=== PATIENT | female | born 1990 | race Caucasian/White ===

== ENCOUNTER 2023-03-23 12:46 | Outpatient (OUT) | payer BC, SELFPAY ==
--- NOTE | 2023-03-23 12:47 | US_ITS ---
[address] [address] Patient Name: VERA CONTRERAS MRN: [id number] date: 1990 Sex: F Assigned Patient Location: US Current Patient Location: US Accession/Order Number: [id number] Exam Date: 03/23/2023 12:48 Report Date: 03/23/2023 15:29 At the request of: KRISTIAN MARIN Procedure: US OB transvaginal EXAMINATION: US OB transvaginal HISTORY: MISSED MENSES COMPARISON: No relevant comparison available. FINDINGS: GESTATIONAL SAC: Present and normal appearing. YOLK SAC: Present and normal appearing. POLE: Present and normal appearing. CARDIAC: Present. UTERUS: Normal size and appearance. OVARIES: Right: Not seen. Left: Not seen. CERVIX: 5.0 cm in length and closed. CUL-DE-SAC: Normal. OTHER: None. AGE BY LMP: 9 weeks 0 days ROSY BY LMP: 10/26/2023 AGE BY US CRL: 9 weeks 2 days ROSY BY US CRL: 10/24/2023 US/US OB transvaginal IMPRESSION: 1. Single live intrauterine . Electronically authenticated by: KODY FRANK Date: 03/23/2023 15:29
== END 2023-03-23 12:47 | disposition home or self-care (01) ==
LOC: US 12:46
PROVIDERS: Visit Provider Obstetrics & Gynecology
DX: Z34.91 Encounter for supervision of normal pregnancy, unspecified, first trimester (principal); Z3A.09 9 weeks gestation of pregnancy
CPT/HCPCS: 76817

== ENCOUNTER 2023-03-30 12:16 | Outpatient (OUT) | payer BC, SELFPAY ==
[2023-03-30 13:08] LABS: Estimated Average Glucose 123 mg/dL; Glycohemoglobin A1C 5.9 % (4.5-6.2)
[2023-03-30 13:12] LABS: Basophils Absolute Auto 0.1 10^3/uL (0.0-0.1); Basophils Percent Auto 0.4 % (0.2-2.0); Eosinophils Absolute Auto 0.1 10^3/uL (0.0-0.7); Eosinophils Percent Auto 0.6 % (0.9-7.0); Hematocrit 35.3 % (36.0-48.0); Hemoglobin 11.7 g/dL (12.0-16.0); Immature Granulocytes Abs Auto 0.02 10^3/uL (0.00-0.03); Immature Granulocytes Pct Auto 0.2 % (0.0-0.5); Lymphocytes Absolute Auto 2.4 10^3/uL (1.2-3.8); Lymphocytes Percent Auto 21.3 % (20.5-60.0); Mean Corpuscular HGB Conc 33.1 g/dL (29.9-35.2); Mean Corpuscular Hemoglobin 28.7 pg (26.7-34.0); Mean Corpuscular Volume 86.5 fL (81.0-99.0); Mean Platelet Volume 9.7 fL (9.5-13.5); Monocytes Absolute Auto 0.7 10^3/uL (0.3-0.8); Monocytes Percent Auto 6.3 % (1.7-12.0); Neutrophils Absolute Auto 7.9 10^3/uL (1.4-6.5); Neutrophils Percent Auto 71.2 % (43.0-75.0); Platelet Count 402 10^3/uL (150-450); Red Blood Count 4.08 10^6/uL (4.20-5.40); Red Cell Distribution Width 13.1 % (11.0-15.0); White Blood Count 11.2 10^3/uL (4.0-11.0)
[2023-03-30 13:41] LABS: BOX Test Sent Out Y
[2023-03-31 06:09] LABS: HBsAg Screen Negative (Negative); HCV Ab Non Reactive (Non Reactive); HIV Ab/p24 Ag Screen Non Reactive (Non Reactive); Rubella Antibodies, IgG 2.62 index (Immune >0.99)
[2023-03-31 12:09] LABS: Rapid Plasma Reagin, Quant Non Reactive titer (NonRea<1:1)
== END 2023-03-30 12:17 | disposition home or self-care (01) ==
PROVIDERS: PCP Family Medicine; Visit Provider Obstetrics & Gynecology
DX: N92.6 Irregular menstruation, unspecified (principal); Z36.0 Encounter for antenatal screening for chromosomal anomalies
CPT/HCPCS: 36415; 83036; 84443; 85025; 86592; 86762; 86803; 86850; 86900; 86901; 87086; 87340; 87389

== ENCOUNTER 2023-05-23 08:59 | Outpatient (OUT) | payer BC, SELFPAY ==
--- OUTSIDE RECORDS SUMMARY | 2023-05-23 09:02 | XMS_ITS | CCD ---
Author Name Unknown Address [address] [place] [address] Organization [facility] Care Team Providers Care Outside Property Agent Name Role Phone REQUEST, DR NONE LISTED Primary Care Unavaila katarzyna MARIN, DR TOWNSEND Consulting Unavailable TOMAS, DR TOWNSEND Attending Unavailable TOMAS, DR TOWNSEND Admitting Unavailable Linda Keith Unavailable Norris Ames Jr. Unavailable [phone] Norris Ames Unavailable Kamilah Nance Unavailable KRISTIAN MARIN Attending Unavailable Medications Current Medications Medication Drug Class(es) Dates Sig (Normalized) Sig (Original) 3 ML semaglutide 1.34 MG/ML Pen Injector [Ozempic] (3 sources) Start: 04-30-2021 inject 1 mg by subcutaneous injection every week Ozempic (1 MG/DOSE) 4 MG/3ML 1 mg as directed Subcutaneous weekly for 30 days Apr, Active [id number] 200 actuat albuterol 0.09 mg/actuat metered dose inhaler (1 source) beta2-Adrenergic Agonist Start: 04-10-2022 take 2 puff(s) by inhalation every four hours as needed Albuterol Sulfate HFA 108 (90 Base) MCG/ACT 2 puffs as needed Inhalation every 4 hrs Mar, Active ibuprofen 800 mg oral tablet (1 source) Nonsteroidal Anti-inflammatory Drug take 1 tablet by mouth every eight hours at mealtime as needed Ibuprofen 800 MG 1 tablet with food or milk as needed Orally every 8 hrs prn only Active 24 hr metFORMIN hydrochloride 500 mg extended release oral tablet (7 sources) Biguanide take 4 tablets by mouth every twenty-four hours metFORMIN HCl ER 500 MG 4 tablets p.o. qd Active take 3 tablets by mo [facility] once daily, then take 4 tablets by mouth once daily at mealtime metFORMIN HCl ER 500 MG TAKE 3 TABLETS B Y MOUTH DAILY FOR 2 WEEKS AND IF NO SIDE EFFECTS GO TO 4 TABLETS DAILY WITH A MEAL for 30 Active methylPREDNISolone 4 mg oral tablet (1 source) Corticosteroid Start: 04-10-2022 methylPREDNISolone 4 MG as directed Orally Once a day for 6 days Mar, Active phentermine hydrochloride 37.5 mg oral tablet (2 sources) Sympathomimetic Amine Anorectic Start: 10-08-2020 take 1 tablet by mouth every twenty-fou r hours Phentermine HCl 37.5 MG 1 tablet Orally Once a day for 24 days Sep, Active 0.25 mg, 0.5 mg dose 1.5 ml semaglutide 1.34 mg/ml pen injector (4 sources) Start: 01-12-2021 Ozempic (0.25 or 0.5 MG/DOSE) 2 MG/1.5ML 0.25 mg for one month and then increase to 0.5 mg dose Subcutaneous weekly for 30 days Dec, Active 24 hr venlafaxine 150 mg extended release oral capsule (8 sources) Serotonin and Norepinephrine Reuptake Inhibitor take 1 capsule by mouth every twenty-fou r hours Effexor XR 150 MG 1 capsule with food Orally Once a day Active Vitamin B12 TR 1000 MCG (5 sources) Start: 02-25-2021 take 1 tablet by mouth once daily Vitamin B12 TR 1000 MCG 1 tablet Orally Once a day Feb, Active Start: 02-25-2021 take 1 tablet by mouth once da cam Vitamin B12 TR 1000 MCG 1 tablet Orally Once a day for 30 day(s) Feb, Active Problems Active Problems Problem Classification Problem Date Documented Da te Episodic/Chronic Anxiety disorders (10 sources) Mixed anxiety and depressive disorder; Translations: [Other specified anxiety disorders] Onset: 1 Resolved: 2 Chronic Chronic obstructive pulmonary disease and bronchiectasis (1 source) Bronchitis, not specified as acute or chronic Episodic Disorders of lipid metabolism (10 sources) Mixed hyperlipidemia; Translations: [Mixed hyperlipidemia] Onset: 1 Resolved: 2 Chronic Esophageal disorders (5 sources) Gastroesophageal reflux disease; Translations: [Gastro-esophageal reflux disease without esophagitis] Onset: 2 Resolved: 2 Chronic Immunizations and screening for infectious disease (2 sources) Encounter for screening for human papillomavirus (HPV); Translations: [Contact with and (suspected) exposure to other viral communicable diseases] Onset: 1 Episodic Influenza (1 source) Influenza due to other identified influenza virus with other respiratory manifestations Episodic Other endocrine disorders (8 sources) Polycystic ovaries; Translations: [Polycystic ovarian syndrome] Chronic Other endocrine disorders (2 sources) Polycystic ovarian syndrome Onset: 1 Resolved: 2 Chronic Other gastrointestinal disorders (8 sources) Constipation; Translations: [Constipation, unspecified] Episodic Other nutritional; endocrine; and metabolic disorders (16 sources) Body mass index 40+ - severely obese; Translations: [Body mass index (BMI) 40.0-44.9, adult] Chronic Other nutritional; endocrine; and metabolic disorders (8 sources) Obesity; Translations: [Obesity, unspecified] Chronic Other nutritional; endocrine; and metabolic disorders (8 sources) Insulin resistance; Translations: [Metabolic syndrome] Chronic Other nutritional; endocrine; and metabolic disorders (2 sources) Obesity, unspecified; Translations: [Obesity, unspecified classification, unspecified obesity type, unspecified whether serious comorbidity present E66.9] Onset: 1 Resolved: 1 Chronic Other nutritional; endocrine; and metabolic disorders (4 sources) Body mass index (BMI) 40.0-44.9, adult; Translations: [BMI 40.0-44.9, adult Z68.41] Onset: 1 Resolved: 2 Chronic Other screening for suspected conditions (not mental disorders or infectious disease) (4 sources) Encounter for screening for malignant neoplasm of cervix; Translations: [ENC SCREENING MALIG NEOPLASM CERV] Onset: 1 Episodic Other upper respiratory infections (1 source) Acute pharyngitis, unspecified Episodic Past or Other Problems Problem Classification Problem Date Documented Da te Episodic/Chronic Diabetes mellitus without complication (2 sources) Prediabetes Onset: 02-25-2021 Resolved: 04-30-2021 Episodic Nutritional deficiencies (2 sources) Deficiency of other specified B group vitamins Onset: 02-25-2021 Resolved: 04-30-2021 Episodic Viral infection (1 source) COVID-19 Results Test Name Value Interpretation Reference Range Facility COVID + FLU Quick Testingon 04-10-2022 SARS-CoV-2 (COVID-19) RNA NANCY+probe Ql (Unsp spec) Positive [facility] [employer] Other COVID + FLU Quick Testing Positive [facility] Other Quick Strepon 04-10-2022 S. pyogenes Org specific cx Ql (Throat) Negative [facility] [employer] Other Quick Strep [facility] [employer] Other A1C with Estimated Average G luon 04-28-2021 Glucose [Mass/Vol] 108 mg/dL Normal [facility] Comment on above: Order Comment: Reaso n for Exam Prediabetes Result Comment: PERF ORMED BY: [place] [address] PATHOLOGIST CUFF SETTER THEO CHU M.D. Performed By: #### A 1C WTH eA, LIPID, GLU, B12 #### [facility] [address] [place] [address] HbA1c (Bld) [Mass fraction] 5.4 % Normal 4.3-5.6 [facility] Comment on above: Order Comment: Reaso n for Exam Prediabetes Result Comment: Incr eased risk for diabetes: 5.7 - 6.4 diabetes: >6.4 glycemic control for adults with diabetes: <7.0 Performed By: #### A 1C WTH eA, LIPID, GLU, B12 #### [facility] [address] [place] [address] Glucoseon 04-28-2021 Glucose [Mass/Vol] 97 mg/dL Normal 70-100 [facility] Comment on above: Order Comment: Reaso n for Exam Prediabetes Reason for Exam Mixed hyperlipidemia Reason for Exam Low vitamin B12 level Result Comment: [place] Glucose Reference Range is dependent on time and content of last meal. Glucose of more than 200 mg/dL in a nonstressed, ambulatory subject supports the diagnosis of Diabetes Mellitus. ADA recommended reference range Performed By: #### A 1C WTH eA, LIPID, GLU, B12 #### [facility] [address] [place] [address] [place] Lipid Panelon 04-28-2021 Cholesterol [Mass/Vol] 171 mg/dL Normal 140-200 [facility] Comment on above: Order Comment: Reaso n for Exam Prediabetes Reason for Exam Mixed hyperlipidemia Reason for Exam Low vitamin B12 level Result Comment: Chol less than 200 mg/dl low risk Chol 201-239 mg/dl borderline risk Chol 240 mg/dl and greater high risk Performed By: #### A 1C WTH eA, LIPID, GLU, B12 #### [facility] [address] [place] [id number] [place] Cholesterol in HDL [Mass/Vol] 41 mg/dL Normal 35-85 [facility] Comment on above: Order Comment: Reaso n for Exam Prediabetes Reason for Exam Mixed hyperlipidemia Reason for Exam Low vitamin B12 level Result Comment: HDL CHOL ATP-III CLASSIFICATION Cardiovascular Risk HDL > or equal to 60 mg/dL LOW HDL < 40 mg/dL HIGH Performed By: #### A 1C WTH eA, LIPID, GLU, B12 #### [facility] [address] [place] [id number] [place] Cholesterol.total/ Cholesterol in HDL [Mass ratio] 4.2 {ratio} Normal <5.0 [facility] Comment on above: Order Comment: Reaso n for Exam Prediabetes Reason for Exam Mixed hyperlipidemia Reason for Exam Low vitamin B12 level Performed By: #### A 1C WTH eA, LIPID, GLU, B12 #### [facility] [address] [place] [id number] [place] LDL Cholesterol,Calcul ated 95 mg/dL Normal 0-100 [facility] Comment on above: Order Comment: Reaso n for Exam Prediabetes Reason for Exam Mixed hyperlipidemia Reason for Exam Low vitamin B12 level Result Comment: LDL ATP III CLASSIFICATION LDL less than 100 mg/dL Optimal LDL 100-129 mg/dL Near or above optimal LDL 130-159 mg/dL Borderline high LDL 160-189 mg/dL High LDL greater than 189 mg/dL Very high Performed By: #### A 1C WTH eA, LIPID, GLU, B12 #### [facility] [address] [place] [id number] [place] Triglyceride w/Reflex 176 mg/dL High 35-149 [facility] Comment on above: Order Comment: Reaso n for Exam Prediabetes Reason for Exam Mixed hyperlipidemia Reason for Exam Low vitamin B12 level Result Comment: TRIG ATP III CLASSIFICATION TRIG less than 150 mg/dL Normal TRIG 150-199 mg/dL Borderline high TRIG 200-500 mg/dL High TRIG greater than 500 mg/dL Very high Standard traceable to the Center for Disease Conrtrol and Prevention (CDC) test method. Performed By: #### A 1C WTH eA, LIPID, GLU, B12 #### [facility] [address] VLDL CHOLESTEROL 35 mg/dL Normal [facility] Comment on above: Order Comment: Reaso n for Exam Prediabetes Reason for Exam Mixed hyperlipidemia Reason for Exam Low vitamin B12 level Performed By: #### A 1C WTH eA, LIPID, GLU, B12 #### [facility] [address] Vitamin B12on 04-28-2021 Cobalamin (Vitamin B12) [Mass/Vol] 633 pg/mL Normal 180-914 [facility] Comment on above: Order Comment: Reaso n for Exam Prediabetes Reason for Exam Mixed hyperlipidemia Reason for Exam Low vitamin B12 level Result Comment: PERF ORMED BY: [place] [address] PATHOLOGIST CUFF SETTER THEO CHU M.D. Performed By: #### A 1C WT eA, LIPID, GLU, B12 #### [facility] [address] [place] [address] PAP ACOG PANEL 2: 30 to 65on 03-16-2021 . . Normal [facility] Comment on above: Result Comment: Perf ormed at: WB Performed By: #### [id number] #### [facility] [address] [place] [address] [address] Tete Peters Age Gdln ACOG Testing 30-65 [facility] Comment on above: Performed By: #### [id number] #### [facility] [address] [address] [address] Tete Peters DIAGNOSIS: Comment Normal [facility] Comment on above: Result Comment: NEGA TIVE FOR INTRAEPITHELIAL LESION OR MALIGNANCY. THIS SPECIMEN WAS RESCREENED PART OF OUR SUPERVISOR PREP PROGRAM. Performed at: WB Performed By: #### [id number] #### [facility] [address] [place] [address] Dr. Tete Peters HPV Aptima Negative Normal Negative [facility] Comment on above: Result Comment: This nucleic acid amplification test detects fourteen high-risk HPV types (16,18,31,33,35,39,45,51,52,56,58,59,66,68) without differentiation. Performed at: =G Performed By: #### [id number] #### [facility] [address] [place] [address] Dr. Tete Peters Methodology: Comment Normal [facility] Comment on above: Result Comment: This liquid based ThinPrep(R) pap test was screened with the use of an image guided system. Performed at: WB Performed By: #### [id number] #### [facility] [address] [place] [address] Dr. Tete Peters Note: Comment Normal [facility] Comment on above: Result Comment: The Pap smear is a screening test designed to aid in the detection of premalignant and malignant conditions of the uterine cervix. It is not a diagnostic procedure and should not be used as the sole means of detecting cervical cancer. Both false-positive and false-negative reports do occur. . Performed at: WB Performed By: #### [id number] #### [facility] [address] [place] [address] Dr. Tete Peters Performed by: Comment Normal [facility] Comment on above: Result Comment: Luisa Ross, Skidway Worker (ASCP) Performed at: WB Performed By: #### [id number] #### [facility] [address] [place] [address] Dr. Tete Peters QC reviewed by: Comment Normal [facility] Comment on above: Result Comment: Monika Ortiz, Supervisory Skidway Worker (ASCP) Performed at: WB Performed By: #### [id number] #### [facility] [address] [place] [address] Dr. Tete Peters Specimen adequacy: Comment Normal [facility] Comment on above: Result Comment: Sati sfactory for evaluation. Endocervical and/or squamous metaplastic cells (endocervical component) are present. Performed at: WB Performed By: #### [id number] #### [facility] [address] [address] [address] Tete Peters Vitamin B12on 01-12-2021 Cobalamin (Vitamin B12) [Mass/Vol] 297 pg/mL Normal 180-914 [facility] Comment on above: Order Comment: Reaso n for Exam Prediabetes Result Comment: PERF ORMED BY: [place] [address] PATHOLOGIST CUFF SETTER THEO CHU M.D. Performed By: #### B 12 #### [address] FILM OR VIDEOTAPE EDITOR polysom portableon 11-16 FILM OR VIDEOTAPE EDITOR polysom portable [facility] Main [place] [address] [place] [address] Sleep Lab Report Signed Patient: Marina Contreras MR#: [id number] : 1990 Acct:[id number] Age/Sex: 30 / F ADM Date: 11/09/20 Loc: Room: Type: [facility] Attending Dr: Anne Marie Mejía MD Ordering Provider: Norris Ames MD Date of Service: 11/09/20 Copies to: MD Anne Marie Chacon MD Marc Naderer, MD A home sleep study was done on this 30-year-old female who was referred to the sleep laboratory by primary care physician due to her report of snoring, sleep disruption, fatigue and sleepiness during the day. Patient is overweight with a BMI of 44. PROCEDURE: Home sleep testing was done in the usual manner. A home sleep test was performed utilizing the [employer] Nox T3 system. Parameters recorded include actigraphy, body position, oxygen saturations, heart rate, snoring via microphone, and respiratory events on the basis of measurements of airflow/flow limitation, as well as respiratory impedance plethysmography. Respiratory events were scored as apneas with decreases of airflow of at least 90% baseline with durations of at least 10 seconds while events were scored as hypopneas with decreases of airflow of at least 30% and up to 90% of baseline with durations of at least 10 seconds, followed by desaturations of at least 4%. RECORDING INFORMATION: The patient had a total of 7 hours of recording duration. Study started at 11:30 p.m. and ended at 6:30 a.m. Time in bed was 5 hours and 6 minutes. RESPIRATORY INDICES: During the study, patient had 3 obstructive apneas, 1 central apnea, and 27 hypopneas. Apnea-hypopnea index was 6.1 per hour. Supine AHI was 10.8 per hour. These events were associated with mild oxygen desaturations. Minimum oxygen saturation was 87%. Average oxygen saturation was 94%. Position monitoring showed patient being in the supine time for only 9.3% of recording time, was upright for 27% of the recording time. OVERALL IMPRESSION: This study is consistent with mild obstructive sleep apnea associated with mild hypoxia. RECOMMENDATIONS: Appropriate weight reduction is strongly recommended, trial of CPAP therapy is also recommended given her clinical symptoms and presentation. This can be done following titration study or with automated settings and close monitoring after that. Transcribed By: GERDA 11/17/20 1309 Dictated By: Anne Marie Mejía MD 11/16/20 1542 Signed By: 11/18/20 0812 [facility] Vital Signs Date Time Vital Sign Value Performing Clinician Facility 04-10-2022 14:00-0500 Body height 157.48 cm Kamilah Nance Other [facility] Other 04-10-2022 14:00-0500 Body mass index (BMI) [Ratio] 44.92 kg/m2 Kamilah Nance Other [facility] Other 04-10-2022 14:00-0500 Body temperature 99.5 [degF] Kamilah Nance Other [facility] Other 04-10-2022 14:00-0500 Body weight 111.4 kg Kamilah Nance Other [facility] Other 04-10-2022 14:00-0500 Diastolic blood pressure 68 mm[Hg] Kamilah Nance Other [facility] Other 04-10-2022 14:00-0500 Respiratory rate 18 /min Kamilah Nance Other [facility] Other 04-10-2022 14:00-0500 SaO2% (BldA) [Mass fraction] 95 % Kamilah Nance Other [facility] Other 04-10-2022 14:00-0500 Systolic blood pressure 116 mm[Hg] Kamilah Nance Other [facility] Other 04-30-2021 10:45-0500 Body height 157.48 cm Norris Byrnediff Other [facility] Other 04-30-2021 10:45-0500 Body mass index (BMI) [Ratio] 41.72 kg/m2 Norris Byrnediff Other [facility] Other 04-30-2021 10:45-0500 Body weight 103.47 kg Norris Kwaku Other [facility] Other 04-30-2021 10:45-0500 Diastolic blood pressure 75 mm[Hg] Norris Kwaku Other [facility] Other 04-30-2021 10:45-0500 Respiratory rate 18 /min Norris Byrnediff Other [facility] Other 04-30-2021 10:45-0500 SaO2% (BldA) [Mass fraction] 99 % Norris Byrnediff Other [facility] Other 04-30-2021 10:45-0500 Systolic blood pressure 110 mm[Hg] Norris Byrnediff Other [facility] Other 03-03-2021 11:30-0500 Body height 157.48 cm Linda Fitt Other [facility] Other 03-03-2021 11:30-0500 Body mass index (BMI) [Ratio] 42.5 kg/m2 Linda Fitt Other [facility] Other 03-03-2021 11:30-0500 Body weight 105.42 kg Linda Fitt Other [facility] Other 02-25-2021 12:00-0400 Body height 157.48 cm Norris Byrnelyndsey Yan. Other [facility] Other 02-25-2021 12:00-0400 Body mass index (BMI) [Ratio] 41.92 kg/m2 Norris Byrnelyndsey Yan. Other [facility] Other 02-25-2021 12:00-0400 Body weight 103.97 kg Norris Kwaku Jr. Other [facility] Other 02-25-2021 12:00-0400 Diastolic blood pressure 79 mm[Hg] Norris Ames Jr. Other [facility] Other 02-25-2021 12:00-0400 Respiratory rate 18 /min Norris Ames Jr. Other [facility] Other 02-25-2021 12:00-0400 SaO2% (BldA) [Mass fraction] 97 % Norris Ames Jr. Other [facility] Other 02-25-2021 12:00-0400 Systolic blood pressure 118 mm[Hg] Norris Ames Jr. Other [facility] Other 01-20-2021 10:00-0400 Body height 157.48 cm Linda Swidjit Other [facility] Other 01-20-2021 10:00-0400 Body mass index (BMI) [Ratio] 42.68 kg/m2 Linda Fitt Other [facility] Other 01-20-2021 10:00-0400 Body weight 105.87 kg Linda Agentekt Other [facility] Other Encounters Encounter Date Encounter Type Care Provider Facility Start: 05-01-2023 End: 05-01-2023 ambulatory KRISTIAN TOMAS Not Available Start: 03-23-2023 End: 03-23-2023 ambulatory KRISTIAN TOMAS Not Available Start: 04-10-2022 End: 04-10-2022 ambulatory Kamilah Nance Other [facility] Other Start: 04-10-2022 Office outpatient visit 15 minutes Kamilah Nance [facility] Start: 05-26-2021 End: 05-26-2021 ambulatory Norris Ames Other [facility] Other Start: 05-26-2021 Telephone encounter Norris [facility] Start: 04-30-2021 End: 04-30-2021 ambulatory Norris Ames Other [facility] Other Start: 04-30-2021 Follow-up encounter Norris queen [facility] Start: 04-13-2021 End: 04-13-2021 ambulatory Linda Keith Other [facility] Other Start: 04-13-2021 Telephone encounter Linda Messina [facility] Start: 03-09-2021 End: 03-09-[address] NONE LISTED REQUEST Facility: Start: 03-03-2021 ([facility] FU) [facility] F/ U Registerd Director Data Processingsonja Keith [facility] Start: 03-03-2021 End: 03-03-2021 ambulatory Linda Keith Other [facility] Other Start: 02-25-2021 End: 02-25-2021 ambulatory Norris Ames Jr. Other [facility] Other Start: 02-25-2021 Follow-up encounter Norris howard [facility] Start: 02-04-2021 Telephone encounter Norris howard [facility] Start: 01-20-2021 ([facility] FU) [facility] F/ U Registerd Director Data Processingsonja Keith [facility] Payers Date Payer Category Payer [facility] [id number] 1990 Unknown [id number] 1990 Unknown [id number] 1990 Unknown [id number] 1960 Private Health Insurance [id number] Social History Date Type Detail Facility Unknown if ever smoked [facility] Other Sex Assigned At Sex Assigned At Bir th [facility] Other Evaluation note 04-10-2022 Note Date & Type Note Facility 04-10-2022 Evaluation note Encounter Date Diagnosis Assessment Notes Mar, COVID-19 (ICD-10 - U07.1) Today you tested positive for the COVID virus. This mean you need to follow all CDC quarantine guidelines found at coronavirus.oh io.gov. It is important to rest, increase fluids, and stay at home. Recommend contacting primary care provider and discussing best course of action if you have chronic health conditions. COVID POSITIVE education handout discharge instructions. given. Mar, Bronchitis (ICD-10 - J40) Take medications as directed. Rest and increase fluid intake. Take meds with food to prevent stomach upset. Use inhaler as needed for coughing spells and SOB. It is better to use inhaler a few times a day over the next 2-3 days. Follow up with primary care provider if symptoms do not improve with treatment plan, although it may take a few weeks for the cough to go away Mar, Exposure to COVID-19 virus (ICD-10 - Z20.828) Mar, Sore throat (ICD-10 - J02.9) Mar, Influenza A (ICD-10 - J10.1) Symptoms presented today are related to the Flu. May use OTC medications such as Mucinex DM, Flu meds, etc. Kids can use Dimatapp or Delsym. Continue tylenol/ibu for general discomfort. Encourage fluids. Antibiotics will not treat the flu. Symptoms should improve within the next 4-7 days. [facility] Other Evaluation note 04-30-2021 Note Date & Type Note Facility 04-30-2021 Evaluation note Encounter Date Diagnosis Assessment Notes Apr, Body mass index (BMI) of 40.0-44.9 in adult (ICD-10 - Z68.41) Apr, Prediabetes (ICD-10 - R73.03) Apr, GERD (gastroesophageal reflux disease) (ICD-10 - K21.9) Apr, Mixed hyperlipidemia (ICD-10 - E78.2) Apr, PCOS (polycystic ovarian syndrome) (ICD-10 - E28.2) Apr, Depression with anxiety (ICD-10 - F41.8) Apr, Low vitamin B12 level (ICD-10 - E53.8) [facility] Other Evaluation note 03-03-2021 Note Date & Type Note Facility 03-03-2021 Evaluation note Encounter Date Diagnosis Assessment Notes Feb, Obesity, unspecified classification , unspecified obesity type, unspecified whether serious comorbidity present (ICD-10 - E66.9) Feb, BMI 40.0-44.9, adult (ICD-10 - Z68.41) Feb, Other Summary of Visit: (A) Allow for flexibility and forgiveness with nutritional goals (B) Discussed eating during the holidays (C) Answered general, nutrition-rela madelin questions [facility] Other Evaluation note 02-25-2021 Note Date & Type Note Facility 02-25-2021 Evaluation note Encounter Date Diagnosis Assessment Notes Feb, Body mass index (BMI) of 40.0-44.9 in adult (ICD-10 - Z68.41) Feb, Prediabetes (ICD-10 - R73.03) Feb, PCOS (polycystic ovarian syndrome) (ICD-10 - E28.2) Feb, Mixed hyperlipidemia (ICD-10 - E78.2) Feb, Depression with anxiety (ICD-10 - F41.8) Feb, Low vitamin B12 level (ICD-10 - E53.8) [facility] Other Evaluation note 01-20-2021 Note Date & Type Note Facility 01-20-2021 Evaluation note Encounter Date Diagnosis Assessment Notes Dec, Obesity, unspecified classification, unspecified obesity type, unspecified whether serious comorbidity present (ICD-10 - E66.9) Dec, BMI 40.0-44.9, adult (ICD-10 - Z68.41) Dec, Other Summary of Visit: (A) Emphasized 1/2 plate veggies with every meal (B) Discussed easy, healthy cooking methods (C) Answered general nutrition-rel ated questions [facility] Other Evaluation note Note Date & Type Note Facility Evaluation note No Information [employer] Other History general Narrative - Reported Note Date & Type Note Facility History general Narrative - Reported Type Medical History depression Medical History anxiety Medical History PCOS Medical History Panic attacks Medical History Insulin resistance Medical History migraine headache Medical History back pain Surgical History C section, X2 Surgical History appendectomy Hospitalization History see above [facility] Other Summary Purpose Family History No Family History Records FoundNo Family History Records FoundNo Family History Records Found Advance Directives No Advanced Directives Records FoundNo Advanced Directives Records FoundNo Advanced Directives Records Found Additional Source Comments INFORMATION SOURCE (unrecogn ized section and content) DATE CREATED AUTHOR 03/17/2021 [facility] DATE CREATED AUTHOR AUTHOR'S ORGANIZ ATION 10/28/2021 [facility] DATE CREATED AUTHOR AUTHOR'S ORGANIZ ATION 05/02/2023 [facility] d[facility] Specialists EPIC REASON FOR VISIT (unrecogniz ed section and content) CONGEST[facility] not [facility] our services [facility]/28[facility] N/S 04/13/2021, LM WM f/uWMN Dr Steele/DAGOBERTO EX FOR RECORDS PERTAINING TO PATIENTS WHO ARE OR HAVE BEEN ENROLLED IN A CHEMICAL DEPENDENCY/SUBSTANCEABUSE PROGRAM, SOME INFORMATION MAY BE OMITTED. This clinical summary was aggregated from multiple sources. Caution should be exercised in using it in the provision of clinical care. This summary normalizes information from multiple sources, and as a consequence, information in this document may materially change the coding, format and clinical context of patient data. In addition, data may be omitted in some cases. CLINICAL DECISIONS SHOULD BE BASED ON THE PRIMARY CLINICAL RECORDS. [employer] provides no warranty or guarantee of the accuracy or completeness of information in this document.
[2023-05-23 09:45] LABS: Glucose Fasting 100 mg/dL (74-106)
[2023-05-23 10:34] LABS: Glucose 1 Hour 191 mg/dL
[2023-05-23 11:44] LABS: Glucose 2 Hour 154 mg/dL (<155)
[2023-05-23 13:27] LABS: Glucose 3 Hour 136 mg/dL (<140)
== END 2023-05-23 09:00 | disposition home or self-care (01) ==
LOC: LAB 08:59
PROVIDERS: PCP Family Medicine; Visit Provider Obstetrics & Gynecology
DX: R73.09 Other abnormal glucose (principal)
CPT/HCPCS: 36415; 82951; 82952

== ENCOUNTER 2023-05-30 22:02 | Outpatient (REF) | payer BC, SELFPAY ==
--- OUTSIDE RECORDS SUMMARY | 2023-05-30 22:05 | XMS_ITS | CCD ---
Author Name Unknown Address [address] [place] [address] Organization [facility] Care Team Providers Care Film Flat Inspector Name Role Phone REQUEST, DR NONE LISTED Primary Care Unavaila katarzyna MARIN, DR TOWNSEND Consulting Unavailable TOMAS, DR TOWNSEND Attending Unavailable TOMAS, DR TOWNSEND Admitting Unavailable Linda Keith Unavailable Norris Ames Jr. Unavailable Norris Ames Unavailable Kamilah Nance Unavailable KRISTIAN MARIN Attending Unavailable Medications Current Medications Medication Drug Class(es) Dates Sig (Normalized) Sig (Original) 3 ML semaglutide 1.34 MG/ML Pen Injector [Ozempic] (3 sources) Start: 04-30-2021 inject 1 mg by subcutaneous injection every week Ozempic (1 MG/DOSE) 4 MG/3ML 1 mg as directed Subcutaneous weekly for 30 days Apr, Active [id number] actuat albuterol 0.09 mg/actuat metered dose [...] qd Active take 3 tablets by mo [facility] once daily, then take 4 [...] (COVID-19) RNA NANCY+probe Ql (Unsp spec) Positive [facility] [employer] Other COVID + FLU Quick Testing Positive [facility] Other Quick Strepon 04-10-2022 S. pyogenes Org specific cx Ql (Throat) Negative [facility] [employer] Other Quick Strep [facility] [employer] Other A1C with Estimated Average G luon 04-28-2021 Glucose [Mass/Vol] 108 mg/dL Normal [facility] Comment on above: Order Comment: Reaso n for Exam Prediabetes Result Comment: PERF ORMED BY: [place] [address] PATHOLOGIST SOIL AND PLANT SCIENTIST THEO CHU M.D. Performed By: #### A 1C WTH eA, LIPID, GLU, B12 #### [facility] [address] [place] [address] HbA1c (Bld) [Mass fraction] 5.4 % Normal 4.3-5.6 [facility] Comment on above: Order Comment: Reaso n for Exam Prediabetes Result Comment: Incr eased risk for diabetes: 5.7 - 6.4 diabetes: >6.4 glycemic control for adults with diabetes: <7.0 Performed By: #### A 1C WTH eA, LIPID, GLU, B12 #### [facility] [address] [place] [address] Glucoseon 04-28-2021 Glucose [Mass/Vol] 97 mg/dL Normal 70-100 [facility] Comment on above: Order Comment: Reaso n for Exam Prediabetes Reason for Exam Mixed hyperlipidemia Reason for Exam Low vitamin B12 level Result Comment: Ferdinand Glucose Reference Range is dependent on time and content of last meal. Glucose of more than 200 mg/dL in a nonstressed, ambulatory subject supports the diagnosis of Diabetes Mellitus. ADA recommended reference range Performed By: #### A 1C WTH eA, LIPID, GLU, B12 #### [facility] [address] [place] [address] [place] Lipid Panelon 04-28-2021 Cholesterol [Mass/Vol] 171 mg/dL Normal 140-200 [facility] Comment on above: Order Comment: Reaso n for Exam Prediabetes Reason for Exam Mixed hyperlipidemia Reason for Exam Low vitamin B12 level Result Comment: Chol less than 200 mg/dl low risk Chol 201-239 mg/dl borderline risk Chol 240 mg/dl and greater high risk Performed By: #### A 1C WTH eA, LIPID, GLU, B12 #### [facility] [address] [place] [id number] [place] Cholesterol in HDL [Mass/Vol] 41 mg/dL Normal 35-85 [facility] Comment on above: Order Comment: Reaso n for Exam Prediabetes Reason for Exam Mixed hyperlipidemia Reason for Exam Low vitamin B12 level Result Comment: HDL CHOL ATP-III CLASSIFICATION Cardiovascular Risk HDL > or equal to 60 mg/dL LOW HDL < 40 mg/dL HIGH Performed By: #### A 1C WTH eA, LIPID, GLU, B12 #### [facility] [address] [place] [id number] [place] Cholesterol.total/ Cholesterol in HDL [Mass ratio] 4.2 {ratio} Normal <5.0 [facility] Comment on above: Order Comment: Reaso n for Exam Prediabetes Reason for Exam Mixed hyperlipidemia Reason for Exam Low vitamin B12 level Performed By: #### A 1C WTH eA, LIPID, GLU, B12 #### [facility] [address] [place] [id number] [place] LDL Cholesterol,Calcul ated 95 mg/dL Normal 0-100 [facility] Comment on above: Order Comment: Reaso [...] 1C WTH eA, LIPID, GLU, B12 #### [facility] [address] [place] [id number] [place] Triglyceride w/Reflex 176 mg/dL High 35-149 [facility] Comment on above: Order Comment: Reaso [...] 1C WTH eA, LIPID, GLU, B12 #### [facility] [address] VLDL CHOLESTEROL 35 mg/dL Normal [facility] Comment on above: Order Comment: Reaso n for Exam Prediabetes Reason for Exam Mixed hyperlipidemia Reason for Exam Low vitamin B12 level Performed By: #### A 1C WTH eA, LIPID, GLU, B12 #### [facility] [address] Vitamin B12on 04-28-2021 Cobalamin (Vitamin B12) [Mass/Vol] 633 pg/mL Normal 180-914 [facility] Comment on above: Order Comment: Reaso n for Exam Prediabetes Reason for Exam Mixed hyperlipidemia Reason for Exam Low vitamin B12 level Result Comment: PERF ORMED BY: [place] [address] PATHOLOGIST SOIL AND PLANT SCIENTIST THEO CHU M.D. Performed By: #### A 1C WT eA, LIPID, GLU, B12 #### [facility] [address] [place] [address] PAP ACOG PANEL 2: 30 to 65on 03-16-2021 . . Normal [facility] Comment on above: Result Comment: Perf ormed at: WB Performed By: #### [id number] #### [facility] [address] [address] [address] Tete Peters Age Gdln ACOG Testing 30-65 [facility] Comment on above: Performed By: #### [id number] #### [facility] [address] [address] [address] Tete Peters DIAGNOSIS: Comment Normal [facility] Comment on above: Result Comment: NEGA TIVE FOR INTRAEPITHELIAL LESION OR MALIGNANCY. THIS SPECIMEN WAS RESCREENED PART OF OUR CHECKOUT SUPERVISOR PROGRAM. Performed at: WB Performed By: #### [id number] #### [facility] [address] [place] [address] Dr. Tete Peters HPV Aptima Negative Normal Negative [facility] Comment on above: Result Comment: This nucleic acid amplification test detects fourteen high-risk HPV types (16,18,31,33,35,39,45,51,52,56,58,59,66,68) without differentiation. Performed at: =G Performed By: #### [id number] #### [facility] [address] [place] [address] Dr. Tete Peters Methodology: Comment Normal [facility] Comment on above: Result Comment: This liquid based ThinPrep(R) pap test was screened with the use of an image guided system. Performed at: WB Performed By: #### [id number] #### [facility] [address] [place] [address] Dr. Tete Peters Note: Comment Normal [facility] Comment on above: Result Comment: The Pap smear is a screening test designed to aid in the detection of premalignant and malignant conditions of the uterine cervix. It is not a diagnostic procedure and should not be used as the sole means of detecting cervical cancer. Both false-positive and false-negative reports do occur. . Performed at: WB Performed By: #### [id number] #### [facility] [address] [place] [address] Dr. Tete Peters Performed by: Comment Normal [facility] Comment on above: Result Comment: Luisa Ross, Pig Breeder (ASCP) Performed at: WB Performed By: #### [id number] #### [facility] [address] [place] [address] Dr. Tete Peters QC reviewed by: Comment Normal [facility] Comment on above: Result Comment: Monika Ortiz, Supervisory Pig Breeder (ASCP) Performed at: WB Performed By: #### [id number] #### [facility] [address] [place] [address] Dr. Tete Peters Specimen adequacy: Comment Normal [facility] Comment on above: Result Comment: Sati sfactory for evaluation. Endocervical and/or squamous metaplastic cells (endocervical component) are present. Performed at: WB Performed By: #### [id number] #### [facility] [address] [address] [address] Tete Peters Vitamin B12on 01-12-2021 Cobalamin (Vitamin B12) [Mass/Vol] 297 pg/mL Normal 180-914 [facility] Comment on above: Order Comment: Reaso n for Exam Prediabetes Result Comment: PERF ORMED BY: [place] [address] PATHOLOGIST SOIL AND PLANT SCIENTIST THEO CHU M.D. Performed By: #### B 12 #### [address] RADIOLOGY ADMINISTRATOR polysom portableon 11-16 RADIOLOGY ADMINISTRATOR polysom portable [facility] [place] [address] [place] [address] Sleep Lab Report Signed Patient: Marina Contreras MR#: [id number] : 1990 Acct:[id number] Age/Sex: 30 / F ADM Date: 11/09/20 Loc: Room: Type: [facility] Attending Dr: Anne Marie Mejía MD Ordering [...] home sleep test was performed utilizing the [employer] T3 system. Parameters recorded include actigraphy, [...] Dictated By: Anne Marie Mejía MD 11/16/20 154 Signed By: 11/18/20 0822 [facility] Vital Signs Date Time Vital Sign Value Performing Clinician Facility 04-10-2022 14:00-0500 Body height 157.48 cm Kamilah Nance Other [facility] Other 04-10-2022 14:00-0500 Body mass index (BMI) [Ratio] 44.92 kg/m2 Kamilah Nance Other [facility] Other 04-10-2022 14:00-0500 Body temperature 99.5 [degF] Kamilah Nance Other [facility] Other 04-10-2022 14:00-0500 Body weight 111.4 kg Kamilah Nance Other [facility] Other 04-10-2022 14:00-0500 Diastolic blood pressure 68 mm[Hg] Kamilah Nance Other [facility] Other 04-10-2022 14:00-0500 Respiratory rate 18 /min Kamilah Nance Other [facility] Other 04-10-2022 14:00-0500 SaO2% (BldA) [Mass fraction] 95 % Kamilah Nance Other [facility] Other 04-10-2022 14:00-0500 Systolic blood pressure 116 mm[Hg] Kamilah Nance Other [facility] Other 04-30-2021 10:45-0500 Body height 157.48 cm Norris Byrnediff Other [facility] Other 04-30-2021 10:45-0500 Body mass index (BMI) [Ratio] 41.72 kg/m2 Norris Byrnediff Other [facility] Other 04-30-2021 10:45-0500 Body weight 103.47 kg Norris Kwaku Other [facility] Other 04-30-2021 10:45-0500 Diastolic blood pressure 75 mm[Hg] Norris Kwaku Other [facility] Other 04-30-2021 10:45-0500 Respiratory rate 18 /min Norris Byrnediff Other [facility] Other 04-30-2021 10:45-0500 SaO2% (BldA) [Mass fraction] 99 % Norris Byrnediff Other [facility] Other 04-30-2021 10:45-0500 Systolic blood pressure 110 mm[Hg] Norris Byrnediff Other [facility] Other 03-03-2021 11:30-0500 Body height 157.48 cm Linda Fitt Other [facility] Other 03-03-2021 11:30-0500 Body mass index (BMI) [Ratio] 42.5 kg/m2 Linda Fitt Other [facility] Other 03-03-2021 11:30-0500 Body weight 105.42 kg Linda Fitt Other [facility] Other 02-25-2021 12:00-0400 Body height 157.48 cm Norris Byrnelyndsey Yan. Other [facility] Other 02-25-2021 12:00-0400 Body mass index (BMI) [Ratio] 41.92 kg/m2 Norris Byrnelyndsey Yan. Other [facility] Other 02-25-2021 12:00-0400 Body weight 103.97 kg Norris Kwaku Jr. Other [facility] Other 02-25-2021 12:00-0400 Diastolic blood pressure 79 mm[Hg] Norris Ames Jr. Other [facility] Other 02-25-2021 12:00-0400 Respiratory rate 18 /min Norris Ames Jr. Other [facility] Other 02-25-2021 12:00-0400 SaO2% (BldA) [Mass fraction] 97 % Norris Ames Jr. Other [facility] Other 02-25-2021 12:00-0400 Systolic blood pressure 118 mm[Hg] Norris Ames Jr. Other [facility] Other 01-20-2021 10:00-0400 Body height 157.48 cm Linda Prosensa Other [facility] Other 01-20-2021 10:00-0400 Body mass index (BMI) [Ratio] 42.68 kg/m2 Linda Fitt Other [facility] Other 01-20-2021 10:00-0400 Body weight 105.87 kg Linda Planbust Other [facility] Other Encounters Encounter Date Encounter Type Care Provider Facility Start: 05-01-2023 End: 05-01-2023 ambulatory KRISTIAN TOMAS Not Available Start: 03-23-2023 End: 03-23-2023 ambulatory KRISTIAN TOMAS Not Available Start: 04-10-2022 End: 04-10-2022 ambulatory Kamilah Nance Other [facility] Other Start: 04-10-2022 Office outpatient visit 15 minutes Kamilah Nance [facility] Start: 05-26-2021 End: 05-26-2021 ambulatory Norris Ames Other [facility] Other Start: 05-26-2021 Telephone encounter Norris [facility] Start: 04-30-2021 End: 04-30-2021 ambulatory Norris Ames Other [facility] Other Start: 04-30-2021 Follow-up encounter Norris queen [facility] Start: 04-13-2021 End: 04-13-2021 ambulatory Linda Keith Other [facility] Other Start: 04-13-2021 Telephone encounter Linda [facility] Start: 03-09-2021 End: 03-09-[address] NONE LISTED REQUEST Facility: Start: 03-03-2021 ([facility] RD FU) [facility] F/ U [employer] Managersonja Keith [facility] Start: 03-03-2021 End: 03-03-2021 ambulatory Linda Keith Other [facility] Other Start: 02-25-2021 End: 02-25-2021 ambulatory Norris Ames Jr. Other [facility] Other Start: 02-25-2021 Follow-up encounter Norris howard [facility] Start: 02-04-2021 Telephone encounter Norris howard [facility] Start: 01-20-2021 ([facility] RD FU) [facility] F/ U [employer] Managersonja Keith [facility] Payers Date Payer Category Payer [facility] [id number] 1990 Unknown [id number] 1990 Unknown [id number] 1989 Unknown [id number] 1960 Private Health Insurance [id number] Social History Date Type Detail Facility Unknown if ever smoked [facility] Other Sex Assigned At Sex Assigned At Bir th [facility] Other Evaluation note 04-10-2022 Note Date & [...] should improve within the next 4-7 days. [facility] Other Evaluation note 04-30-2021 Note Date & [...] Low vitamin B12 level (ICD-10 - E53.8) [facility] Other Evaluation note 03-03-2021 Note Date & [...] holidays (C) Answered general, nutrition-rela madelin questions [facility] Other Evaluation note 02-25-2021 Note Date & [...] Low vitamin B12 level (ICD-10 - E53.8) [facility] Other Evaluation note 01-20-2021 Note Date & [...] methods (C) Answered general nutrition-rel ated questions [facility] Other Evaluation note Note Date & Type Note Facility Evaluation note No Information [employer] Other History general Narrative - Reported Note Date & Type Note Facility History general Narrative - Reported Type Medical History depression Medical History anxiety Medical History PCOS Medical History Panic attacks Medical History Insulin resistance Medical History migraine headache Medical History back pain Surgical History C section, X2 Surgical History appendectomy Hospitalization History see above [facility] Other Summary Purpose Family History No Family History Records FoundNo Family History Records FoundNo Family History Records Found Advance Directives No Advanced Directives Records FoundNo Advanced Directives Records FoundNo Advanced Directives Records Found Additional Source Comments INFORMATION SOURCE (unrecogn ized section and content) DATE CREATED AUTHOR [facility]/17/2021 [facility] DATE CREATED AUTHOR AUTHOR'S ORGANIZ ATION 10/28/2021 [facility] DATE CREATED AUTHOR AUTHOR'S ORGANIZ ATION 05/02/2023 [facility] dical Specialists EPIC REASON FOR VISIT (unrecogniz ed section and content) CON[facility]ST[facility] B[facility] 06/28/[facility] N/S 04/13/2021, LM WM f/uWMN Dr [...] BE BASED ON THE PRIMARY CLINICAL RECORDS. [employer] provides no warranty or guarantee of the accuracy or completeness of information in this document.
[2023-06-03 12:12] LABS: Age Gdln ACOG Testing Note (.); HPV Aptima Negative (Negative); IGP, Aptima HPV, rfx 16/18,45 Note (.)
== END 2023-05-30 22:03 | disposition home or self-care (01) ==
LOC: LAB 22:02
PROVIDERS: PCP Family Medicine; Visit Provider Obstetrics & Gynecology
DX: Z01.419 Encounter for gynecological examination (general) (routine) without abnormal findings (principal)
CPT/HCPCS: 87624; G0145

== ENCOUNTER 2023-05-31 08:00 | Outpatient (OUT) | payer BC, SELFPAY ==
--- OUTSIDE RECORDS SUMMARY | 2023-06-05 07:41 | XMS_ITS | CCD ---
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 Unavailable Norris Ames Unavailable Kamilah Nance Unavailable KRISTIAN JIMEENS Attending Unavailable KRISTIAN JIMENES Attending Unavailable Reinaldo Lara MD Primary Care Provider Medications Current Medications Medication Drug Class(es) Dates Sig (Normalized) Sig (Original) 3 ML semaglutide 1.34 MG/ML Pen Injector [Ozempic] (3 sources) Start: 04-30-2021 inject 1 mg by subcutaneous injection every week Ozempic (1 MG/DOSE) 4 MG/3ML 1 mg as directed Subcutaneous weekly for 30 days Apr, Active [id number] 200 actuat albuterol 0.09 mg/actuat metered dose inhaler (1 source) beta2-Adrenergic Agonist Start: 04-10-2022 take 2 puff(s) by inhalation every four hours as needed Albuterol Sulfate HFA 108 (90 Base) MCG/ACT 2 puffs as needed Inhalation every 4 hrs Mar, Active aspirin 81 mg delayed release oral tablet (3 sources) Platelet Aggregation Inhibitor, Nonsteroidal Anti-inflammatory Drug take 1 tablet by mouth in the morning aspirin 81 MG EC tablet Take 81 mg by mouth in the morning. 0 Active Blood Glucose Monitoring Suppl (D-Care Glucometer) w/Device kit (3 sources) Start: 05-23-2023 End: 05-22-2024 Blood Glucose Monitoring Suppl (D-Care Glucometer) w/Device kit Indications: Gestational diabetes mellitus (GDM), antepartum, gestational diabetes method of control unspecified , Elevated glucose tolerance test 1 kit in the morning. Use four times daily to check FSBS. In the morning prior to breakfast & 1 hour after each meal for a total of 4times daily.. 1 kit 0 05/23/2023 05/22/2024 Active ibuprofen 800 mg oral tablet (1 source) Nonsteroidal Anti-inflammatory Drug take 1 tablet by mouth every eight hours at mealtime as needed Ibuprofen 800 MG 1 tablet with food or milk as needed Orally every 8 hrs prn only Active isopropyl alcohol 0.7 ml/ml medicated pad (3 sources) Start: 05-23-2023 Alcohol Swabs (Alcohol Prep Pad) 70 % pads Indications: Gestational diabetes mellitus (GDM), antepartum, gestational diabetes method of control unspecified , Elevated glucose tolerance test Apply 1 Pad topically in the morning. Use four times daily to check FSBS.. 150 each 3 05/23/2023 Active metFORMIN hydrochloride 500 mg oral tablet (10 sources) Biguanide metFORMIN (Glucophage) 500 MG tablet 1 (one) time each day at the same time 0 Active take 4 tablets by mo uth every twenty-four hours metFORMIN HCl ER 500 MG 4 tablets p.o. qd Active take 3 tablets by mo uth once daily, then take 4 tablets by mouth once daily at mealtime metFORMIN HCl ER 500 MG TAKE 3 TABLETS BY MOUTH DAILY FOR 2 WEEKS AND IF [...] a day for 24 days Sep, Active MV-Min-Fe Fum-FA-DHA ( 1 PO) (3 sources) MV-Min- Fe Fum-FA-DHA ( 1 PO) Take by mouth 0 Active 0.25 mg, 0.5 mg dose 1.5 ml semaglutide 1.34 mg/ml pen injector (4 sources) Start: 01-12-2021 Ozempic (0.25 or 0.5 MG/DOSE) 2 MG/1.5ML 0.25 mg for one month and then increase to 0.5 mg dose Subcutaneous weekly for 30 days Dec, Active 24 hr venlafaxine 75 mg extended release oral capsule (14 sources) Serotonin and Norepinephrine Reuptake Inhibitor Start: 03-15-2023 take 1 capsule by mouth every twenty-fou r hours in the morning venlafaxine XR (Effexor XR) 75 MG 24 hr capsule Take 75 mg by mouth in the morning. 0 03/15/2023 Active Start: 06-09-2022 take 1 capsule by mo ut every twenty-four hours in the morning venlafaxine XR (Effexor XR) 150 MG 24 hr capsule Take 150 mg by mouth in the morning. 0 06/09/2022 Active take 1 capsule by mo [facility] every twenty-four hours Effexor XR 150 MG 1 capsule [...] Chronic Immunizations and screening for infectious disease (3 sources) Encounter for screening for human papillomavirus (HPV); Translations: [Contact with and (suspected) exposure to other viral communicable diseases] Onset: 1 Episodic Influenza (1 source) Influenza due to other identified influenza virus with other respiratory manifestations Episodic Other endocrine disorders (8 sources) Polycystic ovaries; Translations: [Polycystic ovarian syndrome] Chronic Other endocrine disorders (2 sources) Polycystic ovarian syndrome Onset: 1 Resolved: 2 Chronic Other female genital disorders (1 source) Vaginal discharge; Translations: [Other specified noninflammatory disorders of vagina] 05-24-2023 Episodic Other gastrointestinal disorders (8 sources) Constipation; Translations: [...] Z68.41] Onset: 1 Resolved: 2 Chronic Other and delivery including normal (1 source) Second trimester ; Translations: [Encounter for supervision of normal , unspecified, second trimester] 05-24-2023 Episodic Other screening for suspected conditions (not mental disorders or infectious disease) (5 sources) Encounter for screening for malignant neoplasm of cervix; Translations: [Patient encounter status] Onset: 1 Episodic Other upper respiratory infections [...] Test Name Value Interpretation Reference Range Facility IGP,APTIMA HPV,AGE GDLNon AGE GDLN ACOG TESTING Note . [facility] Comment on above: TESTS RESULT FLAG UN ITS REF RANGE LAB Clinician Provided Cytology Information Source.............Endocervix Other.............. No. of containers..01 ThinPrep Vial Age Algo ACOG Jes... 30-65 01 FLAG LEGEND: L-Low Normal,H-High Normal,LL-Alert Low,HH-Alert High <-Panic Low,>-Panic High,A-Abnormal,AA-Critical Abnormal Performed at: 01 =G [address] [address] Kala Contreras MD, HPV APTIMA Negative Negative [facility] Comment on above: This nucleic acid am plification test detects fourteen high- risk HPV types (16,18,31,33,35,39,45,51,52,56,58,59,66,68) without differentiation. Performed at: =G [address] [id number] Assessment Expert: Kala Contreras MD, Phone: [phone] Performed at: [facility] [address] [place], [place] [id number] Assessment Expert: Mike Copeland MD, Phone: [phone] IGP, APTIMA HPV, RFX 16/18,45 Note . [facility] Comment on above: TESTS RESULT FLAG UN ITS REF RANGE LAB DIAGNOSIS: 02 NEGATIVE FOR INTRAEPITHELIAL LESION OR MALIGNANCY. Specimen adequacy: 02 Satisfactory for evaluation. No endocervical component is identified. An endocervical component is not commonly seen in the patient. Performed by: Kelsy Ortiz, Chief Pharmacist (ASCP) . 02 Note: Note 03 The Pap smear is a screening test designed to aid in the detection of premalignant and malignant conditions of the uterine cervix. It is not a diagnostic procedure and should not be used as the sole means of detecting cervical cancer. Both false-positive and false-negative reports do occur. Test Methodology: Note 03 This liquid based ThinPrep(R) pap test was screened with the use of an image guided system. HPV Genotype Reflex Note 02 Criteria not met, HPV Genotype not performed. FLAG LEGEND: L-Low Normal,H-High Normal,LL-Alert Low,HH-Alert High <-Panic Low,>-Panic High,A-Abnormal,AA-Critical Abnormal Performed at: [facility] [address] [place] [address] Mike Copeland MD, [address] [address] Kala Contreras MD, SPATULA-ALONE ENDOCERVIX [facility] Healthcar e URETHRITIS/DISCHARGE PLUS VA GINITIS (HTRX)on 05-31-2023 ATOPOBIUM VAGINAE 0 [facility] ATOPOBIUM VAGINAE Not detected [facility] BVAB 2,3 (BACTERIAL VAGINOSIS ASSOCIATED BACTERIA 2, 3); MOBILUNCUS SPP 0 [facility] BVAB 2,3 (BACTERIAL VAGINOSIS ASSOCIATED BACTERIA 2, 3); MOBILUNCUS SPP Not detected [facility] SIN ALBICANS, PARAPSILOSIS, TROPICALIS 0 [facility] SIN ALBICANS, PARAPSILOSIS, TROPICALIS Not detected [facility] SIN GLABRATA 0 [facility] SIN GLABRATA Not detected [facility] SIN KRUSEI 0 [facility] Healt hcare SIN KRUSEI Not detected [facility] CHLAMYDIA TRACHOMATIS 0 [facility] CHLAMYDIA TRACHOMATIS Not detected [facility] GARDNERELLA VAGINALIS 0 [facility] Healthcare GARDNERELLA VAGINALIS Not detected [facility] MEGASPHAERA (TYPES 1, 2) 0 [facility] Healthcare MEGASPHAERA (TYPES 1, 2) Not detected [facility] MYCOPLASMA GENITALIUM 0 [facility] MYCOPLASMA GENITALIUM Not detected [facility] NEISSERIA GONORRHOEAE 0 [facility] NEISSERIA GONORRHOEAE Not detected [facility] Healthcare TRICHOMONAS VAGINALIS 0 [facility] TRICHOMONAS VAGINALIS Not detected [facility] Urinalysis macro (dipstick) panel (U)on 05-30-2023 Bilirubin, UA Negative Negative - 4(70) +++ mg/dL [facility] Blood, UA Negative Negative - 50 Zach/mcL [facility] Clarity, UA Clear [facility] Healthca re Color, UA Yellow [facility] Health[facility] Glucose, UA Negative Negative - 2000(110) ++++ mg/dL [facility] Interpretation and review of laboratory results Abnormal [facility] Ketones, UA Positive Negative - 160(16) ++++ mg/dL [facility] Leukocytes, UA Negative Negative - 500+++ Magaly/mcL [facility] Nitrite, UA Negative Negative - Positive [facility] pH, UA 5.5 5 - 9 [facility] Healthcar e Protein, UA Negative Negative - 1999(20) ++++ mg/dL [facility] Spec Grav, UA 1.020 1 - 1.03 [facility] care Urobilinogen, UA 1.0 0.2 - 12 mg/dL [facility] COVID + FLU Quick Testingon 04-10-2022 SARS-CoV-2 (COVID-19) RNA NANCY+probe Ql (Unsp spec) Positive [employer] [facility] [employer] Other COVID + FLU Quick Testing Positive [employer] Other Quick Strepon 04-10-2022 S. pyogenes Org specific cx Ql (Throat) Negative [facility] [employer] Other Quick Strep [employer] [facility] [employer] Other A1C with Estimated Average G luon 04-28-2021 Glucose [Mass/Vol] 108 mg/dL Normal [facility] Comment on above: Order Comment: Reaso n for Exam Prediabetes Result Comment: PERF ORMED BY: [place] [id number] PATHOLOGIST ORDER EDITOR THEO CHU M.D. Performed By: #### A 1C WT eA, LIPID, GLU, B12 #### [facility] [address] [place] [address] HbA1c (Bld) [Mass fraction] 5.4 % Normal 4.3-5.6 [facility] Comment on above: Order Comment: Reaso n for Exam Prediabetes Result Comment: Incr eased risk for diabetes: 5.7 - 6.4 diabetes: >6.4 glycemic control for adults with diabetes: <7.0 Performed By: #### A 1C WTH eA, LIPID, GLU, B12 #### [facility] [address] [place] [address] [place] Glucoseon 04-28-2021 Glucose [Mass/Vol] 97 mg/dL Normal 70-100 [facility] Comment on above: Order Comment: Reaso n for Exam Prediabetes Reason for Exam Mixed hyperlipidemia Reason for Exam Low vitamin B12 level Result Comment: [facility] Glucose Reference Range is dependent on time and content of last meal. Glucose of more than 200 mg/dL in a nonstressed, ambulatory subject supports the diagnosis of Diabetes Mellitus. ADA recommended reference range Performed By: #### A 1C WTH eA, LIPID, GLU, B12 #### [facility] [address] [place] [address] [facility] Lipid Panelon 04-28-2021 Cholesterol [Mass/Vol] 171 mg/dL Normal 140-200 [facility] Comment on above: Order Comment: Reaso n for Exam Prediabetes Reason for Exam Mixed hyperlipidemia Reason for Exam Low vitamin B12 level Result Comment: Chol less than 200 mg/dl low risk Chol 201-239 mg/dl borderline risk Chol 240 mg/dl and greater high risk Performed By: #### A 1C WTH eA, LIPID, GLU, B12 #### [facility] [address] [place] [id number] [place] Cholesterol in HDL [Mass/Vol] 41 mg/dL Normal 35-85 [facility] Comment on above: Order Comment: Reaso n for Exam Prediabetes Reason for Exam Mixed hyperlipidemia Reason for Exam Low vitamin B12 level Result Comment: HDL CHOL ATP-III CLASSIFICATION Cardiovascular Risk HDL > or equal to 60 mg/dL LOW HDL < 40 mg/dL HIGH Performed By: #### A 1C WTH eA, LIPID, GLU, B12 #### [facility] [address] [place] [id number] [place] Cholesterol.total/C holesterol in HDL [Mass ratio] 4.2 {ratio} Normal <5.0 [facility] Comment on above: Order Comment: Reaso n for Exam Prediabetes Reason for Exam Mixed hyperlipidemia Reason for Exam Low vitamin B12 level Performed By: #### A 1C WTH eA, LIPID, GLU, B12 #### [facility] [address] [place] [id number] [place] LDL Cholesterol,Calcula madelin 95 mg/dL Normal 0-100 [facility] Comment on above: Order Comment: Reaso [...] 1C WTH eA, LIPID, GLU, B12 #### [facility] [address] Triglyceride w/Reflex 176 mg/dL High 35-149 [facility] Comment on above: Order Comment: Reaso [...] 1C WTH eA, LIPID, GLU, B12 #### [facility] [address] [place] [address] VLDL CHOLESTEROL 35 mg/dL Normal [facility] Comment on above: Order Comment: Reaso n for Exam Prediabetes Reason for Exam Mixed hyperlipidemia Reason for Exam Low vitamin B12 level Performed By: #### A 1C WTH eA, LIPID, GLU, B12 #### [facility] [address] [place] [address] Vitamin B12on 04-28-2021 Cobalamin (Vitamin B12) [Mass/Vol] 633 pg/mL Normal 180-914 [facility] Comment on above: Order Comment: Reaso n for Exam Prediabetes Reason for Exam Mixed hyperlipidemia Reason for Exam Low vitamin B12 level Result Comment: PERF ORMED BY: [place] [address] PATHOLOGIST ORDER EDITOR THEO CHU M.D. Performed By: #### A 1C WTH eA, LIPID, GLU, B12 #### [facility] [address] [place] [address] PAP ACOG PANEL 2: 30 to 65on 03-16-2021 . . Normal [facility] Comment on above: Result Comment: Perf ormed at: WB Performed By: #### [id number] #### [facility] [address] [address] [address] Tete Peters Age Gdln ACOG Testing 30-65 Normal [facility] Comment on above: Performed By: #### [id number] #### [facility] [address] [address] [address] Tete Peters DIAGNOSIS: Comment Normal [facility] Comment on above: Result Comment: NEGA TIVE FOR INTRAEPITHELIAL LESION OR MALIGNANCY. THIS SPECIMEN WAS RESCREENED PART OF OUR DIRECTOR SALES AND MARKETING PROGRAM. Performed at: WB Performed By: #### [id number] #### [facility] [address] [address] [address] Tete Peters HPV Aptima Negative Normal Negative [facility] Comment on above: Result Comment: This nucleic acid amplification test detects fourteen high-risk HPV types (16,18,31,33,35,39,45,51,52,56,58,59,66,68) without differentiation. Performed at: =G Performed By: #### [id number] #### [facility] [address] [place] [address] Dr. Tete Peters Methodology: Comment Normal [facility] Comment on above: Result Comment: This liquid based ThinPrep(R) pap test was screened with the use of an image guided system. Performed at: WB Performed By: #### [id number] #### [facility] [address] [place] [address] Dr. Tete Peters Note: Comment Normal [facility] Comment on above: Result Comment: The Pap smear is a screening test designed to aid in the detection of premalignant and malignant conditions of the uterine cervix. It is not a diagnostic procedure and should not be used as the sole means of detecting cervical cancer. Both false-positive and false-negative reports do occur. . Performed at: WB Performed By: #### [id number] #### [facility] [address] [place] [address] Dr. Tete Peters Performed by: Comment Normal [facility] Comment on above: Result Comment: Luisa Ross, Chief Pharmacist (ASCP) Performed at: WB Performed By: #### [id number] #### [facility] [address] [place] [address] Dr. Tete Peters QC reviewed by: Comment Normal [facility] Comment on above: Result Comment: Monika Ortiz, Supervisory Chief Pharmacist (ASCP) Performed at: WB Performed By: #### [id number] #### [facility] [address] [address] [address] Tete Peters Specimen adequacy: Comment Normal [facility] Comment on above: Result Comment: Sati sfactory for evaluation. Endocervical and/or squamous metaplastic cells (endocervical component) are present. Performed at: WB Performed By: #### [id number] #### [facility] [address] [place], [place] [address] Dr. Tete Peters Vitamin B12on 01-12-2021 Cobalamin (Vitamin B12) [Mass/Vol] 297 pg/mL Normal 180-914 [facility] Comment on above: Order Comment: Reaso n for Exam Prediabetes Result Comment: PERF ORMED BY: [place] [id number] PATHOLOGIST ORDER EDITOR THEO CHU M.D. Performed By: #### B 12 #### [address] HOLIST[employer] PULSER polysom portableon 11-16 HOLIST[employer] PUL[employer] polysom portable [facility] [place] [address] [place] [address] Sleep Lab Report Signed Patient: Marina Bhatia MR#: [id number] : 1990 Acct:[id number] Age/Sex: 30 / F ADM Date: 11/09/20 Loc: Room: Type: [facility] Attending Dr: Anne Marie Mejía MD Ordering [...] home sleep test was performed utilizing the [employer] T3 system. Parameters recorded include actigraphy, [...] monitoring after that. Transcribed By: GERDA 11/17/20 1304 Dictated By: Anne Marie Mejía MD 11/16/20 3323 Signed By: 11/18/20 5098 [facility] Vital Signs Date Time Vital Sign Value Performing Clinician Facility 05-30-2023 09:36-0500 Body weight 116.48 kg [facility] Work Phone: [facility] 05-30-2023 09:36-0500 Diastolic blood pressure 70 mm[Hg] [facility] Work Phone: [facility] 05-30-2023 09:36-0500 Systolic blood pressure 116 mm[Hg] [facility] Work Phone: [facility] 04-10-2022 14:00-0500 Body height 157.48 cm Kamilah Nance Other [employer] Other 04-10-2022 14:00-0500 Body mass index (BMI) [Ratio] 44.92 kg/m2 Kamilah Nance Other [employer] Other 04-10-2022 14:00-0500 Body temperature 99.5 [degF] Kamilah Nance Other [employer] Other 04-10-2022 14:00-0500 Body weight 111.4 kg Kamilah Nance Other [employer] Other 04-10-2022 14:00-0500 Diastolic blood pressure 68 mm[Hg] Kamilah Quarlesault Other [employer] Other 04-10-2022 14:00-0500 Respiratory rate 18 /min Kamilah Nance Other [employer] Other 04-10-2022 14:00-0500 SaO2% (BldA) [Mass fraction] 95 % Kamilah Nance Other [employer] Other 04-10-2022 14:00-0500 Systolic blood pressure 116 mm[Hg] Kamilah Nance Other [employer] Other 04-30-2021 10:45-0500 Body height 157.48 cm Norris Ames Other [employer] Other 04-30-2021 10:45-0500 Body mass index (BMI) [Ratio] 41.72 kg/m2 Norris Ames Other [employer] Other 04-30-2021 10:45-0500 Body weight 103.47 kg Norris Ames Other [employer] Other 04-30-2021 10:45-0500 Diastolic blood pressure 75 mm[Hg] Norris Ames Other [employer] Other 04-30-2021 10:45-0500 Respiratory rate 18 /min Norris Kwaku Other [employer] Other 04-30-2021 10:45-0500 SaO2% (BldA) [Mass fraction] 99 % Norris Byrnediff Other [employer] Other 04-30-2021 10:45-0500 Systolic blood pressure 110 mm[Hg] Norris Ames Other [employer] Other 03-03-2021 11:30-0500 Body height 157.48 cm Lindafrederic Keith Other [employer] Other 03-03-2021 11:30-0500 Body mass index (BMI) [Ratio] 42.5 kg/m2 Linda Fitt Other [employer] Other 03-03-2021 11:30-0500 Body weight 105.42 kg Linda Fitmyke Other [employer] Other 02-25-2021 12:00-0400 Body height 157.48 cm Norris Ames Jr. Other [employer] Other 02-25-2021 12:00-0400 Body mass index (BMI) [Ratio] 41.92 kg/m2 Norris Ames Jr. Other [employer] Other 02-25-2021 12:00-0400 Body weight 103.97 kg Norris Ames Jr. Other [employer] Other 02-25-2021 12:00-0400 Diastolic blood pressure 79 mm[Hg] Norris Ames Jr. Other [employer] Other 02-25-2021 12:00-0400 Respiratory rate 18 /min Norris Ames JrDalila Other [employer] Other 02-25-2021 12:00-0400 SaO2% (BldA) [Mass fraction] 97 % Norris Ames Jr. Other [employer] Other 02-25-2021 12:00-0400 Systolic blood pressure 118 mm[Hg] Norris Ames Jr. Other [employer] Other 01-20-2021 10:00-0400 Body height 157.48 cm Linda Keith Other [employer] Other 01-20-2021 10:00-0400 Body mass index (BMI) [Ratio] 42.68 kg/m2 Linda Keith Other [employer] Other 01-20-2021 10:00-0400 Body weight 105.87 kg Linda Fitmyke Other [employer] Other Encounters Encounter Date Encounter Type Care Provider Facility Start: 05-30-2023 [facility] Result Encounter Generic External Data Provider [facility] External Department Unsolicited Start: 05-30-2023 External Result Encounter Kristian Jalil DO Work Phone: [facility] Unsolicited Start: 05-30-2023 External Result Encounter Kristian Jalil DO Work Phone: [facility] External [facility] Unsolicited Start: 05-30-2023 End: 05-30-2023 ambulatory KRISTIAN JALIL Not Available Start: 05-30-2023 End: 05-30-2023 Patient encounter procedure Kristian Jalil DO Work Phone: [facility] Work Phone: Start: 05-30-2023 End: 05-30-2023 Periodic preventive med est patient 18-39 yrs Kristian Jalil DO Work Phone: [facility] Comment on above: Well woman exam with routine gynecological exam; Second trimester ; Vaginal discharge; STD exposure; Screening, , for anatomic survey Start: 05-01-2023 End: 05-01-2023 ambulatory KRISTIAN JALIL Not Available Start: 03-23-2023 End: 03-23-2023 ambulatory KRISTIAN JALIL Not Available Start: 04-10-2022 End: 04-10-2022 ambulatory Kamilah Nance Other [employer] Other Start: 04-10-2022 Office outpatient vi sit 15 minutes Kamilah Nance [facility] Start: 05-26-2021 End: 05-26-2021 ambulatory Norris Ames Other [employer] Other Start: 05-26-2021 Telephone encounter [facility] Start: 04-30-2021 End: 04-30-2021 ambulatory Norris Ames Other [employer] Other Start: 04-30-2021 Follow-up encounter [facility] Start: 04-13-2021 End: 04-13-2021 ambulatory Linda Keith Other [employer] Other Start: 04-13-2021 Telephone encounter [facility] Start: 03-09-2021 End: 03-09-[address] CORDON LISTED REQUEST Facility: Start: 03-03-2021 ([facility] RD FU) [facility] F/ U [employer] Linda Keith [facility] Start: 03-03-2021 End: 03-03-2021 ambulatory Linda Keith Other [employer] [facility] [employer] Other Start: 02-25-2021 End: 02-25-2021 ambulatory Norris Ames Jr. Other [facility] [employer] Other Start: 02-25-2021 Follow-up encounter Norris howard [facility] Start: 02-04-2021 Telephone encounter Norris howard [facility] Start: 01-20-2021 ([facility] [facility] [address] FU) [facility] F/ [employer] [facility] Procedures Date Procedure Procedure Detail Performing Clinician Start: 05-30-2023 URETHRITIS/DISCHARGE PLUS VAGINITIS (HTRX) Kristian Jalil DO Work Phone: Start: 05-30-2023 IGP,APTIMA HPV,AGE GDLN Kristian Jalil DO Work Phone: Start: 05-30-2023 Urnls dip stick/tabl et rgnt non-auto w/o micrscp Kristian Jalil DO Work Phone: Plan of Treatment Date Care Activity Detail Author Start: 06-28-2023 End: 06-28-2023 Patient encounter procedure 06/28/2023 9:30 AM EST Routine [facility] [address] [id number] Neelam Jett PA [address] [place] [address] [facility] Start: 06-13-2023 End: 06-13-2023 Professional / ancillary services management 06/13/2023 9:00 AM EST Ancillary Procedure [facility] [address] [id number] [facility] OB Start: 05-30-2023 End: 09-28-2023 Alpha fetoprotein, maternal Alpha fetoprotein, maternal Lab Routine Second trimester Expected: 05/30/2023 (Approximate), Expires: 09/28/2023 [facility] Comment on above: Expected: 05/30/2023 (Approximate), Expires: 09/28/2023 Start: 05-30-2023 End: 05-30-2024 US for US OB ANATOMY SINGLE W US OB CERVICAL LENGTH Imaging Routine Screening, , for anatomic survey Expected: 05/30/2023 (Approximate), Expires: 05/30/2024 [facility] Comment on above: Expected: 05/30/2023 (Approximate), Expires: 05/30/2024 Start: 12-23-2022 Influenza vaccination Influenza Vacc ine (#1) [facility] Start: 2019 Screening for malign ant neoplasm of cervix [facility] Start: 2010 Screening for malign ant neoplasm of cervix Pap Smear [facility] CHLAMYDIA TRACHOMATI S (GENITO/STI) CHLAMYDIA TRACHOMATIS (GENITO/STI) Lab Routine STD exposure Ordered: 05/30/2023 [facility] Comment on above: Ordered: 05/30/2023 Cytology Cervical or vaginal smear or scraping study Pap Smear Pathology and Cytology Routine Well woman exam with routine gynecological exam Ordered: 05/30/2023 [facility] Work Phone: Comment on above: Ordered: 05/30/2023 Human papilloma viru s DNA [Presence] in Unspecified specimen by Probe with amplification HPV DNA probe, amplified Microbiology Routine Well woman exam with routine gynecological exam Ordered: 05/30/2023 [facility] Comment on above: Ordered: 05/30/2023 Neisseria gonorrhoea e DNA [Presence] in Unspecified specimen by NANCY with probe detection Neisseria gonorrhea DNA probe, direct Lab Routine STD exposure Ordered: 05/30/2023 [facility] Comment on above: Ordered: 05/30/2023 SURESWAB(R) ADVANCED VAGINITIS PLUS, TMA SURESWAB(R) ADVANCED VAGINITIS PLUS, TMA Pathology and Cytology Routine Vaginal discharge Ordered: 05/30/2023 [facility] Comment on above: Ordered: 05/30/2023 Payers Date Payer Category Payer [facility] [id number] 2022 Unknown BCBS BCBS xxxxxx [id number] 2022-Present [phone] [address] [place] [address] [id number] 1989 Unknown [id number] 1989 Unknown [id number] 1989 Unknown [id number] 1989 Unknown [id number] 1960 Private Health Insurance [id number] Social History Date Type Detail Facility Unknown if ever smoked [facility] [employer] Other Start: 04-05-2023 Sex Assigned At N [facility] [employer] Other Start: 04-05-2023 Tobacco smoking status KSIS Ex-smoker [facility] History of tobacco use Current smoker [facility] History of tobacco use Cigarette Smoker [facility] Start: 05-30-2023 Alcohol intake Current drinke r of alcohol (finding) [facility] Start: 04-05-2023 History of Social function [facility] Start: 04-05-2023 Alcohol Comment 1 or 2 drinks on a typical day/ monthly or less [facility] Start: 02-02-2023 [facility] Start: 1990 Sex Assigned At Not on file [facility] Medical Equipment Procedure Code Equipment Code Equipment Origin al Text Equipment Identifier Dates 1 strip by In Vi tro route in the morning. Use in the morning prior to breakfast, 1 hour after each meal for a total of 4times daily.. [id number] Start: 05-23-2023 End: 06-22-2023 1 each by In Vit ro route in the morning. Use to check FSBS four times daily. [id number] Start: 05-23-2023 End: 06-22-2023 History of Present illness Narrative 05-30-2023 Candace Esposito, SUMA - 05/30/2023 9:20 AM EST Note Date & Type Note Facility 05-30-2023 History of Presen t illness Narrative Reason for Appointment: Patient ID: Marina Bhatia is a 33 y.o. female who presents for Routine Visit and Well Women Visit Patient presents today for Annual Exam and Return OB appointment. Current Medications: has a current medication list which includes the following prescription(s): venlafaxine xr, alcohol prep pad, d-care glucometer, blood glucose test, lancets ultra thin, metformin, mv-min-fe fum-fa-dha, and venlafaxine xr. Medical History: Active Ambulatory Problems Diagnosis Date Noted No Active Ambulatory Problems Resolved Ambulatory Problems Diagnosis Date Noted No Resolved Ambulatory Problems Past Medical History: Diagnosis Date History of eclampsia Family History Problem Relation Name Age of Onset Cancer Mother Social History Tobacco Use Smoking status: Former Types: Cigarettes Smokeless tobacco: Not on file Substance Use Topics Alcohol use: Yes Comment: 1 or 2 drinks on a typical day/ monthly or less Drug use: Not on file Past Surgical History: Procedure Laterality Date APPENDECTOMY SECTION, LOW TRANSVERSE x2 No Known Allergies Review of Systems: Review of Systems Constitutional: Negative. HENT: Negative. Eyes: Negative. Respiratory: Negative. Cardiovascular: Negative. Gastrointestinal: Negative. Genitourinary: Negative. Musculoskeletal: Negative. Skin: Negative. Neurological: Negative. All other systems reviewed and are negative. Hematological: Negative. Endocrine: Negative. Allergic/Immunologic: Negative. Objective Physical Exam Constitutional: Appearance: Normal appearance. She is well-developed. Genitourinary: Vulva normal. Breasts: Breasts are soft. Right: Normal. Left: Normal. Cardiovascular: Rate and Rhythm: Normal rate and regular rhythm. Pulmonary: Effort: Pulmonary effort is normal. Breath sounds: Normal breath sounds. Abdominal: General: Bowel sounds are normal. There is no distension. Palpations: Abdomen is soft. Tenderness: There is no abdominal tenderness. There is no guarding or rebound. Musculoskeletal: General: No swelling. Normal range of motion. Right lower leg: No edema. Left lower leg: No edema. Neurological: Mental Status: She is alert and oriented to person, place, and time. Skin: General: Skin is warm and dry. Psychiatric: Mood and Affect: Mood normal. Behavior: Behavior normal. Vitals and nursing note reviewed. Exam conducted with a merchandise flow team leader present. Vitals: There is no height or weight on file to calculate BMI. BP: 116/70 Patient's last menstrual period was 01/19/2023. Assessment/Plan Encounter Diagnoses Name Primary? Well woman exam with routine gynecological exam Second trimester Vaginal discharge STD exposure Patient presents today for an annual exam/routine obstetrics appointment. Patient is currently 18w5d . Patient is doing well and states she has no complaints. Pap/cultures was obtained without difficulty and patient was given msAFP and anatomy scan order to have obtained. Follow Up: Patient is to return to our office in 4 weeks for routine OB appointment Documented by Candace Esposito LPN on behalf of: Kristian Jimenes DO documented in this encounter [facility] Evaluation note 04-10-2022 Note Date & Type [...] should improve within the next 4-7 days. [employer] Other Evaluation note 04-30-2021 Note Date & [...] Low vitamin B12 level (ICD-10 - E53.8) [employer] Other Evaluation note 03-03-2021 Note Date & [...] holidays (C) Answered general, nutrition-rela madelin questions [employer] Other Evaluation note 02-25-2021 Note Date & [...] Low vitamin B12 level (ICD-10 - E53.8) [employer] Other Evaluation note 01-20-2021 Note Date & [...] methods (C) Answered general nutrition-rel ated questions [employer] Other Evaluation note Note Date & Type Note Facility Evaluation note No Information [employer] Other Evaluation note Note Date & Type Note Facility Evaluation note Diagnosis Well woman exam with routine gynecological exam Routine gynecological examination Second trimester state, incidental Vaginal discharge Leukorrhea, not specified as infective STD exposure Screening, , for anatomic survey Encounter for anatomic survey documented in this encounter [facility] History general Narrative - Reported Note Date & Type Note Facility History general Narrative - Reported Type Medical History depression Medical History anxiety Medical History PCOS Medical History Panic attacks Medical History Insulin resistance Medical History migraine headache Medical History back pain Surgical History C section, X2 Surgical History appendectomy Hospitalization History see above [employer] Other Summary Purpose Family History No Family History Records FoundNo Family History Records FoundNo Family History Records Found Advance Directives No Advanced Directives Records FoundNo Advanced Directives Records FoundNo Advanced Directives Records Found Additional Source Comments INFORMATION SOURCE (unrecogn ized section and content) DATE CREATED AUTHOR 03/17/2021 [facility] DATE CREATED AUTHOR AUTHOR'S ORGANIZ ATION 10/28/2021 [facility] DATE CREATED AUTHOR AUTHOR'S ORGANIZ ATION 05/31/2023 [facility] EPIC REASON FOR VISIT (unrecogniz ed section and content) Reason Comments Routine Visit Well Women Visit CONGESTION B/A H/A SORE THRAOTFCCC Pt does not wish our services 06/28/[address] [address] N/S 04/13/2021, LM WM f/Erika Steele/DAGOBERTO EX Care Teams (unrecognized sec tion and content) [employer] Relationship Specialty Start Date End Date Reinaldo Lara MD PCP - General Family Medicine 03/23/23 [employer] Relationship Specialty Start Date End Date Reinaldo Lara MD PCP - General Family Medicine 03/23/23 FOR RECORDS PERTAINING TO PATIENTS WHO ARE [...] BE BASED ON THE PRIMARY CLINICAL RECORDS. [facility] [employer] [facility]. provides no warranty or guarantee of the accuracy or completeness of information in this document.
== END 2023-05-31 08:01 | disposition home or self-care (01) ==
LOC: MN 06-05 07:38
PROVIDERS: PCP Family Medicine
DX: O24.419 Gestational diabetes mellitus in pregnancy, unspecified control (principal)
CPT/HCPCS: 95250; G0108

== ENCOUNTER 2023-06-13 09:08 | Outpatient (OUT) | payer BC, SELFPAY ==
--- NOTE | 2023-06-13 09:12 | US_ITS ---
[address] [address] Patient Name: VERA CONTRERAS MRN: [id number] date: 1990 Sex: F Assigned Patient Location: [facility] Current Patient Location: [facility] Accession/Order Number: [id number] Exam Date: 06/13/2023 09:15 Report Date: 06/13/2023 11:25 At the request of: KRISTIAN MARIN Procedure: US OB anatomy EXAMINATION: US OB anatomy, US OB cervical length HISTORY: ANATOMY COMPARISON: No relevant comparison available. TECHNIQUE: Transabdominal sonographic examination was performed for obstetrical and evaluation. FINDINGS: Number: 1 Heart Rate: 158.0 bpm H.B. /min Amniotic Fluid Volume: Subjectively normal Placental Location: ANTERIOR with lower margin 3.6 cm from os. Cervix Length: 4.6 cm, closed. ANATOMY: Normal Structures -cerebellum, choroid plexus, cisterna magna, lateral cerebral ventricles, orbits, midline falx, four-chamber heart, RVOT, LVOT, stomach, kidneys, bladder, umbilical cord insertion into abdomen, three-vessel cord, right upper extremity, left upper extremity, right lower extremity, left lower extremity. SUBOPTIMALLY SEEN: Hard palate, spine ABNORMALITIES: None BIOMETRY: BPD: 4.7 cm 20 weeks 2 days ; 33% HC: 18.7 cm 21 weeks 0 days; 56% AC: 17.6 cm 22 weeks 4 days; 92% FL: 3.6 cm 21 weeks 4 days ; 70% EFW:459.1 grams; 95% FL/AC: 20.6 FL/BPD: 76.6 HC/AC: 1.1 GESTATIONAL AGE: Age by EDC: 20 weeks 5 days ROSY by EDC: 10/26/2023 Age by current US: 21 weeks 3 days ROSY by current US: 10/21/2023 US/US OB anatomy IMPRESSION: 1. Single live intrauterine with growth detailed above. 2. Estimated weight is at 95th percentile. Electronically authenticated by: KODY FRANK Date: 06/13/2023 11:25
--- NOTE | 2023-06-13 09:12 | US_ITS ---
[address] [address] Patient Name: VERA CONTRERAS MRN: [id number] date: 1990 Sex: F Assigned Patient Location: [facility] Current Patient Location: [facility] Accession/Order Number: [id number] Exam Date: 06/13/2023 09:15 Report Date: 06/13/2023 11:25 At the request of: KRISTIAN MARIN Procedure: US OB cervical length EXAMINATION: US OB anatomy, US OB cervical length HISTORY: ANATOMY COMPARISON: No relevant comparison available. TECHNIQUE: Transabdominal sonographic examination was performed for obstetrical and evaluation. FINDINGS: Number: 1 Heart Rate: 158.0 bpm H.B. /min Amniotic Fluid Volume: Subjectively normal Placental Location: ANTERIOR with lower margin 3.6 cm from os. Cervix Length: 4.6 cm, closed. ANATOMY: Normal Structures -cerebellum, choroid plexus, cisterna magna, lateral cerebral ventricles, orbits, midline falx, four-chamber heart, RVOT, LVOT, stomach, kidneys, bladder, umbilical cord insertion into abdomen, three-vessel cord, right upper extremity, left upper extremity, right lower extremity, left lower extremity. SUBOPTIMALLY SEEN: Hard palate, spine ABNORMALITIES: None BIOMETRY: BPD: 4.7 cm 20 weeks 2 days ; 33% HC: 18.7 cm 21 weeks 0 days; 56% AC: 17.6 cm 22 weeks 4 days; 92% FL: 3.6 cm 21 weeks 4 days ; 70% EFW:459.1 grams; 95% FL/AC: 20.6 FL/BPD: 76.6 HC/AC: 1.1 GESTATIONAL AGE: Age by EDC: 20 weeks 5 days ROSY by EDC: 10/26/2023 Age by current US: 21 weeks 3 days ROSY by current US: 10/21/2023 US/US OB cervical length IMPRESSION: 1. Single live intrauterine with growth detailed above. 2. Estimated weight is at 95th percentile. Electronically authenticated by: KODY FRANK Date: 06/13/2023 11:25
--- OUTSIDE RECORDS SUMMARY | 2023-06-13 09:25 | XMS_ITS | CCD ---
Author Name Unknown Address [address] [facility] [address] [place] [address] Organization [facility] Care Team Providers Care Automobile Body Repair Supervisor Name Role Phone REQUEST, DR NONE LISTED Primary Care Unavaila katarzyna JIMENES, DR TOWNSEND Consulting Unavailable JALIL, DR TOWNSEND Attending Unavailable JALIL, DR TOWNSEND Admitting Unavailable SagarSemajn Unavailable Norris Ames Jr. Unavailable Norris Ames Unavailable Kamilah Nance Unavailable KRISTIAN JIMENES Attending Unavailable KRISTIAN JIMENES Attending Unavailable Reinaldo Lara MD Primary Care Provider [phone] Medications Current Medications Medication Drug Class(es) Dates Sig (Normalized) Sig (Original) 3 ML semaglutide 1.34 MG/ML Pen Injector [Ozempic] (3 sources) Start: 04-30-2021 inject 1 mg by subcutaneous injection every week Ozempic (1 MG/DOSE) 4 MG/3ML 1 mg as directed Subcutaneous weekly for 30 days Apr, Active [id number] 200 actuat albuterol 0.09 mg/actuat metered dose [...] 0 Active take 4 tablets by mo ut every twenty-four hours metFORMIN HCl ER 500 [...] 06/09/2022 Active take 1 capsule by mo ut every twenty-four hours Effexor XR 150 MG [...] GDLNon AGE GDLN ACOG TESTING Note . [facility] Comment on above: TESTS RESULT FLAG UN ITS REF RANGE LAB Clinician Provided Cytology Information Source.............[employer] Other.............. No. of containers..01 ThinPrep Vial Age Algo ACOG Ejs... 3065 FLAG LEGEND: L-Low Normal,H-High Normal,LL-Alert Low,HH-Alert High <-Panic Low,>-Panic High,A-Abnormal,AA-Critical Abnormal Performed at: 01 = [employer] [place] [address] Kala Contreras MD, HPV APTIMA Negative Negative [facility] e Comment on above: This nucleic acid am plification test detects fourteen high- risk HPV types (16,18,31,33,35,39,45,51,52,56,58,59,66,68) without differentiation. Performed at: =[facility] [employer] [place] [id number] Automobile Contract Clerk: Kala Contreras MD, Phone: [phone] Performed at: [facility] [address] [place], [place] [id number] Automobile Contract Clerk: Mike Copeland MD, Phone: [phone] IGP, APTIMA HPV, RFX 16/18,45 Note . [facility] Comment on above: TESTS RESULT FLAG U NITS REF RANGE LAB DIAGNOSIS: 02 NEGATIVE FOR INTRAEPITHELIAL LESION OR MALIGNANCY. Specimen adequacy: 02 Satisfactory for evaluation. No endocervical component is identified. An endocervical component is not commonly seen in the patient. Performed by: Kelsy Ortiz, Machine Heel Builder (ASCP) . 02 Note: Note 03 The [...] High <-Panic Low,>-Panic High,A-Abnormal,AA-Critical Abnormal Performed at: 02 [facility] [address] [place] [address] Mike Copeland MD, [address] [address] Kala Contreras MD, SPATULA-ALONE [facility] Healthcar e URETHRITIS/DISCHARGE PLUS VA GINITIS (HTRX)on 05-31-2023 ATOPOBIUM VAGINAE 0 [facility] ATOPOBIUM VAGINAE Not detected [facility] BVAB 2,3 (BACTERIAL VAGINOSIS ASSOCIATED BACTERIA 2, 3); MOBILUNCUS SPP 0 [facility] Healthcare BVAB 2,3 (BACTERIAL VAGINOSIS ASSOCIATED BACTERIA 2, 3); MOBILUNCUS SPP Not detected [facility] SIN ALBICANS, PARAPSILOSIS, TROPICALIS 0 [facility] SIN ALBICANS, PARAPSILOSIS, TROPICALIS Not detected [facility] SIN GLABRATA 0 [facility] SIN GLABRATA Not [facility] S[facility]I [facility] KRUSEI Not detected [facility] CHLAMYDIA TRACHOMATIS 0 [facility] CHLAMYDIA TRACHOMATIS Not detected [facility] GARDNERELLA VAGINALIS 0 [facility] GARDNERELLA VAGINALIS Not detected [facility] MEGASPHAERA (TYPES 1, 2) 0 [facility] MEGASPHAERA (TYPES 1, 2) Not detected [facility] MYCOPLASMA GENITALIUM 0 [facility] MYCOPLASMA GENITALIUM Not detected [facility] NEISSERIA GONORRHOEAE 0 [facility] NEISSERIA GONORRHOEAE Not detected [facility] Healthcare TRICHOMONAS VAGINALIS 0 [facility] Healthcare TRICHOMONAS VAGINALIS Not detected [facility] Urinalysis macro (dipstick) panel (U)on 05-30-2023 Bilirubin, UA Negative Negative - 4(70) +++ mg/dL [facility] Blood, UA Negative Negative - 50 Zach/mcL [facility] Clarity, UA Clear [facility] Healthca re Color, UA Yellow [facility] Healthcar e Glucose, UA Negative Negative - 1999(110) ++++ mg/dL [facility] Interpretation and review of laboratory results Abnormal [facility] Healthca re Ketones, UA Positive Negative - 160(16) ++++ mg/dL [facility] Leukocytes, UA Negative Negative - 500+++ Magaly/mcL [facility] Nitrite, UA Negative Negative - Positive [facility] pH, UA 5.5 5 - 9 [facility] Healthcar e Protein, UA Negative Negative - 1999(20) ++++ mg/dL [facility] Spec Grav, UA 1.020 1 - 1.03 [facility] care Urobilinogen, UA 1.0 0.2 - 12 mg/dL [facility] Healthcar e COVID + FLU Quick Testingon 04-10-2022 SARS-CoV-2 (COVID-19) RNA NANCY+probe Ql (Unsp spec) Positive [facility] Other COVID + FLU Quick Testing Positive [facility] Other Quick Strepon 04-10-2022 S. pyogenes Org specific cx Ql (Throat) Negative [facility] Other Quick Strep [employer] [facility] Other A1C with Estimated Average G luon 04-28-2021 Glucose [Mass/Vol] 108 mg/dL Normal [facility] Comment on above: Order Comment: Reaso n for Exam Prediabetes Result Comment: PERF ORMED BY: [place] [address] PATHOLOGIST PARTS CATALOGER THEO CHU M.D. Performed By: #### A 1C WT eA, LIPID, GLU, B12 #### [facility] [address] [place] [address] HbA1c (Bld) [Mass fraction] 5.4 % Normal 4.3-5.6 [facility] Comment on above: Order Comment: Reaso n for Exam Prediabetes Result Comment: Incr eased risk for diabetes: 5.7 - 6.4 diabetes: >6.4 glycemic control for adults with diabetes: <7.0 Performed By: #### A 1C WTH eA, LIPID, GLU, B12 #### [facility] [address] [place] [address] Glucoseon 04-28-2021 Glucose [Mass/Vol] 97 mg/dL Normal 70-100 [facility] Comment on above: Order Comment: Reaso n for Exam Prediabetes Reason for Exam Mixed hyperlipidemia Reason for Exam Low vitamin B12 level Result Comment: [facility] Glucose Reference Range is dependent on time and content of last meal. Glucose of more than 200 mg/dL in a nonstressed, ambulatory subject supports the diagnosis of Diabetes Mellitus. ADA recommended reference range Performed By: #### A 1C WTH eA, LIPID, GLU, B12 #### [facility] [id number] [facility] Lipid Panelon 04-28-2021 Cholesterol [Mass/Vol] 171 mg/dL Normal 140-200 [facility] Comment on above: Order Comment: Reaso n for Exam Prediabetes Reason for Exam Mixed hyperlipidemia Reason for Exam Low vitamin B12 level Result Comment: Chol less than 200 mg/dl low risk Chol 201-239 mg/dl borderline risk Chol 240 mg/dl and greater high risk Performed By: #### A 1C WTH eA, LIPID, GLU, B12 #### [facility] [address] Cholesterol in HDL [Mass/Vol] 41 mg/dL Normal 35-85 [facility] Comment on above: Order Comment: Reaso n for Exam Prediabetes Reason for Exam Mixed hyperlipidemia Reason for Exam Low vitamin B12 level Result Comment: HDL CHOL ATP-III CLASSIFICATION Cardiovascular Risk HDL > or equal to 60 mg/dL LOW HDL < 40 mg/dL HIGH Performed By: #### A 1C WTH eA, LIPID, GLU, B12 #### [facility] [address] Cholesterol.total/C holesterol in HDL [Mass ratio] 4.2 {ratio} Normal <5.0 [facility] Comment on above: Order Comment: Reaso n for Exam Prediabetes Reason for Exam Mixed hyperlipidemia Reason for Exam Low vitamin B12 level Performed By: #### A 1C WTH eA, LIPID, GLU, B12 #### [facility] [address] [id number] [place] LDL Cholesterol,Calcula madelin 95 mg/dL Normal 0-100 [facility] Comment on above: Order Comment: Reaso [...] 1C WTH eA, LIPID, GLU, B12 #### [facility] [address] Triglyceride w/Reflex 176 mg/dL High 35-149 [facility] Comment on above: Order Comment: Reaso [...] 1C WTH eA, LIPID, GLU, B12 #### [facility] [address] VLDL CHOLESTEROL 35 mg/dL Normal [facility] Comment on above: Order Comment: Reaso n for Exam Prediabetes Reason for Exam Mixed hyperlipidemia Reason for Exam Low vitamin B12 level Performed By: #### A 1C WTH eA, LIPID, GLU, B12 #### [facility] [address] Vitamin B12on 04-28-2021 Cobalamin (Vitamin B12) [Mass/Vol] 633 pg/mL Normal 180-914 [facility] Comment on above: Order Comment: Reaso n for Exam Prediabetes Reason for Exam Mixed hyperlipidemia Reason for Exam Low vitamin B12 level Result Comment: PERF ORMED BY: [place] [address] PATHOLOGIST PARTS CATALOGER THEO CHU M.D. Performed By: #### A 1C WTH eA, LIPID, GLU, B12 #### [facility] [address] PAP ACOG PANEL 2: 30 to 65on 03-16-2021 . . Normal [facility] Comment on above: Result Comment: Perf ormed at: WB Performed By: #### [id number] #### [facility] [address] [address] [address] Tete Peters Age Gdln ACOG Testing 30-65 Normal [facility] Comment on above: Performed By: #### [id number] #### [facility] [address] [place] [address] Dr. Tete Peters DIAGNOSIS: Comment Normal [facility] Comment on above: Result Comment: NEGA TIVE FOR INTRAEPITHELIAL LESION OR MALIGNANCY. THIS SPECIMEN WAS RESCREENED PART OF OUR PHOTO PRINTER PROGRAM. Performed at: WB Performed By: #### [id number] #### [facility] [address] [address] [address] Tete Peters HPV Aptima Negative Normal Negative [facility] Comment on above: Result Comment: This nucleic acid amplification test detects fourteen high-risk HPV types (16,18,31,33,35,39,45,51,52,56,58,59,66,68) without differentiation. Performed at: =G Performed By: #### [id number] #### [facility] [address] [place] [address] Dr. Tete Peters Methodology: Comment Normal [facility] Comment on above: Result Comment: This liquid based ThinPrep(R) pap test was screened with the use of an image guided system. Performed at: WB Performed By: #### [id number] #### [facility] [address] [place] [address] Dr. Tete Peters Note: Comment Normal [facility] Comment on above: Result Comment: The Pap smear is a screening test designed to aid in the detection of premalignant and malignant conditions of the uterine cervix. It is not a diagnostic procedure and should not be used as the sole means of detecting cervical cancer. Both false-positive and false-negative reports do occur. . Performed at: WB Performed By: #### [id number] #### [facility] [address] [place] [address] Dr. Tete Peters Performed by: Comment Normal [facility] Comment on above: Result Comment: Luisa Ross Machine Heel Builder (ASCP) Performed at: WB Performed By: #### 4 [id number] #### [facility] [address] [place] [address] Dr. Tete Peters QC reviewed by: Comment Normal [facility] Comment on above: Result Comment: Monika Ortiz, Supervisory Machine Heel Builder (ASCP) Performed at: WB Performed By: #### [id number] #### [facility] [address] [place], [place] [address] Dr. Tete Peters Specimen adequacy: Comment Normal [facility] Comment on above: Result Comment: Sati sfactory for evaluation. Endocervical and/or squamous metaplastic cells (endocervical component) are present. Performed at: WB Performed By: #### [id number] #### [facility] [address] [place], [place] [address] Dr. Tete Peters Vitamin B12on 01-12-2021 Cobalamin (Vitamin B12) [Mass/Vol] 297 pg/mL Normal 180-914 [facility] Comment on above: Order Comment: Reaso n for Exam Prediabetes Result Comment: PERF ORMED BY: [place] [address] PATHOLOGIST PARTS CATALOGER THEO CHU M.D. Performed By: #### B 12 #### [address] GOVERNMENT GUARD polysom portableon 11-16 GOVERNMENT GUARD polysom portable [facility] [place] [address] [place] [address] Sleep Lab Report Signed Patient: Marina Bhatia MR#: [id number] : 1990 Acct:[id number] Age/Sex: 30 / F ADM Date: 11/09/20 Loc: Room: Type: [facility] Attending Dr: Anne Marie Mejía MD Ordering [...] home sleep test was performed utilizing the [employer] Nox T3 system. Parameters recorded include actigraphy, [...] Dictated By: Anne Marie Mejía MD 11/16/20 1298 Signed By: 11/18/20 2416 [facility] Vital Signs Date Time Vital Sign Value Performing Clinician Facility 05-30-2023 09:36-0500 Body weight 116.48 kg [employer] DO Work Phone: [facility] 05-30-2023 09:36-0500 Diastolic blood pressure 70 mm[Hg] Kristian JalilInspire Medical Systems Work Phone: [facility] 05-30-2023 09:36-0500 Systolic blood pressure 116 mm[Hg] [employer] Work Phone: [facility] 04-10-2022 14:00-0500 Body height 157.48 cm Kamilah Goyo Other [facility] Other 04-10-2022 14:00-0500 Body mass index (BMI) [Ratio] 44.92 kg/m2 Kamilah Nance Other [facility] Other 04-10-2022 14:00-0500 Body temperature 99.5 [degF] Kamilah Nance Other [facility] Other 04-10-2022 14:00-0500 Body weight 111.4 kg Kamilah Nance Other [facility] Other 04-10-2022 14:00-0500 Diastolic blood pressure 68 mm[Hg] Kamilah Nance Other [facility] Other 04-10-2022 14:00-0500 Respiratory rate 18 /min Kamilah Nance Other [facility] Other 04-10-2022 14:00-0500 SaO2% (BldA) [Mass fraction] 95 % Kamilah Nance Other [facility] Other 04-10-2022 14:00-0500 Systolic blood pressure 116 mm[Hg] Kamilah Nance Other [facility] Other 04-30-2021 10:45-0500 Body height 157.48 cm Norris Ames Other [facility] Other 04-30-2021 10:45-0500 Body mass index (BMI) [Ratio] 41.72 kg/m2 Norris Ames Other [facility] Other 04-30-2021 10:45-0500 Body weight 103.47 kg Norris Ames Other [facility] Other 04-30-2021 10:45-0500 Diastolic blood pressure 75 mm[Hg] Norris Ames Other [facility] Other 04-30-2021 10:45-0500 Respiratory rate 18 /min Norris Ames Other [employer] Other 04-30-2021 10:45-0500 SaO2% (BldA) [Mass fraction] 99 % Norrispurnima Ames Other [employer] Other 04-30-2021 10:45-0500 Systolic blood pressure 110 mm[Hg] Norris Ames Other [facility] Other 03-03-2021 11:30-0500 Body height 157.48 cm Lindafrederic Keith Other [employer] Other 03-03-2021 11:30-0500 Body mass index (BMI) [Ratio] 42.5 kg/m2 Linda Fitt Other [facility] Other 03-03-2021 11:30-0500 Body weight 105.42 kg Linda Fitmyke Other [facility] Other 02-25-2021 12:00-0400 Body height 157.48 cm Norris Ames Jr. Other [employer] Other 02-25-2021 12:00-0400 Body mass index (BMI) [Ratio] 41.92 kg/m2 Norris Ames Jr. Other [facility] Other 02-25-2021 12:00-0400 Body weight 103.97 kg Norris Ames . Other [employer] Other 02-25-2021 12:00-0400 Diastolic blood pressure 79 mm[Hg] Norris Ames . Other [employer] Other 02-25-2021 12:00-0400 Respiratory rate 18 /min Norris Byrnelyndsey Schwarz Other [facility] Other 02-25-2021 12:00-0400 SaO2% (BldA) [Mass fraction] 97 % Norris Grullonanny Schwarz Other [facility] Other 02-25-2021 12:00-0400 Systolic blood pressure 118 mm[Hg] Norris Ames Other [facility] Other 01-20-2021 10:00-0400 Body height 157.48 cm Linda Keith Other [facility] Other 01-20-2021 10:00-0400 Body mass index (BMI) [Ratio] 42.68 kg/m2 Linda Keith Other [facility] Other 01-20-2021 10:00-0400 Body weight 105.87 kg Linda Keith Other [employer] Other Encounters Encounter Date Encounter Type Care Provider Facility Start: 05-30-2023 [facility] Result Encounter Generic External Data Provider [facility] External Department Unsolicited Start: 05-30-2023 External Result Encounter Kristian Jimenes DO Work Phone: [facility] External [facility] Unsolicited [...] 04-10-2022 End: 04-10-2022 ambulatory Kamilah Nance Other [employer] Other Start: 04-10-2022 Office outpatient vi sit 15 minutes Kamilah Nance [facility] Start: 05-26-2021 End: 05-26-2021 ambulatory Norris Ames Other [employer] Other Start: 05-26-2021 Telephone encounter [facility] Start: 04-30-2021 End: 04-30-2021 ambulatory Norris Ames Other [employer] Other Start: 04-30-2021 Follow-up encounter [facility] Start: 04-13-2021 End: 04-13-2021 ambulatory Linda Keith Other [employer] Other Start: 04-13-2021 Telephone encounter Linda Keith [facility] Start: 03-09-2021 End: 03-09-2021 ambulatory NONE LISTED REQUEST Facility: Start: 03-03-2021 ([facility] [address] FU) [facility] F/ U Registerd Handle Attacher Linda Keith [facility] Start: 03-03-2021 End: 03-03-2021 ambulatory Linda Keith Other [employer] [facility] Other Start: 02-25-2021 End: 02-25-2021 ambulatory Norris Ames Jr. Other [employer] [facility] Other Start: 02-25-2021 Follow-up encounter Norris howard [facility] Start: 02-04-2021 Telephone encounter Norris howard [facility] Start: 01-20-2021 ([facility] [address] FU) [facility] F/ U Registerd Handle Attacher Linda Keith [facility] Procedures Date Procedure Procedure Detail Performing Clinician Start: 05-30-2023 URETHRITIS/DISCHARGE PLUS VAGINITIS (HTRX) Kristian Jimenes DO Work Phone: Start: 05-30-2023 IGP,APTIMA HPV,AGE GDLN Kristian Jalil DO Work Phone: Start: 05-30-2023 Urnls dip stick/tabl et rgnt non-auto w/o micrscp Kristian Jalil DO Work Phone: Plan of Treatment Date Care Activity Detail Author Start: 06-28-2023 End: 06-28-2023 Patient encounter procedure 06/28/2023 9:30 AM EST Routine [facility] [address] [place] [id number] Neelam Jett PA [address] [place] [address] [facility] Start: 06-13-2023 End: 06-13-2023 Professional / ancillary services management 06/13/2023 9:00 AM EST Ancillary Procedure [facility] [address] [place] [address] [facility] Start: 05-30-2023 End: 09-28-2023 Alpha fetoprotein, maternal Alpha fetoprotein, maternal Lab Routine Second trimester Expected: 05/30/2023 (Approximate), Expires: 09/28/2023 [facility] Comment on above: Expected: 05/30/2023 (Approximate), Expires: 09/28/2023 Start: 05-30-2023 End: 05-30-2024 US for US OB ANATOMY SINGLE W US OB CERVICAL LENGTH Imaging Routine Screening, , for anatomic survey Expected: 05/30/2023 (Approximate), Expires: 05/30/2024 [facility] Comment on above: Expected: 05/30/2023 (Approximate), Expires: 05/30/2024 Start: 12-23-2022 Influenza vaccination Influenza Vacc ine (#1) [facility] Start: 2019 Screening for malign ant neoplasm of cervix [facility] Start: 2010 Screening for malign ant neoplasm of cervix Pap Smear [facility] CHLAMYDIA TRACHOMATI S (GENITO/STI) CHLAMYDIA TRACHOMATIS (GENITO/STI) Lab Routine STD exposure Ordered: 05/30/2023 [facility] Comment on above: Ordered: 05/30/2023 Cytology Cervical or vaginal smear or scraping study Pap Smear Pathology and Cytology Routine Well woman exam with routine gynecological exam Ordered: 05/30/2023 [facility] Work Phone: Comment on above: Ordered: 05/30/2023 Human papilloma viru s DNA [Presence] in Unspecified specimen by Probe with amplification HPV DNA probe, amplified Microbiology Routine Well woman exam with routine gynecological exam Ordered: 05/30/2023 [facility] Comment on above: Ordered: 05/30/2023 Neisseria gonorrhoea e DNA [Presence] in Unspecified specimen by NANCY with probe detection Neisseria gonorrhea DNA probe, direct Lab Routine STD exposure Ordered: 05/30/2023 [facility] Comment on above: Ordered: 05/30/2023 SURESWAB(R) ADVANCED VAGINITIS PLUS, TMA SURESWAB(R) ADVANCED VAGINITIS PLUS, TMA Pathology and Cytology Routine Vaginal discharge Ordered: 05/30/2023 [facility] Comment on above: Ordered: 05/30/2023 Payers Date Payer Category Payer [facility] [id number] 2022 Unknown BCBS BCBS xxxxxx [id number] 2022-Present [phone] [address] [place] [address] [id number] 1989 Unknown [id number] 1989 Unknown [id number] 1989 Unknown [id number] 1989 Unknown [id number] 1960 Private Health Insurance [id number] Social History Date Type Detail Facility Unknown if ever smoked [facility] [employer] Other Start: 04-05-2023 Sex Assigned At [facility] Other Start: 04-05-2023 Tobacco smoking status HIIS Ex-smoker [facility] History of tobacco use [...] meal for a total of 4times daily.. [id number] Start: 05-23-2023 End: 06-22-2023 1 each by In Vit ro route in the morning. Use to check FSBS four times daily. [id number] Start: 05-23-2023 End: 06-22-2023 History of Present illness Narrative 05-30-2023 Candace EspositoSUMA - 05/30/2023 9:20 AM EST Note Date [...] nursing note reviewed. Exam conducted with a range ecologist present. Vitals: There is no height or [...] Kristian Jimenes DO documented in this encounter [facility] Evaluation note 04-10-2022 Note Date & [...] should improve within the next 4-7 days. [facility] Other Evaluation note 04-30-2021 Note Date & [...] Low vitamin B12 level (ICD-10 - E53.8) [facility] Other Evaluation note 03-03-2021 Note Date & [...] holidays (C) Answered general, nutrition-rela madelin questions [employer] Other Evaluation note 11-04-2021 Note Date & Type Note Facility 02-25-2021 Evaluation note Encounter Date Diagnosis Assessment Notes Feb, Body mass index (BMI) of 40.0-44.9 in adult (ICD-10 - Z68.41) Feb, Prediabetes (ICD-10 - R73.03) Feb, PCOS (polycystic ovarian syndrome) (ICD-10 - E28.2) Feb, Mixed hyperlipidemia (ICD-10 - E78.2) Feb, Depression with anxiety (ICD-10 - F41.8) Feb, Low vitamin B12 level (ICD-10 - E53.8) [facility] Other Evaluation note 01-20-2021 Note Date & [...] methods (C) Answered general nutrition-rel ated questions [employer] Other Evaluation note Note Date & Type Note Facility Evaluation note No Information [facility] Other Evaluation note Note Date & Type [...] Surgical History appendectomy Hospitalization History see above [facility] Other Summary Purpose Family History No Family History Records FoundNo Family History Records FoundNo Family History Records Found Advance Directives No Advanced Directives Records FoundNo Advanced Directives Records FoundNo Advanced Directives Records Found Additional Source Comments INFORMATION SOURCE (unrecogn ized section and content) DATE CREATED AUTHOR 03/17/2021 [facility] DATE CREATED AUTHOR AUTHOR'S ORGANIZ ATION 10/28/2021 [facility] DATE CREATED AUTHOR AUTHOR'S ORGANIZ ATION 05/31/2023 [facility] EPIC REASON FOR VISIT (unrecogniz ed section and content) Reason Comments Routine Visit [facility] Visit CONGESTION B/A H/A SORE THRAOTFCCC Pt does not wish our services 06/28/21CC RD N/S 04/13/2021, LM WM f/Erika Steele/DAGOBERTO EX Care Teams (unrecognized sec tion and content) [employer] Supervisor Relationship Specialty Start Date End Date Reinaldo Lara MD PCP - General Family Medicine 03/23/23 [employer] Supervisor Relationship Specialty Start Date End Date Reinaldo [...] BE BASED ON THE PRIMARY CLINICAL RECORDS. [employer] provides no warranty or guarantee of the accuracy or completeness of information in this document.
== END 2023-06-13 09:09 | disposition home or self-care (01) ==
LOC: NOMS 09:08
PROVIDERS: PCP Family Medicine; Visit Provider Obstetrics & Gynecology
DX: Z36.89 Encounter for other specified antenatal screening (principal); Z3A.20 20 weeks gestation of pregnancy
CPT/HCPCS: 76805; 76817

== ENCOUNTER 2023-07-12 14:09 | Outpatient (OUT) | payer BC, SELFPAY ==
--- NOTE | 2023-07-12 14:11 | US_ITS ---
[address] [address] Patient Name: VERA CONTRERAS MRN: [facility]:[id number] date: 1990 Sex: F Assigned Patient Location: [facility] Current Patient Location: LAB Accession/Order Number: [id number] Exam Date: 07/12/2023 14:12 Report Date: 07/12/2023 15:19 At the request of: KRISTIAN MARIN Procedure: US OB incomplete anatomy EXAM: US OB incomplete anatomy HISTORY: INCOMPLETE ANATOMY COMPARISON: 06/15/2023 TECHNIQUE: Transabdominal FINDINGS: position: Transverse Heart rate: 150 beats minute Normal anatomy: Spine Suboptimal anatomy: Heart palate US/US OB incomplete anatomy IMPRESSION: Follow-up anatomy as detailed above Electronically authenticated by: SILVER DASILVA Date: 07/12/2023 15:19
== END 2023-07-12 14:10 | disposition home or self-care (01) ==
LOC: NOMS 14:09
PROVIDERS: PCP Family Medicine; Visit Provider Obstetrics & Gynecology
DX: Z36.2 Encounter for other antenatal screening follow-up (principal)
CPT/HCPCS: 76815

== ENCOUNTER 2023-07-12 14:47 | Outpatient (OUT) | payer BC, SELFPAY ==
[2023-07-12 16:19] LABS: Basophils Percent Auto 0.3 % (0.2-2.0); Eosinophils Absolute Auto 0.1 10^3/uL (0.0-0.7); Eosinophils Percent Auto 0.6 % (0.9-7.0); Hematocrit 32.5 % (36.0-48.0); Hemoglobin 10.5 g/dL (12.0-16.0); Immature Granulocytes Abs Auto 0.04 10^3/uL (0.00-0.03); Immature Granulocytes Pct Auto 0.3 % (0.0-0.5); Lymphocytes Percent Auto 16.8 % (20.5-60.0); Mean Corpuscular HGB Conc 32.3 g/dL (29.9-35.2); Mean Corpuscular Hemoglobin 28.6 pg (26.7-34.0); Mean Corpuscular Volume 88.6 fL (81.0-99.0); Mean Platelet Volume 10.5 fL (9.5-13.5); Monocytes Absolute Auto 0.6 10^3/uL (0.3-0.8); Neutrophils Absolute Auto 9.2 10^3/uL (1.4-6.5); Platelet Count 356 10^3/uL (150-450); Red Blood Count 3.67 10^6/uL (4.20-5.40); Red Cell Distribution Width 13.2 % (11.0-15.0); White Blood Count 11.9 10^3/uL (4.0-11.0)
== END 2023-07-12 14:48 | disposition home or self-care (01) ==
LOC: LAB 14:48
PROVIDERS: PCP Family Medicine; Visit Provider Physician Assistant
DX: Z34.92 Encounter for supervision of normal pregnancy, unspecified, second trimester (principal)
CPT/HCPCS: 36415; 85025

== ENCOUNTER 2023-07-12 14:51 | Outpatient (OUT) | payer BC, SELFPAY ==
[2023-07-18 15:09] LABS: AFP Value 128.7 ng/mL (.); Gest. Age on Collection Date 18.7 weeks (.); Insulin Dep Diabetes No (.); Maternal Age At EDD 34.6 yr (.); OSBR Risk 1 IN 44 (.); Results Report (.)
== END 2023-07-12 14:52 | disposition home or self-care (01) ==
LOC: LAB 14:52
PROVIDERS: PCP Family Medicine; Visit Provider Obstetrics & Gynecology
DX: Z34.92 Encounter for supervision of normal pregnancy, unspecified, second trimester (principal); Z36.2 Encounter for other antenatal screening follow-up
CPT/HCPCS: 36415; 76815; 82105; 85025

== ENCOUNTER 2023-08-14 10:37 | Outpatient (OUT) | payer BC, SELFPAY ==
--- NOTE | 2023-08-14 10:41 | US_ITS ---
[address] [address] Patient Name: VERA CONTRERAS MRN: [facility]:[id number] date: 1990 Sex: F Assigned Patient Location: [facility] Current Patient Location: [facility] Accession/Order Number: [id number] Exam Date: 08/14/2023 10:41 Report Date: 08/14/2023 11:21 At the request of: KRISTIAN MARIN Procedure: US OB growth EXAMINATION: US OB growth HISTORY: GDM COMPARISON: No relevant comparison available. FINDINGS: Heart Rate: 149.0 bpm Amniotic Fluid Volume: 14.1 cm Number: 1.0 Position: Cephalic presentation longitudinal lie Maximum Vertical Pocket: 3.8 cm cm 3.5 cm cm 3.0 cm cm 3.9 cm cm BIOMETRY: BPD: 7.7 cm cm; 30 weeks 6 days; 78% HC: 28.9 cmcm; 31 weeks 5 days , 70% AC: 28.9 cm cm; 32 weeks 6 days, greater than 97% FL: 5.8 cm cm; 30 weeks 2 days; 56.1 % % EFW: 1844.7 grams, 4 lbs. 1 oz., greater than 97% FL/AC: 20.1 FL/BPD: 75.2 HC/AC: 1.0 GESTATIONAL AGE: Age by EDC: 29 weeks 4 days ROSY by EDC: 10/26/2023 Age by US: 31 weeks 3 days ROSY by US: 10/13/2023 US/US OB growth IMPRESSION: Large for gestational age, estimated weight greater than the 97th percentile Electronically authenticated by: SILVER DASILVA Date: 08/14/2023 11:21
--- OUTSIDE RECORDS SUMMARY | 2023-08-14 11:01 | XMS_ITS | CCD ---
Author Organization [facility] Care Team Providers Care Server Service Assistant Name Role Phone REQUEST, DR NONE LISTED Primary Care Unavaila katarzyna JIMENES, DR TOWNSEND Consulting Unavailable JALIL, DR TOWNSEND Attending Unavailable JALIL, DR TOWNSEND Admitting Unavailable Linda Keith Unavailable Norris Ames Jr. Unavailable [phone] Norris Ames Unavailable Kamilah Nance Unavailable Reinaldo Lara MD Primary Care Provider [phone] KRISTIAN JIMENES Attending Unavailable KRISTIAN JIMENES Attending Unavailable NEELAM SUTHERLAND Attending Unavailable KRISTIAN JIMENES Attending Unavailable Medications Current Medications Medication Drug Class(es) Dates Sig (Normalized) Sig (Original) 3 ML semaglutide 1.34 MG/ML Pen Injector [Ozempic] (3 sources) Start: 04-30-2021 inject 1 mg by subcutaneous injection every week Ozempic (1 MG/DOSE) 4 MG/3ML 1 mg as directed Subcutaneous weekly for 30 days Apr, Active [id number] actuat albuterol 0.09 mg/actuat metered dose [...] Start: 06-09-2022 take 1 capsule by mo uth every twenty-four hours in the morning venlafaxine XR (Effexor XR) 150 MG 24 hr capsule Take 150 mg by mouth in the morning. 0 06/09/2022 Active take 1 capsule by mo uth every twenty-four hours Effexor XR 150 MG [...] GDLNon AGE GDLN ACOG TESTING Note . [facility] Comment on above: TESTS RESULT FLAG UN ITS REF RANGE LAB Clinician Provided Cytology Information Source.............[employer] Other.............. No. of containers..01 ThinPrep Vial Age Algo ACOG Jes... 30 FLAG LEGEND: L-Low Normal,H-High Normal,LL-Alert Low,HH-Alert High <-Panic Low,>-Panic High,A-Abnormal,AA-Critical Abnormal Performed at: 01 =[address] [place] [address] Kala Contreras MD, HPV APTIMA Negative Negative [facility] e Comment on above: This nucleic acid am plification test detects fourteen high- risk HPV types (16,18,31,33,35,39,45,51,52,56,58,59,66,68) without differentiation. Performed at: =[address], [place] [id number] Judicial Assistant: Kala Contreras MD, Phone: [phone] Performed at: [facility] [address] [address] [email or web address] [place], [place] [id number] Judicial Assistant: Mike Copeland MD, Phone: [phone] IGP, APTIMA HPV, RFX 16/18,45 Note . [facility] Comment on above: TESTS RESULT FLAG UN ITS REF RANGE LAB DIAGNOSIS: 02 NEGATIVE FOR INTRAEPITHELIAL LESION OR MALIGNANCY. Specimen adequacy: 02 Satisfactory for evaluation. No endocervical component is identified. An endocervical component is not commonly seen in the patient. Performed by: 02 Leeann Ortiz Market Garden Worker (ASC) . 02 Note: Note 03 The Pap [...] High,A-Abnormal,AA-Critical Abnormal Performed at: 02 K[facility]YT [facility] [address] [address] [email or web address] [address] Mike Copeland MD, 03 WB [facility] [address] [address] Kala Contreras MD, SPATULA-ALONE ENDOCERVIX [facility] Healthcar e URETHRITIS/DISCHARGE PLUS VA GINITIS (HTRX)on 05-31-2023 ATOPOBIUM VAGINAE 0 [facility] ATOPOBIUM VAGINAE Not detected [facility] BVAB 2,3 (BACTERIAL VAGINOSIS ASSOCIATED BACTERIA 2, 3); MOBILUNCUS SPP 0 [facility] Healthcare BVAB 2,3 (BACTERIAL VAGINOSIS ASSOCIATED BACTERIA 2, 3); MOBILUNCUS SPP Not detected [facility] SIN ALBICANS, PARAPSILOSIS, TROPICALIS 0 [facility] SIN ALBICANS, PARAPSILOSIS, TROPICALIS Not detected [facility] SIN GLABRATA 0 [facility] SIN GLABRATA Not detected [facility] SIN KRUSEI 0 [facility] Healt hcare SIN KRUSEI Not detected [facility] CHLAMYDIA TRACHOMATIS 0 [facility] CHLAMYDIA TRACHOMATIS Not detected [facility] GARDNERELLA VAGINALIS 0 [facility] GARDNERELLA VAGINALIS Not detected [facility] Healthcare MEGASPHAERA (TYPES 1, 2) 0 [facility] MEGASPHAERA (TYPES 1, 2) Not detected [facility] MYCOPLASMA GENITALIUM 0 [facility] MYCOPLASMA GENITALIUM Not detected [facility] NEISSERIA GONORRHOEAE 0 [facility] NEISSERIA GONORRHOEAE Not detected [facility] Healthcare TRICHOMONAS VAGINALIS 0 [facility] Healthcare TRICHOMONAS VAGINALIS Not detected [facility] Healthcar e Urinalysis macro (dipstick) panel (U)on 05-30-2023 Bilirubin, UA Negative Negative - 4(70) +++ mg/dL [facility] Blood, UA Negative Negative - 50 Zach/mcL [facility] Clarity, UA Clear [facility] Healthca re Color, UA Yellow [facility] Healthcar e Glucose, UA Negative Negative - 1999(110) ++++ mg/dL [facility] Interpretation and review of laboratory results Abnormal [facility] Healthca re Ketones, UA Positive Negative - 160(16) ++++ mg/dL [facility] Leukocytes, UA Negative Negative - 500+++ Magaly/mcL [facility] Nitrite, UA Negative Negative - Positive [facility] pH, UA 5.5 5 - 9 [facility] Healthcar e Protein, UA Negative Negative - 1999(20) ++++ mg/dL [facility] Spec Grav, UA 1.020 1 - 1.03 [facility] care Urobilinogen, UA 1.0 0.2 - 12 mg/dL [facility] Healthcar e COVID + FLU Quick Testingon 04-10-2022 SARS-CoV-2 (COVID-19) RNA NANCY+probe Ql (Unsp spec) Positive [employer] Other COVID + FLU Quick Testing Positive [employer] Other Quick Strepon 04-10-2022 S. pyogenes Org specific cx Ql (Throat) Negative [employer] Other Quick Strep [employer] Other A1C with Estimated Average G luon 04-28-2021 Glucose [Mass/Vol] 108 mg/dL Normal [facility] Comment on above: Order Comment: Reaso n for Exam Prediabetes Result Comment: PERF ORMED BY: [place] [address] PATHOLOGIST SPECIAL MACHINE STITCHER THEO CHU M.D. Performed By: #### A 1C WT eA, LIPID, GLU, B12 #### [facility] [address] [place] [address] HbA1c (Bld) [Mass fraction] 5.4 % Normal 4.3-5.6 [facility] Comment on above: Order Comment: Reaso n for Exam Prediabetes Result Comment: Incr eased risk for diabetes: 5.7 - 6.4 diabetes: >6.4 glycemic control for adults with diabetes: <7.0 Performed By: #### A 1C WTH eA, LIPID, GLU, B12 #### [facility] [address] Glucoseon 04-28-2021 Glucose [Mass/Vol] 97 mg/dL Normal 70-100 [facility] Comment on above: Order Comment: Reaso n for Exam Prediabetes Reason for Exam Mixed hyperlipidemia Reason for Exam Low vitamin B12 level Result Comment: [facility] Glucose Reference Range is dependent on time and content of last meal. Glucose of more than 200 mg/dL in a nonstressed, ambulatory subject supports the diagnosis of Diabetes Mellitus. ADA recommended reference range Performed By: #### A 1C WTH eA, LIPID, GLU, B12 #### [facility] [address] [id number] [facility] Lipid Panelon 04-28-2021 Cholesterol [Mass/Vol] 171 mg/dL Normal 140-200 [facility] Comment on above: Order Comment: Reaso n for Exam Prediabetes Reason for Exam Mixed hyperlipidemia Reason for Exam Low vitamin B12 level Result Comment: Chol less than 200 mg/dl low risk Chol 201-239 mg/dl borderline risk Chol 240 mg/dl and greater high risk Performed By: #### A 1C WTH eA, LIPID, GLU, B12 #### [facility] [address] Cholesterol in HDL [Mass/Vol] 41 mg/dL Normal 35-85 [facility] Comment on above: Order Comment: Reaso n for Exam Prediabetes Reason for Exam Mixed hyperlipidemia Reason for Exam Low vitamin B12 level Result Comment: HDL CHOL ATP-III CLASSIFICATION Cardiovascular Risk HDL > or equal to 60 mg/dL LOW HDL < 40 mg/dL HIGH Performed By: #### A 1C WTH eA, LIPID, GLU, B12 #### [facility] [address] [id number] [facility] Cholesterol.total/C holesterol in HDL [Mass ratio] 4.2 {ratio} Normal <5.0 [facility] Comment on above: Order Comment: Reaso n for Exam Prediabetes Reason for Exam Mixed hyperlipidemia Reason for Exam Low vitamin B12 level Performed By: #### A 1C WTH eA, LIPID, GLU, B12 #### [facility] [address] [id number] [place] LDL Cholesterol,Calcula madelin 95 mg/dL Normal 0-100 [facility] Comment on above: Order Comment: Reaso n [...] WTH eA, LIPID, GLU, B12 #### [facility] [address] Triglyceride w/Reflex 176 mg/dL High 35-149 [facility] Comment on above: Order Comment: Reaso n [...] test method. Performed By: #### A 1C WT eA, LIPID, GLU, B12 #### [facility] [address] [place] [address] VLDL CHOLESTEROL 35 mg/dL Normal [facility] Comment on above: Order Comment: Reaso n for Exam Prediabetes Reason for Exam Mixed hyperlipidemia Reason for Exam Low vitamin B12 level Performed By: #### A 1C WT eA, LIPID, GLU, B12 #### [facility] [address] [place] [address] Vitamin B12on 04-28-2021 Cobalamin (Vitamin B12) [Mass/Vol] 633 pg/mL Normal 180-914 [facility] Comment on above: Order Comment: Reaso n for Exam Prediabetes Reason for Exam Mixed hyperlipidemia Reason for Exam Low vitamin B12 level Result Comment: PERF ORMED BY: [place] [address] PATHOLOGIST SPECIAL MACHINE STITCHER THEO CHU M.D. Performed By: #### A 1C WTH eA, LIPID, GLU, B12 #### [facility] [address] [place] [address] PAP ACOG PANEL 2: 30 to 65on 03-16-2021 . . Normal [facility] Comment on above: Result Comment: Perf ormed at: WB Performed By: #### [id number] #### [facility] [address] [address] [address] Tete Peters Age Gdln ACOG Testing 30-65 Normal [facility] Comment on above: Performed By: #### [id number] #### [facility] [address] [place] [address] Dr. Tete Peters DIAGNOSIS: Comment Normal [facility] Comment on above: Result Comment: NEGA TIVE FOR INTRAEPITHELIAL LESION OR MALIGNANCY. THIS SPECIMEN WAS RESCREENED PART OF OUR NUT PACKER PROGRAM. Performed at: WB Performed By: #### [id number] #### [facility] [address] [place] [address] Dr. Tete Peters HPV Aptima Negative Normal Negative [facility] Comment on above: Result Comment: This nucleic acid amplification test detects fourteen high-risk HPV types (16,18,31,33,35,39,45,51,52,56,58,59,66,68) without differentiation. Performed at: =G Performed By: #### [id number] #### [facility] [address] [place] [address] Dr. Tete Peters Methodology: Comment Normal [facility] Comment on above: Result Comment: This liquid based ThinPrep(R) pap test was screened with the use of an image guided system. Performed at: WB Performed By: #### 4 [id number] #### [facility] [address] [place] [address] Dr. Tete Peters Note: Comment Normal [facility] Comment on above: Result Comment: The Pap smear is a screening test designed to aid in the detection of premalignant and malignant conditions of the uterine cervix. It is not a diagnostic procedure and should not be used as the sole means of detecting cervical cancer. Both false-positive and false-negative reports do occur. . Performed at: WB Performed By: #### [id number] #### [facility] [address] [place] [address] Dr. Tete Peters Performed by: Comment Normal [facility] Comment on above: Result Comment: Luisa Ross Market Garden Worker (ASCP) Performed at: WB Performed By: #### [id number] #### [facility] [address] [place] [address] Dr. Tete Peters QC reviewed by: Comment Normal [facility] Comment on above: Result Comment: Monika Ortiz, Supervisory Market Garden Worker (ASCP) Performed at: WB Performed By: #### [id number] #### [facility] [address] [address] [address] Tete Peters Specimen adequacy: Comment Normal [facility] Comment on above: Result Comment: Sati sfactory for evaluation. Endocervical and/or squamous metaplastic cells (endocervical component) are present. Performed at: WB Performed By: #### [id number] #### [facility] [address] [address] [address] Tete Peters Vitamin B12on 01-12-2021 Cobalamin (Vitamin B12) [Mass/Vol] 297 pg/mL Normal 180-914 [facility] Comment on above: Order Comment: Reaso n for Exam Prediabetes Result Comment: PERF ORMED BY: [place] [address] PATHOLOGIST SPECIAL MACHINE STITCHER THEO CHU M.D. Performed By: #### B 12 #### [address] TIE HACKER polysom portableon 11-16 TIE HACKER polysom portable [facility] Main [place] [address] [place] [address] Sleep Lab Report Signed Patient: Marina Contreras MR#: [id number] : 1990 Acct:[id number] Age/Sex: 30 / F ADM Date: 11/09/20 Loc: Room: Type: [facility] Attending Dr: Anne Marie Mejía MD Ordering [...] home sleep test was performed utilizing the [employer] T3 system. Parameters recorded include actigraphy, [...] Dictated By: Anne Marie Mejía MD 11/16/20 1545 Signed By: 11/18/20 8949 [facility] Vital Signs Date Time Vital Sign Value Performing Clinician Facility 05-30-2023 09:36-0500 Body weight 116.48 kg Network Physics Jalil DO Work Phone: [facility] 05-30-2023 09:36-0500 Diastolic blood pressure 70 mm[Hg] Kristian Jalil DO Work Phone: [facility] 05-30-2023 09:36-0500 Systolic blood pressure 116 mm[Hg] Kristian Jalil DO Work Phone: [facility] 04-10-2022 14:00-0500 Body height 157.48 cm Kamilah Nance Other [employer] Other 04-10-2022 14:00-0500 Body mass index (BMI) [Ratio] 44.92 kg/m2 Kamilah Nance Other [employer] Other 04-10-2022 14:00-0500 Body temperature 99.5 [degF] Kamilah Nance Other [employer] Other 04-10-2022 14:00-0500 Body weight 111.4 kg Kamilah Nance Other [employer] Other 04-10-2022 14:00-0500 Diastolic blood pressure 68 mm[Hg] Kamilah Nance Other [employer] Other 04-10-2022 14:00-0500 Respiratory rate 18 /min Kamilah Nance Other [employer] Other 04-10-2022 14:00-0500 SaO2% (BldA) [Mass fraction] 95 % Kamilah Nance Other [employer] Other 04-10-2022 14:00-0500 Systolic blood pressure 116 mm[Hg] Kamilah Nance Other [employer] Other 04-30-2021 10:45-0500 Body height 157.48 cm Norris Ames Other [employer] Other 04-30-2021 10:45-0500 Body mass index (BMI) [Ratio] 41.72 kg/m2 Norris Ames Other [employer] Other 04-30-2021 10:45-0500 Body weight 103.47 kg Norris Ames Other [employer] Other 04-30-2021 10:45-0500 Diastolic blood pressure 75 mm[Hg] Norris Ames Other [employer] Other 04-30-2021 10:45-0500 Respiratory rate 18 /min Norris Ames Other [employer] Other 04-30-2021 10:45-0500 SaO2% (BldA) [Mass fraction] 99 % Norris Ames Other [employer] Other 04-30-2021 10:45-0500 Systolic blood pressure 110 mm[Hg] Norris Ames Other [employer] Other 03-03-2021 11:30-0500 Body height 157.48 cm Lindafrederic Keith Other [employer] Other 03-03-2021 11:30-0500 Body mass index (BMI) [Ratio] 42.5 kg/m2 Linda Fitt Other [employer] Other 03-03-2021 11:30-0500 Body weight 105.42 kg Linda Fitt Other [employer] Other 02-25-2021 12:00-0400 Body height 157.48 cm Norris Ames Jr. Other [employer] Other 02-25-2021 12:00-0400 Body mass index (BMI) [Ratio] 41.92 kg/m2 Norris Ames Jr. Other [employer] Other 02-25-2021 12:00-0400 Body weight 103.97 kg Norris Ames Jr. Other [employer] Other 02-25-2021 12:00-0400 Diastolic blood pressure 79 mm[Hg] Norris Ames . Other [employer] Other 02-25-2021 12:00-0400 Respiratory rate 18 /min Norris Ames . Other [employer] Other 02-25-2021 12:00-0400 SaO2% (BldA) [Mass fraction] 97 % Norris Ames Jr. Other [employer] Other 02-25-2021 12:00-0400 Systolic blood pressure 118 mm[Hg] Norris Ames . Other [employer] Other 01-20-2021 10:00-0400 Body height 157.48 cm Linda Keith Other [employer] Other 01-20-2021 10:00-0400 Body mass index (BMI) [Ratio] 42.68 kg/m2 Linda Keith Other [employer] Other 01-20-2021 10:00-0400 Body weight 105.87 kg Linda Keith Other [employer] Other Encounters Encounter Date Encounter Type Care Provider Facility Start: 07-27-2023 End: 07-27-2023 ambulatory KRISTIAN JIMENES Not Available Start: 06-28-2023 End: 06-28-2023 ambulatory NEELAM SUTHERLAND Not Available Start: 05-30-2023 [facility] Result Encounter Generic External [...] 04-10-2022 End: 04-10-2022 ambulatory Kamilah Nance Other [employer] Other Start: 04-10-2022 Office outpatient vi sit 15 minutes Kamilah Nance [facility] Start: 05-26-2021 End: 05-26-2021 ambulatory Norris Ames Other [employer] Other Start: 05-26-2021 Telephone encounter [facility] Start: 04-30-2021 End: 04-30-2021 ambulatory Norris Ames Other [employer] Other Start: 04-30-2021 Follow-up encounter [facility] Start: 04-13-2021 End: 04-13-2021 ambulatory Linda Keith Other [employer] Other Start: 04-13-2021 [facility] Start: 03-09-2021 End: 03-09-[address] NONE LISTED REQUEST Facility: Start: 03-03-2021 ([facility] RD FU) [facility] F/ U Registerd Account Engineer Linda Sagar [facility] Start: 03-03-2021 End: 03-03-2021 ambulatory Linda Keith Other [employer] Other Start: 02-25-2021 End: 02-25-2021 ambulatory Norris Ames Jr. Other [employer] Other Start: 02-25-2021 Follow-up encounter Norris howard [facility] Start: 02-04-2021 Telephone encounter Norris howard [facility] Start: 01-20-2021 ([facility] RD FU) [facility] F/ U Registerd Account Engineer Linda Keith [facility] Procedures Date Procedure Procedure Detail Performing Clinician [...] AM EST Routine [facility] [address] [facility] [place] [address] Neelam Sutherland PA [address] [place] [address] [facility] Start: 06-13-2023 End: 06-13-2023 Professional / ancillary services management 06/13/2023 9:00 AM EST Ancillary Procedure [facility] [address] [place] [address] [facility] Start: 05-30-2023 End: 09-28-2023 Alpha fetoprotein, maternal Alpha fetoprotein, maternal Lab Routine Second trimester Expected: 05/30/2023 (Approximate), Expires: 09/28/2023 [facility] Comment on above: Expected: 05/30/2023 (Approximate), Expires: 09/28/2023 Start: 05-30-2023 End: 05-30-2024 US for US OB ANATOMY SINGLE W US OB CERVICAL LENGTH Imaging Routine Screening, , for anatomic survey Expected: 05/30/2023 (Approximate), Expires: 05/30/2024 [facility] Comment on above: Expected: 05/30/2023 (Approximate), Expires: 05/30/2024 Start: 12-23-2022 Influenza vaccination Influenza Vacc ine (#1) [facility] Start: 2019 Screening for malign ant neoplasm of cervix [facility] Start: 2010 Screening for malign ant neoplasm of cervix Pap Smear [facility] CHLAMYDIA TRACHOMATI S (GENITO/STI) CHLAMYDIA TRACHOMATIS (GENITO/STI) Lab Routine STD exposure Ordered: 05/30/2023 [facility] Comment on above: Ordered: 05/30/2023 Cytology Cervical or vaginal smear or scraping study Pap Smear Pathology and Cytology Routine Well woman exam with routine gynecological exam Ordered: 05/30/2023 [facility] Work Phone: Comment on above: Ordered: 05/30/2023 Human papilloma viru s DNA [Presence] in Unspecified specimen by Probe with amplification HPV DNA probe, amplified Microbiology Routine Well woman exam with routine gynecological exam Ordered: 05/30/2023 [facility] Comment on above: Ordered: 05/30/2023 Neisseria gonorrhoea e DNA [Presence] in Unspecified specimen by NANCY with probe detection Neisseria gonorrhea DNA probe, direct Lab Routine STD exposure Ordered: 05/30/2023 [facility] Comment on above: Ordered: 05/30/2023 SURESWAB(R) ADVANCED VAGINITIS PLUS, TMA SURESWAB(R) ADVANCED VAGINITIS PLUS, TMA Pathology and Cytology Routine Vaginal discharge Ordered: 05/30/2023 [facility] Comment on above: Ordered: 05/30/2023 Payers Date Payer Category Payer [facility] [id number] 2022 Unknown BCBS BCBS xxxxxx [id number] 2022-Present [phone] [address] [place] [address] [id number] 1989 Unknown [id number] 1989 Unknown [id number] 1989 Unknown [id number] 1989 Unknown [id number] 1989 Unknown [id number] 1989 Unknown [id number] 1960 Private Health Insurance [id number] Social History Date Type Detail Facility Unknown if ever smoked [facility] [employer] Other Start: 04-05-2023 Sex Assigned At N [facility] [employer] Other Start: 04-05-2023 Tobacco smoking status NHIS Ex-smoker [facility] History of tobacco use Current smoker [facility] History of tobacco use Cigarette Smoker [facility] Start: 05-30-2023 Alcohol intake Current drinke r of alcohol (finding) [facility] Start: 04-05-2023 History of Social function [facility] Start: 04-05-2023 Alcohol Comment 1 or 2 drinks on a typical day/ monthly or less [facility] Start: 02-02-2023 [facility] Start: 1990 Sex Assigned At Not on file [facility] Medical Equipment Procedure Code Equipment Code Equipment Origin al Text Equipment Identifier Dates 1 strip by In Vi tro route in the morning. Use in the morning prior to breakfast, 1 hour after each meal for a total of 4times daily.. [id number] Start: 05-23-2023 End: 06-22-2023 1 each by In Vit ro route in the morning. Use to check FSBS four times daily. [id number] Start: 05-23-2023 End: 06-22-2023 History of Present illness Narrative 05-30-2023 Candace Esposito LPN - 05/30/2023 9:20 AM EST Note Date & Type Note Facility 05-30-2023 History of Presen t illness Narrative Reason for Appointment: Patient ID: Marina Contreras is a 33 y.o. female who presents [...] nursing note reviewed. Exam conducted with a legislative analyst present. Vitals: There is no height or [...] Kristian Jimenes DO documented in this encounter [facility] Evaluation note 04-10-2022 Note Date [...] should improve within the next 4-7 days. [employer] Other Evaluation note 04-30-2021 Note Date & [...] Low vitamin B12 level (ICD-10 - E53.8) [employer] Other Evaluation note 03-03-2021 Note Date & [...] holidays (C) Answered general, nutrition-rela madelin questions [employer] Other Evaluation note 02-25-2021 Note Date & [...] Low vitamin B12 level (ICD-10 - E53.8) [employer] Other Evaluation note 01-20-2021 Note Date & [...] methods (C) Answered general nutrition-rel ated questions [employer] Other Evaluation note Note Date & Type Note Facility Evaluation note No Information [employer] Other Evaluation note Note Date & Type [...] Surgical History appendectomy Hospitalization History see above [employer] Other Summary Purpose Family History No Family History Records FoundNo Family History Records FoundNo Family History Records Found Advance Directives No Advanced Directives Records FoundNo Advanced Directives Records FoundNo Advanced Directives Records Found Additional Source Comments INFORMATION SOURCE (unrecogn ized section and content) DATE CREATED AUTHOR 03/17/2021 [facility] DATE CREATED AUTHOR AUTHOR'S ORGANIZ ATION 10/28/2021 [facility] DATE CREATED AUTHOR AUTHOR'S ORGANIZ ATION 07/28/2023 [facility] EPIC REASON FOR VISIT (unrecogniz ed section and content) Reason Comments Routine Visit [facility] Visit CONGESTION B/A H/A SORE THRAOTFCCC Pt does not wish our services 06/28/21CC RD N/S 04/13/2021, LM WM f/AníbalMN F/UWM EX Care Teams (unrecognized sec tion and content) Server Service Assistant Relationship Specialty Start Date End Date Reinaldo Lara MD PCP - General Family Medicine 03/23/23 Server Service Assistant Relationship Specialty Start Date End Date Reinaldo [...] BE BASED ON THE PRIMARY CLINICAL RECORDS. [facility] [employer] [facility]. provides no warranty or guarantee of the accuracy or completeness of information in this document.
== END 2023-08-14 10:38 | disposition home or self-care (01) ==
LOC: NOMS 10:38
PROVIDERS: PCP Family Medicine; Visit Provider Obstetrics & Gynecology
DX: O24.419 Gestational diabetes mellitus in pregnancy, unspecified control (principal); Z3A.31 31 weeks gestation of pregnancy
CPT/HCPCS: 76816

== ENCOUNTER 2023-08-23 10:19 | Outpatient (OUT) | payer BC, SELFPAY | END 2023-08-23 15:01 | disposition home or self-care (01) | PROVIDERS: PCP Family Medicine; Visit Provider Obstetrics & Gynecology | DX: O24.419 Gestational diabetes mellitus in pregnancy, unspecified control (principal) | CPT/HCPCS: 95250; G0108 ==

== ENCOUNTER 2023-08-31 07:10 | Outpatient (OUT) | payer BC, SELFPAY ==
--- OUTSIDE RECORDS SUMMARY | 2023-08-31 07:33 | XMS_ITS | CCD ---
Author Organization [facility] Care Team Providers Care Anesthesiologist Name Role Phone REQUEST, DR NONE LISTED Primary Care Unavaila katarzyna JIMENES, DR TOWNSEND Consulting Unavailable JALIL, DR TOWNSEND Attending Unavailable JALIL, DR TOWNSEND Admitting Unavailable Linda Keith Unavailable Norris Ames Jr. Unavailable Norris Ames Unavailable Kamilah Nance Unavailable Reinaldo Lara MD Primary Care Provider KRISTIAN JIMENES Attending Unavailable KRISTIAN JIMENES Attending Unavailable NEELAM SUTHERLAND Attending Unavailable KRISTIAN JIMENES Attending Unavailable NEELAM SUTHERLAND Attending Unavailable KRISTIAN JIMENES Attending Unavailable Medications Current Medications Medication Drug Class(es) Dates Sig (Normalized) Sig (Original) 3 ML semaglutide 1.34 MG/ML Pen Injector [Ozempic] (3 sources) Start: 04-30-2021 inject 1 mg by subcutaneous injection every week Ozempic (1 MG/DOSE) 4 MG/3ML 1 mg as directed Subcutaneous weekly for 30 days Apr, Active [id number] 200 actuat albuterol 0.09 mg/actuat metered dose [...] GDLNon AGE GDLN ACOG TESTING Note . [facility] Comment on above: TESTS RESULT FLAG UN ITS REF RANGE LAB Clinician Provided Cytology Information Source.............[employer] Other.............. No. of containers..01 ThinPrep Vial Age Algo ACOG Jes... 30-65 01 FLAG LEGEND: L-Low Normal,H-High Normal,LL-Alert Low,HH-Alert High <-Panic Low,>-Panic High,A-Abnormal,AA-Critical Abnormal Performed at: 01 =G [facility] [place] [address] Kala Contreras MD, HPV APTIMA Negative Negative [facility] Comment on above: This nucleic acid am plification test detects fourteen high- risk HPV types (16,18,31,33,35,39,45,51,52,56,58,59,66,68) without differentiation. Performed at: =G [facility] [id number] Crew Lead: Kala Contreras MD, Phone: [phone] Performed at: [facility] [address] [place], [place] [id number] Crew Lead: Mike Copeland MD, Phone: [phone] IGP, APTIMA HPV, RFX 16/18,45 Note . [facility] Comment on above: TESTS RESULT FLAG UN ITS REF RANGE LAB DIAGNOSIS: 02 NEGATIVE FOR INTRAEPITHELIAL LESION OR MALIGNANCY. Specimen adequacy: 02 Satisfactory for evaluation. No endocervical component is identified. An endocervical component is not commonly seen in the patient. Performed by: Kelsy Ortiz, Business English Instructor (ASCP) . 02 Note: Note 03 The [...] <-Panic Low,>-Panic High,A-Abnormal,AA-Critical Abnormal Performed at: 02 [facility] [place] [address] [place] [address] Mike Copeland MD, 03 WB [facility] [address] [address] Kala Contreras MD, SPATULA-ALONE ENDOCERVIX [facility] e URETHRITIS/DISCHARGE PLUS VA GINITIS (HTRX)on 05-31-2023 ATOPOBIUM VAGINAE 0 [facility] ATOPOBIUM VAGINAE Not detected [facility] BVAB 2,3 (BACTERIAL VAGINOSIS ASSOCIATED BACTERIA 2, 3); MOBILUNCUS SPP 0 [facility] BVAB 2,3 (BACTERIAL VAGINOSIS ASSOCIATED [...] 0 [facility] GARDNERELLA VAGINALIS Not detected [facility] MEGASPHAERA (TYPES 1, 2) 0 [facility] MEGASPHAERA (TYPES 1, 2) Not detected [facility] MYCOPLASMA GENITALIUM 0 [facility] MYCOPLASMA GENITALIUM Not detected [facility] NEISSERIA GONORRHOEAE 0 [facility] NEISSERIA GONORRHOEAE Not detected [facility] TRICHOMONAS VAGINALIS 0 [facility] TRICHOMONAS VAGINALIS Not detected [facility] Urinalysis macro (dipstick) panel (U)on 05-30-2023 Bilirubin, UA Negative Negative - 4(70) +++ mg/dL [facility] Blood, UA Negative Negative - 50 Zach/mcL [facility] Clarity, UA Clear [facility] re Color, UA Yellow [facility] Glucose, UA Negative Negative - 2000(110) ++++ mg/dL [facility] Interpretation and review of laboratory results Abnormal [facility] Ketones, UA Positive Negative - 160(16) ++++ mg/dL [facility] Leukocytes, UA Negative Negative - 500+++ Magaly/mcL [facility] Nitrite, UA Negative Negative - Positive [facility] pH, UA 5.5 5 - 9 [facility] Protein, UA Negative Negative - 1999(20) ++++ mg/dL [facility] Spec Grav, UA 1.020 1 - 1.03 [facility] care Urobilinogen, UA 1.0 0.2 - 12 mg/dL [facility] Healthcar e COVID + FLU Quick Testingon 04-10-2022 SARS-CoV-2 (COVID-19) RNA NANCY+probe Ql (Unsp spec) Positive [facility] Other COVID + FLU Quick Testing Positive [employer] Other Quick Strepon 04-10-2022 S. pyogenes Org specific cx Ql (Throat) Negative [facility] Other Quick Strep [facility] Other A1C with Estimated Average G luon 04-28-2021 Glucose [Mass/Vol] 108 mg/dL Normal [facility] Comment on above: Order Comment: Reaso n for Exam Prediabetes Result Comment: PERF ORMED BY: [place] [id number] PATHOLOGIST ENGRAVER LETTER THEO CHU M.D. Performed By: #### A 1C WT eA, LIPID, GLU, B12 #### [facility] [address] [place] [address] HbA1c (Bld) [Mass fraction] 5.4 % Normal 4.3-5.6 [facility] Comment on above: Order Comment: Reaso n for Exam Prediabetes Result Comment: Incr eased risk for diabetes: 5.7 - 6.4 diabetes: >6.4 glycemic control for adults with diabetes: <7.0 Performed By: #### A 1C WTH eA, LIPID, GLU, B12 #### [facility] [address] [place] [address] Glucoseon 04-28-2021 Glucose [Mass/Vol] 97 mg/dL Normal 70-100 [facility] Comment on above: Order Comment: Reaso n for Exam Prediabetes Reason for Exam Mixed hyperlipidemia Reason for Exam Low vitamin B12 level Result Comment: [facility] Glucose Reference Range is dependent on time and content of last meal. Glucose of more than 200 mg/dL in a nonstressed, ambulatory subject supports the diagnosis of Diabetes Mellitus. ADA recommended reference range Performed By: #### A 1C WTH eA, LIPID, GLU, B12 #### [facility] [address] [id number] [facility] Lipid Panelon 04-28-2021 Cholesterol [Mass/Vol] 171 mg/dL Normal 140-200 [facility] Comment on above: Order Comment: Reaso n for Exam Prediabetes Reason for Exam Mixed hyperlipidemia Reason for Exam Low vitamin B12 level Result Comment: Chol less than 200 mg/dl low risk Chol 201-239 mg/dl borderline risk Chol 240 mg/dl and greater high risk Performed By: #### A 1C WTH eA, LIPID, GLU, B12 #### [facility] [address] [place] [address] [place] Cholesterol in HDL [Mass/Vol] 41 mg/dL Normal 35-85 [facility] Comment on above: Order Comment: Reaso n for Exam Prediabetes Reason for Exam Mixed hyperlipidemia Reason for Exam Low vitamin B12 level Result Comment: HDL CHOL ATP-III CLASSIFICATION Cardiovascular Risk HDL > or equal to 60 mg/dL LOW HDL < 40 mg/dL HIGH Performed By: #### A 1C WTH eA, LIPID, GLU, B12 #### [facility] [address] [id number] [place] Cholesterol.total/C holesterol in HDL [Mass ratio] 4.2 {ratio} Normal <5.0 [facility] Comment on above: Order Comment: Reaso n for Exam Prediabetes Reason for Exam Mixed hyperlipidemia Reason for Exam Low vitamin B12 level Performed By: #### A 1C WTH eA, LIPID, GLU, B12 #### [facility] [address] [id number] [place] LDL Cholesterol,Calcula madeiln 95 mg/dL Normal 0-100 [facility] Comment on above: Order Comment: Reaso [...] 1C WTH eA, LIPID, GLU, B12 #### [facility] [address] Triglyceride w/Reflex 176 mg/dL High 35-149 [facility] Comment on above: Order Comment: Reaso [...] 1C WTH eA, LIPID, GLU, B12 #### [facility] [address] VLDL CHOLESTEROL 35 mg/dL Normal [facility] Comment on above: Order Comment: Reaso n for Exam Prediabetes Reason for Exam Mixed hyperlipidemia Reason for Exam Low vitamin B12 level Performed By: #### A 1C WTH eA, LIPID, GLU, B12 #### [facility] [address] Vitamin B12on 04-28-2021 Cobalamin (Vitamin B12) [Mass/Vol] 633 pg/mL Normal 180-914 [facility] Comment on above: Order Comment: Reaso n for Exam Prediabetes Reason for Exam Mixed hyperlipidemia Reason for Exam Low vitamin B12 level Result Comment: PERF ORMED BY: [place] [id number] PATHOLOGIST ENGRAVER LETTER THEO CHU M.D. Performed By: #### A 1C WTH eA, LIPID, GLU, B12 #### [facility] [address] PAP ACOG PANEL 2: 30 to 65on 03-16-2021 . . Normal [facility] Comment on above: Result Comment: Perf ormed at: WB Performed By: #### [id number] #### [facility] [address] [address] [address] Tete Peters Age Gdln ACOG Testing 30-65 Normal [facility] Comment on above: Performed By: #### [id number] #### [facility] [address] [address] [address] Tete Peters DIAGNOSIS: Comment Normal [facility] Comment on above: Result Comment: NEGA TIVE FOR INTRAEPITHELIAL LESION OR MALIGNANCY. THIS SPECIMEN WAS RESCREENED PART OF OUR RN COMMUNITY PROGRAM. Performed at: WB Performed By: #### [id number] #### [facility] [address] [address] [address] Tete Peters HPV Aptima Negative Normal Negative [facility] Comment on above: Result Comment: This nucleic acid amplification test detects fourteen high-risk HPV types (16,18,31,33,35,39,45,51,52,56,58,59,66,68) without differentiation. Performed at: =G Performed By: #### [id number] #### [facility] [address] [place] [address] Dr. Tete Peters Methodology: Comment Normal [facility] Comment on above: Result Comment: This liquid based ThinPrep(R) pap test was screened with the use of an image guided system. Performed at: WB Performed By: #### [id number] #### [facility] [address] [place] [address] Dr. Tete Peters Note: Comment Normal [facility] Comment on above: Result Comment: The Pap smear is a screening test designed to aid in the detection of premalignant and malignant conditions of the uterine cervix. It is not a diagnostic procedure and should not be used as the sole means of detecting cervical cancer. Both false-positive and false-negative reports do occur. . Performed at: WB Performed By: #### [id number] #### [facility] [address] [address] [address] Tete Peters Performed by: Comment Normal [facility] Comment on above: Result Comment: Luisa Ross, Business English Instructor (ASCP) Performed at: WB Performed By: #### 4 [id number] #### [facility] [address] [place] [address] Dr. Tete Peters QC reviewed by: Comment Normal [facility] Comment on above: Result Comment: oMnika Ortiz, Supervisory Business English Instructor (ASCP) Performed at: WB Performed By: #### 4 [id number] #### [facility] [address] [place], [place] [address] Dr. Tete Peters Specimen adequacy: Comment Normal [facility] Comment on above: Result Comment: Sati sfactory for evaluation. Endocervical and/or squamous metaplastic cells (endocervical component) are present. Performed at: WB Performed By: #### 4 [id number] #### [facility] [address] [place], [place] [address] Dr. Tete Peters Vitamin B12on 01-12-2021 Cobalamin (Vitamin B12) [Mass/Vol] 297 pg/mL Normal 180-914 [facility] Comment on above: Order Comment: Reaso n for Exam Prediabetes Result Comment: PERF ORMED BY: [place] [id number] PATHOLOGIST ENGRAVER LETTER THEO CHU M.D. Performed By: #### B 12 #### [address] STEMMING MACHINE OPERATOR polysom portableon 11-16 STEMMING MACHINE OPERATOR polysom portable [facility] Main [place] [address] [place] [address] Sleep Lab Report Signed Patient: Marina Contreras MR#: [id number] : 1990 Acct:[id number] Age/Sex: 30 / F ADM Date: 11/09/20 Loc: Room: Type: [facility] Attending Dr: Anne Marie Mejía MD [...] home sleep test was performed utilizing the [facility] Nox T3 system. Parameters recorded include actigraphy, [...] monitoring after that. Transcribed By: GERDA 11/17/20 1301 Dictated By: Anne Marie Mejía MD 11/16/20 4008 Signed By: 11/18/20 2674 [facility] Vital Signs Date Time Vital Sign Value Performing Clinician Facility 05-30-2023 09:36-0500 Body weight 116.48 kg [facility] Work Phone: [facility] 05-30-2023 09:36-0500 Diastolic blood pressure 70 mm[Hg] [facility] Work Phone: [facility] 05-30-2023 09:36-0500 Systolic blood pressure 116 mm[Hg] [facility] Work Phone: [facility] 04-10-2022 14:00-0500 Body height 157.48 cm Kamilah Nance Other [employer] Other 04-10-2022 14:00-0500 Body mass index (BMI) [Ratio] 44.92 kg/m2 Kamilah Nance Other [employer] Other 04-10-2022 14:00-0500 Body temperature 99.5 [degF] Kamilah Nance Other [employer] Other 04-10-2022 14:00-0500 Body weight 111.4 kg Kamilah Nance Other [employer] Other 04-10-2022 14:00-0500 Diastolic blood pressure 68 mm[Hg] Kamilah Nance Other [employer] Other 04-10-2022 14:00-0500 Respiratory rate 18 /min Kamilah Nance Other [employer] Other 04-10-2022 14:00-0500 SaO2% (BldA) [Mass fraction] 95 % Kamilah Nance Other [employer] Other 04-10-2022 14:00-0500 Systolic blood pressure 116 mm[Hg] Kamilah Nance Other [employer] Other 04-30-2021 10:45-0500 Body height 157.48 cm Norris Ames Other [employer] Other 04-30-2021 10:45-0500 Body mass index (BMI) [Ratio] 41.72 kg/m2 Norris Ames Other [employer] Other 04-30-2021 10:45-0500 Body weight 103.47 kg Norris Ames Other [employer] Other 04-30-2021 10:45-0500 Diastolic blood pressure 75 mm[Hg] Norris Ames Other [employer] Other 04-30-2021 10:45-0500 Respiratory rate 18 /min Norris Ames Other [employer] Other 04-30-2021 10:45-0500 SaO2% (BldA) [Mass fraction] 99 % Norris Ames Other [employer] Other 04-30-2021 10:45-0500 Systolic blood pressure 110 mm[Hg] Norris Ames Other [employer] Other 03-03-2021 11:30-0500 Body height 157.48 cm Lindafrederic Keith Other [employer] Other 03-03-2021 11:30-0500 Body mass index (BMI) [Ratio] 42.5 kg/m2 Lindafrederic Bocanegrat Other [employer] Other 03-03-2021 11:30-0500 Body weight 105.42 kg Linda Keith Other [employer] Other 02-25-2021 12:00-0400 Body height 157.48 cm Norris Ames Jr. Other [employer] Other 02-25-2021 12:00-0400 Body mass index (BMI) [Ratio] 41.92 kg/m2 Norris Ames Other [employer] Other 02-25-2021 12:00-0400 Body weight 103.97 kg Norris Ames Jr. Other [employer] Other 02-25-2021 12:00-0400 Diastolic blood pressure 79 mm[Hg] Norris Ames . Other [employer] Other 02-25-2021 12:00-0400 Respiratory rate 18 /min Norris Ames Other [employer] Other 02-25-2021 12:00-0400 SaO2% (BldA) [Mass fraction] 97 % Norris Ames . Other [employer] Other 02-25-2021 12:00-0400 Systolic blood pressure 118 mm[Hg] Norris Ames . Other [employer] Other 01-20-2021 10:00-0400 Body height 157.48 cm Linda Keith Other [employer] Other 01-20-2021 10:00-0400 Body mass index (BMI) [Ratio] 42.68 kg/m2 Lindafrederic Keith Other [employer] Other 01-20-2021 10:00-0400 Body weight 105.87 kg Linda Keith Other [employer] Other Encounters Encounter Date Encounter Type Care Provider Facility Start: 08-28-2023 End: 08-28-2023 ambulatory KRISTIAN JIMENES Not Available Start: 08-14-2023 End: 08-14-2023 ambulatory NEELAM SUTHERLAND Not Available Start: 07-27-2023 End: 07-27-2023 ambulatory KRISTIAN JALIL Not Available Start: 06-28-2023 End: 06-28-2023 ambulatory [...] 04-10-2022 End: 04-10-2022 ambulatory Kamilah Nance Other [employer] Other Start: 04-10-2022 Office outpatient vi sit 15 minutes Kamilah Nance [facility] Start: 05-26-2021 End: 05-26-2021 ambulatory Norris Ames Other [employer] Other Start: 05-26-2021 Telephone encounter Norris [facility] Start: 04-30-2021 End: 04-30-2021 ambulatory Norris Ames Other [employer] Other Start: 04-30-2021 Follow-up encounter Norris queen [facility] Start: 04-13-2021 End: 04-13-2021 ambulatory Linda Keith Other [employer] Other Start: 04-13-2021 Telephone encounter Linda Keith [facility] Start: 03-09-2021 End: 03-09-[address] NONE LISTED REQUEST Facility: Start: 03-03-2021 ([facility] FU) [facility] F/ U [employer] Linda Keith [facility] Start: 03-03-2021 End: 03-03-2021 ambulatory Linda Keith Other [employer] Other Start: 02-25-2021 End: 02-25-2021 ambulatory Norris Ames Jr. Other [employer] Other Start: 02-25-2021 Follow-up encounter Norris howard [facility] Start: 02-04-2021 Telephone encounter Norris howard [facility] Start: 01-20-2021 ([facility] FU) [facility] F/ U [employer] Linda Keith [facility] Procedures Date Procedure Procedure Detail Performing [...] encounter procedure 06/28/2023 9:30 AM EST Routine [facility] [address] [place] [address] Neelam Sutherland PA [address] [place], [place] [id number] [facility] Start: 06-13-2023 End: 06-13-2023 Professional / ancillary services management 06/13/2023 9:00 AM EST Ancillary Procedure [facility] [address] [place] [address] [facility] Start: 05-30-2023 End: 09-28-2023 Alpha fetoprotein, maternal Alpha fetoprotein, maternal Lab Routine Second trimester Expected: 05/30/2023 (Approximate), Expires: 09/28/2023 [facility] Comment on above: Expected: 05/30/2023 (Approximate), Expires: 09/28/2023 Start: 05-30-2023 End: 05-30-2024 US for US OB ANATOMY SINGLE W US OB CERVICAL LENGTH Imaging Routine Screening, , for anatomic survey Expected: 05/30/2023 (Approximate), Expires: 05/30/2024 [facility] Comment on above: Expected: 05/30/2023 (Approximate), Expires: 05/30/2024 Start: 12-23-2022 Influenza vaccination Influenza Vacc ine (#1) [facility] Start: 2019 Screening for malign ant neoplasm of cervix [facility] Start: 2010 Screening for malign ant neoplasm of cervix Pap Smear [facility] CHLAMYDIA TRACHOMATI S (GENITO/STI) CHLAMYDIA TRACHOMATIS (GENITO/STI) Lab Routine STD exposure Ordered: 05/30/2023 [facility] Comment on above: Ordered: 05/30/2023 Cytology Cervical or vaginal smear or scraping study Pap Smear Pathology and Cytology Routine Well woman exam with routine gynecological exam Ordered: 05/30/2023 [facility] Work Phone: Comment on above: Ordered: 05/30/2023 Human papilloma viru s DNA [Presence] in Unspecified specimen by Probe with amplification HPV DNA probe, amplified Microbiology Routine Well woman exam with routine gynecological exam Ordered: 05/30/2023 [facility] Comment on above: Ordered: 05/30/2023 Neisseria gonorrhoea e DNA [Presence] in Unspecified specimen by NANCY with probe detection Neisseria gonorrhea DNA probe, direct Lab Routine STD exposure Ordered: 05/30/2023 [facility] Comment on above: Ordered: 05/30/2023 SURESWAB(R) ADVANCED VAGINITIS PLUS, TMA SURESWAB(R) ADVANCED VAGINITIS PLUS, TMA Pathology and Cytology Routine Vaginal discharge Ordered: 05/30/2023 [facility] Comment on above: Ordered: 05/30/2023 Payers Date Payer Category Payer [facility] [id number] 2022 Unknown BCBS BCBS xxxxxx [id number] 2022-Present [phone] [address] [place] [address] [id number] 1989 Unknown [id number] 1989 Unknown [id number] .1259 1989 Unknown [id number] [id number] .1259 1989 Unknown [id number] [id number] .1259 1989 Unknown [id number] [id number] .1259 1989 Unknown [id number] [id number] .1259 1989 Unknown [id number] [id number] .1259 1989 Unknown [id number] .1259 1960 Private Health Insurance [id number] Social History Date Type Detail Facility Unknown if ever smoked [facility] Other Start: 04-05-2023 Sex Assigned At N [facility] Other Start: 04-05-2023 Tobacco smoking status NHIS [...] Sex Assigned At Not on file [facility] Medical Equipment Procedure Code Equipment Code Equipment Origin al Text Equipment Identifier Dates 1 strip by In Vi tro route in the morning. Use in the morning prior to breakfast, 1 hour after each meal for a total of 4times daily.. [id number] Start: 05-23-2023 End: 06-22-2023 1 each by In Vit ro route in the morning. Use to check FSBS four times daily. [id number] Start: 05-23-2023 End: 06-22-2023 History of Present [...] nursing note reviewed. Exam conducted with a academic affairs specialist present. Vitals: There is no height or [...] should improve within the next 4-7 days. [employer] Other Evaluation note 04-30-2021 Note Date & [...] Low vitamin B12 level (ICD-10 - E53.8) [employer] Other Evaluation note 03-03-2021 Note Date & [...] holidays (C) Answered general, nutrition-rela madelin questions [employer] Other Evaluation note 02-25-2021 Note Date & [...] Low vitamin B12 level (ICD-10 - E53.8) [employer] Other Evaluation note 01-20-2021 Note Date & [...] methods (C) Answered general nutrition-rel ated questions [employer] Other Evaluation note Note Date & Type Note Facility Evaluation note No Information [employer] Other Evaluation note Note Date & Type [...] Surgical History appendectomy Hospitalization History see above [employer] Other Summary Purpose Family History No Family History Records FoundNo Family History Records FoundNo Family History Records Found Advance Directives No Advanced Directives Records FoundNo Advanced Directives Records FoundNo Advanced Directives Records Found Additional Source Comments INFORMATION SOURCE (unrecogn ized section and content) DATE CREATED AUTHOR 03/17/2021 [facility] DATE CREATED AUTHOR AUTHOR'S ORGANIZ ATION 10/28/2021 [facility] DATE CREATED AUTHOR AUTHOR'S ORGANIZ ATION 08/29/2023 [facility] dical Specialists EPIC REASON FOR VISIT (unrecogniz ed section and content) Reason Comments Routine Visit Well Women Visit CONGESTION B/A H/A SORE THRAOTFCCC Pt does not wish our services 06/28/21CC RD N/S 04/13/2021, LM WM gabrielle/Erika Steele/DAGOBERTO EX Care Teams (unrecognized sec tion and content) Anesthesiologist Relationship Specialty Start Date End Date Reinaldo Lara MD PCP - General Family Medicine 03/23/23 Anesthesiologist Relationship Specialty Start Date End Date Reinaldo [...] BE BASED ON THE PRIMARY CLINICAL RECORDS. [facility]. provides no warranty or guarantee of the accuracy or completeness of information in this document.
--- NOTE | 2023-08-31 14:05 | US_ITS ---
[address] [address] Patient Name: VERA CONTRERAS MRN: [facility]:[id number] date: 1990 Sex: F Assigned Patient Location: [facility] Current Patient Location: Accession/Order Number: [id number] Exam Date: 08/31/2023 14:06 Report Date: 09/01/2023 07:20 At the request of: HUY SUTHERLAND Procedure: US OB BPP w non-stress EXAMINATION: US OB BPP w non-stress HISTORY: insulin controlled gestational diabetes mellitus O24.414 COMPARISON: Ultrasound OB growth 08/14/2023 TECHNIQUE: Ultrasound biophysical profile was performed in the radiology department. BREATHING MOVEMENTS: 0.0 GROSS BODY MOVEMENTS: 2.0 TONE: 2.0 QUALITATIVE AMNIOTIC FLUID VOLUME: 2.0 PRESENTATION: CEPHALIC HEART RATE: 145.9 bpm bpm. AMNIOTIC FLUID VOLUME: 21.6 cm GESTATIONAL AGE: 32 weeks 0 days CONCLUSION: Total biophysical profile score 6.0. Electronically authenticated by: KODY FRANK Date: 09/01/2023 07:20
[2023-08-31 14:17] VITALS: BP 122/60; PULSE 80
[2023-08-31 14:21] VITALS: BP 118/59; PULSE 83
== END 2023-08-31 16:00 | disposition home or self-care (01) ==
LOC: US 07:31 → FBC 13:59
PROVIDERS: PCP Family Medicine; Visit Provider Physician Assistant
DX: O24.414 Gestational diabetes mellitus in pregnancy, insulin controlled (principal); Z3A.32 32 weeks gestation of pregnancy
CPT/HCPCS: 76818

== ENCOUNTER 2023-09-04 07:15 | Outpatient (OUT) | payer BC, SELFPAY ==
--- OUTSIDE RECORDS SUMMARY | 2023-09-04 07:18 | XMS_ITS | CCD ---
Author Organization [facility] Care Team Providers Care Broke Worker Name Role Phone REQUEST, DR NONE LISTED Primary Care Unavaila katarzyna JIMENES, DR TOWNSEND Consulting Unavailable JALIL, DR TOWNSEND Attending Unavailable JALIL, DR TOWNSEND Admitting Unavailable Linda Keith Unavailable Norris Ames Jr. Unavailable Norris Ames Unavailable Kamilah Nance Unavailable Reinaldo Lara MD Primary Care Provider [phone] KRISTIAN JIMENES Attending Unavailable KRISTIAN JIMENES Attending [...] Subcutaneous weekly for 30 days Apr, Active [id number] 200 actuat albuterol 0.09 mg/actuat metered dose [...] GDLNon AGE GDLN ACOG TESTING Note . [facility] Comment on above: TESTS RESULT FLAG UN ITS REF RANGE LAB Clinician Provided Cytology Information Source.............[facility] Other.............. No. of containers..01 ThinPrep Vial Age Algo ACOG Jes... 30-65 01 FLAG LEGEND: L-Low Normal,H-High Normal,LL-Alert Low,HH-Alert High <-Panic Low,>-Panic High,A-Abnormal,AA-Critical Abnormal Performed at: 01 =G [facility] [place] [address] Kala Contreras MD, HPV APTIMA Negative Negative [facility] Comment on above: This nucleic acid am plification test detects fourteen high- risk HPV types (16,18,31,33,35,39,45,51,52,56,58,59,66,68) without differentiation. Performed at: =G [facility] [id number] Ecommerce Manager: Kala Contreras MD, Phone: [phone] Performed at: [facility] [place], [place] [id number] Ecommerce Manager: Mike Copeland MD, Phone: [phone] IGP, APTIMA HPV, RFX 16/18,45 Note . [facility] Comment on above: TESTS RESULT FLAG UN ITS REF RANGE LAB DIAGNOSIS: 02 NEGATIVE FOR INTRAEPITHELIAL LESION OR MALIGNANCY. Specimen adequacy: 02 Satisfactory for evaluation. No endocervical component is identified. An endocervical component is not commonly seen in the patient. Performed by: Kelsy Ortiz, Machinery Rigger (ASCP) . 02 Note: Note 03 The [...] <-Panic Low,>-Panic High,A-Abnormal,AA-Critical Abnormal Performed at: [address] [facility] [address] [place] [address] Mike Copeland MD, 03 WB [facility] [address] [address] Kala Contreras MD, SPATULA-ALONE ENDOCERVIX [facility] Healthcar e URETHRITIS/DISCHARGE PLUS VA GINITIS [...] detected NOM H [facility]althcare [place] 0 [facility] Healt hcare [place] Not detected [...] UA Negative Negative - 4(70) +++ mg/dL [facility] Blood, UA Negative Negative - 50 Zach/mcL [facility] Clarity, UA Clear [facility] Healthca re Color, UA Yellow [facility] Glucose, UA Negative Negative - 2000(110) ++++ mg/dL [facility] Interpretation and review of laboratory results Abnormal [facility] Health[facility] re Ketones, UA Positive Negative - 160(16) ++++ mg/dL [facility] Leukocytes, UA Negative Negative - 500+++ Magaly/mcL [facility] Nitrite, UA Negative Negative - Positive [facility] pH, UA 5.5 5 - 9 [facility] Health[facility] Protein, UA Negative Negative - 1999(20) ++++ mg/dL [facility] Spec Grav, UA 1.020 1 - 1.03 [facility] care Urobilinogen, UA 1.0 0.2 - 12 mg/dL [facility] Health[facility] COVID + FLU Quick Testingon 04-10-2022 SARS-CoV-2 (COVID-19) RNA NANCY+probe Ql (Unsp spec) Positive [facility] Other COVID + FLU Quick Testing Positive [facility] Other Quick Strepon 04-10-2022 S. pyogenes Org specific cx Ql (Throat) Negative [facility] Other Quick Strep [facility] Other A1C with Estimated Average G luon 04-28-2021 Glucose [Mass/Vol] 108 mg/dL Normal [facility] Comment on above: Order Comment: Reaso n for Exam Prediabetes Result Comment: PERF ORMED BY: [place] [address] PATHOLOGIST ARRT TECHNOLOGIST THEO CHU M.D. Performed By: #### A 1C WT eA, LIPID, GLU, B12 #### [facility] [place] [facility] [address] [place] [address] HbA1c (Bld) [Mass fraction] 5.4 % Normal 4.3-5.6 [facility] Comment on above: Order Comment: Reaso n for Exam Prediabetes Result Comment: Incr eased risk for diabetes: 5.7 - 6.4 diabetes: >6.4 glycemic control for adults with diabetes: <7.0 Performed By: #### A 1C WTH eA, LIPID, GLU, B12 #### [facility] [place] [facility] [address] [place] [address] Glucoseon 04-28-2021 Glucose [Mass/Vol] 97 mg/dL Normal 70-100 [facility] Comment on above: Order Comment: Reaso n for Exam Prediabetes Reason for Exam Mixed hyperlipidemia Reason for Exam Low vitamin B12 level Result Comment: [facility] Glucose Reference Range is dependent on time and content of last meal. Glucose of more than 200 mg/dL in a nonstressed, ambulatory subject supports the diagnosis of Diabetes Mellitus. ADA recommended reference range Performed By: #### A 1C WTH eA, LIPID, GLU, B12 #### [facility] [place] [facility] [address] [id number] [facility] Lipid Panelon 04-28-2021 Cholesterol [Mass/Vol] 171 mg/dL Normal 140-200 [facility] Comment on above: Order Comment: Reaso n for Exam Prediabetes Reason for Exam Mixed hyperlipidemia Reason for Exam Low vitamin B12 level Result Comment: Chol less than 200 mg/dl low risk Chol 201-239 mg/dl borderline risk Chol 240 mg/dl and greater high risk Performed By: #### A 1C WTH eA, LIPID, GLU, B12 #### [facility] [place] [facility] [address] [place] [address] [place] Cholesterol in HDL [Mass/Vol] 41 mg/dL Normal 35-85 [facility] Comment on above: Order Comment: Reaso n for Exam Prediabetes Reason for Exam Mixed hyperlipidemia Reason for Exam Low vitamin B12 level Result Comment: HDL CHOL ATP-III CLASSIFICATION Cardiovascular Risk HDL > or equal to 60 mg/dL LOW HDL < 40 mg/dL HIGH Performed By: #### A 1C WTH eA, LIPID, GLU, B12 #### [facility] [place] [facility] [address] [id number] [place] Cholesterol.total/C holesterol in HDL [Mass ratio] 4.2 {ratio} Normal <5.0 [facility] Comment on above: Order Comment: Reaso n for Exam Prediabetes Reason for Exam Mixed hyperlipidemia Reason for Exam Low vitamin B12 level Performed By: #### A 1C WTH eA, LIPID, GLU, B12 #### [facility] [place] [facility] [address] [id number] [place] LDL Cholesterol,Calcula madelin 95 mg/dL Normal 0-100 [facility] Comment on above: Order Comment: Reaso [...] 1C WTH eA, LIPID, GLU, B12 #### [facility] [place] [facility] [address] Triglyceride w/Reflex 176 mg/dL High 35-149 [facility] Comment on above: Order Comment: Reaso [...] 1C WTH eA, LIPID, GLU, B12 #### [facility] [place] [facility] [address] VLDL CHOLESTEROL 35 mg/dL Normal [facility] Comment on above: Order Comment: Reaso n for Exam Prediabetes Reason for Exam Mixed hyperlipidemia Reason for Exam Low vitamin B12 level Performed By: #### A 1C WTH eA, LIPID, GLU, B12 #### [facility] [place] [facility] [address] Vitamin B12on 04-28-2021 Cobalamin (Vitamin B12) [Mass/Vol] 633 pg/mL Normal 180-914 [facility] Comment on above: Order Comment: Reaso n for Exam Prediabetes Reason for Exam Mixed hyperlipidemia Reason for Exam Low vitamin B12 level Result Comment: PERF ORMED BY: [place] [address] PATHOLOGIST ARRT TECHNOLOGIST THEO CHU M.D. Performed By: #### A 1C WTH eA, LIPID, GLU, B12 #### [facility] [place] [facility] [address] PAP ACOG PANEL 2: 30 to 65on 03-16-2021 . . Normal [facility] Comment on above: Result Comment: Perf ormed at: WB Performed By: #### [id number] #### [facility] [address] [address] [address] Tete Peters Age Gdln ACOG Testing 30-65 Normal [facility] Comment on above: Performed By: #### 4 [id number] #### [facility] [address] [address] [address] Tete Peters DIAGNOSIS: Comment Normal [facility] Comment on above: Result Comment: NEGA TIVE FOR INTRAEPITHELIAL LESION OR MALIGNANCY. THIS SPECIMEN WAS RESCREENED PART OF OUR HEAD SOFT SUGAR OPERATOR PROGRAM. Performed at: WB Performed By: #### [id number] #### [facility] [address] [address] [address] Tete Peters HPV Aptima Negative Normal Negative [facility] Comment on above: Result Comment: This nucleic acid amplification test detects fourteen high-risk HPV types (16,18,31,33,35,39,45,51,52,56,58,59,66,68) without differentiation. Performed at: =G Performed By: #### 4 [id number] #### [facility] [address] [place] [address] Dr. Tete Peters Methodology: Comment Normal [facility] Comment on above: Result Comment: This liquid based ThinPrep(R) pap test was screened with the use of an image guided system. Performed at: WB Performed By: #### 4 [id number] #### [facility] [address] [place] [address] Dr. Tete Peters Note: Comment Normal [facility] Comment on above: Result Comment: The Pap smear is a screening test designed to aid in the detection of premalignant and malignant conditions of the uterine cervix. It is not a diagnostic procedure and should not be used as the sole means of detecting cervical cancer. Both false-positive and false-negative reports do occur. . Performed at: WB Performed By: #### [id number] #### [facility] [address] [address] [address] Tete Peters Performed by: Comment Normal [facility] Comment on above: Result Comment: Luisa Ross, Machinery Rigger (ASCP) Performed at: WB Performed By: #### 4 [id number] #### [facility] [address] [place] [address] Dr. Tete Peters QC reviewed by: Comment Normal [facility] Comment on above: Result Comment: Monika Ortiz, Supervisory Machinery Rigger (ASCP) Performed at: WB Performed By: #### 4 [id number] #### [facility] [address], [place] [address] Dr. Tete Peters Specimen adequacy: Comment Normal [facility] Comment on above: Result Comment: Sati sfactory for evaluation. Endocervical and/or squamous metaplastic cells (endocervical component) are present. Performed at: WB Performed By: #### 4 [id number] #### [facility] [address], [place] [address] Dr. Tete Peters Vitamin B12on 01-12-2021 Cobalamin (Vitamin B12) [Mass/Vol] 297 pg/mL Normal 180-914 [facility] Comment on above: Order Comment: Reaso n for Exam Prediabetes Result Comment: PERF ORMED BY: [place] [address] PATHOLOGIST ARRT TECHNOLOGIST THEO CHU M.D. Performed By: #### B 12 #### [address] ROD BUSTER HELPER polysom portableon 11-16 ROD BUSTER HELPER polysom portable [facility] [place] [address] [place] [address] Sleep Lab Report Signed Patient: Marina Contreras MR#: [id number] : 1990 Acct:[id number] Age/Sex: 30 / F ADM Date: 11/09/20 Loc: Room: Type: [facility] Attending Dr: Anne Marie Mejía [...] home sleep test was performed utilizing the [facility] [employer] T3 system. Parameters recorded include [...] monitoring after that. Transcribed By: GERDA 11/17/20 1305 Dictated By: Anne Marie Mejía MD 11/16/20 9833 Signed By: 11/18/20 5039 [facility] Vital Signs Date Time Vital Sign Value Performing Clinician Facility 05-30-2023 09:36-0500 Body weight 116.48 kg [employer] Work Phone: [facility] 05-30-2023 09:36-0500 Diastolic blood pressure 70 mm[Hg] [employer] Work Phone: [facility] 05-30-2023 09:36-0500 Systolic blood pressure 116 mm[Hg] [employer] Work Phone: [facility] 04-10-2022 14:00-0500 Body height 157.48 cm Kamilah Nance Other [facility] Other 04-10-2022 14:00-0500 Body mass index (BMI) [Ratio] 44.92 kg/m2 Kamilah Nance Other [facility] Other 04-10-2022 14:00-0500 Body temperature 99.5 [degF] Kamilah Nance Other [facility] Other 04-10-2022 14:00-0500 Body weight 111.4 kg Kamilah Nance Other [facility] Other 04-10-2022 14:00-0500 Diastolic blood pressure 68 mm[Hg] Kamilah Nance Other [facility] Other 04-10-2022 14:00-0500 Respiratory rate 18 /min Kamilah Nance Other [facility] Other 04-10-2022 14:00-0500 SaO2% (BldA) [Mass fraction] 95 % Kamilah Nance Other [facility] Other 04-10-2022 14:00-0500 Systolic blood pressure 116 mm[Hg] Kamilah Nance Other [facility] Other 04-30-2021 10:45-0500 Body height 157.48 cm Norris Ames Other [facility] Other 04-30-2021 10:45-0500 Body mass index (BMI) [Ratio] 41.72 kg/m2 Norris Ames Other [facility] Other 04-30-2021 10:45-0500 Body weight 103.47 kg Norris Ames Other [facility] Other 04-30-2021 10:45-0500 Diastolic blood pressure 75 mm[Hg] Norris Ames Other [facility] Other 04-30-2021 10:45-0500 Respiratory rate 18 /min Norris Ames Other [facility] Other 04-30-2021 10:45-0500 SaO2% (BldA) [Mass fraction] 99 % Norris Ames Other [facility] Other 04-30-2021 10:45-0500 Systolic blood pressure 110 mm[Hg] Norris Ames Other [facility] Other 03-03-2021 11:30-0500 Body height 157.48 cm Lindafrederic Keith Other [facility] Other 03-03-2021 11:30-0500 Body mass index (BMI) [Ratio] 42.5 kg/m2 Lindafrederic Bocanegrat Other [facility] Other 03-03-2021 11:30-0500 Body weight 105.42 kg Linda Keith Other [facility] Other 02-25-2021 12:00-0400 Body height 157.48 cm Norris Ames Jr. Other [facility] Other 02-25-2021 12:00-0400 Body mass index (BMI) [Ratio] 41.92 kg/m2 Norris Ames Other [facility] Other 02-25-2021 12:00-0400 Body weight 103.97 kg Norris Ames Jr. Other [facility] Other 02-25-2021 12:00-0400 Diastolic blood pressure 79 mm[Hg] Norris Ames . Other [facility] Other 02-25-2021 12:00-0400 Respiratory rate 18 /min Norris Ames Other [facility] Other 02-25-2021 12:00-0400 SaO2% (BldA) [Mass fraction] 97 % Norris Ames . Other [facility] Other 02-25-2021 12:00-0400 Systolic blood pressure 118 mm[Hg] Norirs Ames . Other [facility] Other 01-20-2021 10:00-0400 Body height 157.48 cm Linda Keith Other [facility] Other 01-20-2021 10:00-0400 Body mass index (BMI) [Ratio] 42.68 kg/m2 Lindafrederic Keith Other [facility] Other 01-20-2021 10:00-0400 Body weight 105.87 kg Linda Keith Other [facility] Other Encounters Encounter Date Encounter Type Care [...] 04-10-2022 End: 04-10-2022 ambulatory Kamilah Nance Other [facility] Other Start: 04-10-2022 Office outpatient vi sit 15 minutes Kamilah Nance [facility] Start: 05-26-2021 End: 05-26-2021 ambulatory Norris Ames Other [facility] Other Start: 05-26-2021 Telephone encounter Norris [facility] Start: 04-30-2021 End: 04-30-2021 ambulatory Norris Ames Other [facility] Other Start: 04-30-2021 Follow-up encounter Norris queen [facility] Start: 04-13-2021 End: 04-13-2021 ambulatory Linda Keith Other [facility] Other Start: 04-13-2021 Telephone encounter Linda Keith [facility] Start: 03-09-2021 End: 03-09-[address] NONE LISTED REQUEST Facility: Start: 03-03-2021 ([facility] [address] FU) [facility] F/ U [employer] Workers' Compensation Hearings Officer Linda Keith [facility] Start: 03-03-2021 End: 03-03-2021 ambulatory Linda Keith Other [facility] Other Start: 02-25-2021 End: 02-25-2021 ambulatory Nroris Ames Jr. Other [facility] Other Start: 02-25-2021 Follow-up encounter Norris howard [facility] Start: 02-04-2021 Telephone encounter Norris howard [facility] Start: 01-20-2021 ([facility] RD FU) [facility] F/ U [employer] Workers' Compensation Hearings Officer Linda Keith [facility] Procedures Date Procedure Procedure Detail Performing Clinician Start: 05-30-2023 URETHRITIS/DISCHARGE PLUS VAGINITIS (HTRX) Kristian Jalil DO Work Phone: Start: 05-30-2023 IGP,APTIMA HPV,AGE GDLN Kristian Jalil DO Work Phone: Start: 05-30-2023 Urnls dip stick/tabl et rgnt non-auto w/o micrscp Kristian Jalil DO Work Phone: Plan of Treatment Date Care Activity Detail Author Start: 06-28-2023 End: 06-28-2023 Patient encounter procedure 06/28/2023 9:30 AM EST Routine [facility] OB [address] [place] [address] Neelam Sutherland PA [address] [place], [place] [id number] [facility] Start: 06-13-2023 End: 06-13-2023 Professional / ancillary services management 06/13/2023 9:00 AM EST Ancillary Procedure [facility] BCP OB [address] [place] [address] [facility] Start: 05-30-2023 End: 09-28-2023 Alpha fetoprotein, maternal Alpha fetoprotein, maternal Lab Routine Second trimester Expected: 05/30/2023 (Approximate), Expires: 09/28/2023 [facility] Comment on above: Expected: 05/30/2023 (Approximate), Expires: 09/28/2023 Start: 05-30-2023 End: 05-30-2024 US for US OB ANATOMY SINGLE W US OB CERVICAL LENGTH Imaging Routine Screening, , for anatomic survey Expected: 05/30/2023 (Approximate), Expires: 05/30/2024 [facility] Comment on above: Expected: 05/30/2023 (Approximate), Expires: 05/30/2024 Start: 12-23-2022 Influenza vaccination Influenza Vacc ine (#1) [facility] Start: 2019 Screening for malign ant neoplasm of cervix [facility] Start: 2010 Screening for malign ant neoplasm of cervix Pap Smear [facility] CHLAMYDIA TRACHOMATI S (GENITO/STI) CHLAMYDIA TRACHOMATIS (GENITO/STI) Lab Routine STD exposure Ordered: 05/30/2023 [facility] Comment on above: Ordered: 05/30/2023 Cytology Cervical or vaginal smear or scraping study Pap Smear Pathology and Cytology Routine Well woman exam with routine gynecological exam Ordered: 05/30/2023 [facility] Work Phone: Comment on above: Ordered: 05/30/2023 Human papilloma viru s DNA [Presence] in Unspecified specimen by Probe with amplification HPV DNA probe, amplified Microbiology Routine Well woman exam with routine gynecological exam Ordered: 05/30/2023 [facility] Comment on above: Ordered: 05/30/2023 Neisseria gonorrhoea e DNA [Presence] in Unspecified specimen by NANCY with probe detection Neisseria gonorrhea DNA probe, direct Lab Routine STD exposure Ordered: 05/30/2023 [facility] Comment on above: Ordered: 05/30/2023 SURESWAB(R) ADVANCED VAGINITIS PLUS, TMA SURESWAB(R) ADVANCED VAGINITIS PLUS, TMA Pathology and Cytology Routine Vaginal discharge Ordered: 05/30/2023 [facility] Comment on above: Ordered: 05/30/2023 Payers Date Payer Category Payer [facility] [id number] 2022 Unknown BCBS BCBS [id number] 2022-Present [phone] [address] [place] [address] [id number] 1989 Unknown [id number] 1989 Unknown [id number] .1259 1989 Unknown [id number] [id number] .1259 1989 Unknown [id number] [id number] .1259 1989 Unknown [id number] [id number] .1259 1989 Unknown [id number] [id number] .1259 1989 Unknown [id number] [id number] .1259 1989 Unknown [id number] [id number] .1259 1960 Private Health Insurance [id number] Social History Date Type Detail Facility Unknown if ever smoked [facility] Other Start: 04-05-[address] [facility] Other Start: 04-05-2023 Tobacco smoking status NHIS [...] meal for a total of 4times daily.. [id number] Start: 05-23-2023 End: 06-22-2023 1 each by In Vit ro route in the morning. Use to check FSBS four times daily. [id number] Start: 05-23-2023 End: 06-22-2023 History of Present [...] nursing note reviewed. Exam conducted with a mortgage assistant present. Vitals: There is no height or [...] Kristian Jimenes DO documented in this encounter [facility] Healthcare Evaluation note 04-10-2022 Note Date [...] should improve within the next 4-7 days. [facility] Other Evaluation note 04-30-2021 Note Date & [...] Low vitamin B12 level (ICD-10 - E53.8) [facility] Other Evaluation note 03-03-2021 Note Date & [...] holidays (C) Answered general, nutrition-rela madelin questions [facility] Other Evaluation note 02-25-2021 Note Date & [...] Low vitamin B12 level (ICD-10 - E53.8) [facility] Other Evaluation note 01-20-2021 Note Date & [...] methods (C) Answered general nutrition-rel ated questions [facility] Other Evaluation note Note Date & Type Note Facility Evaluation note No Information [facility] Other Evaluation note Note Date & Type [...] Surgical History appendectomy Hospitalization History see above [facility] Other Summary Purpose Family History No Family History Records FoundNo Family History Records FoundNo Family History Records Found Advance Directives No Advanced Directives Records FoundNo Advanced Directives Records FoundNo Advanced Directives Records Found Additional Source Comments INFORMATION SOURCE (unrecogn ized section and content) DATE CREATED AUTHOR 03/17/2021 [facility] DATE CREATED AUTHOR AUTHOR'S ORGANIZ ATION 10/28/2021 [facility] DATE CREATED AUTHOR AUTHOR'S ORGANIZ ATION 08/29/2023 [facility] EPIC REASON FOR VISIT (unrecogniz ed section and content) Reason Comments Routine Visit Well Women Visit CONGESTION B/A H/A SORE THRAOTFCCC Pt does not wish our services 06/28/21CC RD N/S 04/13/2021, LM WM gabrielle/Erika Steele/DAGOBERTO EX Care Teams (unrecognized sec tion and content) Broke Worker Relationship Specialty Start Date End Date Reinaldo Lara MD PCP - General Family Medicine 03/23/23 Broke Worker Relationship Specialty Start Date End Date Reinaldo [...] BE BASED ON THE PRIMARY CLINICAL RECORDS. [facility]. provides no warranty or guarantee of the accuracy or completeness of information in this document.
--- NOTE | 2023-09-04 13:06 | US_ITS ---
[address] [address] Patient Name: VERA CONTRERAS MRN: [facility]:[id number] date: 1990 Sex: F Assigned Patient Location: [facility] Current Patient Location: [facility] Accession/Order Number: [id number] Exam Date: 09/04/2023 13:13 Report Date: 09/04/2023 13:56 At the request of: KRISTIAN MARIN Procedure: US OB BPP w non-stress EXAMINATION: US OB BPP w non-stress HISTORY: repeat BPP 09/29 on 08/30 COMPARISON: No relevant comparison available. TECHNIQUE: Ultrasound biophysical profile was performed in the radiology department. FINDINGS: BREATHING MOVEMENTS: 2.0 GROSS BODY MOVEMENTS: 2.0 TONE: 2.0 QUALITATIVE AMNIOTIC FLUID VOLUME: 2.0 PRESENTATION: TRANSVERSE HEART RATE: 151.7 bpm H.B./min AMNIOTIC FLUID VOLUME: 19.0 cm cm GESTATIONAL AGE: 32 weeks 4 days CONCLUSION: Total biophysical profile score: 8.0 Electronically authenticated by: SILVER DASILVA Date: 09/04/2023 13:56
[2023-09-04 13:13] VITALS: BP 119/65; PULSE 86
== END 2023-09-04 14:20 | disposition home or self-care (01) ==
LOC: FBCO 07:15 → FBC 13:05
PROVIDERS: PCP Family Medicine; Visit Provider Obstetrics & Gynecology
DX: O36.8130 Decreased fetal movements, third trimester, not applicable or unspecified (principal); Z3A.32 32 weeks gestation of pregnancy
CPT/HCPCS: 76818

== ENCOUNTER 2023-09-07 07:03 | Outpatient (OUT) | payer BC, SELFPAY ==
--- NOTE | 2023-09-07 | US_ITS ---
[address] [address] Patient Name: VERA CONTRERAS MRN: [facility]:[id number] date: 1990 Sex: F Assigned Patient Location: [facility] Current Patient Location: [facility] Accession/Order Number: [id number] Exam Date: 09/07/2023 13:55 Report Date: 09/07/2023 14:52 At the request of: KRISTIAN MARIN Procedure: US OB BPP w non-stress EXAMINATION: US OB BPP w non-stress HISTORY: GESTATIONAL DIABETES O24.414 COMPARISON: Ultrasound OB biophysical 09/04/2023 TECHNIQUE: Ultrasound biophysical profile was performed in the radiology department. BREATHING MOVEMENTS: 2.0 GROSS BODY MOVEMENTS: 2.0 TONE: 2.0 QUALITATIVE AMNIOTIC FLUID VOLUME: 2.0 PRESENTATION: CEPHALIC HEART RATE: 154.3 bpm bpm. AMNIOTIC FLUID VOLUME: 20.9 cm GESTATIONAL AGE: 33 weeks 0 days CONCLUSION: Total biophysical profile score 8.0. Electronically authenticated by: KODY FRANK Date: 09/07/2023 14:52
--- OUTSIDE RECORDS SUMMARY | 2023-09-07 07:05 | XMS_ITS | CCD ---
Author Organization [facility] Care Team Providers Care Road Conductor Name Role Phone REQUEST, DR NONE LISTED [...] Subcutaneous weekly for 30 days Apr, Active [id number] 200 actuat albuterol 0.09 mg/actuat metered dose [...] GDLNon AGE GDLN ACOG TESTING Note . [facility] Comment on above: TESTS RESULT FLAG UN ITS REF RANGE LAB Clinician Provided Cytology Information Source.............[employer] Other.............. No. of containers..01 ThinPrep Vial Age Algo ACOG Jes... 30-65 01 FLAG LEGEND: L-Low Normal,H-High Normal,LL-Alert Low,HH-Alert High <-Panic Low,>-Panic High,A-Abnormal,AA-Critical Abnormal Performed at: 01 =G [facility] [place] [address] Kala Contreras MD, HPV APTIMA Negative Negative [facility] Comment on above: This nucleic acid am plification test detects fourteen high- risk HPV types (16,18,31,33,35,39,45,51,52,56,58,59,66,68) without differentiation. Performed at: =G [facility] [id number] Cash Accountant: Kala Contreras MD, Phone: [phone] Performed at: [facility] [address] [place], [place] [id number] Cash Accountant: Mike Copeland MD, Phone: [phone] IGP, APTIMA HPV, RFX 16/18,45 Note . [facility] Comment on above: TESTS RESULT FLAG UN ITS REF RANGE LAB DIAGNOSIS: 02 NEGATIVE FOR INTRAEPITHELIAL LESION OR MALIGNANCY. Specimen adequacy: 02 Satisfactory for evaluation. No endocervical component is identified. An endocervical component is not commonly seen in the patient. Performed by: Kelsy Ortiz, Research Laboratory Technician (ASCP) . 02 Note: Note 03 The [...] <-Panic Low,>-Panic High,A-Abnormal,AA-Critical Abnormal Performed at: 02 [facility] [place] [facility] [address] [place] [address] Mike Copeland MD, 03 WB [facility] [address] [address] Kala Contreras MD, SPATULA-ALONE [facility] Healthcar e URETHRITIS/DISCHARGE PLUS VA GINITIS (HTRX)on [...] detected NOM H ealthcare [place] 0 [facility] Healt hcare [place] Not detected NOM [...] UA Negative Negative - 4(70) +++ mg/dL [facility] Blood, UA Negative Negative - 50 Zach/mcL [facility] Clarity, UA Clear [facility] Healthca re Color, UA Yellow [facility] Healthcar e Glucose, UA Negative Negative - 2000(110) ++++ mg/dL [facility] Interpretation and review of laboratory results Abnormal [facility] Healthca re Ketones, UA Positive Negative - 160(16) ++++ mg/dL [facility] Leukocytes, UA Negative Negative - 500+++ Magaly/mcL [facility] Nitrite, UA Negative Negative - Positive [facility] pH, UA 5.5 5 - 9 [facility] Healthcar e Protein, UA Negative Negative - 1999(20) ++++ mg/dL [facility] Spec Grav, UA 1.020 1 - 1.03 [facility] care Urobilinogen, UA 1.0 0.2 - 12 mg/dL [facility] Healthcar e COVID + FLU Quick Testingon 04-10-2022 SARS-CoV-2 (COVID-19) RNA NANCY+probe Ql (Unsp spec) Positive [facility] [employer] Other COVID + FLU Quick Testing Positive [employer] Other Quick Strepon 04-10-2022 S. pyogenes Org specific cx Ql (Throat) Negative [facility] [employer] Other Quick Strep [facility] [employer] Other A1C with Estimated Average G luon 04-28-2021 Glucose [Mass/Vol] 108 mg/dL Normal [facility] Comment on above: Order Comment: Reaso n for Exam Prediabetes Result Comment: PERF ORMED BY: [place] [id number] PATHOLOGIST CMS EXPERT THEO CHU M.D. Performed By: #### A 1C WT eA, LIPID, GLU, B12 #### [facility] [address] [place] [address] HbA1c (Bld) [Mass fraction] 5.4 % Normal 4.3-5.6 [facility] Comment on above: Order Comment: Reaso n for Exam Prediabetes Result Comment: Incr eased risk for diabetes: 5.7 - 6.4 diabetes: >6.4 glycemic control for adults with diabetes: <7.0 Performed By: #### A 1C WTH eA, LIPID, GLU, B12 #### [facility] [address] [place] [address] Glucoseon 04-28-2021 Glucose [Mass/Vol] 97 mg/dL Normal 70-100 [facility] Comment on above: Order Comment: Reaso n for Exam Prediabetes Reason for Exam Mixed hyperlipidemia Reason for Exam Low vitamin B12 level Result Comment: [facility] Glucose Reference Range is dependent on time and content of last meal. Glucose of more than 200 mg/dL in a nonstressed, ambulatory subject supports the diagnosis of Diabetes Mellitus. ADA recommended reference range Performed By: #### A 1C WTH eA, LIPID, GLU, B12 #### [facility] [address] [id number] [facility] Lipid Panelon 04-28-2021 Cholesterol [Mass/Vol] 171 mg/dL Normal 140-200 [facility] Comment on above: Order Comment: Reaso n for Exam Prediabetes Reason for Exam Mixed hyperlipidemia Reason for Exam Low vitamin B12 level Result Comment: Chol less than 200 mg/dl low risk Chol 201-239 mg/dl borderline risk Chol 240 mg/dl and greater high risk Performed By: #### A 1C WTH eA, LIPID, GLU, B12 #### [facility] [address] [place] [address] [place] Cholesterol in HDL [Mass/Vol] 41 mg/dL Normal 35-85 [facility] Comment on above: Order Comment: Reaso n for Exam Prediabetes Reason for Exam Mixed hyperlipidemia Reason for Exam Low vitamin B12 level Result Comment: HDL CHOL ATP-III CLASSIFICATION Cardiovascular Risk HDL > or equal to 60 mg/dL LOW HDL < 40 mg/dL HIGH Performed By: #### A 1C WTH eA, LIPID, GLU, B12 #### [facility] [address] [id number] [place] Cholesterol.total/C holesterol in HDL [Mass ratio] 4.2 {ratio} Normal <5.0 [facility] Comment on above: Order Comment: Reaso n for Exam Prediabetes Reason for Exam Mixed hyperlipidemia Reason for Exam Low vitamin B12 level Performed By: #### A 1C WTH eA, LIPID, GLU, B12 #### [facility] [address] [id number] [place] LDL Cholesterol,Calcula madelin 95 mg/dL Normal 0-100 [facility] Comment on above: Order [...] 1C WTH eA, LIPID, GLU, B12 #### [facility] [address] Triglyceride w/Reflex 176 mg/dL High 35-149 [facility] Comment on above: Order [...] 1C WTH eA, LIPID, GLU, B12 #### [facility] [address] VLDL CHOLESTEROL 35 mg/dL Normal [facility] Comment on above: Order Comment: Reaso n for Exam Prediabetes Reason for Exam Mixed hyperlipidemia Reason for Exam Low vitamin B12 level Performed By: #### A 1C WTH eA, LIPID, GLU, B12 #### [facility] [address] Vitamin B12on 04-28-2021 Cobalamin (Vitamin B12) [Mass/Vol] 633 pg/mL Normal 180-914 [facility] Comment on above: Order Comment: Reaso n for Exam Prediabetes Reason for Exam Mixed hyperlipidemia Reason for Exam Low vitamin B12 level Result Comment: PERF ORMED BY: [place] [id number] PATHOLOGIST CMS EXPERT THEO CHU M.D. Performed By: #### A 1C WTH eA, LIPID, GLU, B12 #### [facility] [address] PAP ACOG PANEL 2: 30 to 65on 03-16-2021 . . Normal [facility] Comment on above: Result Comment: Perf ormed at: WB Performed By: #### [id number] #### [facility] [address] [address] [address] Tete Peters Age Gdln ACOG Testing 30-65 Normal [facility] Comment on above: Performed By: #### [id number] #### [facility] [address] [address] [address] Tete Peters DIAGNOSIS: Comment Normal [facility] Comment on above: Result Comment: NEGA TIVE FOR INTRAEPITHELIAL LESION OR MALIGNANCY. THIS SPECIMEN WAS RESCREENED PART OF OUR TILTROTOR CREW CHIEF PROGRAM. Performed at: WB Performed By: #### [id number] #### [facility] [address] [address] [address] Tete Peters HPV Aptima Negative Normal Negative [facility] Comment on above: Result Comment: This nucleic acid amplification test detects fourteen high-risk HPV types (16,18,31,33,35,39,45,51,52,56,58,59,66,68) without differentiation. Performed at: =G Performed By: #### 4 [id number] #### [facility] [address] [place] [address] Dr. Tete Peters Methodology: Comment Normal [facility] Comment on above: Result Comment: This liquid based ThinPrep(R) pap test was screened with the use of an image guided system. Performed at: WB Performed By: #### [id number] #### [facility] [address] [place] [address] Dr. Tete Peters Note: Comment Normal [facility] Comment on above: Result Comment: The Pap smear is a screening test designed to aid in the detection of premalignant and malignant conditions of the uterine cervix. It is not a diagnostic procedure and should not be used as the sole means of detecting cervical cancer. Both false-positive and false-negative reports do occur. . Performed at: WB Performed By: #### [id number] #### [facility] [address] [address] [address] Tete Peters Performed by: Comment Normal [facility] Comment on above: Result Comment: Luisa Ross, Research Laboratory Technician (ASCP) Performed at: WB Performed By: #### [id number] #### [facility] [address] [place] [address] Dr. Tete Peters QC reviewed by: Comment Normal [facility] Comment on above: Result Comment: Monika Ortiz, Supervisory Research Laboratory Technician (ASCP) Performed at: WB Performed By: #### [id number] #### [facility] [address] [place], [place] [address] Dr. Tete Peters Specimen adequacy: Comment Normal [facility] Comment on above: Result Comment: Sati sfactory for evaluation. Endocervical and/or squamous metaplastic cells (endocervical component) are present. Performed at: WB Performed By: #### 4 [id number] #### [facility] [address] [place], [place] [address] Dr. Tete Peters Vitamin B12on 01-12-2021 Cobalamin (Vitamin B12) [Mass/Vol] 297 pg/mL Normal 180-914 [facility] Comment on above: Order Comment: Reaso n for Exam Prediabetes Result Comment: PERF ORMED BY: [place] [id number] PATHOLOGIST CMS EXPERT THEO CHU M.D. Performed By: #### B 12 #### [address] PAPER MACHINE TENDER polysom portableon 11-16 PAPER MACHINE TENDER polysom portable [facility] [place] [address] [place] [address] Sleep Lab Report Signed Patient: Marian Contreras MR#: [id number] : 1990 Acct:[id number] Age/Sex: 30 / F ADM Date: 11/09/20 [...] home sleep test was performed utilizing the [facility] [employer] T3 system. Parameters recorded include [...] Dictated By: Anne Marie Mejía MD 11/16/20 5222 Signed By: 11/18/20 8140 [facility] Vital Signs Date Time Vital Sign Value Performing Clinician Facility 05-30-2023 09:36-0500 Body weight 116.48 kg [employer] Work Phone: [facility] 05-30-2023 09:36-0500 Diastolic blood pressure 70 mm[Hg] [employer] Work Phone: [facility] 05-30-2023 09:36-0500 Systolic blood pressure 116 mm[Hg] [employer] Work Phone: [facility] 04-10-2022 14:00-0500 Body height 157.48 cm Kamilah Nance Other [employer] Other 04-10-2022 14:00-0500 Body mass index (BMI) [Ratio] 44.92 kg/m2 Kamilah Nance Other [employer] Other 04-10-2022 14:00-0500 Body temperature 99.5 [degF] Kamilah Nance Other [employer] Other 04-10-2022 14:00-0500 Body weight 111.4 kg Kamilah Nance Other [employer] Other 04-10-2022 14:00-0500 Diastolic blood pressure 68 mm[Hg] Kamilah Nance Other [employer] Other 04-10-2022 14:00-0500 Respiratory rate 18 /min Kamilah Nance Other [employer] Other 04-10-2022 14:00-0500 SaO2% (BldA) [Mass fraction] 95 % Kamilah Nance Other [employer] Other 04-10-2022 14:00-0500 Systolic blood pressure 116 mm[Hg] Kamilah Nance Other [employer] Other 04-30-2021 10:45-0500 Body height 157.48 cm Norrsi Ames Other [employer] Other 04-30-2021 10:45-0500 Body mass index (BMI) [Ratio] 41.72 kg/m2 Norris Ames Other [employer] Other 04-30-2021 10:45-0500 Body weight 103.47 kg Norris Ames Other [employer] Other 04-30-2021 10:45-0500 Diastolic blood pressure 75 mm[Hg] Norris Ames Other [employer] Other 04-30-2021 10:45-0500 Respiratory rate 18 /min Norris Ames Other [employer] Other 04-30-2021 10:45-0500 SaO2% (BldA) [Mass fraction] 99 % Norris Ames Other [employer] Other 04-30-2021 10:45-0500 Systolic blood pressure 110 mm[Hg] Norris Ames Other [employer] Other 03-03-2021 11:30-0500 Body height 157.48 cm Lindafrederic Keith Other [employer] Other 03-03-2021 11:30-0500 Body mass index (BMI) [Ratio] 42.5 kg/m2 Lindafrederic Bocanegrat Other [employer] Other 03-03-2021 11:30-0500 Body weight 105.42 kg Linda Keith Other [employer] Other 02-25-2021 12:00-0400 Body height 157.48 cm Norris Ames Jr. Other [employer] Other 02-25-2021 12:00-0400 Body mass index (BMI) [Ratio] 41.92 kg/m2 Norris Ames Other [employer] Other 02-25-2021 12:00-0400 Body weight 103.97 kg Norris Ames Jr. Other [employer] Other 02-25-2021 12:00-0400 Diastolic blood pressure 79 mm[Hg] Norris Ames . Other [employer] Other 02-25-2021 12:00-0400 Respiratory rate 18 /min Norris Ames Other [employer] Other 02-25-2021 12:00-0400 SaO2% (BldA) [Mass fraction] 97 % Norris Ames . Other [employer] Other 02-25-2021 12:00-0400 Systolic blood pressure 118 mm[Hg] Norris Ames . Other [employer] Other 01-20-2021 10:00-0400 Body height 157.48 cm Linda Keith Other [employer] Other 01-20-2021 10:00-0400 Body mass index (BMI) [Ratio] 42.68 kg/m2 Lindafrederic Keith Other [employer] Other 01-20-2021 10:00-0400 Body weight 105.87 kg Linda Keith Other [employer] Other Encounters Encounter Date Encounter Type Care [...] 04-10-2022 End: 04-10-2022 ambulatory Kamilah Nance Other [employer] Other Start: 04-10-2022 Office outpatient vi sit 15 minutes Kamilah Nance [facility] Start: 05-26-2021 End: 05-26-2021 ambulatory Norris Ames Other [employer] Other Start: 05-26-2021 Telephone encounter Norris [facility] Start: 04-30-2021 End: 04-30-2021 ambulatory Norris Ames Other [employer] Other Start: 04-30-2021 Follow-up encounter Norris queen [facility] Start: 04-13-2021 End: 04-13-2021 ambulatory Linda Keith Other [employer] Other Start: 04-13-2021 Telephone encounter Linda Keith Mayuri [facility] Start: 03-09-2021 End: 03-09-[address] NONE LISTED REQUEST Facility: Start: 03-03-2021 ([facility] RD FU) [facility] F/ U Registerd Loader Operator Supervisor Linda Keith [facility] Start: 03-03-2021 End: 03-03-2021 ambulatory Linda Keith Other [employer] Other Start: 02-25-2021 End: 02-25-2021 ambulatory Norris Ames Jr. Other [employer] Other Start: 02-25-2021 Follow-up encounter Norris howard [facility] Start: 02-04-2021 Telephone encounter Norris howard [facility] Start: 01-20-2021 ([facility] RD FU) [facility] F/ U Registerd Loader Operator Supervisor Linda Keith [facility] Procedures Date Procedure Procedure Detail Performing Clinician Start: 05-30-2023 URETHRITIS/DISCHARGE PLUS VAGINITIS (HTRX) Kristian Jalil DO Work Phone: Start: 05-30-2023 IGP,APTIMA HPV,AGE GDLN Kristian Jalil DO Work Phone: Start: 05-30-2023 Urnls dip stick/tabl et rgnt non-auto w/o micrscp Kristian Jalil DO Work Phone: Plan of Treatment Date Care Activity Detail Author Start: 06-28-2023 End: 06-28-2023 Patient encounter procedure 06/28/2023 9:30 AM EST [facility]ine [facility] [address] [place] [address] Neelam Sutherland PA [address] [place], [place] [id number] [facility] Start: 06-13-2023 End: 06-13-2023 Professional / ancillary services management 06/13/2023 9:00 AM EST Ancillary Procedure NOMS BCP OB [address] [place] [address] [facility] Start: 05-30-2023 End: 09-28-2023 Alpha fetoprotein, maternal Alpha fetoprotein, maternal Lab Routine Second trimester Expected: 05/30/2023 (Approximate), Expires: 09/28/2023 [facility] Comment on above: Expected: 05/30/2023 (Approximate), Expires: 09/28/2023 Start: 05-30-2023 End: 05-30-2024 US for US OB ANATOMY SINGLE W US OB CERVICAL LENGTH Imaging Routine Screening, , for anatomic survey Expected: 05/30/2023 (Approximate), Expires: 05/30/2024 [facility] Comment on above: Expected: 05/30/2023 (Approximate), Expires: 05/30/2024 Start: 12-23-2022 Influenza vaccination Influenza Vacc ine (#1) [facility] Start: 2019 Screening for malign ant neoplasm of cervix [facility] Start: 2010 Screening for malign ant neoplasm of cervix Pap Smear [facility] CHLAMYDIA TRACHOMATI S (GENITO/STI) CHLAMYDIA TRACHOMATIS (GENITO/STI) Lab Routine STD exposure Ordered: 05/30/2023 [facility] Comment on above: Ordered: 05/30/2023 Cytology Cervical or vaginal smear or scraping study Pap Smear Pathology and Cytology Routine Well woman exam with routine gynecological exam Ordered: 05/30/2023 [facility] Work Phone: Comment on above: Ordered: 05/30/2023 Human papilloma viru s DNA [Presence] in Unspecified specimen by Probe with amplification HPV DNA probe, amplified Microbiology Routine Well woman exam with routine gynecological exam Ordered: 05/30/2023 [facility] Comment on above: Ordered: 05/30/2023 Neisseria gonorrhoea e DNA [Presence] in Unspecified specimen by NANCY with probe detection Neisseria gonorrhea DNA probe, direct Lab Routine STD exposure Ordered: 05/30/2023 [facility] Comment on above: Ordered: 05/30/2023 SURESWAB(R) ADVANCED VAGINITIS PLUS, TMA SURESWAB(R) ADVANCED VAGINITIS PLUS, TMA Pathology and Cytology Routine Vaginal discharge Ordered: 05/30/2023 [facility] Comment on above: Ordered: 05/30/2023 Payers Date Payer Category Payer [facility] [id number] 2022 Unknown BCBS BCBS [id number] [id number] 2022-Present [phone] [address] [place] [address] [id number] 1989 Unknown [id number] .593 1989 Unknown [id number] .1259 1989 Unknown [id number] [id number] .1259 1989 Unknown [id number] .1259 1989 Unknown [id number] .1259 1989 Unknown [id number] .1259 1989 Unknown [id number] [id number] .1259 1989 Unknown [id number] .1259 1960 Private Health Insurance [id number] Social History Date Type Detail Facility Unknown if ever smoked [facility] [employer] Other Start: 04-05-2023 Sex Assigned At N [facility] [employer] Other Start: 04-05-2023 Tobacco smoking status NHIS [...] meal for a total of 4times daily.. [id number] Start: 05-23-2023 End: 06-22-2023 1 each by In Vit ro route in the morning. Use to check FSBS four times daily. [id number] Start: 05-23-2023 End: 06-22-2023 History of Present [...] nursing note reviewed. Exam conducted with a chief security officer present. Vitals: There is no height or [...] Kristian Jimenes DO documented in this encounter [facility] Healthcare Evaluation note 04-10-2022 Note Date & [...] should improve within the next 4-7 days. [employer] Other Evaluation note 04-30-2021 Note Date & [...] Low vitamin B12 level (ICD-10 - E53.8) [employer] Other Evaluation note 03-03-2021 Note Date & [...] holidays (C) Answered general, nutrition-rela madelin questions [employer] Other Evaluation note 02-25-2021 Note Date & [...] Low vitamin B12 level (ICD-10 - E53.8) [employer] Other Evaluation note 01-20-2021 Note Date & [...] methods (C) Answered general nutrition-rel ated questions [employer] Other Evaluation note Note Date & Type Note Facility Evaluation note No Information [employer] Other Evaluation note Note Date & Type [...] Surgical History appendectomy Hospitalization History see above [employer] Other Summary Purpose Family History No Family History Records FoundNo Family History Records FoundNo Family History Records Found Advance Directives No Advanced Directives Records FoundNo Advanced Directives Records FoundNo Advanced Directives Records Found Additional Source Comments INFORMATION SOURCE (unrecogn ized section and content) DATE CREATED AUTHOR 03/17/2021 [facility] DATE CREATED AUTHOR AUTHOR'S ORGANIZ ATION 10/28/2021 [facility] DATE CREATED AUTHOR AUTHOR'S ORGANIZ ATION 08/29/2023 [facility] dical Specialists EPIC REASON FOR VISIT (unrecogniz ed section and content) Reason Comments Routine Visit Well Women Visit CONGESTION B/A H/A SORE THRAOTFCCC Pt does not wish our services 06/28/21CC RD N/S 04/13/2021, LM WM gabrielle/Erika Steele/DAGOBERTO EX Care Teams (unrecognized sec tion and content) Road Conductor Relationship Specialty Start Date End Date Reinaldo Lara MD PCP - General Family Medicine 03/23/23 Road Conductor Relationship Specialty Start Date End Date Reinaldo [...] BE BASED ON THE PRIMARY CLINICAL RECORDS. [facility]. provides no warranty or guarantee of the accuracy or completeness of information in this document.
--- NOTE | 2023-09-07 14:22 | US_ITS ---
[address] [address] Patient Name: VERA CONTRERAS MRN: [facility]:[id number] date: 1990 Sex: F Assigned Patient Location: [facility] Current Patient Location: [facility] Accession/Order Number: [id number] Exam Date: 09/07/2023 13:55 Report Date: 09/07/2023 14:57 At the request of: KRISTIAN MARIN Procedure: US OB growth EXAMINATION: US OB growth HISTORY: GESTATIONAL DIABETES MELLITUS O24.414 COMPARISON: Ultrasound OB growth 08/14/2023 FINDINGS: Heart Rate: 154.3 bpm Number: 1.0 Position: CEPHALIC Amniotic Fluid Volume: 20.9 cm Maximum Vertical Pocket: 6.1 cm BIOMETRY: BPD: 8.5 cm cm; 34 weeks 1 days; 75% HC: 32.1 cmcm; 36 weeks 2 days ; 90% AC: 33.0 cm cm; 36 weeks 6 days; >97% FL: 6.6 cm cm; 33 weeks 6 days; 64% EFW: 2762.6 grams; >97% FL/AC: 20.0 FL/BPD: 77.8 HC/AC: 1.0 GESTATIONAL AGE: Age by EDC: 33 weeks 0 days ROSY by EDC: 10/26/2023 Age by US: 35 weeks 2 days ROSY by US: 10/10/2023 US/US OB growth IMPRESSION: 1. Single live intrauterine with growth detailed above. 2. Estimated weight is greater than 97th percentile. Electronically authenticated by: KODY FRANK Date: 09/07/2023 14:57
[2023-09-07 14:54] VITALS: BP 114/55; PULSE 83
== END 2023-09-07 14:50 | disposition home or self-care (01) ==
LOC: US 07:03 → FBC 13:52
PROVIDERS: PCP Family Medicine; Visit Provider Obstetrics & Gynecology
DX: O24.414 Gestational diabetes mellitus in pregnancy, insulin controlled (principal); Z3A.35 35 weeks gestation of pregnancy
CPT/HCPCS: 76816; 76818

== ENCOUNTER 2023-09-11 09:37 | Outpatient (OUT) | payer BC, SELFPAY ==
[2023-09-11 13:48] VITALS: BP 136/71; PULSE 82
== END 2023-09-11 14:00 | disposition home or self-care (01) ==
LOC: FBCO 09:37 → FBC 13:08
PROVIDERS: PCP Family Medicine; Visit Provider Obstetrics & Gynecology
DX: O99.283 Endocrine, nutritional and metabolic diseases complicating pregnancy, third trimester (principal)
CPT/HCPCS: 59025

== ENCOUNTER 2023-09-14 07:20 | Outpatient (OUT) | payer BC, SELFPAY ==
--- OUTSIDE RECORDS SUMMARY | 2023-09-14 07:45 | XMS_ITS | CCD ---
Author Organization [facility] Inform ion Partnership [facility] Care Team Providers Care Motor Coach Operator Name Role Phone REQUEST, DR NONE LISTED Primary Care Unavaila katarzyna JIMENES, DR TOWNSEND Consulting Unavailable JALIL, DR TOWNSEND Attending Unavailable JALIL, DR TOWNSEND Admitting Unavailable Linda Keith Unavailable Norris Ames Jr. Unavailable [phone] Norris Ames Unavailable Kamilah Nance Unavailable [...] Subcutaneous weekly for 30 days Apr, Active [id number] 200 actuat albuterol 0.09 mg/actuat metered dose [...] Start: 06-09-2022 take 1 capsule by mo [facility] every twenty-four hours in the morning venlafaxine XR (Effexor XR) 150 MG 24 hr capsule Take 150 mg by mouth in the morning. 0 06/09/2022 Active take 1 capsule by mo [facility] every twenty-four hours Effexor XR 150 MG [...] GDLNon AGE GDLN ACOG TESTING Note . [facility] Comment on above: TESTS RESULT FLAG UN ITS REF RANGE LAB Clinician Provided Cytology Information Source.............[employer] Other.............. No. of containers..01 ThinPrep Vial Age Algo ACOG Jes... 30-65 01 FLAG LEGEND: L-Low Normal,H-High Normal,LL-Alert Low,HH-Alert High <-Panic Low,>-Panic High,A-Abnormal,AA-Critical Abnormal Performed at: 01 =G [address] [address] Kala Contreras MD, HPV APTIMA Negative Negative [facility] Comment on above: This nucleic acid am plification test detects fourteen high- risk HPV types (16,18,31,33,35,39,45,51,52,56,58,59,66,68) without differentiation. Performed at: =G [employer] [id number] Rn Admit: Kala Contreras MD, Phone: [phone] Performed at: [employer] [facility] [address] [address] [place], [place] [id number] Rn Admit: Mike Copeland MD, Phone: [phone] IGP, APTIMA HPV, RFX 16/18,45 Note . [facility] Comment on above: TESTS RESULT FLAG UN ITS REF RANGE LAB DIAGNOSIS: 02 NEGATIVE FOR INTRAEPITHELIAL LESION OR MALIGNANCY. Specimen adequacy: 02 Satisfactory for evaluation. No endocervical component is identified. An endocervical component is not commonly seen in the patient. Performed by: Kelsy Ortiz, Field Logistics Coordinator (ASCP) . 02 Note: Note 03 The [...] High <-Panic Low,>-Panic High,A-Abnormal,AA-Critical Abnormal Performed at: [facility] [address] [address] [place] [address] Mike Copeland MD, [address] [address] Kala Contreras MD, SPATULA-ALONE [facility] Healthcar e URETHRITIS/DISCHARGE PLUS VA GINITIS (HTRX)on 05-31-2023 ATOPOBIUM VAGINAE 0 [facility] ATOPOBIUM VAGINAE Not detected [facility] BVAB 2,3 (BACTERIAL VAGINOSIS ASSOCIATED BACTERIA 2, 3); MOBILUNCUS SPP 0 [facility] BVAB 2,3 (BACTERIAL VAGINOSIS ASSOCIATED BACTERIA 2, 3); MOBILUNCUS SPP Not detected [facility] SIN ALBICANS, PARAPSILOSIS, TROPICALIS 0 [facility] SIN ALBICANS, PARAPSILOSIS, TROPICALIS Not detected [facility] SIN GLABRATA 0 [facility] Hea lthcare SIN GLABRATA Not detected [facility] SIN KRUSEI 0 [facility] Healt hcare SIN KRUSEI Not detected [facility] CHLAMYDIA TRACHOMATIS 0 [facility] CHLAMYDIA TRACHOMATIS Not detected [facility] GARDNERELLA VAGINALIS 0 [facility] GARDNERELLA VAGINALIS Not detected [facility] MEGASPHAERA (TYPES 1, 2) 0 [facility] MEGASPHAERA (TYPES 1, 2) Not detected [facility] MYCOPLASMA GENITALIUM 0 [facility] MYCOPLASMA GENITALIUM Not detected [facility] NEISSERIA GONORRHOEAE 0 [facility] NEISSERIA GONORRHOEAE Not detected [facility] TRICHOMONAS VAGINALIS 0 [facility] TRICHOMONAS VAGINALIS Not detected [facility] Urinalysis macro (dipstick) panel (U)on 05-30-2023 Bilirubin, UA Negative Negative - 4(70) +++ mg/dL [facility] Blood, UA Negative Negative - 50 Zach/mcL [facility] Clarity, UA Clear [facility] Healthca re Color, UA Yellow [facility] Glucose, UA Negative Negative - 2000(110) ++++ mg/dL [facility] Interpretation and review of laboratory results Abnormal [facility] Health[facility] re Ketones, UA Positive Negative - 160(16) ++++ mg/dL [facility] Leukocytes, UA Negative Negative - 500+++ Magaly/mcL [facility] Nitrite, UA Negative Negative - Positive [facility] pH, UA 5.5 5 - 9 [facility] e Protein, UA Negative Negative - 1999(20) ++++ mg/dL [facility] Spec Grav, UA 1.020 1 - 1.03 [facility] Urobilinogen, UA 1.0 0.2 - 12 mg/dL [facility] Healthcar e COVID + FLU Quick Testingon 04-10-2022 SARS-CoV-2 (COVID-19) RNA NANCY+probe Ql (Unsp spec) Positive [facility] Other COVID + FLU Quick Testing Positive [employer] Other Quick Strepon 04-10-2022 S. pyogenes Org specific cx Ql (Throat) Negative [facility] [employer] Other Quick Strep [facility] Other A1C with Estimated Average G luon 04-28-2021 Glucose [Mass/Vol] 108 mg/dL Normal [facility] Comment on above: Order Comment: Reaso n for Exam Prediabetes Result Comment: PERF ORMED BY: [place] [address] PATHOLOGIST DRY YARD WORKER THEO CHU M.D. Performed By: #### A 1C WT eA, LIPID, GLU, B12 #### [facility] [address] [place] [address] HbA1c (Bld) [Mass fraction] 5.4 % Normal 4.3-5.6 [facility] Comment on above: Order Comment: Reaso n for Exam Prediabetes Result Comment: Incr eased risk for diabetes: 5.7 - 6.4 diabetes: >6.4 glycemic control for adults with diabetes: <7.0 Performed By: #### A 1C WTH eA, LIPID, GLU, B12 #### [facility] [address] Glucoseon 04-28-2021 Glucose [Mass/Vol] 97 mg/dL Normal 70-100 [facility] Comment on above: Order Comment: Reaso n for Exam Prediabetes Reason for Exam Mixed hyperlipidemia Reason for Exam Low vitamin B12 level Result Comment: [facility] Glucose Reference Range is dependent on time and content of last meal. Glucose of more than 200 mg/dL in a nonstressed, ambulatory subject supports the diagnosis of Diabetes Mellitus. ADA recommended reference range Performed By: #### A 1C WTH eA, LIPID, GLU, B12 #### [facility] [address] [id number] [facility] Lipid Panelon 04-28-2021 Cholesterol [Mass/Vol] 171 mg/dL Normal 140-200 [facility] Comment on above: Order Comment: Reaso n for Exam Prediabetes Reason for Exam Mixed hyperlipidemia Reason for Exam Low vitamin B12 level Result Comment: Chol less than 200 mg/dl low risk Chol 201-239 mg/dl borderline risk Chol 240 mg/dl and greater high risk Performed By: #### A 1C WTH eA, LIPID, GLU, B12 #### [facility] [address] [id number] [place] Cholesterol in HDL [Mass/Vol] 41 mg/dL Normal 35-85 [facility] Comment on above: Order Comment: Reaso n for Exam Prediabetes Reason for Exam Mixed hyperlipidemia Reason for Exam Low vitamin B12 level Result Comment: HDL CHOL ATP-III CLASSIFICATION Cardiovascular Risk HDL > or equal to 60 mg/dL LOW HDL < 40 mg/dL HIGH Performed By: #### A 1C WTH eA, LIPID, GLU, B12 #### [facility] [address] [id number] [place] Cholesterol.total/C holesterol in HDL [Mass ratio] 4.2 {ratio} Normal <5.0 [facility] Comment on above: Order Comment: Reaso n for Exam Prediabetes Reason for Exam Mixed hyperlipidemia Reason for Exam Low vitamin B12 level Performed By: #### A 1C WTH eA, LIPID, GLU, B12 #### [facility] [address] [id number] [place] LDL Cholesterol,Calcula madelin 95 mg/dL Normal 0-100 [facility] Comment on above: Order Comment: [...] B12 #### [facility] [address] Triglyceride w/Reflex 176 mg/dL High 35-149 [facility] Comment on above: Order Comment: [...] GLU, B12 #### [facility] [address] [place] [address] VLDL CHOLESTEROL 35 mg/dL Normal [facility] Comment on above: Order Comment: Reaso n for Exam Prediabetes Reason for Exam Mixed hyperlipidemia Reason for Exam Low vitamin B12 level Performed By: #### A 1C WTH eA, LIPID, GLU, B12 #### [facility] [address] [place] [address] Vitamin B12on 04-28-2021 Cobalamin (Vitamin B12) [Mass/Vol] 633 pg/mL Normal 180-914 [facility] Comment on above: Order Comment: Reaso n for Exam Prediabetes Reason for Exam Mixed hyperlipidemia Reason for Exam Low vitamin B12 level Result Comment: PERF ORMED BY: [place] [address] PATHOLOGIST DRY YARD WORKER THEO CHU M.D. Performed By: #### A 1C WTH eA, LIPID, GLU, B12 #### [facility] [address] [place] [address] PAP ACOG PANEL 2: 30 to 65on 03-16-2021 . . Normal [facility] Comment on above: Result Comment: Perf ormed at: WB Performed By: #### [id number] #### [facility] [address] [address] [address] Tete Peters Age Gdln ACOG Testing 30-65 Normal [facility] Comment on above: Performed By: #### [id number] #### [facility] [address] [address] [address] Tete Peters DIAGNOSIS: Comment Normal [facility] Comment on above: Result Comment: NEGA TIVE FOR INTRAEPITHELIAL LESION OR MALIGNANCY. THIS SPECIMEN WAS RESCREENED PART OF OUR SHOPPING CENTRE MANAGER PROGRAM. Performed at: WB Performed By: #### 4 [id number] #### [facility] [address] [address] [address] Tete Peters HPV Aptima Negative Normal Negative [facility] Comment on above: Result Comment: This nucleic acid amplification test detects fourteen high-risk HPV types (16,18,31,33,35,39,45,51,52,56,58,59,66,68) without differentiation. Performed at: =G Performed By: #### [id number] #### [facility] [address] [place] [address] Dr. Tete Peters Methodology: Comment Normal [facility] Comment on above: Result Comment: This liquid based ThinPrep(R) pap test was screened with the use of an image guided system. Performed at: WB Performed By: #### [id number] #### [facility] [address] [place] [address] Dr. Tete Peters Note: Comment Normal [facility] Comment on above: Result Comment: The Pap smear is a screening test designed to aid in the detection of premalignant and malignant conditions of the uterine cervix. It is not a diagnostic procedure and should not be used as the sole means of detecting cervical cancer. Both false-positive and false-negative reports do occur. . Performed at: WB Performed By: #### 4 [id number] #### [facility] [address] [place] [address] Dr. Tete Peters Performed by: Comment Normal [facility] Comment on above: Result Comment: Luisa Ross, Field Logistics Coordinator (ASCP) Performed at: WB Performed By: #### 4 [id number] #### [facility] [address] [place] [address] Dr. Tete Peters QC reviewed by: Comment Normal [facility] Comment on above: Result Comment: Monika Ortiz, Supervisory Field Logistics Coordinator (ASCP) Performed at: WB Performed By: #### 4 [id number] #### [facility] [address] [address] [address] Tete Peters Specimen adequacy: Comment Normal [facility] Comment on above: Result Comment: Sati sfactory for evaluation. Endocervical and/or squamous metaplastic cells (endocervical component) are present. Performed at: WB Performed By: #### 4 [id number] #### [facility] [address] [place], [place] [address] Dr. Tete Peters Vitamin B12on 01-12-2021 Cobalamin (Vitamin B12) [Mass/Vol] 297 pg/mL Normal 180-914 [facility] Comment on above: Order Comment: Reaso n for Exam Prediabetes Result Comment: PERF ORMED BY: [place] [address] PATHOLOGIST DRY YARD WORKER THEO CHU M.D. Performed By: #### B 12 #### [address] [employer]IL[employer] polysom portableon 11-16 [employer] polysom portable [facility] Main [place] [address] [place] [address] Sleep Lab Report Signed Patient: Marina Contreras MR#: [id number] : 1990 Acct:[id number] Age/Sex: 30 / F ADM Date: 11/09/20 Loc: Room: Type: [facility] Attending Dr: Anne Marie Mejía MD [...] home sleep test was performed utilizing the [employer] T3 system. Parameters recorded include actigraphy, [...] Dictated By: Anne Marie Mejía MD 11/16/20 [id number] Signed By: 11/18/20 3565 [facility] Vital Signs Date Time Vital Sign Value Performing Clinician Facility 05-30-2023 09:36-0500 Body weight 116.48 kg [employer] Work Phone: [facility] 05-30-2023 09:36-0500 Diastolic blood pressure 70 mm[Hg] [employer] Work Phone: [facility] 05-30-2023 09:36-0500 Systolic blood pressure 116 mm[Hg] [employer] Work Phone: [facility] 04-10-2022 14:00-0500 Body height 157.48 cm Kamilah Nance Other [employer] Other 04-10-2022 14:00-0500 Body mass index (BMI) [Ratio] 44.92 kg/m2 Kamilah Nance Other [employer] Other 04-10-2022 14:00-0500 Body temperature 99.5 [degF] Kamilah Nance Other [employer] Other 04-10-2022 14:00-0500 Body weight 111.4 kg Kamilah Nance Other [employer] Other 04-10-2022 14:00-0500 Diastolic blood pressure 68 mm[Hg] Kamilah Nance Other [employer] Other 04-10-2022 14:00-0500 Respiratory rate 18 /min Kamilah Nance Other [employer] Other 04-10-2022 14:00-0500 SaO2% (BldA) [Mass fraction] 95 % Kamilah Nance Other [employer] Other 04-10-2022 14:00-0500 Systolic blood pressure 116 mm[Hg] Kamilah Nance Other [employer] Other 04-30-2021 10:45-0500 Body height 157.48 cm Norris Ames Other [employer] Other 04-30-2021 10:45-0500 Body mass index (BMI) [Ratio] 41.72 kg/m2 Norris Ames Other [employer] Other 04-30-2021 10:45-0500 Body weight 103.47 kg Norris Byrnediff Other [employer] Other 04-30-2021 10:45-0500 Diastolic blood pressure 75 mm[Hg] Norris Byrnediff Other [employer] Other 04-30-2021 10:45-0500 Respiratory rate 18 /min Norris Byrnediff Other [employer] Other 04-30-2021 10:45-0500 SaO2% (BldA) [Mass fraction] 99 % Norris Byrnediff Other [employer] Other 04-30-2021 10:45-0500 Systolic blood pressure 110 mm[Hg] Norris Ames Other [employer] Other 03-03-2021 11:30-0500 Body height 157.48 cm Linda Bocanegramyke Other [employer] Other 03-03-2021 11:30-0500 Body mass index (BMI) [Ratio] 42.5 kg/m2 Linda Fitt Other [employer] Other 03-03-2021 11:30-0500 Body weight 105.42 kg Linda Fitmyke Other [employer] Other 02-25-2021 12:00-0400 Body height 157.48 cm Norris Ames Jr. Other [employer] Other 02-25-2021 12:00-0400 Body mass index (BMI) [Ratio] 41.92 kg/m2 Norris Ames Other [employer] Other 02-25-2021 12:00-0400 Body weight 103.97 kg Norris Ames Other [employer] Other 02-25-2021 12:00-0400 Diastolic blood pressure 79 mm[Hg] Norris Ames Other [employer] Other 02-25-2021 12:00-0400 Respiratory rate 18 /min Norris Grullonanny Schwarz Other [employer] Other 02-25-2021 12:00-0400 SaO2% (BldA) [Mass fraction] 97 % Norris Ames Other [employer] Other 02-25-2021 12:00-0400 Systolic blood pressure 118 mm[Hg] Norris Ames Other [employer] Other 01-20-2021 10:00-0400 Body height 157.48 cm Linda Bocanegramyke Other [employer] Other 01-20-2021 10:00-0400 Body mass index (BMI) [Ratio] 42.68 kg/m2 Linda Daljitmyke Other [employer] Other 01-20-2021 10:00-0400 Body weight 105.87 kg Linda Fitt Other [employer] Other Encounters Encounter Date Encounter Type Care [...] 04-10-2022 End: 04-10-2022 ambulatory Kamilah Nance Other [employer] Other Start: 04-10-2022 Office outpatient vi sit 15 minutes Kamilah Nance [facility] Start: 05-26-2021 End: 05-26-2021 ambulatory Norris Ames Other [employer] Other Start: 05-26-2021 Telephone encounter [facility] Start: 04-30-2021 End: 04-30-2021 ambulatory Norris Ames Other [employer] Other Start: 04-30-2021 Follow-up encounter Norris [facility] Start: 04-13-2021 End: 04-13-2021 ambulatory Linda Keith Other [employer] Other Start: 04-13-2021 Telephone encounter Linda Messina [facility] Start: 03-09-2021 End: 03-09-[address] NONE LISTED REQUEST Facility: Start: 03-03-2021 ([facility] RD FU) [facility] F/ U Registerd Patient Sitter Linda Keith [facility] Start: 03-03-2021 End: 03-03-2021 ambulatory Linda Keith Other [employer] Other Start: 02-25-2021 End: 02-25-2021 ambulatory Norris Ames Jr. Other [employer] Other Start: 02-25-2021 Follow-up encounter Norris howard [facility] Start: 02-04-2021 Telephone encounter Norris [facility]ard [facility] Start: 01-20-2021 ([facility] RD FU) [facility] F/ U Registerd Patient Sitter Linda Keith [facility] Procedures Date Procedure Procedure Detail Performing [...] procedure 06/28/2023 9:30 AM EST Routine [facility] [address] [place] [address] Neelam Sutherland PA [address] [place], [place] [id number] [facility] Start: 06-13-2023 End: 06-13-2023 Professional / ancillary services management 06/13/2023 9:00 AM EST Ancillary Procedure [facility] [address] [place] [address] [facility] Start: 05-30-2023 End: 09-28-2023 Alpha fetoprotein, maternal Alpha fetoprotein, maternal Lab Routine Second trimester Expected: 05/30/2023 (Approximate), Expires: 09/28/2023 [facility] Comment on above: Expected: 05/30/2023 (Approximate), Expires: 09/28/2023 Start: 05-30-2023 End: 05-30-2024 US for US OB ANATOMY SINGLE W US OB CERVICAL LENGTH Imaging Routine Screening, , for anatomic survey Expected: 05/30/2023 (Approximate), Expires: 05/30/2024 [facility] Comment on above: Expected: 05/30/2023 (Approximate), Expires: 05/30/2024 Start: 12-23-2022 Influenza vaccination Influenza Vacc ine (#1) [facility] Start: 2019 Screening for malign ant neoplasm of cervix [facility] Start: 2010 Screening for malign ant neoplasm of cervix Pap Smear [facility] CHLAMYDIA TRACHOMATI S (GENITO/STI) CHLAMYDIA TRACHOMATIS (GENITO/STI) Lab Routine STD exposure Ordered: 05/30/2023 [facility] Comment on above: Ordered: 05/30/2023 Cytology Cervical or vaginal smear or scraping study Pap Smear Pathology and Cytology Routine Well woman exam with routine gynecological exam Ordered: 05/30/2023 [facility] Work Phone: Comment on above: Ordered: 05/30/2023 Human papilloma viru s DNA [Presence] in Unspecified specimen by Probe with amplification HPV DNA probe, amplified Microbiology Routine Well woman exam with routine gynecological exam Ordered: 05/30/2023 [facility] Comment on above: Ordered: 05/30/2023 Neisseria gonorrhoea e DNA [Presence] in Unspecified specimen by NANCY with probe detection Neisseria gonorrhea DNA probe, direct Lab Routine STD exposure Ordered: 05/30/2023 [facility] Comment on above: Ordered: 05/30/2023 SURESWAB(R) ADVANCED VAGINITIS PLUS, TMA SURESWAB(R) ADVANCED VAGINITIS PLUS, TMA Pathology and Cytology Routine Vaginal discharge Ordered: 05/30/2023 [facility] Comment on above: Ordered: 05/30/2023 Payers Date Payer Category Payer [facility] [id number] 2022 Unknown BCBS BCBS xxxxxx [id number] 2022-Present [phone] [address] [place] [address] [id number] 1989 Unknown [id number] 1989 Unknown [id number] .1259 1989 Unknown [id number] .1259 1989 Unknown [id number] .1259 1989 Unknown [id number] .1259 1989 Unknown [id number] [id number] .1259 1989 Unknown [id number] [id number] .1259 1989 Unknown [id number] .1259 1960 Private Health Insurance [id number] Social History Date Type Detail Facility Unknown if ever smoked [facility] [employer] Other Start: 04-05-2023 Sex Assigned At N [facility] [employer] Other Start: 04-05-2023 Tobacco smoking status NHIS [...] meal for a total of 4times daily.. [id number] Start: 05-23-2023 End: 06-22-2023 1 each by In Vit ro route in the morning. Use to check FSBS four times daily. [id number] Start: 05-23-2023 End: 06-22-2023 History of Present [...] nursing note reviewed. Exam conducted with a larriman helper present. Vitals: There is no height or [...] Kristian Jimenes DO documented in this encounter [facility] Evaluation note 04-10-2022 Note Date & [...] should improve within the next 4-7 days. [employer] Other Evaluation note 04-30-2021 Note Date & [...] Low vitamin B12 level (ICD-10 - E53.8) [employer] Other Evaluation note 03-03-2021 Note Date & [...] holidays (C) Answered general, nutrition-rela madelin questions [employer] Other Evaluation note 02-25-2021 Note Date & [...] Low vitamin B12 level (ICD-10 - E53.8) [employer] Other Evaluation note 01-20-2021 Note Date & [...] methods (C) Answered general nutrition-rel ated questions [employer] Other Evaluation note Note Date & Type Note Facility Evaluation note No Information [employer] Other Evaluation note Note Date & Type [...] Surgical History appendectomy Hospitalization History see above [employer] Other Summary Purpose Family History No Family History Records FoundNo Family History Records FoundNo Family History Records Found Advance Directives No Advanced Directives Records FoundNo Advanced Directives Records FoundNo Advanced Directives Records Found Additional Source Comments INFORMATION SOURCE (unrecogn ized section and content) DATE CREATED AUTHOR 03/17/2021 [facility] DATE CREATED AUTHOR AUTHOR'S ORGANIZ ATION 10/28/2021 [facility] DATE CREATED AUTHOR AUTHOR'S ORGANIZ ATION 08/29/2023 [facility] dical Specialists EPIC REASON FOR VISIT (unrecogniz ed section and content) Reason Comments Routine Visit Well Women Visit CONGESTION B/A H/A SORE THRAOTFCCC Pt does not wish our services 06/28/21CC RD N/S 04/13/2021, LM WM f/Erika Steele/DAGOBERTO EX Care Teams (unrecognized sec tion and content) Motor Coach Operator Relationship Specialty Start Date End Date Reinaldo Lara MD PCP - General Family Medicine 03/23/23 Motor Coach Operator Relationship Specialty Start Date End Date [...] BE BASED ON THE PRIMARY CLINICAL RECORDS. [facility], [facility]. provides no warranty or guarantee of the accuracy or completeness of information in this document.
--- NOTE | 2023-09-14 14:14 | US_ITS ---
[address] [address] Patient Name: VERA CONTRERAS MRN: [id number]:[id number] date: 1990 Sex: F Assigned Patient Location: [facility] Current Patient Location: [facility] Accession/Order Number: [id number] Exam Date: 09/14/2023 14:20 Report Date: 09/14/2023 15:21 At the request of: KRISTIAN MARIN Procedure: US OB BPP w non-stress EXAMINATION: US OB BPP w non-stress HISTORY: Insulin controlled gestational diabetes mellitus COMPARISON: No relevant comparison available. TECHNIQUE: Ultrasound biophysical profile was performed in the radiology department. FINDINGS: BREATHING MOVEMENTS: 2.0 GROSS BODY MOVEMENTS: 2.0 TONE: 2.0 QUALITATIVE AMNIOTIC FLUID VOLUME: 2.0 PRESENTATION: BREECH HEART RATE: 160.7 bpm H.B./min AMNIOTIC FLUID VOLUME: 22.2 cm cm GESTATIONAL AGE: 34 weeks 0 days CONCLUSION: Total biophysical profile score: 8.0 Electronically authenticated by: SILVER DASILVA Date: 09/14/2023 15:21
[2023-09-14 14:52] VITALS: BP 113/56; PULSE 76
== END 2023-09-14 15:42 | disposition home or self-care (01) ==
LOC: US 07:43 → FBC 14:07
PROVIDERS: PCP Family Medicine; Visit Provider Obstetrics & Gynecology
DX: O24.414 Gestational diabetes mellitus in pregnancy, insulin controlled (principal); Z3A.34 34 weeks gestation of pregnancy
CPT/HCPCS: 76818

== ENCOUNTER 2023-09-18 08:29 | Outpatient (OUT) | payer BC, SELFPAY ==
--- OUTSIDE RECORDS SUMMARY | 2023-09-18 08:31 | XMS_ITS | CCD ---
Author Organization [facility] Care Team Providers Care [employer] Principal Name Role Phone REQUEST, DR NONE LISTED Primary Care Unavaila katarzyna JIMENES, DR TOWNSEND Consulting Unavailable JALIL, DR TOWNSEND Attending Unavailable JALIL, DR TOWNSEND Admitting Unavailable Linda Keith Unavailable Norris Ames Jr. Unavailable Norris Ames Unavailable Kamilah Nance Unavailable Reinaldo Lara MD Primary Care Provider [phone] KRISTIAN JIMENES Attending Unavailable KRISTIAN JIMENES Attending Unavailable NEELAM SUTEHRLAND Attending Unavailable KRISTIAN JIMENES Attending Unavailable NEELAM SUTHERLAND Attending Unavailable KRISTIAN JIMENES Attending Unavailable KRISTIAN JIMENES Attending Unavailable Medications Current Medications Medication Drug Class(es) Dates Sig (Normalized) Sig (Original) 3 ML semaglutide 1.34 MG/ML Pen Injector [Ozempic] (3 sources) Start: 04-30-2021 inject 1 mg by subcutaneous injection every week Ozempic (1 MG/DOSE) 4 MG/3ML 1 mg as directed Subcutaneous weekly for 30 days Apr, Active [id number] 200 actuat albuterol 0.09 mg/actuat metered dose [...] Start: 06-09-2022 take 1 capsule by mo [facility] every twenty-four hours in the morning venlafaxine XR (Effexor XR) 150 MG 24 hr capsule Take 150 mg by mouth in the morning. 0 06/09/2022 Active take 1 capsule by mo [facility] every twenty-four hours Effexor XR [...] AGE GDLN ACOG TESTING Note . [facility] Comment on above: TESTS RESULT FLAG UN ITS REF RANGE LAB Clinician Provided Cytology Information Source.............[employer] Other.............. No. of containers..01 ThinPrep Vial Age Algo ACOG Jes... 30-65 01 FLAG LEGEND: L-Low Normal,H-High Normal,LL-Alert Low,HH-Alert High <-Panic Low,>-Panic High,A-Abnormal,AA-Critical Abnormal Performed at: 01 =G [address] [address] Kala Contreras MD, HPV APTIMA Negative Negative [facility] Comment on above: This nucleic acid am plification test detects fourteen high- risk HPV types (16,18,31,33,35,39,45,51,52,56,58,59,66,68) without differentiation. Performed at: =G [address] [id number] Tallow Maker: Kala Contreras MD, Phone: [phone] Performed at: [facility] [address] [place], [place] [id number] Tallow Maker: Mike Copeland MD, Phone: [phone] IGP, APTIMA HPV, RFX 16/18,45 Note . [facility] Comment on above: TESTS RESULT FLAG UN ITS REF RANGE LAB DIAGNOSIS: 02 NEGATIVE FOR INTRAEPITHELIAL LESION OR MALIGNANCY. Specimen adequacy: 02 Satisfactory for evaluation. No endocervical component is identified. An endocervical component is not commonly seen in the patient. Performed by: Kelsy Ortiz, Sales Advisory Manager (ASCP) . 02 Note: Note 03 The [...] High <-Panic Low,>-Panic High,A-Abnormal,AA-Critical Abnormal Performed at: [facility] [address] [place] [address] Mike Copeland MD, [address] [address] Kala Contreras MD, SPATULA-ALONE [facility] Healthcar e URETHRITIS/DISCHARGE PLUS VA GINITIS (HTRX)on 05-31-2023 ATOPOBIUM VAGINAE 0 [facility] ATOPOBIUM VAGINAE Not detected [facility] BVAB 2,3 (BACTERIAL VAGINOSIS ASSOCIATED BACTERIA 2, 3); MOBILUNCUS SPP 0 [facility] BVAB 2,3 (BACTERIAL VAGINOSIS ASSOCIATED BACTERIA 2, 3); MOBILUNCUS SPP Not detected [facility] SIN ALBICANS, PARAPSILOSIS, TROPICALIS 0 [facility] SIN ALBICANS, PARAPSILOSIS, TROPICALIS Not detected [facility] SIN GLABRATA 0 [facility] Hea lthcare SIN GLABRATA Not detected [facility] SIN KRUSEI 0 [facility] Healt hcare SIN KRUSEI Not detected [facility] CHLAMYDIA TRACHOMATIS 0 [facility] CHLAMYDIA TRACHOMATIS Not detected [facility] GARDNERELLA VAGINALIS 0 [facility] GARDNERELLA VAGINALIS Not detected [facility] MEGASPHAERA (TYPES 1, 2) 0 [facility] MEGASPHAERA (TYPES 1, 2) Not detected [facility] MYCOPLASMA GENITALIUM 0 [facility] MYCOPLASMA GENITALIUM Not detected [facility] NEISSERIA GONORRHOEAE 0 [facility] NEISSERIA GONORRHOEAE Not detected [facility] TRICHOMONAS VAGINALIS 0 [facility] TRICHOMONAS VAGINALIS Not detected [facility] Urinalysis macro (dipstick) panel (U)on 05-30-2023 Bilirubin, UA Negative Negative - 4(70) +++ mg/dL [facility] Blood, UA Negative Negative - 50 Zach/mcL [facility] Clarity, UA Clear [facility] Healthca re Color, UA Yellow [facility] Glucose, UA Negative Negative - 2000(110) ++++ mg/dL [facility] Interpretation and review of laboratory results Abnormal [facility] Healthca re Ketones, UA Positive Negative - 160(16) ++++ mg/dL [facility] Leukocytes, UA Negative Negative - 500+++ Magaly/mcL [facility] Nitrite, UA Negative Negative - Positive [facility] pH, UA 5.5 5 - 9 [facility] e Protein, UA Negative Negative - 1999(20) ++++ mg/dL [facility] Spec Grav, UA 1.020 1 - 1.03 [facility] Urobilinogen, UA 1.0 0.2 - 12 mg/dL [facility] COVID + FLU Quick Testingon 04-10-2022 SARS-CoV-2 (COVID-19) RNA NANCY+probe Ql (Unsp spec) Positive [facility] [employer] Other COVID + FLU Quick Testing Positive [employer] Other Quick Strepon 04-10-2022 S. pyogenes Org specific cx Ql (Throat) Negative [facility] [employer] Other Quick Strep [employer] [facility] [employer] Other A1C with Estimated Average G luon 04-28-2021 Glucose [Mass/Vol] 108 mg/dL Normal [facility] Comment on above: Order Comment: Reaso n for Exam Prediabetes Result Comment: PERF ORMED BY: [place] [address] PATHOLOGIST LEAD DEVELOPER THEO CHU M.D. Performed By: #### A 1C WT eA, LIPID, GLU, B12 #### [facility] [address] [place] [address] HbA1c (Bld) [Mass fraction] 5.4 % Normal 4.3-5.6 [facility] Comment on above: Order Comment: Reaso n for Exam Prediabetes Result Comment: Incr eased risk for diabetes: 5.7 - 6.4 diabetes: >6.4 glycemic control for adults with diabetes: <7.0 Performed By: #### A 1C WTH eA, LIPID, GLU, B12 #### [facility] [address] Glucoseon 04-28-2021 Glucose [Mass/Vol] 97 mg/dL Normal 70-100 [facility] Comment on above: Order Comment: Reaso n for Exam Prediabetes Reason for Exam Mixed hyperlipidemia Reason for Exam Low vitamin B12 level Result Comment: [facility] Glucose Reference Range is dependent on time and content of last meal. Glucose of more than 200 mg/dL in a nonstressed, ambulatory subject supports the diagnosis of Diabetes Mellitus. ADA recommended reference range Performed By: #### A 1C WTH eA, LIPID, GLU, B12 #### [facility] [address] [id number] [facility] Lipid Panelon 04-28-2021 Cholesterol [Mass/Vol] 171 mg/dL Normal 140-200 [facility] Comment on above: Order Comment: Reaso n for Exam Prediabetes Reason for Exam Mixed hyperlipidemia Reason for Exam Low vitamin B12 level Result Comment: Chol less than 200 mg/dl low risk Chol 201-239 mg/dl borderline risk Chol 240 mg/dl and greater high risk Performed By: #### A 1C WTH eA, LIPID, GLU, B12 #### [facility] [address] [id number] [place] Cholesterol in HDL [Mass/Vol] 41 mg/dL Normal 35-85 [facility] Comment on above: Order Comment: Reaso n for Exam Prediabetes Reason for Exam Mixed hyperlipidemia Reason for Exam Low vitamin B12 level Result Comment: HDL CHOL ATP-III CLASSIFICATION Cardiovascular Risk HDL > or equal to 60 mg/dL LOW HDL < 40 mg/dL HIGH Performed By: #### A 1C WTH eA, LIPID, GLU, B12 #### [facility] [address] [id number] [place] Cholesterol.total/C holesterol in HDL [Mass ratio] 4.2 {ratio} Normal <5.0 [facility] Comment on above: Order Comment: Reaso n for Exam Prediabetes Reason for Exam Mixed hyperlipidemia Reason for Exam Low vitamin B12 level Performed By: #### A 1C WTH eA, LIPID, GLU, B12 #### [facility] [address] [id number] [place] LDL Cholesterol,Calcula madelin 95 mg/dL Normal 0-100 [facility] Comment on above: Order Comment: Reaso n [...] 1C WTH eA, LIPID, GLU, B12 #### [facility] [address] Triglyceride w/Reflex 176 mg/dL High 35-149 [facility] Comment on above: Order Comment: Reaso n [...] 1C WTH eA, LIPID, GLU, B12 #### [facility] [address] [place] [address] VLDL CHOLESTEROL 35 mg/dL Normal [facility] Comment on above: Order Comment: Reaso n for Exam Prediabetes Reason for Exam Mixed hyperlipidemia Reason for Exam Low vitamin B12 level Performed By: #### A 1C WTH eA, LIPID, GLU, B12 #### [facility] [address] [place] [address] Vitamin B12on 04-28-2021 Cobalamin (Vitamin B12) [Mass/Vol] 633 pg/mL Normal 180-914 [facility] Comment on above: Order Comment: Reaso n for Exam Prediabetes Reason for Exam Mixed hyperlipidemia Reason for Exam Low vitamin B12 level Result Comment: PERF ORMED BY: [place] [address] PATHOLOGIST LEAD DEVELOPER THEO CHU M.D. Performed By: #### A 1C WTH eA, LIPID, GLU, B12 #### [facility] [address] [place] [address] PAP ACOG PANEL 2: 30 to 65on 03-16-2021 . . Normal [facility] Comment on above: Result Comment: Perf ormed at: WB Performed By: #### [id number] #### [facility] [address] [address] [address] Tete Peters Age Gdln ACOG Testing 30-65 Normal [facility] Comment on above: Performed By: #### [id number] #### [facility] [address] [address] [address] Tete Peters DIAGNOSIS: Comment Normal [facility] Comment on above: Result Comment: NEGA TIVE FOR INTRAEPITHELIAL LESION OR MALIGNANCY. THIS SPECIMEN WAS RESCREENED PART OF OUR STRIPPING AND BOOKING MACHINE OPERATOR PROGRAM. Performed at: WB Performed By: #### 4 [id number] #### [facility] [address] [address] [address] Tete Peters HPV Aptima Negative Normal Negative [facility] Comment on above: Result Comment: This nucleic acid amplification test detects fourteen high-risk HPV types (16,18,31,33,35,39,45,51,52,56,58,59,66,68) without differentiation. Performed at: =G Performed By: #### 4 [id number] #### [facility] [address] [place] [address] Dr. Tete Peters Methodology: Comment Normal [facility] Comment on above: Result Comment: This liquid based ThinPrep(R) pap test was screened with the use of an image guided system. Performed at: WB Performed By: #### 4 [id number] #### [facility] [address] [place] [address] Dr. Tete Peters Note: Comment Normal [facility] Comment on above: Result Comment: The Pap smear is a screening test designed to aid in the detection of premalignant and malignant conditions of the uterine cervix. It is not a diagnostic procedure and should not be used as the sole means of detecting cervical cancer. Both false-positive and false-negative reports do occur. . Performed at: WB Performed By: #### [id number] #### [facility] [address] [place] [address] Dr. Tete Peters Performed by: Comment Normal [facility] Comment on above: Result Comment: Luisa Ross, Sales Advisory Manager (ASCP) Performed at: WB Performed By: #### 4 [id number] #### [facility] [address] [place] [address] Dr. Tete Peters QC reviewed by: Comment Normal [facility] Comment on above: Result Comment: Monika Ortiz, Supervisory Sales Advisory Manager (ASCP) Performed at: WB Performed By: #### 4 [id number] #### [facility] [address] [address] [address] Tete Peters Specimen adequacy: Comment Normal [facility] [place] [facility] Comment on above: Result Comment: Sati sfactory for evaluation. Endocervical and/or squamous metaplastic cells (endocervical component) are present. Performed at: WB Performed By: #### 4 [id number] #### [facility] [address] [place], [place] [address] Dr. Tete Peters Vitamin B12on 01-12-2021 Cobalamin (Vitamin B12) [Mass/Vol] 297 pg/mL Normal 180-914 [facility] Comment on above: Order Comment: Reaso n for Exam Prediabetes Result Comment: PERF ORMED BY: [place] [address] PATHOLOGIST LEAD DEVELOPER THEO CHU M.D. Performed By: #### B 12 #### [address] DIRECTOR MISSION polysom portableon 11-16 DIRECTOR MISSION polysom portable [facility] [place] [address] [place] [address] Sleep Lab Report Signed Patient: Marina Contreras MR#: [id number] : 1990 Acct:[id number] Age/Sex: 30 / F ADM Date: 11/09/20 [...] home sleep test was performed utilizing the [employer] T3 system. Parameters recorded include actigraphy, [...] monitoring after that. Transcribed By: GERDA 11/17/20 1307 Dictated By: Anne Marie Mejía MD 11/16/20 [id number] Signed By: 11/18/20 0289 [facility] Vital Signs Date Time Vital Sign Value Performing Clinician Facility 05-30-2023 09:36-0500 Body weight 116.48 kg [facility] Work Phone: [facility] 05-30-2023 09:36-0500 Diastolic blood pressure 70 mm[Hg] [facility] Work Phone: [facility] 05-30-2023 09:36-0500 Systolic blood pressure 116 mm[Hg] [facility] Work Phone: [facility] 04-10-2022 14:00-0500 Body height 157.48 cm Kamilah Nance Other [employer] Other 04-10-2022 14:00-0500 Body mass index (BMI) [Ratio] 44.92 kg/m2 Kamilah Nance Other [employer] Other 04-10-2022 14:00-0500 Body temperature 99.5 [degF] Kamilah Nance Other [employer] Other 04-10-2022 14:00-0500 Body weight 111.4 kg Kamilah Nance Other [employer] Other 04-10-2022 14:00-0500 Diastolic blood pressure 68 mm[Hg] Kamilah Nance Other [employer] Other 04-10-2022 14:00-0500 Respiratory rate 18 /min Kamilah Nance Other [employer] Other 04-10-2022 14:00-0500 SaO2% (BldA) [Mass fraction] 95 % Kamilah Nance Other [employer] Other 04-10-2022 14:00-0500 Systolic blood pressure 116 mm[Hg] Kamilah Nance Other [employer] Other 04-30-2021 10:45-0500 Body height 157.48 cm Norris Ames Other [employer] Other 04-30-2021 10:45-0500 Body mass index (BMI) [Ratio] 41.72 kg/m2 Norris Ames Other [employer] Other 04-30-2021 10:45-0500 Body weight 103.47 kg Norris Byrnediff Other [employer] Other 04-30-2021 10:45-0500 Diastolic blood pressure 75 mm[Hg] Norris Byrnediff Other [employer] Other 04-30-2021 10:45-0500 Respiratory rate 18 /min Norris Byrnediff Other [employer] Other 04-30-2021 10:45-0500 SaO2% (BldA) [Mass fraction] 99 % Norris Byrnediff Other [employer] Other 04-30-2021 10:45-0500 Systolic blood pressure 110 mm[Hg] Norris Ames Other [employer] Other 03-03-2021 11:30-0500 Body height 157.48 cm Linda Bocanegramyke Other [employer] Other 03-03-2021 11:30-0500 Body mass index (BMI) [Ratio] 42.5 kg/m2 Linda Fitt Other [employer] Other 03-03-2021 11:30-0500 Body weight 105.42 kg Linda Fitmyke Other [employer] Other 02-25-2021 12:00-0400 Body height 157.48 cm Norris Ames Jr. Other [employer] Other 02-25-2021 12:00-0400 Body mass index (BMI) [Ratio] 41.92 kg/m2 Norris Aems Other [employer] Other 02-25-2021 12:00-0400 Body weight 103.97 kg Norris Ames Other [employer] Other 02-25-2021 12:00-0400 Diastolic blood pressure 79 mm[Hg] Norris Ames Other [employer] Other 02-25-2021 12:00-0400 Respiratory rate 18 /min Norris Grullonanny Schwarz Other [employer] Other 02-25-2021 12:00-0400 SaO2% (BldA) [Mass fraction] 97 % Norris Ames Other [employer] Other 02-25-2021 12:00-0400 Systolic blood pressure 118 mm[Hg] Norris Ames Other [employer] Other 01-20-2021 10:00-0400 Body height 157.48 cm Linda Bocanegramyke Other [employer] Other 01-20-2021 10:00-0400 Body mass index (BMI) [Ratio] 42.68 kg/m2 Lindafrederic Keith Other [employer] Other 01-20-2021 10:00-0400 Body weight 105.87 kg Linda Fitt Other [employer] Other Encounters Encounter Date Encounter Type Care Provider Facility Start: 09-12-2023 End: 09-12-2023 ambulatory KRISTIAN JIMENES Not Available Start: 08-28-2023 End: 08-28-2023 ambulatory KRISTIAN JALIL Not Available Start: 08-14-2023 End: 08-14-2023 ambulatory [...] 04-10-2022 End: 04-10-2022 ambulatory Kamilah Nance Other [employer] Other Start: 04-10-2022 Office outpatient vi sit 15 minutes Kamilah Nance [facility] Start: 05-26-2021 End: 05-26-2021 ambulatory Norris Ames Other [employer] Other Start: 05-26-2021 Telephone encounter Norris [facility] Start: 04-30-2021 End: 04-30-2021 ambulatory Norris Ames Other [employer] Other Start: 04-30-2021 Follow-up encounter Norris Kwaku [facility] Start: 04-13-2021 End: 04-13-2021 ambulatory Linda Bocanegramyke Other [employer] Other Start: 04-13-2021 Telephone encounter Linda Keith [facility] Start: 03-09-2021 End: 03-09-[address] NONE LISTED REQUEST Facility: Start: 03-03-2021 ([facility] RD FU) [facility] F/ U Registerd Schedule Checker Linda Keith [facility] Start: 03-03-2021 End: 03-03-2021 ambulatory Linda Keith Other [employer] Other Start: 02-25-2021 End: 02-25-2021 ambulatory Norris Ames Jr. Other [employer] Other Start: 02-25-2021 Follow-up encounter Norris howard [facility] Start: 02-04-2021 Telephone encounter Norris howard [facility] Start: 01-20-2021 ([facility] RD FU) [facility] F/ U Registerd Schedule Checker Linda Keith [facility] Procedures Date Procedure Procedure Detail Performing [...] encounter procedure 06/28/2023 9:30 AM EST Routine [facility] [address] [place] [id number] Neelam Sutherland PA [address] [place] [address] [facility] Start: 06-13-2023 End: 06-13-2023 Professional / ancillary services management 06/13/2023 9:00 AM EST Ancillary Procedure [facility] [address] [place] [address] [facility] Start: 05-30-2023 End: 09-28-2023 Alpha fetoprotein, maternal Alpha fetoprotein, maternal Lab Routine Second trimester Expected: 05/30/2023 (Approximate), Expires: 09/28/2023 [facility] Comment on above: Expected: 05/30/2023 (Approximate), Expires: 09/28/2023 Start: 05-30-2023 End: 05-30-2024 US for US OB ANATOMY SINGLE W US OB CERVICAL LENGTH Imaging Routine Screening, , for anatomic survey Expected: 05/30/2023 (Approximate), Expires: 05/30/2024 [facility] Comment on above: Expected: 05/30/2023 (Approximate), Expires: 05/30/2024 Start: 12-23-2022 Influenza vaccination Influenza Vacc ine (#1) [facility] Start: 2019 Screening for malign ant neoplasm of cervix [facility] Start: 2010 Screening for malign ant neoplasm of cervix Pap Smear [facility] CHLAMYDIA TRACHOMATI S (GENITO/STI) CHLAMYDIA TRACHOMATIS (GENITO/STI) Lab Routine STD exposure Ordered: 05/30/2023 [facility] Comment on above: Ordered: 05/30/2023 Cytology Cervical or vaginal smear or scraping study Pap Smear Pathology and Cytology Routine Well woman exam with routine gynecological exam Ordered: 05/30/2023 [facility] Work Phone: Comment on above: Ordered: 05/30/2023 Human papilloma viru s DNA [Presence] in Unspecified specimen by Probe with amplification HPV DNA probe, amplified Microbiology Routine Well woman exam with routine gynecological exam Ordered: 05/30/2023 [facility] Comment on above: Ordered: 05/30/2023 Neisseria gonorrhoea e DNA [Presence] in Unspecified specimen by NANCY with probe detection Neisseria gonorrhea DNA probe, direct Lab Routine STD exposure Ordered: 05/30/2023 [facility] Comment on above: Ordered: 05/30/2023 SURESWAB(R) ADVANCED VAGINITIS PLUS, TMA SURESWAB(R) ADVANCED VAGINITIS PLUS, TMA Pathology and Cytology Routine Vaginal discharge Ordered: 05/30/2023 [facility] Comment on above: Ordered: 05/30/2023 Payers Date Payer Category Payer [facility] [id number] 2022 Unknown BCBS BCBS [id number] [id number] 2022-Present [phone] [address] [place] [address] [id number] 1989 Unknown [id number] .593 1989 Unknown [id number] [id number] .1259 1989 Unknown [id number] [id number] .1259 1989 Unknown [id number] [id number] .1259 1989 Unknown [id number] [id number] .1259 1989 Unknown [id number] [id number] .1259 1989 Unknown [id number] [id number] .1259 1989 Unknown [id number] [id number] .1259 1989 Unknown [id number] [id number] .1259 1960 Private Health Insurance [id number] Social History Date Type Detail Facility Unknown if ever smoked [facility] [employer] Other Start: 04-05-2023 Sex Assigned At [facility] [employer] Other Start: 04-05-2023 Tobacco smoking status NMIS Ex-smoker [facility] History of tobacco use [...] meal for a total of 4times daily.. [id number] Start: 05-23-2023 End: 06-22-2023 1 each by In Vit ro route in the morning. Use to check FSBS four times daily. [id number] Start: 05-23-2023 End: 06-22-2023 History of Present [...] nursing note reviewed. Exam conducted with a store cashier present. Vitals: There is no height or [...] weeks for routine OB appointment Documented by Candcae Esposito LPN on behalf of: Kristian Jimenes DO documented in this encounter [facility] Evaluation note 04-10-2022 Note Date [...] should improve within the next 4-7 days. [employer] Other Evaluation note 04-30-2021 Note Date & [...] Low vitamin B12 level (ICD-10 - E53.8) [employer] Other Evaluation note 03-03-2021 Note Date & [...] holidays (C) Answered general, nutrition-rela madelin questions [employer] Other Evaluation note 02-25-2021 Note Date & [...] Low vitamin B12 level (ICD-10 - E53.8) [employer] Other Evaluation note 01-20-2021 Note Date & [...] methods (C) Answered general nutrition-rel ated questions [employer] Other Evaluation note Note Date & Type Note Facility Evaluation note No Information [employer] Other Evaluation note Note Date & Type [...] Surgical History appendectomy Hospitalization History see above [employer] Other Summary Purpose Family History No Family History Records FoundNo Family History Records FoundNo Family History Records Found Advance Directives No Advanced Directives Records FoundNo Advanced Directives Records FoundNo Advanced Directives Records Found Additional Source Comments INFORMATION SOURCE (unrecogn ized section and content) DATE CREATED AUTHOR 03/17/2021 [facility] DATE CREATED AUTHOR AUTHOR'S ORGANIZ ATION 10/28/2021 [facility] DATE CREATED AUTHOR AUTHOR'S ORGANIZ ATION 09/14/2023 [facility] EPIC REASON FOR VISIT (unrecogniz ed section and content) Reason Comments Routine Visit [facility] Visit CONGESTION B/A H/A SORE THRAOTFCCC Pt does not wish our services 06/28/21CC RD N/S 04/13/2021, LM [facility] steele/Erika Steele/DAGOBERTO EX Care Teams (unrecognized sec tion and content) [employer] Relationship Specialty Start Date End Date Reinaldo Lara MD PCP - General Family Medicine 03/23/23 [employer] Relationship Specialty Start Date End Date Reinaldo [...] BE BASED ON THE PRIMARY CLINICAL RECORDS. [employer] [facility] provides no warranty or guarantee of the accuracy or completeness of information in this document.
[2023-09-18 12:54] VITALS: BP 119/57; PULSE 90
== END 2023-09-18 13:20 | disposition home or self-care (01) ==
LOC: FBCO 08:29 → FBC 12:47
PROVIDERS: PCP Family Medicine; Visit Provider Obstetrics & Gynecology
DX: O99.283 Endocrine, nutritional and metabolic diseases complicating pregnancy, third trimester (principal)
CPT/HCPCS: 59025

== ENCOUNTER 2023-09-22 07:16 | Outpatient (OUT) | payer BC, SELFPAY ==
--- OUTSIDE RECORDS SUMMARY | 2023-09-22 07:19 | XMS_ITS | CCD ---
Author Organization [facility] Care Team Providers Care Communications Director Name Role Phone REQUEST, DR NONE LISTED Primary Care Unavaila katarzyna JIMENES, DR TOWNSEND Consulting Unavailable JALIL, DR TOWNSEND Attending Unavailable JALIL, DR TOWNSEND Admitting Unavailable Linda Keith Unavailable Norris Ames Jr. Unavailable Norris Ames Unavailable Kamilah Nance Unavailable Reinaldo Lara MD Primary Care Provider [phone] KRISTIAN JIMENES Attending Unavailable KRISTIAN JIMENES Attending [...] Subcutaneous weekly for 30 days Apr, Active [id number] 200 actuat albuterol 0.09 mg/actuat metered dose [...] Start: 06-09-2022 take 1 capsule by mo [facility] every twenty-four hours in the morning venlafaxine XR (Effexor XR) 150 MG 24 hr capsule Take 150 mg by mouth in the morning. 0 06/09/2022 Active take 1 capsule by mo [facility] every twenty-four hours Effexor XR 150 MG [...] GDLNon AGE GDLN ACOG TESTING Note . [facility] Comment on above: TESTS RESULT FLAG UN ITS REF RANGE LAB Clinician Provided Cytology Information Source.............[employer] Other.............. No. of containers..01 ThinPrep Vial Age Algo ACOG Jes... 30-65 01 FLAG LEGEND: L-Low Normal,H-High Normal,LL-Alert Low,HH-Alert High <-Panic Low,>-Panic High,A-Abnormal,AA-Critical Abnormal Performed at: 01 =G [address] [address] Kala Contreras MD, HPV APTIMA Negative Negative [facility] Comment on above: This nucleic acid am plification test detects fourteen high- risk HPV types (16,18,31,33,35,39,45,51,52,56,58,59,66,68) without differentiation. Performed at: =G [address] [id number] Fabrication Welder: Kala Contreras MD, Phone: [phone] Performed at: [facility] [place], [place] [id number] Fabrication Welder: Mike Copeland MD, Phone: [phone] IGP, APTIMA HPV, RFX 16/18,45 Note . [facility] Comment on above: TESTS RESULT FLAG UN ITS REF RANGE LAB DIAGNOSIS: 02 NEGATIVE FOR INTRAEPITHELIAL LESION OR MALIGNANCY. Specimen adequacy: 02 Satisfactory for evaluation. No endocervical component is identified. An endocervical component is not commonly seen in the patient. Performed by: Kelsy Ortiz, Helpdesk Manager (ASCP) . 02 Note: Note 03 [...] High <-Panic Low,>-Panic High,A-Abnormal,AA-Critical Abnormal Performed at: [facility] [address] [place] [address] Mike Copeland MD, [address] [address] Kala Contreras MD, SPATULA-ALONE [facility] Healthcar e URETHRITIS/DISCHARGE PLUS VA GINITIS (HTRX)on 05-31-2023 ATOPOBIUM VAGINAE 0 [facility] ATOPOBIUM VAGINAE Not detected [facility] BVAB 2,3 (BACTERIAL VAGINOSIS ASSOCIATED BACTERIA 2, 3); MOBILUNCUS SPP 0 [facility] BVAB 2,3 (BACTERIAL VAGINOSIS ASSOCIATED BACTERIA 2, 3); MOBILUNCUS SPP Not detected [facility] SIN ALBICANS, PARAPSILOSIS, TROPICALIS 0 [facility] SIN ALBICANS, PARAPSILOSIS, TROPICALIS Not detected [facility] SIN GLABRATA 0 [facility] Hea lthcare SIN GLABRATA Not detected [facility] SIN KRUSEI 0 [facility] Healt hcare SIN KRUSEI Not detected [facility] CHLAMYDIA TRACHOMATIS 0 [facility] CHLAMYDIA TRACHOMATIS Not detected [facility] GARDNERELLA VAGINALIS 0 [facility] GARDNERELLA VAGINALIS Not detected [facility] MEGASPHAERA (TYPES 1, 2) 0 [facility] MEGASPHAERA (TYPES 1, 2) Not detected [facility] MYCOPLASMA GENITALIUM 0 [facility] MYCOPLASMA GENITALIUM Not detected [facility] NEISSERIA GONORRHOEAE 0 [facility] NEISSERIA GONORRHOEAE Not detected [facility] TRICHOMONAS VAGINALIS 0 [facility] TRICHOMONAS VAGINALIS Not detected [facility] Urinalysis macro (dipstick) panel (U)on 05-30-2023 Bilirubin, UA Negative Negative - 4(70) +++ mg/dL [facility] Blood, UA Negative Negative - 50 Zach/mcL [facility] Clarity, UA Clear [facility] Healthca re Color, UA Yellow [facility] e Glucose, UA Negative Negative - 2000(110) ++++ mg/dL [facility] Interpretation and review of laboratory results Abnormal [facility] Healthca re Ketones, UA Positive Negative - 160(16) ++++ mg/dL [facility] Leukocytes, UA Negative Negative - 500+++ Magaly/mcL [facility] Nitrite, UA Negative Negative - Positive [facility] pH, UA 5.5 5 - 9 [facility] e Protein, UA Negative Negative - 1999(20) ++++ mg/dL [facility] Spec Grav, UA 1.020 1 - 1.03 [facility] Urobilinogen, UA 1.0 0.2 - 12 mg/dL [facility] Healthcar e COVID + FLU Quick Testingon 04-10-2022 SARS-CoV-2 (COVID-19) RNA NANCY+probe Ql (Unsp spec) Positive [facility] [employer] Other COVID + FLU Quick Testing Positive [employer] Other Quick Strepon 04-10-2022 S. pyogenes Org specific cx Ql (Throat) Negative [facility] [employer] Other Quick Strep [employer] [facility] [employer] Other A1C with Estimated Average G luon 04-28-2021 Glucose [Mass/Vol] 108 mg/dL Normal [facility] Comment on above: Order Comment: Reaso n for Exam Prediabetes Result Comment: PERF ORMED BY: [place] [address] PATHOLOGIST SERVICES EXECUTIVE THEO CHU M.D. Performed By: #### A 1C WT eA, LIPID, GLU, B12 #### [facility] [place] [facility] [address] [place] [address] HbA1c (Bld) [Mass fraction] 5.4 % Normal 4.3-5.6 [facility] Comment on above: Order Comment: Reaso n for Exam Prediabetes Result Comment: Incr eased risk for diabetes: 5.7 - 6.4 diabetes: >6.4 glycemic control for adults with diabetes: <7.0 Performed By: #### A 1C WTH eA, LIPID, GLU, B12 #### [facility] [place] [facility] [address] Glucoseon 04-28-2021 Glucose [Mass/Vol] 97 mg/dL Normal 70-100 [facility] Comment on above: Order Comment: Reaso n for Exam Prediabetes Reason for Exam Mixed hyperlipidemia Reason for Exam Low vitamin B12 level Result Comment: [facility] Glucose Reference Range is dependent on time and content of last meal. Glucose of more than 200 mg/dL in a nonstressed, ambulatory subject supports the diagnosis of Diabetes Mellitus. ADA recommended reference range Performed By: #### A 1C WTH eA, LIPID, GLU, B12 #### [facility] [place] [facility] [address] [id number] [facility] Lipid Panelon 04-28-2021 Cholesterol [Mass/Vol] 171 mg/dL Normal 140-200 [facility] Comment on above: Order Comment: Reaso n for Exam Prediabetes Reason for Exam Mixed hyperlipidemia Reason for Exam Low vitamin B12 level Result Comment: Chol less than 200 mg/dl low risk Chol 201-239 mg/dl borderline risk Chol 240 mg/dl and greater high risk Performed By: #### A 1C WTH eA, LIPID, GLU, B12 #### [facility] [place] [facility] [address] [id number] [place] Cholesterol in HDL [Mass/Vol] 41 mg/dL Normal 35-85 [facility] Comment on above: Order Comment: Reaso n for Exam Prediabetes Reason for Exam Mixed hyperlipidemia Reason for Exam Low vitamin B12 level Result Comment: HDL CHOL ATP-III CLASSIFICATION Cardiovascular Risk HDL > or equal to 60 mg/dL LOW HDL < 40 mg/dL HIGH Performed By: #### A 1C WTH eA, LIPID, GLU, B12 #### [facility] [place] [facility] [address] [id number] [place] Cholesterol.total/C holesterol in HDL [Mass ratio] 4.2 {ratio} Normal <5.0 [facility] Comment on above: Order Comment: Reaso n for Exam Prediabetes Reason for Exam Mixed hyperlipidemia Reason for Exam Low vitamin B12 level Performed By: #### A 1C WTH eA, LIPID, GLU, B12 #### [facility] [place] [facility] [address] [id number] [place] LDL Cholesterol,Calcula madelin 95 mg/dL Normal 0-100 [facility] Comment on above: Order Comment: [...] 1C WTH eA, LIPID, GLU, B12 #### [facility] [place] [facility] [address] Triglyceride w/Reflex 176 mg/dL High 35-149 [facility] Comment on above: Order Comment: [...] 1C WTH eA, LIPID, GLU, B12 #### [facility] [place] [facility] [address] [place] [address] VLDL CHOLESTEROL 35 mg/dL Normal [facility] Comment on above: Order Comment: Reaso n for Exam Prediabetes Reason for Exam Mixed hyperlipidemia Reason for Exam Low vitamin B12 level Performed By: #### A 1C WTH eA, LIPID, GLU, B12 #### [facility] [place] [facility] [address] [place] [address] Vitamin B12on 04-28-2021 Cobalamin (Vitamin B12) [Mass/Vol] 633 pg/mL Normal 180-914 [facility] Comment on above: Order Comment: Reaso n for Exam Prediabetes Reason for Exam Mixed hyperlipidemia Reason for Exam Low vitamin B12 level Result Comment: PERF ORMED BY: [place] [address] PATHOLOGIST SERVICES EXECUTIVE THEO CHU M.D. Performed By: #### A 1C WTH eA, LIPID, GLU, B12 #### [facility] [place] [facility] [address] [place] [address] PAP ACOG PANEL 2: 30 to 65on 03-16-2021 . . Normal [facility] Comment on above: Result Comment: Perf ormed at: WB Performed By: #### [id number] #### [facility] [address] [address] [address] Tete Peters Age Gdln ACOG Testing 30-65 Normal [facility] Comment on above: Performed By: #### [id number] #### [facility] [address] [address] [address] Tete Peters DIAGNOSIS: Comment Normal [facility] Comment on above: Result Comment: NEGA TIVE FOR INTRAEPITHELIAL LESION OR MALIGNANCY. THIS SPECIMEN WAS RESCREENED PART OF OUR KENO MANAGER PROGRAM. Performed at: WB Performed By: #### [id number] #### [facility] [address] [address] [address] Tete Peters HPV Aptima Negative Normal Negative [facility] Comment on above: Result Comment: This nucleic acid amplification test detects fourteen high-risk HPV types (16,18,31,33,35,39,45,51,52,56,58,59,66,68) without differentiation. Performed at: =G Performed By: #### [id number] #### [facility] [address] [place] [address] Dr. Tete Peters Methodology: Comment Normal [facility] Comment on above: Result Comment: This liquid based ThinPrep(R) pap test was screened with the use of an image guided system. Performed at: WB Performed By: #### 4 [id number] #### [facility] [address] [place] [address] Dr. Tete Peters Note: Comment Normal [facility] Comment on above: Result Comment: The Pap smear is a screening test designed to aid in the detection of premalignant and malignant conditions of the uterine cervix. It is not a diagnostic procedure and should not be used as the sole means of detecting cervical cancer. Both false-positive and false-negative reports do occur. . Performed at: WB Performed By: #### 4 [id number] #### [facility] [address] [place] [address] Dr. Tete Peters Performed by: Comment Normal [facility] Comment on above: Result Comment: Luisa Ross, Helpdesk Manager (ASCP) Performed at: WB Performed By: #### 4 [id number] #### [facility] [address] [place] [address] Dr. Tete Peters QC reviewed by: Comment Normal [facility] Comment on above: Result Comment: Monika Ortiz, Supervisory Helpdesk Manager (ASCP) Performed at: WB Performed By: #### 4 [id number] #### [facility] [address] [address] [address] Tete Peters Specimen adequacy: Comment Normal [facility] Comment on above: Result Comment: Sati sfactory for evaluation. Endocervical and/or squamous metaplastic cells (endocervical component) are present. Performed at: WB Performed By: #### 4 [id number] #### [facility] [address] [place], [place] [address] Dr. Tete Peters Vitamin B12on 01-12-2021 Cobalamin (Vitamin B12) [Mass/Vol] 297 pg/mL Normal 180-914 [facility] Comment on above: Order Comment: Reaso n for Exam Prediabetes Result Comment: PERF ORMED BY: [place] [address] PATHOLOGIST SERVICES EXECUTIVE THEO CHU M.D. Performed By: #### B 12 #### [address] INTERVENTION NURSE polysom portableon 11-16 INTERVENTION NURSE polysom portable [facility] Main [employer] [address] [place] [address] Sleep Lab Report Signed Patient: Marina Contreras MR#: [id number] : 1990 Acct:[id number] Age/Sex: 30 / F ADM Date: 11/09/20 Loc: Room: Type: [facility] Attending Dr: Anne Marie Mejía [...] home sleep test was performed utilizing the [employer] Nox T3 system. Parameters recorded include actigraphy, [...] monitoring after that. Transcribed By: GERDA 11/17/20 1306 Dictated By: Anne Marie Mejía MD 11/16/20 0607 Signed By: 11/18/20 5899 [facility] Vital Signs Date Time Vital Sign Value Performing Clinician Facility 05-30-2023 09:36-0500 Body weight 116.48 kg [employer] Work Phone: [facility] 05-30-2023 09:36-0500 Diastolic blood pressure 70 mm[Hg] [employer] Work Phone: [facility] 05-30-2023 09:36-0500 Systolic blood pressure 116 mm[Hg] [employer] Work Phone: [facility] 04-10-2022 14:00-0500 Body height 157.48 cm Kamilah Nance Other [employer] Other 04-10-2022 14:00-0500 Body mass index (BMI) [Ratio] 44.92 kg/m2 Kamilah Nance Other [employer] Other 04-10-2022 14:00-0500 Body temperature 99.5 [degF] Kamilah Nance Other [employer] Other 04-10-2022 14:00-0500 Body weight 111.4 kg Kamilah Nance Other [employer] Other 04-10-2022 14:00-0500 Diastolic blood pressure 68 mm[Hg] Kamilah Nance Other [employer] Other 04-10-2022 14:00-0500 Respiratory rate 18 /min Kamilah Nance Other [employer] Other 04-10-2022 14:00-0500 SaO2% (BldA) [Mass fraction] 95 % Kamilah Nance Other [employer] Other 04-10-2022 14:00-0500 Systolic blood pressure 116 mm[Hg] Kamilah Nance Other [employer] Other 04-30-2021 10:45-0500 Body height 157.48 cm Norris Ames Other [employer] Other 04-30-2021 10:45-0500 Body mass index (BMI) [Ratio] 41.72 kg/m2 Norris Ames Other [employer] Other 04-30-2021 10:45-0500 Body weight 103.47 kg Norris Byrnediff Other [employer] Other 04-30-2021 10:45-0500 Diastolic blood pressure 75 mm[Hg] Norris Byrnediff Other [employer] Other 04-30-2021 10:45-0500 Respiratory rate 18 /min Norris Byrnediff Other [employer] Other 04-30-2021 10:45-0500 SaO2% (BldA) [Mass fraction] 99 % Norris Byrnediff Other [employer] Other 04-30-2021 10:45-0500 Systolic blood pressure 110 mm[Hg] Norris Ames Other [employer] Other 03-03-2021 11:30-0500 Body height 157.48 cm Linda Bocanegramyke Other [employer] Other 03-03-2021 11:30-0500 Body mass index (BMI) [Ratio] 42.5 kg/m2 Linda Fitt Other [employer] Other 03-03-2021 11:30-0500 Body weight 105.42 kg Linda Fitmyke Other [employer] Other 02-25-2021 12:00-0400 Body height 157.48 cm Norris Ames Jr. Other [employer] Other 02-25-2021 12:00-0400 Body mass index (BMI) [Ratio] 41.92 kg/m2 Norris Ames Other [employer] Other 02-25-2021 12:00-0400 Body weight 103.97 kg Norris Ames Other [employer] Other 02-25-2021 12:00-0400 Diastolic blood pressure 79 mm[Hg] Norris Ames Other [employer] Other 02-25-2021 12:00-0400 Respiratory rate 18 /min Norris Grullonanny Schwarz Other [employer] Other 02-25-2021 12:00-0400 SaO2% (BldA) [Mass fraction] 97 % Norris Ames Other [employer] Other 02-25-2021 12:00-0400 Systolic blood pressure 118 mm[Hg] Norris Ames Other [employer] Other 01-20-2021 10:00-0400 Body height 157.48 cm Linda Bocanegramyke Other [employer] Other 01-20-2021 10:00-0400 Body mass index (BMI) [Ratio] 42.68 kg/m2 Lindafrederic Keith Other [employer] Other 01-20-2021 10:00-0400 Body weight 105.87 kg Linda Fitt Other [employer] Other Encounters Encounter Date Encounter Type Care [...] 04-10-2022 End: 04-10-2022 ambulatory Kamilah Nance Other [employer] Other Start: 04-10-2022 Office outpatient vi sit 15 minutes Kamilah Nance [facility] Start: 05-26-2021 End: 05-26-2021 ambulatory Norris Ames Other [employer] Other Start: 05-26-2021 Telephone encounter Norris queen [facility] Start: 04-30-2021 End: 04-30-2021 ambulatory Norris Ames Other [employer] Other Start: 04-30-2021 Follow-up encounter Norris Kwaku [facility] Start: 04-13-2021 End: 04-13-2021 ambulatory Linda Bocanegramyke Other [employer] Other Start: 04-13-2021 Telephone encounter Linda Keith [facility] Start: 03-09-2021 End: 03-09-[address] NONE LISTED REQUEST Facility: Start: 03-03-2021 ([facility] [address] FU) [facility] F/ U Registerd Supervisor [employer] Linda Keith [facility] Start: 03-03-2021 End: 03-03-2021 ambulatory Linda Keith Other [employer] Other Start: 02-25-2021 End: 02-25-2021 ambulatory Norris Ames Jr. Other [employer] Other Start: 02-25-2021 Follow-up encounter Norris howard [facility] Start: 02-04-2021 Telephone encounter Norris howard [facility] Start: 01-20-2021 ([facility] FU) [facility] F/ U Registerd Supervisor [employer] Linda Keith [facility] Procedures Date Procedure Procedure Detail Performing Clinician Start: 05-30-2023 URETHRITIS/DISCHARGE PLUS VAGINITIS (HTRX) Kristian Jalil DO Work Phone: Start: 05-30-2023 IGP,APTIMA HPV,AGE GDLN Kristian Jalil DO Work Phone: Start: 05-30-2023 Urnls dip stick/tabl et rgnt non-auto w/o micrscp Kristian Jalil DO Work Phone: Plan of Treatment Date Care Activity Detail Author Start: 06-28-2023 End: 06-28-2023 Patient encounter procedure 06/28/2023 9:30 AM EST Routine [facility] [address] [id number] Neelam Sutherland PA [address] [place] [address] [facility] Start: 06-13-2023 End: 06-13-2023 Professional / ancillary services management 06/13/2023 9:00 AM EST Ancillary Procedure [facility] [address] [address] [facility] Start: 05-30-2023 End: 09-28-2023 Alpha fetoprotein, maternal Alpha fetoprotein, maternal Lab Routine Second trimester Expected: 05/30/2023 (Approximate), Expires: 09/28/2023 [facility] Comment on above: Expected: 05/30/2023 (Approximate), Expires: 09/28/2023 Start: 05-30-2023 End: 05-30-2024 US for US OB ANATOMY SINGLE W US OB CERVICAL LENGTH Imaging Routine Screening, , for anatomic survey Expected: 05/30/2023 (Approximate), Expires: 05/30/2024 [facility] Comment on above: Expected: 05/30/2023 (Approximate), Expires: 05/30/2024 Start: 12-23-2022 Influenza vaccination Influenza Vacc ine (#1) [facility] Start: 2019 Screening for malign ant neoplasm of cervix [facility] Start: 2010 Screening for malign ant neoplasm of cervix Pap Smear [facility] CHLAMYDIA TRACHOMATI S (GENITO/STI) CHLAMYDIA TRACHOMATIS (GENITO/STI) Lab Routine STD exposure Ordered: 05/30/2023 [facility] Comment on above: Ordered: 05/30/2023 Cytology Cervical or vaginal smear or scraping study Pap Smear Pathology and Cytology Routine Well woman exam with routine gynecological exam Ordered: 05/30/2023 [facility] Work Phone: Comment on above: Ordered: 05/30/2023 Human papilloma viru s DNA [Presence] in Unspecified specimen by Probe with amplification HPV DNA probe, amplified Microbiology Routine Well woman exam with routine gynecological exam Ordered: 05/30/2023 [facility] Comment on above: Ordered: 05/30/2023 Neisseria gonorrhoea e DNA [Presence] in Unspecified specimen by NANCY with probe detection Neisseria gonorrhea DNA probe, direct Lab Routine STD exposure Ordered: 05/30/2023 [facility] Comment on above: Ordered: 05/30/2023 SURESWAB(R) ADVANCED VAGINITIS PLUS, TMA SURESWAB(R) ADVANCED VAGINITIS PLUS, TMA Pathology and Cytology Routine Vaginal discharge Ordered: 05/30/2023 [facility] Comment on above: Ordered: 05/30/2023 Payers Date Payer Category Payer [facility] [id number] 2022 Unknown BCBS BCBS [id number] 2022-Present [phone] [address] [place] [address] [id number] 1989 Unknown [id number] .593 1989 Unknown [id number] [id number] .1259 1989 Unknown [id number] [id number] .1259 1989 Unknown [id number] [id number] .1259 1989 Unknown [id number] [id number] .1259 1989 Unknown [id number] 2.16.840.1.437307.3.579.2 .1259 1989 Unknown [id number] 2.16.840.1.081883.3.579.2 .1259 1989 Unknown [id number] 2.16.840.1.025049.3.579.2 .1259 1989 Unknown [id number] [id number] .1259 1959 Private Health Insurance [id number] Social History Date Type Detail Facility Unknown if ever smoked [facility] [employer] Other Start: 04-05-2023 Sex Assigned [facility] [employer] Other Start: 04-05-2023 Tobacco smoking status UTIS Ex-smoker [facility] History of tobacco use [...] meal for a total of 4times daily.. [id number] Start: 05-23-2023 End: 06-22-2023 1 each by In Vit ro route in the morning. Use to check FSBS four times daily. [id number] Start: 05-23-2023 End: 06-22-2023 History of Present [...] nursing note reviewed. Exam conducted with a stockkeeper present. Vitals: There is no height or [...] Kristian Jimenes DO documented in this encounter [facility] Healthcare Evaluation note 04-10-2022 Note Date & [...] should improve within the next 4-7 days. [employer] Other Evaluation note 04-30-2021 Note Date & [...] Low vitamin B12 level (ICD-10 - E53.8) [employer] Other Evaluation note 03-03-2021 Note Date & [...] holidays (C) Answered general, nutrition-rela madelin questions [employer] Other Evaluation note 02-25-2021 Note Date & [...] Low vitamin B12 level (ICD-10 - E53.8) [employer] Other Evaluation note 01-20-2021 Note Date & [...] methods (C) Answered general nutrition-rel ated questions [employer] Other Evaluation note Note Date & Type Note Facility Evaluation note No Information [employer] Other Evaluation note Note Date & Type [...] Surgical History appendectomy Hospitalization History see above [employer] Other Summary Purpose Family History No Family History Records FoundNo Family History Records FoundNo Family History Records Found Advance Directives No Advanced Directives Records FoundNo Advanced Directives Records FoundNo Advanced Directives Records Found Additional Source Comments INFORMATION SOURCE (unrecogn ized section and content) DATE CREATED AUTHOR 03/17/2021 [facility] DATE CREATED AUTHOR AUTHOR'S ORGANIZ ATION 10/28/2021 [facility] DATE CREATED AUTHOR AUTHOR'S ORGANIZ ATION 09/14/2023 [facility] d[facility] Specialists EPIC REASON FOR VISIT (unrecogniz ed section and content) Reason Comments Routine Visit Well Women Visit CONGESTION B/A H/A SORE THRAOTFCCC Pt does not wish our services 06/28/21CC RD N/S 04/13/2021, LM WM steele/Erika Steele/DAGOBERTO EX Care Teams (unrecognized sec tion and content) Communications Director Relationship Specialty Start Date End Date Reinaldo Lara MD PCP - General Family Medicine 03/23/23 Communications Director Relationship Specialty Start Date End Date Reinaldo [...] BE BASED ON THE PRIMARY CLINICAL RECORDS. [facility]. provides no warranty or guarantee of the accuracy or completeness of information in this document.
--- NOTE | 2023-09-22 13:53 | US_ITS ---
[address] [address] Patient Name: VERA CONTRERAS MRN: [id number] date: 1990 Sex: F Assigned Patient Location: [facility] Current Patient Location: [facility] Accession/Order Number: [id number] Exam Date: 09/22/2023 13:55 Report Date: 09/22/2023 14:29 At the request of: KRISTIAN MARIN Procedure: US OB BPP w non-stress EXAMINATION: US OB BPP w non-stress HISTORY: Insulin controlled gestational diabetes COMPARISON: Ultrasound OB biophysical 09/14/2023 TECHNIQUE: Ultrasound biophysical profile was performed in the radiology department. BREATHING MOVEMENTS: 2.0 GROSS BODY MOVEMENTS: 2.0 TONE: 2.0 QUALITATIVE AMNIOTIC FLUID VOLUME: 2.0 PRESENTATION: CEPHALIC HEART RATE: 166.3 bpm bpm. AMNIOTIC FLUID VOLUME: 26.3 cm (95th percentile is 24.9 cm) GESTATIONAL AGE: 35 weeks 1 days CONCLUSION: 1. Total biophysical profile score 8.0. 2. Polyhydramnios. Electronically authenticated by: KODY FRANK Date: 09/22/2023 14:29
[2023-09-22 14:19] VITALS: BP 109/57; PULSE 84
== END 2023-09-22 14:50 | disposition home or self-care (01) ==
LOC: US 07:16 → FBC 13:53
PROVIDERS: PCP Family Medicine; Visit Provider Obstetrics & Gynecology
DX: O24.414 Gestational diabetes mellitus in pregnancy, insulin controlled (principal); Z3A.35 35 weeks gestation of pregnancy; O40.3XX0 Polyhydramnios, third trimester, not applicable or unspecified
CPT/HCPCS: 76818

== ENCOUNTER 2023-09-25 06:55 | Outpatient (OUT) | payer BC, SELFPAY ==
--- OUTSIDE RECORDS SUMMARY | 2023-09-25 07:15 | XMS_ITS | CCD ---
Author Organization [facility] Care Team Providers Care Television Audio Engineer Name Role Phone REQUEST, DR NONE LISTED [...] Subcutaneous weekly for 30 days Apr, Active [id number] 200 actuat albuterol 0.09 mg/actuat metered dose [...] Start: 06-09-2022 take 1 capsule by mo [facility] every twenty-four hours in the morning venlafaxine XR (Effexor XR) 150 MG 24 hr capsule Take 150 mg by mouth in the morning. 0 06/09/2022 Active take 1 capsule by mo [facility] every twenty-four hours Effexor XR [...] GDLNon AGE GDLN ACOG TESTING Note . [facility] Comment on above: TESTS RESULT FLAG UN ITS REF RANGE LAB Clinician Provided Cytology Information Source.............[facility] Other.............. No. of containers..01 ThinPrep Vial Age Algo ACOG Jes... 30-65 01 FLAG LEGEND: L-Low Normal,H-High Normal,LL-Alert Low,HH-Alert High <-Panic Low,>-Panic High,A-Abnormal,AA-Critical Abnormal Performed at: 01 =G [address] [address] Kala Contreras MD, HPV APTIMA Negative Negative [facility] Comment on above: This nucleic acid am plification test detects fourteen high- risk HPV types (16,18,31,33,35,39,45,51,52,56,58,59,66,68) without differentiation. Performed at: =G [address] [id number] Technical Project Manager: Kala Contreras MD, Phone: [phone] Performed at: [employer] [facility] [address] [place], [place] [id number] Technical Project Manager: Mike Copeland MD, Phone: [phone] IGP, APTIMA HPV, RFX 16/18,45 Note . [facility] Comment on above: TESTS RESULT FLAG UN ITS REF RANGE LAB DIAGNOSIS: 02 NEGATIVE FOR INTRAEPITHELIAL LESION OR MALIGNANCY. Specimen adequacy: 02 Satisfactory for evaluation. No endocervical component is identified. An endocervical component is not commonly seen in the patient. Performed by: Kelsy Ortiz, Health Services Coordinator (ASCP) . 02 Note: Note 03 [...] High <-Panic Low,>-Panic High,A-Abnormal,AA-Critical Abnormal Performed at: [facility] [address] [place] [address] Mike Copeland MD, [address] [address] Kala Contreras MD, SPATULA-ALONE [facility] Health[facility] e URETHRITIS/DISCHARGE PLUS VA GINITIS (HTRX)on 05-31-2023 ATOPOBIUM VAGINAE 0 [facility] ATOPOBIUM VAGINAE Not detected [facility] BVAB 2,3 (BACTERIAL VAGINOSIS ASSOCIATED BACTERIA 2, 3); MOBILUNCUS SPP 0 [facility] BVAB 2,3 (BACTERIAL VAGINOSIS ASSOCIATED BACTERIA 2, 3); MOBILUNCUS SPP Not detected [facility] SIN ALBICANS, PARAPSILOSIS, TROPICALIS 0 [facility] SIN ALBICANS, PARAPSILOSIS, TROPICALIS Not detected [facility] SIN GLABRATA 0 [facility] Hea lthcare SIN GLABRATA Not detected [facility] SIN KRUSEI 0 [facility] Healt hcare SIN KRUSEI Not detected [facility] CHLAMYDIA TRACHOMATIS 0 [facility] CHLAMYDIA TRACHOMATIS Not detected [facility] GARDNERELLA VAGINALIS 0 [facility] GARDNERELLA VAGINALIS Not detected [facility] MEGASPHAERA (TYPES 1, 2) 0 [facility] MEGASPHAERA (TYPES 1, 2) Not detected [facility] MYCOPLASMA GENITALIUM 0 [facility] MYCOPLASMA GENITALIUM Not detected [facility] NEISSERIA GONORRHOEAE 0 [facility] NEISSERIA GONORRHOEAE Not detected [facility] TRICHOMONAS VAGINALIS 0 [facility] TRICHOMONAS VAGINALIS Not detected [facility] Urinalysis macro (dipstick) panel (U)on 05-30-2023 Bilirubin, UA Negative Negative - 4(70) +++ mg/dL [facility] Blood, UA Negative Negative - 50 Zach/mcL [facility] Clarity, UA Clear [facility] re Color, UA Yellow [facility] Glucose, UA Negative Negative - 2000(110) ++++ mg/dL [facility] Interpretation and review of laboratory results Abnormal [facility] Health[facility] re Ketones, UA Positive Negative - 160(16) ++++ mg/dL [facility] Leukocytes, UA Negative Negative - 500+++ Magaly/mcL [facility] Nitrite, UA Negative Negative - Positive [facility] pH, UA 5.5 5 - 9 [facility] e Protein, UA Negative Negative - 1999(20) ++++ mg/dL [facility] Spec Grav, UA 1.020 1 - 1.03 [facility] Urobilinogen, UA 1.0 0.2 - 12 mg/dL [facility] Healthcar e COVID + FLU Quick Testingon 04-10-2022 SARS-CoV-2 (COVID-19) RNA NANCY+probe Ql (Unsp spec) Positive [facility] Other COVID + FLU Quick Testing Positive [facility] Other Quick Strepon 04-10-2022 S. pyogenes Org specific cx Ql (Throat) Negative [facility] Other Quick Strep [facility] Other A1C with Estimated Average G luon 04-28-2021 Glucose [Mass/Vol] 108 mg/dL Normal [facility] Comment on above: Order Comment: Reaso n for Exam Prediabetes Result Comment: PERF ORMED BY: [place] [address] PATHOLOGIST RESERVATIONS AND TICKETING AGENT THEO CHU M.D. Performed By: #### A 1C WT eA, LIPID, GLU, B12 #### [facility] [address] [place] [address] HbA1c (Bld) [Mass fraction] 5.4 % Normal 4.3-5.6 [facility] Comment on above: Order Comment: Reaso n for Exam Prediabetes Result Comment: Incr eased risk for diabetes: 5.7 - 6.4 diabetes: >6.4 glycemic control for adults with diabetes: <7.0 Performed By: #### A 1C WTH eA, LIPID, GLU, B12 #### [facility] [address] Glucoseon 04-28-2021 Glucose [Mass/Vol] 97 mg/dL Normal 70-100 [facility] Comment on above: Order Comment: Reaso n for Exam Prediabetes Reason for Exam Mixed hyperlipidemia Reason for Exam Low vitamin B12 level Result Comment: [facility] Glucose Reference Range is dependent on time and content of last meal. Glucose of more than 200 mg/dL in a nonstressed, ambulatory subject supports the diagnosis of Diabetes Mellitus. ADA recommended reference range Performed By: #### A 1C WTH eA, LIPID, GLU, B12 #### [facility] [address] [id number] [facility] Lipid Panelon 04-28-2021 Cholesterol [Mass/Vol] 171 mg/dL Normal 140-200 [facility] Comment on above: Order Comment: Reaso n for Exam Prediabetes Reason for Exam Mixed hyperlipidemia Reason for Exam Low vitamin B12 level Result Comment: Chol less than 200 mg/dl low risk Chol 201-239 mg/dl borderline risk Chol 240 mg/dl and greater high risk Performed By: #### A 1C WTH eA, LIPID, GLU, B12 #### [facility] [address] [id number] [place] Cholesterol in HDL [Mass/Vol] 41 mg/dL Normal 35-85 [facility] Comment on above: Order Comment: Reaso n for Exam Prediabetes Reason for Exam Mixed hyperlipidemia Reason for Exam Low vitamin B12 level Result Comment: HDL CHOL ATP-III CLASSIFICATION Cardiovascular Risk HDL > or equal to 60 mg/dL LOW HDL < 40 mg/dL HIGH Performed By: #### A 1C WTH eA, LIPID, GLU, B12 #### [facility] [address] [id number] [place] Cholesterol.total/C holesterol in HDL [Mass ratio] 4.2 {ratio} Normal <5.0 [facility] Comment on above: Order Comment: Reaso n for Exam Prediabetes Reason for Exam Mixed hyperlipidemia Reason for Exam Low vitamin B12 level Performed By: #### A 1C WTH eA, LIPID, GLU, B12 #### [facility] [address] [id number] [place] LDL Cholesterol,Calcula madelin 95 mg/dL Normal 0-100 [facility] Comment on above: Order Comment: Reaso n [...] 1C WTH eA, LIPID, GLU, B12 #### [facility] [address] Triglyceride w/Reflex 176 mg/dL High 35-149 [facility] Comment on above: Order Comment: Reaso n [...] 1C WTH eA, LIPID, GLU, B12 #### [facility] [address] [place] [address] VLDL CHOLESTEROL 35 mg/dL Normal [facility] Comment on above: Order Comment: Reaso n for Exam Prediabetes Reason for Exam Mixed hyperlipidemia Reason for Exam Low vitamin B12 level Performed By: #### A 1C WTH eA, LIPID, GLU, B12 #### [facility] [address] [place] [address] Vitamin B12on 04-28-2021 Cobalamin (Vitamin B12) [Mass/Vol] 633 pg/mL Normal 180-914 [facility] Comment on above: Order Comment: Reaso n for Exam Prediabetes Reason for Exam Mixed hyperlipidemia Reason for Exam Low vitamin B12 level Result Comment: PERF ORMED BY: [place] [address] PATHOLOGIST RESERVATIONS AND TICKETING AGENT THEO CHU M.D. Performed By: #### A 1C WTH eA, LIPID, GLU, B12 #### [facility] [address] [place] [address] PAP ACOG PANEL 2: 30 to 65on 03-16-2021 . . Normal [facility] Comment on above: Result Comment: Perf ormed at: WB Performed By: #### [id number] #### [facility] [address] [address] [address] Tete Peters Age Gdln ACOG Testing 30-65 Normal [facility] Comment on above: Performed By: #### [id number] #### [facility] [address] [address] [address] Tete Peters DIAGNOSIS: Comment Normal [facility] Comment on above: Result Comment: NEGA TIVE FOR INTRAEPITHELIAL LESION OR MALIGNANCY. THIS SPECIMEN WAS RESCREENED PART OF OUR GARBAGE PERSON PROGRAM. Performed at: WB Performed By: #### [id number] #### [facility] [address] [address] [address] Tete Peters HPV Aptima Negative Normal Negative [facility] Comment on above: Result Comment: This nucleic acid amplification test detects fourteen high-risk HPV types (16,18,31,33,35,39,45,51,52,56,58,59,66,68) without differentiation. Performed at: =G Performed By: #### [id number] #### [facility] [address] [place] [address] Dr. Tete Peters Methodology: Comment Normal [facility] Comment on above: Result Comment: This liquid based ThinPrep(R) pap test was screened with the use of an image guided system. Performed at: WB Performed By: #### [id number] #### [facility] [address] [place] [address] Dr. Tete Peters Note: Comment Normal [facility] Comment on above: Result Comment: The Pap smear is a screening test designed to aid in the detection of premalignant and malignant conditions of the uterine cervix. It is not a diagnostic procedure and should not be used as the sole means of detecting cervical cancer. Both false-positive and false-negative reports do occur. . Performed at: WB Performed By: #### 4 [id number] #### [facility] [address] [place] [address] Dr. Tete Peters Performed by: Comment Normal [facility] Comment on above: Result Comment: Luisa Ross, Health Services Coordinator (ASCP) Performed at: WB Performed By: #### 4 [id number] #### [facility] [address] [place] [address] Dr. Tete Peters QC reviewed by: Comment Normal [facility] Comment on above: Result Comment: Monika Ortiz, Supervisory Health Services Coordinator (ASCP) Performed at: WB Performed By: #### 4 [id number] #### [facility] [address] [address] [address] Tete Peters Specimen adequacy: Comment Normal [facility] Comment on above: Result Comment: Sati sfactory for evaluation. Endocervical and/or squamous metaplastic cells (endocervical component) are present. Performed at: WB Performed By: #### 4 [id number] #### [facility] [address] [place], [place] [address] Dr. Tete Peters Vitamin B12on 01-12-2021 Cobalamin (Vitamin B12) [Mass/Vol] 297 pg/mL Normal 180-914 [facility] Comment on above: Order Comment: Reaso n for Exam Prediabetes Result Comment: PERF ORMED BY: [place] [address] PATHOLOGIST RESERVATIONS AND TICKETING AGENT THEO CHU M.D. Performed By: #### B 12 #### [address] GOLF CART REPAIRER polysom portableon 11-16 GOLF CART REPAIRER polysom portable [facility] Main [place] [address] [place] [address] Sleep Lab Report Signed Patient: Marina Contreras MR#: [id number] : 1990 Acct:[id number] Age/Sex: 30 / F ADM Date: 11/09/20 Loc: Room: Type: [facility] Attending Dr: nAne Marie Mejía MD Ordering Provider: Norris Ames [...] home sleep test was performed utilizing the [employer] T3 system. Parameters recorded include actigraphy, [...] Dictated By: Anne Marie Mejía MD 11/16/20 [id number] Signed By: 11/18/20 8704 [facility] Vital Signs Date Time Vital Sign Value Performing Clinician Facility 05-30-2023 09:36-0500 Body weight 116.48 kg [facility] Work Phone: [facility] 05-30-2023 09:36-0500 Diastolic blood pressure 70 mm[Hg] [facility] Work Phone: [facility] 05-30-2023 09:36-0500 Systolic blood pressure 116 mm[Hg] [facility] Work Phone: [facility] 04-10-2022 14:00-0500 Body height 157.48 cm Kamilah Nance Other [facility] Other 04-10-2022 14:00-0500 Body mass index (BMI) [Ratio] 44.92 kg/m2 Kamilah Nance Other [facility] Other 04-10-2022 14:00-0500 Body temperature 99.5 [degF] Kamilah Nance Other [facility] Other 04-10-2022 14:00-0500 Body weight 111.4 kg Kamilah Nance Other [facility] Other 04-10-2022 14:00-0500 Diastolic blood pressure 68 mm[Hg] Kamilah Nance Other [facility] Other 04-10-2022 14:00-0500 Respiratory rate 18 /min Kamilah Nance Other [facility] Other 04-10-2022 14:00-0500 SaO2% (BldA) [Mass fraction] 95 % Kamilah Nance Other [facility] Other 04-10-2022 14:00-0500 Systolic blood pressure 116 mm[Hg] Kamilah Nance Other [facility] Other 04-30-2021 10:45-0500 Body height 157.48 cm Norris Ames Other [facility] Other 04-30-2021 10:45-0500 Body mass index (BMI) [Ratio] 41.72 kg/m2 Norris Ames Other [facility] Other 04-30-2021 10:45-0500 Body weight 103.47 kg Norris Byrnediff Other [facility] Other 04-30-2021 10:45-0500 Diastolic blood pressure 75 mm[Hg] Norris Byrnediff Other [facility] Other 04-30-2021 10:45-0500 Respiratory rate 18 /min Norris Byrnediff Other [facility] Other 04-30-2021 10:45-0500 SaO2% (BldA) [Mass fraction] 99 % Norris Byrnediff Other [facility] Other 04-30-2021 10:45-0500 Systolic blood pressure 110 mm[Hg] Norris Ames Other [facility] Other 03-03-2021 11:30-0500 Body height 157.48 cm Linda Bocanegramyke Other [facility] Other 03-03-2021 11:30-0500 Body mass index (BMI) [Ratio] 42.5 kg/m2 Linda Fitt Other [facility] Other 03-03-2021 11:30-0500 Body weight 105.42 kg Linda Fitmyke Other [facility] Other 02-25-2021 12:00-0400 Body height 157.48 cm Norris Ames Jr. Other [facility] Other 02-25-2021 12:00-0400 Body mass index (BMI) [Ratio] 41.92 kg/m2 Norris Ames Other [facility] Other 02-25-2021 12:00-0400 Body weight 103.97 kg Norris Ames Other [facility] Other 02-25-2021 12:00-0400 Diastolic blood pressure 79 mm[Hg] Norris Ames Other [facility] Other 02-25-2021 12:00-0400 Respiratory rate 18 /min Norris Grullonanny Schwarz Other [facility] Other 02-25-2021 12:00-0400 SaO2% (BldA) [Mass fraction] 97 % Norris Ames Other [facility] Other 02-25-2021 12:00-0400 Systolic blood pressure 118 mm[Hg] Norris Ames Other [facility] Other 01-20-2021 10:00-0400 Body height 157.48 cm Linda Bocanegramyke Other [facility] Other 01-20-2021 10:00-0400 Body mass index (BMI) [Ratio] 42.68 kg/m2 Lindafrederic Keith Other [facility] Other 01-20-2021 10:00-0400 Body weight 105.87 kg Linda Fitt Other [facility] Other Encounters Encounter Date Encounter Type Care [...] 04-10-2022 End: 04-10-2022 ambulatory Kamilah Nance Other [facility] Other Start: 04-10-2022 Office outpatient vi sit 15 minutes Kamilah Nance [facility] Start: 05-26-2021 End: 05-26-2021 ambulatory Norris Ames Other [facility] Other Start: 05-26-2021 Telephone encounter Norris queen [facility] Start: 04-30-2021 End: 04-30-2021 ambulatory Norris Ames Other [facility] Other Start: 04-30-2021 Follow-up encounter Norris Kwaku Cedric stratfordjakob [facility] Start: 04-13-2021 End: 04-13-2021 ambulatory Linda Bocanegramyke Other [facility] Other Start: 04-13-2021 Telephone encounter Linda Keith [facility] Start: 03-09-2021 End: 03-09-[address] NONE LISTED REQUEST Facility: Start: 03-03-2021 ([facility] RD FU) [facility] F/ U Registerd Vacuum Drier Tender Linda Keith [facility] Start: 03-03-2021 End: 03-03-2021 ambulatory Linda Keith Other [facility] Other Start: 02-25-2021 End: 02-25-2021 ambulatory Norris Ames Jr. Other [facility] Other Start: 02-25-2021 Follow-up encounter Norris howard [facility] Start: 02-04-2021 Telephone encounter Norris howard [facility] Start: 01-20-2021 ([facility] FU) [facility] F/ U Registerd Vacuum Drier Tender Linda Keith [facility] Procedures Date Procedure Procedure Detail [...] encounter procedure 06/28/2023 9:30 AM EST Routine [facility] [address] [id number] Neelam Sutherland PA [address] [place] [address] [facility] Start: 06-13-2023 End: 06-13-2023 Professional / ancillary services management 06/13/2023 9:00 AM EST Ancillary Procedure [facility] [address] [address] [facility] Start: 05-30-2023 End: 09-28-2023 Alpha fetoprotein, maternal Alpha fetoprotein, maternal Lab Routine Second trimester Expected: 05/30/2023 (Approximate), Expires: 09/28/2023 [facility] Comment on above: Expected: 05/30/2023 (Approximate), Expires: 09/28/2023 Start: 05-30-2023 End: 05-30-2024 US for US OB ANATOMY SINGLE W US OB CERVICAL LENGTH Imaging Routine Screening, , for anatomic survey Expected: 05/30/2023 (Approximate), Expires: 05/30/2024 [facility] Comment on above: Expected: 05/30/2023 (Approximate), Expires: 05/30/2024 Start: 12-23-2022 Influenza vaccination Influenza Vacc ine (#1) [facility] Start: 2019 Screening for malign ant neoplasm of cervix [facility] Start: 2010 Screening for malign ant neoplasm of cervix Pap Smear [facility] CHLAMYDIA TRACHOMATI S (GENITO/STI) CHLAMYDIA TRACHOMATIS (GENITO/STI) Lab Routine STD exposure Ordered: 05/30/2023 [facility] Comment on above: Ordered: 05/30/2023 Cytology Cervical or vaginal smear or scraping study Pap Smear Pathology and Cytology Routine Well woman exam with routine gynecological exam Ordered: 05/30/2023 [facility] Work Phone: Comment on above: Ordered: 05/30/2023 Human papilloma viru s DNA [Presence] in Unspecified specimen by Probe with amplification HPV DNA probe, amplified Microbiology Routine Well woman exam with routine gynecological exam Ordered: 05/30/2023 [facility] Comment on above: Ordered: 05/30/2023 Neisseria gonorrhoea e DNA [Presence] in Unspecified specimen by NANCY with probe detection Neisseria gonorrhea DNA probe, direct Lab Routine STD exposure Ordered: 05/30/2023 [facility] Comment on above: Ordered: 05/30/2023 SURESWAB(R) ADVANCED VAGINITIS PLUS, TMA SURESWAB(R) ADVANCED VAGINITIS PLUS, TMA Pathology and Cytology Routine Vaginal discharge Ordered: 05/30/2023 [facility] Comment on above: Ordered: 05/30/2023 Payers Date Payer Category Payer [facility] [id number] 2022 Unknown BCBS BCBS xxxxxx [id number] 2022-Present [phone] [address] [place] [address] [id number] 1989 Unknown [id number] .593 1989 Unknown [id number] [id number] .1259 1989 Unknown [id number] [id number] .1259 1989 Unknown [id number] [id number] .1259 1989 Unknown [id number] [id number] .1259 1989 Unknown [id number] [id number] .1259 1989 Unknown [id number] [id number] .1259 1989 Unknown [id number] [id number] .1259 1989 Unknown [id number] .1259 1959 Private Health Insurance [id number] Social History Date Type Detail Facility Unknown if ever smoked [facility] Other Start: 04-05-2023 Sex Assigned [facility] Other Start: 04-05-2023 Tobacco smoking status OKIS Ex-smoker [facility] History of tobacco use [...] meal for a total of 4times daily.. [id number] Start: 05-23-2023 End: 06-22-2023 1 each by In Vit ro route in the morning. Use to check FSBS four times daily. [id number] Start: 05-23-2023 End: 06-22-2023 History of Present [...] nursing note reviewed. Exam conducted with a director money present. Vitals: There is no height or [...] Kristian Jimenes DO documented in this encounter [facility] Healthcare Evaluation note 04-10-2022 Note [...] should improve within the next 4-7 days. [facility] Other Evaluation note 04-30-2021 Note Date & [...] Low vitamin B12 level (ICD-10 - E53.8) [facility] Other Evaluation note 03-03-2021 Note Date & [...] holidays (C) Answered general, nutrition-rela madelin questions [facility] Other Evaluation note 02-25-2021 Note Date & [...] Low vitamin B12 level (ICD-10 - E53.8) [facility] Other Evaluation note 01-20-2021 Note Date & [...] methods (C) Answered general nutrition-rel ated questions [facility] Other Evaluation note Note Date & Type Note Facility Evaluation note No Information [facility] Other Evaluation note Note Date & Type [...] Surgical History appendectomy Hospitalization History see above [facility] Other Summary Purpose Family History No Family History Records FoundNo Family History Records FoundNo Family History Records Found Advance Directives No Advanced Directives Records FoundNo Advanced Directives Records FoundNo Advanced Directives Records Found Additional Source Comments INFORMATION SOURCE (unrecogn ized section and content) DATE CREATED AUTHOR 03/17/2021 [facility] DATE CREATED AUTHOR AUTHOR'S ORGANIZ ATION 10/28/2021 [facility] DATE CREATED AUTHOR AUTHOR'S ORGANIZ ATION 09/14/2023 [facility] dical Specialists EPIC REASON FOR VISIT (unrecogniz ed section and content) Reason Comments Routine Visit Well Women Visit CONGESTION B/A H/A SORE THRAOTFCCC Pt does not wish our services 06/28/21CC RD N/S 04/13/2021, LM WM steele/Erika Steele/DAGOBERTO EX Care Teams (unrecognized sec tion and content) Television Audio Engineer Relationship Specialty Start Date End Date Reinaldo Lara MD PCP - General Family Medicine 03/23/23 Television Audio Engineer Relationship Specialty Start Date End Date Reinaldo [...] BE BASED ON THE PRIMARY CLINICAL RECORDS. [employer] [facility]. provides no warranty or guarantee of the accuracy or completeness of information in this document.
[2023-09-25 13:23] VITALS: BP 131/66; PULSE 87
== END 2023-09-25 14:10 | disposition home or self-care (01) ==
LOC: FBCO 07:13 → FBC 13:01
PROVIDERS: PCP Family Medicine; Visit Provider Obstetrics & Gynecology
DX: O24.419 Gestational diabetes mellitus in pregnancy, unspecified control (principal)
CPT/HCPCS: 59025

== ENCOUNTER 2023-09-28 07:06 | Outpatient (OUT) | payer BC, SELFPAY ==
--- NOTE | 2023-09-28 | US_ITS ---
[address] [address] Patient Name: VERA CONTRERAS MRN: [facility]:[id number] date: 1990 Sex: F Assigned Patient Location: [facility] Current Patient Location: Accession/Order Number: [id number] Exam Date: 09/28/2023 14:40 Report Date: 09/28/2023 15:32 At the request of: KRISTIAN MARIN Procedure: US OB BPP w non-stress EXAMINATION: US OB BPP w non-stress HISTORY: INSULIN CONTROLLED GESTATIONAL DIABETES O24.414 COMPARISON: Ultrasound OB biophysical 09/22/2023 TECHNIQUE: Ultrasound biophysical profile was performed in the radiology department. BREATHING MOVEMENTS: 2.0 GROSS BODY MOVEMENTS: 2.0 TONE: 2.0 QUALITATIVE AMNIOTIC FLUID VOLUME: 2.0 PRESENTATION: CEPHALIC HEART RATE: 148.4 bpm bpm. AMNIOTIC FLUID VOLUME: 24.5 cm (24.9 cm is 95th percentile) GESTATIONAL AGE: 36 weeks 0 days CONCLUSION: 1. Total biophysical profile score 8.0. 2. Bordering on polyhydramnios. Electronically authenticated by: KODY FRANK Date: 09/28/2023 15:32
--- OUTSIDE RECORDS SUMMARY | 2023-09-28 07:08 | XMS_ITS | CCD ---
Author Organization [facility] Care Team Providers Care Airline Security Representative Name Role Phone REQUEST, DR NONE LISTED Primary Care Unavaila katarzyna JIMENES, DR TOWNSEND Consulting Unavailable JALIL, DR TOWNSEND Attending Unavailable JALIL, DR TOWNSEND Admitting Unavailable Linda Keith Unavailable Norris Ames Jr. Unavailable [phone] Norris Ames Unavailable Kamilah Nance Unavailable Reinaldo Lara MD Primary Care Provider KRISTIAN JIMENES Attending Unavailable KRISTIAN JIMENES Attending Unavailable NEELAM SUTHERLAND Attending Unavailable KRISTIAN JIMENES Attending Unavailable NEELAM SUTHERLAND Attending Unavailable KRISTIAN JIMENES Attending Unavailable KRISTIAN JIMENES Attending Unavailable KRISTIAN JIMENES Attending Unavailable Medications Current Medications Medication Drug Class(es) Dates Sig (Normalized) Sig (Original) 3 ML semaglutide 1.34 MG/ML Pen Injector [Ozempic] (3 sources) Start: 04-30-2021 inject 1 mg by subcutaneous injection every week Ozempic (1 MG/DOSE) 4 MG/3ML 1 mg as directed Subcutaneous weekly for 30 days Apr, Active [id number] actuat albuterol 0.09 mg/actuat metered dose [...] 0 Active take 4 tablets by mo [facility] every twenty-four hours metFORMIN HCl ER 500 MG 4 tablets p.o. qd Active take 3 tablets by mo ut once daily, then take 4 tablets by [...] GDLNon AGE GDLN ACOG TESTING Note . [facility] Comment on above: TESTS RESULT FLAG UN ITS REF RANGE LAB Clinician Provided Cytology Information Source.............[facility] Other.............. No. of containers..01 ThinPrep Vial Age Algo ACOG Jes... 30-65 FLAG LEGEND: L-Low Normal,H-High Normal,LL-Alert Low,HH-Alert High <-Panic Low,>-Panic High,A-Abnormal,AA-Critical Abnormal Performed at: 01 =G [facility] [address] Kala Contreras MD, HPV APTIMA Negative Negative [facility] Comment on above: This nucleic acid am plification test detects fourteen high- risk HPV types (16,18,31,33,35,39,45,51,52,56,58,59,66,68) without differentiation. Performed at: =G - [facility] [id number] Civil Defense Director: Kala Contreras MD, Phone: [phone] Performed at: [facility] [address] [employer] [place], [place] [id number] Civil Defense Director: Mike Copeland MD, Phone: [phone] IGP, APTIMA HPV, RFX 16/18,45 Note . [facility] Comment on above: TESTS RESULT FLAG UN ITS REF RANGE LAB DIAGNOSIS: 02 NEGATIVE FOR INTRAEPITHELIAL LESION OR MALIGNANCY. Specimen adequacy: 02 Satisfactory for evaluation. No endocervical component is identified. An endocervical component is not commonly seen in the patient. Performed by: Kelsy Ortiz, Mds Nurse (ASCP) . 02 Note: Note 03 The [...] High <-Panic Low,>-Panic High,A-Abnormal,AA-Critical Abnormal Performed at: [facility] [address] [place] [address] Mike Copeland MD, [address] [address] Kala Contreras MD, SPATULA-ALONE [facility] Healthcar e URETHRITIS/DISCHARGE PLUS VA GINITIS (HTRX)on 05-31-2023 ATOPOBIUM VAGINAE 0 [facility] ATOPOBIUM VAGINAE Not detected [facility] BVAB 2,3 (BACTERIAL VAGINOSIS ASSOCIATED BACTERIA 2, 3); MOBILUNCUS SPP 0 [facility] BVAB 2,3 (BACTERIAL VAGINOSIS ASSOCIATED BACTERIA 2, 3); MOBILUNCUS SPP Not detected [facility] SIN ALBICANS, PARAPSILOSIS, TROPICALIS 0 [facility] SIN ALBICANS, PARAPSILOSIS, TROPICALIS Not detected [facility] SIN GLABRATA 0 [facility] SIN GLABRATA Not detected [facility] SIN KRUSEI 0 [facility] Healt hcare SIN KRUSEI Not detected [facility] CHLAMYDIA TRACHOMATIS 0 [facility] CHLAMYDIA TRACHOMATIS Not detected [facility] GARDNERELLA VAGINALIS 0 [facility] GARDNERELLA VAGINALIS Not detected [facility] MEGASPHAERA (TYPES 1, 2) 0 [facility] Healthcare MEGASPHAERA (TYPES 1, 2) Not detected [facility] MYCOPLASMA GENITALIUM 0 [facility] MYCOPLASMA GENITALIUM Not detected [facility] NEISSERIA GONORRHOEAE 0 [facility] NEISSERIA GONORRHOEAE Not detected [facility] TRICHOMONAS VAGINALIS 0 [facility] Healthcare TRICHOMONAS VAGINALIS Not detected [facility] Urinalysis macro (dipstick) panel (U)on 05-30-2023 Bilirubin, UA Negative Negative - 4(70) +++ mg/dL [facility] Blood, UA Negative Negative - 50 Zach/mcL [facility] Clarity, UA Clear [facility] Healthca re Color, UA Yellow [facility] Healthcar e Glucose, UA Negative Negative - 2000(110) ++++ mg/dL [facility] Interpretation and review of laboratory results Abnormal [facility] Healthca re Ketones, UA Positive Negative - 160(16) ++++ mg/dL [facility] Leukocytes, UA Negative Negative - 500+++ Magaly/mcL [facility] Nitrite, UA Negative Negative - Positive [facility] pH, UA 5.5 5 - 9 [facility] Healthcar e Protein, UA Negative Negative - 2000(20) ++++ mg/dL [facility] Spec Grav, UA 1.020 1 - 1.03 [facility] Urobilinogen, UA 1.0 0.2 - 12 mg/dL [facility] Healthcar e COVID + FLU Quick Testingon 04-10-2022 SARS-CoV-2 (COVID-19) RNA NANCY+probe Ql (Unsp spec) Positive [facility] Other COVID + FLU Quick Testing Positive [facility] Other Quick Strepon 04-10-2022 S. pyogenes Org specific cx Ql (Throat) Negative [facility] Other Quick Strep [facility] Other A1C with Estimated Average G luon 04-28-2021 Glucose [Mass/Vol] 108 mg/dL Normal [facility] Comment on above: Order Comment: Reaso n for Exam Prediabetes Result Comment: PERF ORMED BY: [place] [address] PATHOLOGIST SHIPYARD PAINTER HELPER THEO CHU M.D. Performed By: #### A 1C WT eA, LIPID, GLU, B12 #### [facility] [address] [place] [address] HbA1c (Bld) [Mass fraction] 5.4 % Normal 4.3-5.6 [facility] Comment on above: Order Comment: Reaso n for Exam Prediabetes Result Comment: Incr eased risk for diabetes: 5.7 - 6.4 diabetes: >6.4 glycemic control for adults with diabetes: <7.0 Performed By: #### A 1C WT eA, LIPID, GLU, B12 #### [facility] [address] [place] [address] Glucoseon 04-28-2021 Glucose [Mass/Vol] 97 mg/dL Normal 70-100 [facility] Comment on above: Order Comment: Reaso n for Exam Prediabetes Reason for Exam Mixed hyperlipidemia Reason for Exam Low vitamin B12 level Result Comment: [facility] Glucose Reference Range is dependent on time and content of last meal. Glucose of more than 200 mg/dL in a nonstressed, ambulatory subject supports the diagnosis of Diabetes Mellitus. ADA recommended reference range Performed By: #### A 1C WTH eA, LIPID, GLU, B12 #### [facility] [address] [id number] [facility] Lipid Panelon 04-28-2021 Cholesterol [Mass/Vol] 171 mg/dL Normal 140-200 [facility] Comment on above: Order Comment: Reaso n for Exam Prediabetes Reason for Exam Mixed hyperlipidemia Reason for Exam Low vitamin B12 level Result Comment: Chol less than 200 mg/dl low risk Chol 201-239 mg/dl borderline risk Chol 240 mg/dl and greater high risk Performed By: #### A 1C WTH eA, LIPID, GLU, B12 #### [facility] [address] [id number] [facility] Cholesterol in HDL [Mass/Vol] 41 mg/dL Normal 35-85 [facility] Comment on above: Order Comment: Reaso n for Exam Prediabetes Reason for Exam Mixed hyperlipidemia Reason for Exam Low vitamin B12 level Result Comment: HDL CHOL ATP-III CLASSIFICATION Cardiovascular Risk HDL > or equal to 60 mg/dL LOW HDL < 40 mg/dL HIGH Performed By: #### A 1C WTH eA, LIPID, GLU, B12 #### [facility] [address] [id number] [facility] Cholesterol.total/C holesterol in HDL [Mass ratio] 4.2 {ratio} Normal <5.0 [facility] Comment on above: Order Comment: Reaso n for Exam Prediabetes Reason for Exam Mixed hyperlipidemia Reason for Exam Low vitamin B12 level Performed By: #### A 1C WTH eA, LIPID, GLU, B12 #### [facility] [address] [id number] [place] LDL Cholesterol,Calcula madelin 95 mg/dL Normal 0-100 [facility] Comment on above: Order Comment: [...] 1C WTH eA, LIPID, GLU, B12 #### [facility] [address] Triglyceride w/Reflex 176 mg/dL High 35-149 [facility] Comment on above: Order Comment: [...] 1C WTH eA, LIPID, GLU, B12 #### [facility] [address] VLDL CHOLESTEROL 35 mg/dL Normal [facility] Comment on above: Order Comment: Reaso n for Exam Prediabetes Reason for Exam Mixed hyperlipidemia Reason for Exam Low vitamin B12 level Performed By: #### A 1C WTH eA, LIPID, GLU, B12 #### [facility] [address] Vitamin B12on 04-28-2021 Cobalamin (Vitamin B12) [Mass/Vol] 633 pg/mL Normal 180-914 [facility] Comment on above: Order Comment: Reaso n for Exam Prediabetes Reason for Exam Mixed hyperlipidemia Reason for Exam Low vitamin B12 level Result Comment: PERF ORMED BY: [place] [address] PATHOLOGIST SHIPYARD PAINTER HELPER THEO CHU M.D. Performed By: #### A 1C WTH eA, LIPID, GLU, B12 #### [facility] [address] PAP ACOG PANEL 2: 30 to 65on 03-16-[address] [facility] Comment on above: Result Comment: Perf ormed at: WB Performed By: #### [id number] #### [facility] [address] [address] [address] Tete Peters Age Gdln ACOG Testing 30-[address] [facility] Comment on above: Performed By: #### [id number] #### [facility] [address] [place] [address] Dr. Tete Peters DIAGNOSIS: Comment Normal [facility] Comment on above: Result Comment: NEGA TIVE FOR INTRAEPITHELIAL LESION OR MALIGNANCY. THIS SPECIMEN WAS RESCREENED PART OF OUR PROJECT MANAGEMENT CONSULTANT PROGRAM. Performed at: WB Performed By: #### [id number] #### [facility] [address] [place] [address] Dr. Tete Peters HPV Aptima Negative Normal Negative [facility] Comment on above: Result Comment: This nucleic acid amplification test detects fourteen high-risk HPV types (16,18,31,33,35,39,45,51,52,56,58,59,66,68) without differentiation. Performed at: =G Performed By: #### [id number] #### [facility] [address] [place] [address] Dr. Tete Peters Methodology: Comment Normal [facility] Comment on above: Result Comment: This liquid based ThinPrep(R) pap test was screened with the use of an image guided system. Performed at: WB Performed By: #### [id number] #### [facility] [address] [place] [address] Dr. Tete Peters Note: Comment Normal [facility] Comment on above: Result Comment: The Pap smear is a screening test designed to aid in the detection of premalignant and malignant conditions of the uterine cervix. It is not a diagnostic procedure and should not be used as the sole means of detecting cervical cancer. Both false-positive and false-negative reports do occur. . Performed at: WB Performed By: #### [id number] #### [facility] [address] [place] [address] Dr. Tete Peters Performed by: Comment Normal [facility] Comment on above: Result Comment: Luisa Ross Mds Nurse (ASCP) Performed at: WB Performed By: #### 4 [id number] #### [facility] [address] [place] [address] Dr. Tete Peters QC reviewed by: Comment Normal [facility] Comment on above: Result Comment: Monika Ortiz, Supervisory Mds Nurse (ASCP) Performed at: WB Performed By: #### [id number] #### [facility] [address] [place], [place] [address] Dr. Tete Peters Specimen adequacy: Comment Normal [facility] Comment on above: Result Comment: Sati sfactory for evaluation. Endocervical and/or squamous metaplastic cells (endocervical component) are present. Performed at: WB Performed By: #### [id number] #### [facility] [address] [address] [address] Tete Peters Vitamin B12on 01-12-2021 Cobalamin (Vitamin B12) [Mass/Vol] 297 pg/mL Normal 180-914 [facility] Comment on above: Order Comment: Reaso n for Exam Prediabetes Result Comment: PERF ORMED BY: [place] [address] PATHOLOGIST SHIPYARD PAINTER HELPER THEO CHU M.D. Performed By: #### B 12 #### [address] MAT MAKING MACHINE TENDER polysom portableon 11-16 MAT MAKING MACHINE TENDER polysom portable [facility] Main [place] [address] [place] [address] Sleep Lab Report Signed Patient: Marina Contreras MR#: [id number] : 1990 Acct:[id number] Age/Sex: 30 / F ADM Date: 11/09/20 [...] home sleep test was performed utilizing the [employer] T3 system. Parameters recorded include actigraphy, [...] Dictated By: Anne Marie Mejía MD 11/16/20 [id number] Signed By: 11/18/20 4592 [facility] Vital Signs Date Time Vital Sign Value Performing Clinician Facility 05-30-2023 09:36-0500 Body weight 116.48 kg [employer] Work Phone: [facility] 05-30-2023 09:36-0500 Diastolic blood pressure 70 mm[Hg] [facility] Work Phone: [facility] 05-30-2023 09:36-0500 Systolic blood pressure 116 mm[Hg] [facility] Work Phone: [facility] 04-10-2022 14:00-0500 Body height 157.48 cm Kamilah Quarlesault Other [facility] Other 04-10-2022 14:00-0500 Body mass index (BMI) [Ratio] 44.92 kg/m2 Kamilah Quarlesault Other [facility] Other 04-10-2022 14:00-0500 Body temperature 99.5 [degF] Kamilah Quarlesault Other [facility] Other 04-10-2022 14:00-0500 Body weight 111.4 kg Kamilah Quarlesault Other [facility] Other 04-10-2022 14:00-0500 Diastolic blood pressure 68 mm[Hg] Kamilah Goyo Other [facility] Other 04-10-2022 14:00-0500 Respiratory rate 18 /min Kamilah Quarlesault Other [facility] Other 04-10-2022 14:00-0500 SaO2% (BldA) [Mass fraction] 95 % Kamilah Quarlesault Other [facility] Other 04-10-2022 14:00-0500 Systolic blood pressure 116 mm[Hg] Kamilah Quarlesault Other [facility] Other 04-30-2021 10:45-0500 Body height 157.48 cm Norris Ames Other [facility] Other 04-30-2021 10:45-0500 Body mass index (BMI) [Ratio] 41.72 kg/m2 Norris Ames Other [facility] Other 04-30-2021 10:45-0500 Body weight 103.47 kg Norris Ames Other [facility] Other 04-30-2021 10:45-0500 Diastolic blood pressure 75 mm[Hg] Norris Byrnediff Other [facility] Other 04-30-2021 10:45-0500 Respiratory rate 18 /min Norris Byrnediff Other [facility] Other 04-30-2021 10:45-0500 SaO2% (BldA) [Mass fraction] 99 % Norris Grullonff Other [facility] Other 04-30-2021 10:45-0500 Systolic blood pressure 110 mm[Hg] Norris Ames Other [facility] Other 03-03-2021 11:30-0500 Body height 157.48 cm Linda Bocanegramyke Other [facility] Other 03-03-2021 11:30-0500 Body mass index (BMI) [Ratio] 42.5 kg/m2 Linda Fitt Other [facility] Other 03-03-2021 11:30-0500 Body weight 105.42 kg Linda Fitt Other [facility] Other 02-25-2021 12:00-0400 Body height 157.48 cm Norris Kwakulyndsey Schwarz Other [facility] Other 02-25-2021 12:00-0400 Body mass index (BMI) [Ratio] 41.92 kg/m2 Norris Ames Other [facility] Other 02-25-2021 12:00-0400 Body weight 103.97 kg Norris Ames Other [facility] Other 02-25-2021 12:00-0400 Diastolic blood pressure 79 mm[Hg] Norris Ames Other [facility] Other 02-25-2021 12:00-0400 Respiratory rate 18 /min Norris Ames Other [facility] Other 02-25-2021 12:00-0400 SaO2% (BldA) [Mass fraction] 97 % Norris Ames Other [facility] Other 02-25-2021 12:00-0400 Systolic blood pressure 118 mm[Hg] Norris Ames Other [facility] Other 01-20-2021 10:00-0400 Body height 157.48 cm Linda Sagar Other [facility] Other 01-20-2021 10:00-0400 Body mass index (BMI) [Ratio] 42.68 kg/m2 Lindafrederic Keith Other [facility] Other 01-20-2021 10:00-0400 Body weight 105.87 kg Linda Fitmyke Other [facility] Other Encounters Encounter Date Encounter Type Care Provider Facility Start: 09-25-2023 End: 09-25-2023 ambulatory KRISTIAN JALIL Not Available Start: 09-12-2023 End: 09-12-2023 ambulatory KRISTIAN JALIL Not Available Start: 08-28-2023 End: 08-28-2023 ambulatory [...] External Department Unsolicited Start: 05-30-2023 End: 05-30-2023 Patient encounter procedure Kristian Jalil DO Work Phone: [facility] Work Phone: Start: 05-30-2023 End: 05-30-2023 Periodic preventive med est patient 18-39 yrs Kristian Jalil DO Work Phone: [facility] Comment on above: Well woman exam with routine gynecological exam; Second trimester ; Vaginal discharge; STD exposure; Screening, , for anatomic survey Start: 05-30-2023 End: 05-30-2023 ambulatory KRISTIAN JALIL Not Available Start: 05-01-2023 End: 05-01-2023 ambulatory KRISTIAN JALIL Not Available Start: 03-23-2023 End: 03-23-2023 ambulatory KRISTIAN JALIL Not Available Start: 04-10-2022 End: 04-10-2022 ambulatory Kamilah Nance Other [facility] Other Start: 04-10-2022 Office outpatient vi sit 15 minutes Kamilah Nance [facility] Start: 05-26-2021 End: 02-02-2022 ambulatory Norris Ames Other [facility] Other Start: 05-26-2021 Telephone encounter Norris [facility] Start: 04-30-2021 End: 04-30-2021 ambulatory Norris Ames Other [facility] Other Start: 04-30-2021 Follow-up encounter Norris [facility] Start: 04-13-2021 End: 04-13-2021 ambulatory Linda Keith Other [facility] Other Start: 04-13-2021 Telephone encounter Linda Mess[facility] Start: 03-09-2021 End: 03-09-[address] NONE LISTED REQUEST Facility: Start: 03-03-2021 ([facility] RD FU) [facility] F/ U Registerd Senior Licensing Manager Linda Keith [facility] Start: 03-03-2021 End: 03-03-2021 ambulatory Linda Bocanegramyke Other [facility] Other Start: 02-25-2021 End: 02-25-2021 ambulatory Norris Ames Dalila Other [facility] Other Start: 02-25-2021 Follow-up encounter Norris howard [facility] Start: 02-04-2021 Telephone encounter Norris howard [facility] Start: 01-20-2021 ([facility] RD FU) [facility] F/ U Registerd Senior Licensing Manager Linda Keith [facility] Procedures Date Procedure Procedure Detail Performing Clinician Start: 05-30-2023 URETHRITIS/DISCHARGE PLUS VAGINITIS (HTRX) Kristian Jimenes DO Work Phone: Start: 05-30-2023 IGP,APTIMA HPV,AGE GDLN Kristian Jimenes DO Work Phone: Start: 05-30-2023 Urnls dip stick/tabl et rgnt non-auto w/o micrscp Kristian Jalil DO Work Phone: Plan of Treatment Date Care Activity Detail Author Start: 06-28-2023 End: 06-28-2023 Patient encounter procedure 06/28/2023 9:30 AM EST Routine [facility] [address] [address] Neelam Sutherland [place] [address] [place] [address] [facility] Start: 06-13-2023 End: 06-13-2023 Professional / ancillary services management 06/13/2023 9:00 AM EST Ancillary Procedure [facility] [address] [facility] [place] [address] [facility] Start: 05-30-2023 End: 09-28-2023 Alpha fetoprotein, maternal Alpha fetoprotein, maternal Lab Routine Second trimester Expected: 05/30/2023 (Approximate), Expires: 09/28/2023 [facility] Comment on above: Expected: 05/30/2023 (Approximate), Expires: 09/28/2023 Start: 05-30-2023 End: 05-30-2024 US for US OB ANATOMY SINGLE W US OB CERVICAL LENGTH Imaging Routine Screening, , for anatomic survey Expected: 05/30/2023 (Approximate), Expires: 05/30/2024 [facility] Comment on above: Expected: 05/30/2023 (Approximate), Expires: 05/30/2024 Start: 12-23-2022 Influenza vaccination Influenza Vacc ine (#1) [facility] Start: 2019 Screening for malign ant neoplasm of cervix [facility] Start: 2010 Screening for malign ant neoplasm of cervix Pap Smear [facility] CHLAMYDIA TRACHOMATI S (GENITO/STI) CHLAMYDIA TRACHOMATIS (GENITO/STI) Lab Routine STD exposure Ordered: 05/30/2023 [facility] Comment on above: Ordered: 05/30/2023 Cytology Cervical or vaginal smear or scraping study Pap Smear Pathology and Cytology Routine Well woman exam with routine gynecological exam Ordered: 05/30/2023 [facility] Work Phone: Comment on above: Ordered: 05/30/2023 Human papilloma viru s DNA [Presence] in Unspecified specimen by Probe with amplification HPV DNA probe, amplified Microbiology Routine Well woman exam with routine gynecological exam Ordered: 05/30/2023 [facility] Comment on above: Ordered: 05/30/2023 Neisseria gonorrhoea e DNA [Presence] in Unspecified specimen by NANCY with probe detection Neisseria gonorrhea DNA probe, direct Lab Routine STD exposure Ordered: 05/30/2023 [facility] Comment on above: Ordered: 05/30/2023 SURESWAB(R) ADVANCED VAGINITIS PLUS, TMA SURESWAB(R) ADVANCED VAGINITIS PLUS, TMA Pathology and Cytology Routine Vaginal discharge Ordered: 05/30/2023 [facility] Comment on above: Ordered: 05/30/2023 Payers Date Payer Category Payer Unknown BCBS BCBS [id number] [id number] 2022-Present [phone] [address] [place] [address] [id number] 2022 [facility] [id number] 1989 Unknown [id number] .593 1989 Unknown [id number] [id number] .1259 1989 Unknown [id number] [id number] .1259 1989 Unknown [id number] [id number] .1259 1989 Unknown [id number] [id number] .1259 1989 Unknown [id number] 2.16.840.1.065654.3.579.2 .1259 1989 Unknown [id number] 2.16.840.1.653355.3.579.2 .1259 1989 Unknown [id number] 2.16.840.1.525811.3.579.2 .1259 1989 Unknown [id number] 2.16.840.1.230076.3.579.2 .1259 1989 Unknown [id number] [id number] .1259 1960 Private Health Insurance [id number] Social History Date Type Detail Facility Unknown if ever smoked [facility] Other Start: 04-05-2023 Sex Assigned At [facility] Other Start: 04-05-2023 Tobacco smoking status NHIS [...] meal for a total of 4times daily.. [id number] Start: 05-23-2023 End: 06-22-2023 1 each by In Vit ro route in the morning. Use to check FSBS four times daily. [id number] Start: 05-23-2023 End: 06-22-2023 History of Present [...] nursing note reviewed. Exam conducted with a speech and language assistant present. Vitals: There is no height [...] in this encounter [facility] Evaluation note 04-10-2022 Note [...] should improve within the next 4-7 days. [facility] Other Evaluation note 04-30-2021 Note Date & [...] Low vitamin B12 level (ICD-10 - E53.8) [facility] Other Evaluation note 03-03-2021 Note Date & [...] holidays (C) Answered general, nutrition-rela madelin questions [facility] Other Evaluation note 02-25-2021 Note Date & [...] Low vitamin B12 level (ICD-10 - E53.8) [facility] Other Evaluation note 01-20-2021 Note Date & [...] methods (C) Answered general nutrition-rel ated questions [facility] Other Evaluation note Note Date & Type Note Facility Evaluation note No Information [facility] Other Evaluation note Note Date & Type [...] Surgical History appendectomy Hospitalization History see above [facility] Other Summary Purpose Family History No Family History Records FoundNo Family History Records FoundNo Family History Records Found Advance Directives No Advanced Directives Records FoundNo Advanced Directives Records FoundNo Advanced Directives Records Found Additional Source Comments INFORMATION SOURCE (unrecogn ized section and content) DATE CREATED AUTHOR 03/17/2021 [facility] DATE CREATED AUTHOR AUTHOR'S ORGANIZ ATION 10/28/2021 [facility] DATE CREATED AUTHOR AUTHOR'S ORGANIZ ATION 09/26/2023 [facility] EPIC REASON FOR VISIT (unrecogniz ed section and content) Reason Comments Routine Visit [facility] Visit CONGESTION B/A H/A SORE THRAOTFCCC Pt does not wish our services 06/28/21CC RD N/S 04/13/2021, LM f/AníbalMN F/DAGOBERTO EX Care Teams (unrecognized sec tion and content) Airline Security Representative Relationship Specialty Start Date End Date Reinaldo Lara MD PCP - General Family Medicine 03/23/23 [employer] Representative Relationship Specialty Start Date End Date Reinaldo [...] BE BASED ON THE PRIMARY CLINICAL RECORDS. [facility] [employer] provides no warranty or guarantee of the accuracy or completeness of information in this document.
== END 2023-09-28 15:28 | disposition home or self-care (01) ==
LOC: US 07:06 → FBC 13:59
PROVIDERS: PCP Family Medicine; Visit Provider Obstetrics & Gynecology
DX: O24.414 Gestational diabetes mellitus in pregnancy, insulin controlled (principal); Z3A.36 36 weeks gestation of pregnancy
CPT/HCPCS: 76818

== ENCOUNTER 2023-10-02 07:10 | Outpatient (OUT) | payer BC, SELFPAY ==
--- OUTSIDE RECORDS SUMMARY | 2023-10-02 07:13 | XMS_ITS ---
Patient Summarization (C-CDA 2.1 CCD) Created on: October 02, 2023 MARINA CONTRERAS : 1990 Sex: Female Author Organization Sample organization Care Team Providers Care Ancillary Services Manager Therapy Name Role Phone REQUEST, DR NONE LISTED Primary Care Unavaila katarzyna JIMENES, DR TOWNSEND Consulting Unavailable JALIL, DR TOWNSEND Attending Unavailable JALIL, DR TOWNSEND Admitting Unavailable Linda Keith Unavailable Norris Ames Jr. Unavailable Norris Ames Unavailable Kamilah Nance Unavailable Jane ANDERSON, Reinaldo Primary Care Provider JALIL, KRISTIAN Attending Unavailable JALIL, KRISTIAN Attending Unavailable KOKO, NEELAM Attending Unavailable JALIL, KRISTIAN Attending Unavailable KOKO, NEELAM Attending Unavailable JALIL, KRISTIAN Attending Unavailable JALIL, KRISTIAN Attending Unavailable JALIL, KRISTIAN Attending Unavailable Encounters Encounter Date Encounter Type Care Provider Facility Start: 09-25-2023 End: 09-25-2023 ambulatory KRISTIAN JALIL Not Available Start: 09-12-2023 End: 09-12-2023 ambulatory KRISTIAN JALIL Not Available Start: 08-28-2023 End: 08-28-2023 ambulatory KRISTIAN JALIL Not Available Start: 08-14-2023 End: 08-14-2023 ambulatory NEELAM KOKO Not Available Start: 07-27-2023 End: 07-27-2023 ambulatory KRISTIAN JALIL Not Available Start: 06-28-2023 End: 06-28-2023 ambulatory NEELAM KOKO Not Available Start: 05-30-2023 Clinisync Result Encounter Generic External Data Provider [facility] Unsolicited Start: 05-30-2023 External Result Encounter Kristian Jalil DO Work Phone: [facility] Unsolicited Start: 05-30-2023 External Result Encounter Kristian Jimenes DO Work Phone: [facility] Unsolicited Start: 05-30-2023 End: 05-30-2023 Patient encounter procedure Kristian Karimio DO Work Phone: [facility] Work Phone: Start: 05-30-2023 End: 05-30-2023 Periodic preventive med est patient 18-39 yrs Kristian Karimio DO Work Phone: [facility] Comment on above: Well woman exam with routine gynecological exam; Second trimester ; Vaginal discharge; STD exposure; Screening, , for anatomic survey Start: 05-30-2023 End: 05-30-2023 ambulatory KRISTIAN JALIL Not Available Start: 05-01-2023 End: 05-01-2023 ambulatory KRISTIAN JALIL Not Available Start: 03-23-2023 End: 03-23-2023 ambulatory KRISTIAN JALIL Not Available Start: 04-10-2022 End: 04-10-2022 ambulatory Kamilah Nance Other [facility] Other Start: 04-10-2022 Office outpatient vi sit 15 minutes Kamilah Nance [facility] Start: 05-26-2021 End: 05-26-2021 ambulatory Norris Ames Other [facility] Other Start: 05-26-2021 Telephone encounter [facility] Start: 04-30-2021 End: 04-30-2021 ambulatory Norris Ames Other [facility] Other Start: 04-30-2021 Follow-up encounter [facility] Start: 04-13-2021 End: 04-13-2021 ambulatory Linda Keith Other [facility] Other Start: 04-13-2021 Telephone encounter Linda Keith Mayuri [facility] Start: 03-09-2021 End: 03-09-[address] NONE LISTED REQUEST Facility: Start: 03-03-2021 ([facility] RD FU) [facility] F/ U [employer] Linda Sagar [facility] Start: 03-03-2021 End: 03-03-2021 ambulatory Linda Keith Other [facility] Other Start: 02-25-2021 End: 02-25-2021 ambulatory Norris Ames Jr. Other [facility] Other Start: 02-25-2021 Follow-up encounter Norris howard [facility] Start: 02-04-2021 Telephone encounter Norris howard [facility] Start: 01-20-2021 ([facility] RD FU) [facility] F/ U [employer] Linda Keith [facility] Medical Equipment Procedure Code Equipment Code Equipment Origin al Text Equipment Identifier Dates 1 strip by In Vi tro route in the morning. Use in the morning prior to breakfast, 1 hour after each meal for a total of 4times daily.. [id number] Start: 05-23-2023 End: 06-22-2023 1 each by In Vit ro route in the morning. Use to check FSBS four times daily. [id number] Start: 05-23-2023 End: 06-22-2023 Medications Current Medications Medication Drug Class(es) Dates Sig (Normalized) Sig (Original) 3 ML semaglutide 1.34 MG/ML Pen Injector [Ozempic] (3 sources) Start: 04-30-2021 inject 1 mg by subcutaneous injection every week Ozempic (1 MG/DOSE) 4 MG/3ML 1 mg as directed Subcutaneous weekly for 30 days Apr, Active [id number] 200 actuat albuterol 0.09 mg/actuat metered dose inhaler (1 source) beta2-Adrenergic Agonist Start: 04-10-2022 take 2 puff(s) by inhalation every four hours as needed Albuterol Sulfate HFA 108 (90 Base) MCG/ACT 2 puffs as needed Inhalation every 4 hrs 18 Mar, 2022 Active aspirin 81 mg delayed release oral [...] 0 Active take 4 tablets by mo [facility] every twenty-four hours metFORMIN HCl ER 500 [...] tablet (2 sources) Sympathomimetic Amine Anorectic Start: 06-17-2021 take 1 tablet by mouth every twenty-fou [...] Active Start: 06-09-2022 take 1 capsule by [facility] every twenty-four hours in the morning venlafaxine XR (Effexor XR) 150 MG 24 hr capsule Take 150 mg by mouth in the morning. 0 06/09/2022 Active take 1 capsule by [facility] every twenty-four hours Effexor [...] a day for 30 day(s) Feb, Active Payers Date Payer Category Payer Unknown BCBS BCBS [id number] as0001 2022-Present [phone] [address] [place] [address] [id number] 2022 [facility] [id number] 1990 Unknown [id number] 1990 Unknown [id number] .1259 1989 Unknown [id number] .1259 1989 Unknown [id number] [id number] .1259 1989 Unknown [id number] [id number] .9 1989 Unknown [id number] [id number] .1259 1989 Unknown [id number] [id number] .1259 1989 Unknown [id number] [id number] .1259 1989 Unknown [id number] [id number] .1259 1989 Unknown [id number] .1259 1960 Private Health Insurance [id number] Plan of Treatment Date Care Activity Detail Author Start: 06-28-2023 End: 06-28-2023 Patient encounter procedure 06/28/2023 9:30 AM EST Routine [facility] [address] [place] [id number] Neelam Jett PA [address] [place] [address] [facility] Start: 06-13-2023 End: 06-13-2023 Professional / ancillary services management 06/13/2023 9:00 AM EST Ancillary Procedure [facility] [address] [facility] [place] [address] [facility] Start: 05-30-2023 End: 09-28-2023 Alpha fetoprotein, maternal Alpha fetoprotein, maternal Lab Routine Second trimester Expected: 05/30/2023 (Approximate), Expires: 09/28/2023 [facility] Comment on above: Expected: 05/30/2023 (Approximate), Expires: 09/28/2023 Start: 05-30-2023 End: 05-30-2024 US for US OB ANATOMY SINGLE W US OB CERVICAL LENGTH Imaging Routine Screening, , for anatomic survey Expected: 05/30/2023 (Approximate), Expires: 05/30/2024 [facility] Comment on above: Expected: 05/30/2023 (Approximate), Expires: 05/30/2024 Start: 12-23-2022 Influenza vaccination Influenza Vacc ine (#1) [facility] Start: 2019 Screening for malign ant neoplasm of cervix [facility] Start: 2010 Screening for malign ant neoplasm of cervix Pap Smear [facility] CHLAMYDIA TRACHOMATI S (GENITO/STI) CHLAMYDIA TRACHOMATIS (GENITO/STI) Lab Routine STD exposure Ordered: 05/30/2023 [facility] Comment on above: Ordered: 05/30/2023 Cytology Cervical or vaginal smear or scraping study Pap Smear Pathology and Cytology Routine Well woman exam with routine gynecological exam Ordered: 05/30/2023 [facility] Work Phone: Comment on above: Ordered: 05/30/2023 Human papilloma viru s DNA [Presence] in Unspecified specimen by Probe with amplification HPV DNA probe, amplified Microbiology Routine Well woman exam with routine gynecological exam Ordered: 05/30/2023 [facility] Comment on above: Ordered: 05/30/2023 Neisseria gonorrhoea e DNA [Presence] in Unspecified specimen by NANCY with probe detection Neisseria gonorrhea DNA probe, direct Lab Routine STD exposure Ordered: 05/30/2023 [facility] Comment on above: Ordered: 05/30/2023 SURESWAB(R) ADVANCED VAGINITIS PLUS, TMA SURESWAB(R) ADVANCED VAGINITIS PLUS, TMA Pathology and Cytology Routine Vaginal discharge Ordered: 05/30/2023 [facility] Comment on above: Ordered: 05/30/2023 Problems Active Problems Problem Classification Problem Date [...] 04-30-2021 Episodic Viral infection (1 source) COVID-19 Procedures Date Procedure Procedure Detail Performing Clinician Start: 05-30-2023 URETHRITIS/DISCHARGE PLUS VAGINITIS (HTRX) KristianAlekto Work Phone: Start: 05-30-2023 IGP,APTIMA HPV,AGE GDLN [facility] Phone: Start: 05-30-2023 Urnls dip stick/tabl et rgnt non-auto w/o micrscp [facility] Phone: Results Test Name Value Interpretation Reference Range Facility IGP,APTIMA HPV,AGE GDLNon AGE GDLN ACOG TESTING Note . [facility] Comment on above: TESTS RESULT FLAG UN ITS REF RANGE LAB Clinician Provided Cytology Information Source.............[facility] Other.............. No. of containers..01 ThinPrep Vial Age Algo ACOG Jes... 30-65 01 FLAG LEGEND: L-Low Normal,H-High Normal,LL-Alert Low,HH-Alert High <-Panic Low,>-Panic High,A-Abnormal,AA-Critical Abnormal Performed at: 01 = [employer] [id number] Kala Contreras MD, HPV APTIMA Negative Negative [facility] Comment on above: This nucleic acid am plification test detects fourteen high- risk HPV types (16,18,31,33,35,39,45,51,52,56,58,59,66,68) without differentiation. Performed at: =G - [employer] [id number] [employer] Sales Representative: Kala Contreras MD, Phone: [phone] Performed at: [facility] [address] [place], [place] [id number] [employer] Sales Representative: Mike Copeland MD, Phone: [phone] IGP, APTIMA HPV, RFX 16/18,45 Note . [facility] Comment on above: TESTS RESULT FLAG UN ITS REF RANGE LAB DIAGNOSIS: 02 NEGATIVE FOR INTRAEPITHELIAL LESION OR MALIGNANCY. Specimen adequacy: 02 Satisfactory for evaluation. No endocervical component is identified. An endocervical component is not commonly seen in the patient. Performed by: 02 Leeann Ortiz Building Construction Superintendent (ASCP) . 02 Note: Note 03 The [...] High,A-Abnormal,AA-Critical Abnormal Performed at: 02 [facility] [place] [facility] [id number] [place] [id number] Mike Copeland MD, 03 WB [facility] [address] [address] Kala Contreras MD, [facility] URETHRITIS/DISCHARGE PLUS VA GINITIS (HTRX)on 05-31-2023 ATOPOBIUM VAGINAE 0 [facility] ATOPOBIUM VAGINAE Not detected [facility] BVAB 2,3 (BACTERIAL VAGINOSIS ASSOCIATED BACTERIA 2, 3); MOBILUNCUS SPP 0 [facility] BVAB 2,3 (BACTERIAL VAGINOSIS ASSOCIATED BACTERIA 2, 3); MOBILUNCUS SPP Not detected [facility] SIN ALBICANS, PARAPSILOSIS, TROPICALIS 0 [facility] ALBICANS, PARAPSILOSIS, TROPICALIS Not detected [facility] SIN GLABRATA 0 [facility] SIN GLABRATA Not detected [facility] SIN KRUSEI 0 [facility] SIN KRUSEI Not detected [facility] lth[facility] CHLAMYDIA TRACHOMATIS 0 [facility] Healthcare CHLAMYDIA TRACHOMATIS Not detected [facility] GARDNERELLA VAGINALIS 0 [facility] GARDNERELLA VAGINALIS Not detected [facility] MEGASPHAERA (TYPES 1, 2) 0 [facility] MEGASPHAERA (TYPES 1, 2) Not detected [facility] MYCOPLASMA GENITALIUM 0 [facility] MYCOPLASMA GENITALIUM Not detected [facility] NEISSERIA GONORRHOEAE 0 [facility] NEISSERIA GONORRHOEAE Not detected [facility] TRICHOMONAS VAGINALIS 0 [facility] TRICHOMONAS VAGINALIS Not detected [facility] Urinalysis macro (dipstick) panel (U)on 05-30-2023 Bilirubin, UA Negative Negative - 4(70) +++ mg/dL [facility] Blood, UA Negative Negative - 50 Zach/mcL [facility] Clarity, UA Clear [facility] re Color, UA Yellow [facility] Glucose, UA Negative Negative - 1999(110) ++++ mg/dL [facility] Interpretation and review of laboratory results Abnormal [facility] re Ketones, UA Positive Negative - 160(16) ++++ mg/dL [facility] Leukocytes, UA Negative Negative - 500+++ Magaly/mcL [facility] Nitrite, UA Negative Negative - Positive [facility] pH, UA 5.5 5 - 9 [facility] Protein, UA Negative Negative - 1999(20) ++++ mg/dL [facility] Spec Grav, UA 1.020 1 - 1.03 [facility] Urobilinogen, UA 1.0 0.2 - 12 mg/dL [facility] Health[facility] e COVID + FLU Quick Testingon 04-10-2022 SARS-CoV-2 (COVID-19) RNA NANCY+probe Ql (Unsp spec) Positive [facility] Other COVID + FLU Quick Testing Positive [facility] Other Quick Strepon 04-10-2022 S. pyogenes Org specific cx Ql (Throat) Negative [facility] Other Quick Strep [facility] Other A1C with Estimated Average G luon 04-28-2021 Glucose [Mass/Vol] 108 mg/dL Normal [facility] Comment on above: Order Comment: Reaso n for Exam Prediabetes Result Comment: PERF ORMED BY: [place] [id number] PATHOLOGIST HOLE PUNCHER STRAP THEO CHU M.D. Performed By: #### A 1C WTH eA, LIPID, GLU, B12 #### [address] HbA1c (Bld) [Mass fraction] 5.4 % Normal 4.3-5.6 [facility] Comment on above: Order Comment: Reaso n for Exam Prediabetes Result Comment: Incr eased risk for diabetes: 5.7 - 6.4 diabetes: >6.4 glycemic control for adults with diabetes: <7.0 Performed By: #### A 1C WTH eA, LIPID, GLU, B12 #### [address] Glucoseon 04-28-2021 Glucose [Mass/Vol] 97 mg/dL Normal 70-100 [facility] Comment on above: Order Comment: Reaso n for Exam Prediabetes Reason for Exam Mixed hyperlipidemia Reason for Exam Low vitamin B12 level Result Comment: [place] Glucose Reference Range is dependent on time and content of last meal. Glucose of more than 200 mg/dL in a nonstressed, ambulatory subject supports the diagnosis of Diabetes Mellitus. ADA recommended reference range Performed By: #### A 1C WTH eA, LIPID, GLU, B12 #### [address] Lipid Panelon 04-28-2021 Cholesterol [Mass/Vol] 171 mg/dL Normal 140-200 [facility] Comment on above: Order Comment: Reaso n for Exam Prediabetes Reason for Exam Mixed hyperlipidemia Reason for Exam Low vitamin B12 level Result Comment: Chol less than 200 mg/dl low risk Chol 201-239 mg/dl borderline risk Chol 240 mg/dl and greater high risk Performed By: #### A 1C WTH eA, LIPID, GLU, B12 #### [address] Cholesterol in HDL [Mass/Vol] 41 mg/dL Normal 35-85 [facility] Comment on above: Order Comment: Reaso n for Exam Prediabetes Reason for Exam Mixed hyperlipidemia Reason for Exam Low vitamin B12 level Result Comment: HDL CHOL ATP-III CLASSIFICATION Cardiovascular Risk HDL > or equal to 60 mg/dL LOW HDL < 40 mg/dL HIGH Performed By: #### A 1C WTH eA, LIPID, GLU, B12 #### [facility] [address] [place] [address] [place] Cholesterol.total/C holesterol in HDL [Mass ratio] 4.2 {ratio} Normal <5.0 [facility] Comment on above: Order Comment: Reaso n for Exam Prediabetes Reason for Exam Mixed hyperlipidemia Reason for Exam Low vitamin B12 level Performed By: #### A 1C WTH eA, LIPID, GLU, B12 #### [facility] [address] LDL Cholesterol,Calcula madelin 95 mg/dL Normal 0-100 [facility] Comment on above: Order Comment: [...] 1C WTH eA, LIPID, GLU, B12 #### [facility] [address] [place] [id number] [place] Triglyceride w/Reflex 176 mg/dL High 35-149 [facility] Comment on above: Order Comment: [...] 1C WTH eA, LIPID, GLU, B12 #### [facility] [address] [place] [id number] [facility] VLDL CHOLESTEROL 35 mg/dL Normal [facility] Comment on above: Order Comment: Reaso n for Exam Prediabetes Reason for Exam Mixed hyperlipidemia Reason for Exam Low vitamin B12 level Performed By: #### A 1C WT eA, LIPID, GLU, B12 #### [facility] [address] [place] [id number] [facility] Vitamin B12on 04-28-2021 Cobalamin (Vitamin B12) [Mass/Vol] 633 pg/mL Normal 180-914 [facility] Comment on above: Order Comment: Reaso n for Exam Prediabetes Reason for Exam Mixed hyperlipidemia Reason for Exam Low vitamin B12 level Result Comment: PERF ORMED BY: [facility] [address] [place] [address] PATHOLOGIST HOLE PUNCHER STRAP THEO CHU M.D. Performed By: #### A 1C WT eA, LIPID, GLU, B12 #### [facility] [address] PAP ACOG PANEL 2: 30 to 65on 03-16-2021 . . Normal [facility] Comment on above: Result Comment: Perf ormed at: WB Performed By: #### [id number] #### [facility] [address] [address] [address] Tete Peters Age Gdln ACOG Testing 30-65 Normal [facility] Comment on above: Performed By: #### 4 [id number] #### [facility] [address] [place] [address] [address] Tete Peters DIAGNOSIS: Comment Normal [facility] Comment on above: Result Comment: NEGA TIVE FOR INTRAEPITHELIAL LESION OR MALIGNANCY. THIS SPECIMEN WAS RESCREENED PART OF OUR BAKERY SALES CLERK PROGRAM. Performed at: WB Performed By: #### [id number] #### [facility] [address] [address] [address] Tete Peters HPV Aptima Negative Normal Negative [facility] Comment on above: Result Comment: This nucleic acid amplification test detects fourteen high-risk HPV types (16,18,31,33,35,39,45,51,52,56,58,59,66,68) without differentiation. Performed at: =G Performed By: #### 4 [id number] #### [facility] [address] [place] [address] Dr. Tete Peters Methodology: Comment [facility] Comment on above: Result Comment: This liquid based ThinPrep(R) pap test was screened with the use of an image guided system. Performed at: WB Performed By: #### 4 [id number] #### [facility] [address] [place] [address] Dr. Tete Peters Note: Comment Normal [facility] Comment on above: Result Comment: The Pap smear is a screening test designed to aid in the detection of premalignant and malignant conditions of the uterine cervix. It is not a diagnostic procedure and should not be used as the sole means of detecting cervical cancer. Both false-positive and false-negative reports do occur. . Performed at: WB Performed By: #### 4 [id number] #### [facility] [address] [place] [address] Dr. Tete Peters Performed by: Comment Normal [facility] Comment on above: Result Comment: Luisa Ross, Building Construction Superintendent (ASCP) Performed at: WB Performed By: #### [id number] #### [facility] [address] [place] [address] Dr. Tete Peters QC reviewed by: Comment Normal [facility] Comment on above: Result Comment: Monika Ortiz, Supervisory Building Construction Superintendent (ASCP) Performed at: WB Performed By: #### 4 [id number] #### [facility] [address] [place] [address] Dr. Tete Peetrs Specimen adequacy: Comment Normal [facility] Comment on above: Result Comment: Sati sfactory for evaluation. Endocervical and/or squamous metaplastic cells (endocervical component) are present. Performed at: WB Performed By: #### 4 [id number] #### [facility] [address] [place] [address] Dr. Tete Peters Vitamin B12on 01-12-2021 Cobalamin (Vitamin B12) [Mass/Vol] 297 pg/mL Normal 180-914 [facility] Comment on above: Order Comment: Reaso n for Exam Prediabetes Result Comment: PERF ORMED BY: [place] [id number] PATHOLOGIST HOLE PUNCHER STRAP THEO CHU M.D. Performed By: #### B 12 #### [place] [id number] [facility] ONSHORE DIVER polysom portableon 11-16 ONSHORE DIVER polysom portable [facility] Main [place] [address] [place], [place] [id number] Sleep Lab Report Signed Patient: Marina Contreras MR#: [id number] : 1990 Acct:[id number] Age/Sex: 30 / F ADM Date: 11/09/20 Loc: Room: Type: [facility] Attending Dr: Anne Marie Mejía MD [...] home sleep test was performed utilizing the [employer] T3 system. Parameters recorded include actigraphy, [...] Dictated By: Anne Marie Mejía MD 11/16/20 1543 Signed By: 11/18/20 3104 [facility] Social History Date Type Detail Facility Start: 05-30-2023 Alcohol intake Current drinke r of alcohol (finding) [facility] Start: 04-05-2023 Sex Assigned At N [facility] Other Start: 04-05-2023 Tobacco smoking status NHIS Ex-smoker [facility] Start: 04-05-2023 History of Social function [facility] Start: 04-05-2023 Alcohol Comment 1 or 2 drinks on a typical day/ monthly or less [facility] Start: 02-02-2023 [facility] Start: 1990 Sex Assigned At Not on file N [facility] Unknown if ever smoked [facility] [employer] Other History of tobacco use Current smoker [facility] History of tobacco use Cigarette Smoker [facility] Vital Signs Date Time Vital Sign Value Performing Clinician Facility 05-30-2023 09:36-0500 Body weight 116.48 kg [employer] Jalil DO Work Phone: [facility] 05-30-2023 09:36-0500 Diastolic blood pressure 70 mm[Hg] Kristian Jalil DO Work Phone: [facility] 05-30-2023 09:36-0500 Systolic blood pressure 116 mm[Hg] Kristian Jalil DO Work Phone: [facility] 04-10-2022 14:00-0500 Body height 157.48 cm Kamilah Nance Other [facility] Other 04-10-2022 14:00-0500 Body mass index (BMI) [Ratio] 44.92 kg/m2 Kamilah Nance Other [facility] Other 04-10-2022 14:00-0500 Body temperature 99.5 [degF] Kamilah Nance Other [facility] Other 04-10-2022 14:00-0500 Body weight 111.4 kg Kamilah Nance Other [facility] Other 04-10-2022 14:00-0500 Diastolic blood pressure 68 mm[Hg] Kamilah Nance Other [facility] Other 04-10-2022 14:00-0500 Respiratory rate 18 /min Kamilah Nance Other [facility] Other 04-10-2022 14:00-0500 SaO2% (BldA) [Mass fraction] 95 % Kamilah Nance Other [facility] Other 04-10-2022 14:00-0500 Systolic blood pressure 116 mm[Hg] Kamilah Nance Other [facility] Other 04-30-2021 10:45-0500 Body height 157.48 cm Norris Ames Other [facility] Other 04-30-2021 10:45-0500 Body mass index (BMI) [Ratio] 41.72 kg/m2 Norris Ames Other [facility] Other 04-30-2021 10:45-0500 Body weight 103.47 kg Norris Ames Other [facility] Other 04-30-2021 10:45-0500 Diastolic blood pressure 75 mm[Hg] Norris Ames Other [facility] Other 04-30-2021 10:45-0500 Respiratory rate 18 /min Norris Ames Other [facility] Other 04-30-2021 10:45-0500 SaO2% (BldA) [Mass fraction] 99 % Norris Ames Other [facility] Other 04-30-2021 10:45-0500 Systolic blood pressure 110 mm[Hg] Norris Ames Other [facility] Other 03-03-2021 11:30-0500 Body height 157.48 cm Linda Sagar Other [facility] Other 03-03-2021 11:30-0500 Body mass index (BMI) [Ratio] 42.5 kg/m2 Linda Fitt Other [facility] Other 03-03-2021 11:30-0500 Body weight 105.42 kg Linda Fitt Other [facility] Other 02-25-2021 12:00-0400 Body height 157.48 cm Norris Ames Jr. Other [facility] Other 02-25-2021 12:00-0400 Body mass index (BMI) [Ratio] 41.92 kg/m2 Norris Ames Jr. Other [facility] Other 02-25-2021 12:00-0400 Body weight 103.97 kg Norris Ames Jr. Other [facility] Other 02-25-2021 12:00-0400 Diastolic blood pressure 79 mm[Hg] Norris Ames Jr. Other [facility] Other 02-25-2021 12:00-0400 Respiratory rate 18 /min Norris Ames Jr. Other [facility] Other 02-25-2021 12:00-0400 SaO2% (BldA) [Mass fraction] 97 % Norris Ames Jr. Other [facility] Other 02-25-2021 12:00-0400 Systolic blood pressure 118 mm[Hg] Norris Ames Jr. Other [facility] Other 01-20-2021 10:00-0400 Body height 157.48 cm Linda Keith Other [facility] Other 01-20-2021 10:00-0400 Body mass index (BMI) [Ratio] 42.68 kg/m2 Linda Keith Other [facility] Other 01-20-2021 10:00-0400 Body weight 105.87 kg Linda Keith Other [facility] Other History of Present illness Narrative 05-30-2023 Candace SUMA Esposito - 05/30/2023 9:20 AM EST Note Date [...] nursing note reviewed. Exam conducted with a briquetter operator present. Vitals: There is no height or [...] Kristian Jimenes DO documented in this encounter [facility] Evaluation note 04-10-2022 Note Date [...] should improve within the next 4-7 days. [facility] Other Evaluation note 04-30-2021 Note Date & [...] Low vitamin B12 level (ICD-10 - E53.8) [facility] Other Evaluation note 03-03-2021 Note Date & [...] holidays (C) Answered general, nutrition-rela madelin questions [facility] Other Evaluation note 02-25-2021 Note Date & [...] Low vitamin B12 level (ICD-10 - E53.8) [facility] Other Evaluation note 01-20-2021 Note Date & [...] methods (C) Answered general nutrition-rel ated questions [facility] Other Evaluation note Note Date & Type Note Facility Evaluation note No Information [facility] Other Evaluation note Note Date & Type [...] Surgical History appendectomy Hospitalization History see above [facility] Other Summary Purpose Family History No Family History Records FoundNo Family History Records FoundNo Family History Records Found Advance Directives No Advanced Directives Records FoundNo Advanced Directives Records FoundNo Advanced Directives Records Found Additional Source Comments INFORMATION SOURCE (unrecogn ized section and content) DATE CREATED AUTHOR 03/17/2021 [facility] DATE CREATED AUTHOR AUTHOR'S ORGANIZ ATION 10/28/2021 [facility] DATE CREATED AUTHOR AUTHOR'S ORGANIZ ATION 09/26/2023 [facility] EPIC REASON FOR VISIT (unrecogniz ed section and content) Reason Comments Routine Visit [facility] Visit CONGESTION B/A H/A SORE THRAOTFCCC Pt does not wish our services 06/28/21[facility]CCC RD N/S 04/13/2021, LM f/AníbalMN F/DAGOBERTO EX Care Teams (unrecognized sec tion and content) Ancillary Services Manager Therapy Relationship Specialty Start Date End Date Naderer, Reinaldo, MD PCP - General Family Medicine 03/23/23 Ancillary Services Manager Therapy Relationship Specialty Start Date End Date Reinaldo [...] BE BASED ON THE PRIMARY CLINICAL RECORDS. [facility]. provides no warranty or guarantee of the accuracy or completeness of information in this document.
[2023-10-02 12:58] VITALS: BP 141/75; PULSE 89
[2023-10-02 13:15] VITALS: BP 125/67; PULSE 76
== END 2023-10-02 13:30 | disposition home or self-care (01) ==
LOC: FBCO 07:10 → FBC 12:54
PROVIDERS: PCP Family Medicine; Visit Provider Obstetrics & Gynecology
DX: O24.414 Gestational diabetes mellitus in pregnancy, insulin controlled (principal); Z3A.36 36 weeks gestation of pregnancy
CPT/HCPCS: 59025

== ENCOUNTER 2023-10-02 15:17 | Observation (INO) | payer BC, SELFPAY ==
--- NOTE | 2023-10-02 15:33 | PC.NURSE ---
1533 Pt states she has KEEN, feels shaky with weak legs and arms for 2 days, and some intermittent mid upper abdomen pain. Bilat lower extremities from knees down with +1 edema. DTR upper +1 and unable to elicit patellar DTR.
[2023-10-02 15:48] VITALS: BP 111/68; PULSE 73
[2023-10-02 15:53] LABS: Basophils Percent Auto 0.3 % (0.2-2.0); Eosinophils Absolute Auto 0.1 10^3/uL (0.0-0.7); Eosinophils Percent Auto 0.5 % (0.9-7.0); Hematocrit 32.3 % (36.0-48.0); Hemoglobin 10.8 g/dL (12.0-16.0); Immature Granulocytes Abs Auto 0.04 10^3/uL (0.00-0.03); Immature Granulocytes Pct Auto 0.4 % (0.0-0.5); Lymphocytes Absolute Auto 2.1 10^3/uL (1.2-3.8); Lymphocytes Percent Auto 19.3 % (20.5-60.0); Mean Corpuscular HGB Conc 33.4 g/dL (29.9-35.2); Mean Corpuscular Hemoglobin 28.6 pg (26.7-34.0); Mean Corpuscular Volume 85.7 fL (81.0-99.0); Mean Platelet Volume 10.9 fL (9.5-13.5); Monocytes Absolute Auto 0.5 10^3/uL (0.3-0.8); Monocytes Percent Auto 4.4 % (1.7-12.0); Neutrophils Absolute Auto 8.2 10^3/uL (1.4-6.5); Neutrophils Percent Auto 75.1 % (43.0-75.0); Platelet Count 290 10^3/uL (150-450); Red Blood Count 3.77 10^6/uL (4.20-5.40); Red Cell Distribution Width 13.9 % (11.0-15.0)
[2023-10-02 16:09] LABS: INR 1.03; Partial Thromboplastin Time 25.4 sec (22.3-36.2); Prothrombin Time 10.9 sec (9.0-11.6)
[2023-10-02 16:19] VITALS: BP 112/68; PULSE 68
[2023-10-02 16:23] LABS: Alanine Aminotransferase 16 U/L (14-59); Aspartate Amino Transferase 16 U/L (15-37); Estimated GFR (African America >60 (>=60); Estimated GFR (Non-African Ame >60 (>=60); Lactate Dehydrogenase 152 U/L (81-234)
[2023-10-02 16:49] VITALS: BP 114/67; PULSE 83
== END 2023-10-02 17:25 | disposition home or self-care (01) ==
LOC: FBC 15:19
PROVIDERS: Admitting Provider Obstetrics & Gynecology; PCP Family Medicine; Visit Provider Obstetrics & Gynecology
DX: O24.414 Gestational diabetes mellitus in pregnancy, insulin controlled (principal); O26.893 Other specified pregnancy related conditions, third trimester; R51.9 Headache, unspecified; R53.1 Weakness; R10.10 Upper abdominal pain, unspecified; Z3A.36 36 weeks gestation of pregnancy
CPT/HCPCS: 36415; 59025; 82565; 83615; 84156; 84450; 84460; 84520; 84550; 85025; 85610; 85730; 87081; G0378; G0379

== ENCOUNTER 2023-10-02 20:40 | Outpatient (REF) | payer BC, SELFPAY ==
--- OUTSIDE RECORDS SUMMARY | 2023-10-02 20:46 | XMS_ITS ---
Patient Summarization (C-CDA 2.1 CCD) Created on: October 02, 2023 MARINA CONTRERAS : 1990 Sex: Female Author Organization Sample organization Care Team Providers Care Razor Grinder Name Role Phone REQUEST, DR NONE LISTED Primary Care Unavaila katarzyna JIMENES, DR TOWNSEND Consulting Unavailable JALIL, DR TOWNSEND Attending Unavailable JALIL, DR TOWNSEND Admitting Unavailable Linda Keith Unavailable Norris Ames Jr. Unavailable [phone] Norris Ames Unavailable Kamilah Nance Unavailable Jane [...] 04-10-2022 End: 04-10-2022 ambulatory Kamilah Nance Other [employer] Other Start: 04-10-2022 Office outpatient vi sit 15 minutes Kamilah Nance [facility] Start: 05-26-2021 End: 05-26-2021 ambulatory Norris Ames Other [facility] Other Start: 05-26-2021 Telephone encounter [facility] Start: 04-30-2021 End: 04-30-2021 ambulatory Norris Ames Other [facility] Other Start: 04-30-2021 Follow-up encounter [facility] Start: 04-13-2021 End: 04-13-2021 ambulatory Linda Keith Other [employer] Other Start: 04-13-2021 Telephone encounter Linda Keith [facility] Start: 03-09-2021 End: 03-09-[address] NONE LISTED REQUEST Facility: Start: 03-03-2021 ([facility] RD FU) [facility] F/ U Registerd Personal Secretary Linda Sagar [facility] Start: 03-03-2021 End: 03-03-2021 ambulatory Linda Keith Other [facility] Other Start: 02-25-2021 End: 02-25-2021 ambulatory Norris Ames Jr. Other [facility] Other Start: 02-25-2021 Follow-up encounter Norris howard [facility] Start: 02-04-2021 Telephone encounter Norris howard [facility] Start: 01-20-2021 ([facility] FU) [facility] F/ U Registerd Personal Secretary Linda Keith [facility] Medical Equipment Procedure Code Equipment Code Equipment Origin al Text Equipment Identifier Dates 1 strip by In Vi tro route in the morning. Use in the morning prior to breakfast, 1 hour after each meal for a total of 4times daily.. [id number] Start: 05-23-2023 End: 06-22-2023 1 each by In Vit ro route in the morning. Use to check FSBS four times daily. [id number] Start: 05-23-2023 End: 06-22-2023 Medications Current Medications Medication Drug Class(es) Dates Sig (Normalized) Sig (Original) 3 ML semaglutide 1.34 MG/ML Pen Injector [Ozempic] (3 sources) Start: 04-30-2021 inject 1 mg by subcutaneous injection every week Ozempic (1 MG/DOSE) 4 MG/3ML 1 mg as directed Subcutaneous weekly for 30 days Apr, Active [id number] actuat albuterol 0.09 mg/actuat metered dose [...] 0 Active take 4 tablets by mo [facility] every twenty-four hours metFORMIN HCl ER [...] Active Start: 06-09-2022 take 1 capsule by [facility] every twenty-four hours in the morning venlafaxine XR (Effexor XR) 150 MG 24 hr capsule Take 150 mg by mouth in the morning. 0 06/09/2022 Active take 1 capsule by [facility] every twenty-four hours Effexor XR 150 [...] Payer Category Payer Unknown BCBS BCBS xxxxxx [id number] 2022-Present [phone] [address] [place] [address] [id number] 2022 [facility] [id number] 1990 Unknown [id number] [id number] .593 1990 Unknown [id number] [id number] .1259 1989 Unknown [id number] 2.16.840.1.282030.3.579.2 .1259 1989 Unknown [id number] 2.16.840.1.788120.3.579.2 .1259 1989 Unknown [id number] 2.16.840.1.060502.3.579.2 .9 1989 Unknown [id number] 2.16.840.1.923741.3.579.2 .1259 1989 Unknown [id number] 2.16.840.1.454156.3.579.2 .1259 1989 Unknown [id number] 2.16.840.1.887947.3.579.2 .1259 1989 Unknown [id number] 2.16.840.1.430595.3.579.2 .1259 1989 Unknown [id number] [id number] .1259 1960 Private Health Insurance [id number] Plan of Treatment Date Care Activity Detail Author Start: 06-28-2023 End: 06-28-2023 Patient encounter procedure 06/28/2023 9:30 AM EST Routine [facility] [address] [place] [id number] Neelam Jett PA [address] [place] [address] [facility] Start: 06-13-2023 End: 06-13-2023 Professional / ancillary services management 06/13/2023 9:00 AM EST Ancillary Procedure [facility] [address] [facility] [place] [address] [facility] Start: 05-30-2023 End: 09-28-2023 Alpha fetoprotein, maternal Alpha fetoprotein, maternal Lab Routine Second trimester Expected: 05/30/2023 (Approximate), Expires: 09/28/2023 [facility] Comment on above: Expected: 05/30/2023 (Approximate), Expires: 09/28/2023 Start: 05-30-2023 End: 05-30-2024 US for US OB ANATOMY SINGLE W US OB CERVICAL LENGTH Imaging Routine Screening, , for anatomic survey Expected: 05/30/2023 (Approximate), Expires: 05/30/2024 [facility] Comment on above: Expected: 05/30/2023 (Approximate), Expires: 05/30/2024 Start: 12-23-2022 Influenza vaccination Influenza Vacc ine (#1) [facility] Start: 2019 Screening for malign ant neoplasm of cervix [facility] Start: 2010 Screening for malign ant neoplasm of cervix Pap Smear [facility] CHLAMYDIA TRACHOMATI S (GENITO/STI) CHLAMYDIA TRACHOMATIS (GENITO/STI) Lab Routine STD exposure Ordered: 05/30/2023 [facility] Comment on above: Ordered: 05/30/2023 Cytology Cervical or vaginal smear or scraping study Pap Smear Pathology and Cytology Routine Well woman exam with routine gynecological exam Ordered: 05/30/2023 [facility] Work Phone: Comment on above: Ordered: 05/30/2023 Human papilloma viru s DNA [Presence] in Unspecified specimen by Probe with amplification HPV DNA probe, amplified Microbiology Routine Well woman exam with routine gynecological exam Ordered: 05/30/2023 [facility] Comment on above: Ordered: 05/30/2023 Neisseria gonorrhoea e DNA [Presence] in Unspecified specimen by NANCY with probe detection Neisseria gonorrhea DNA probe, direct Lab Routine STD exposure Ordered: 05/30/2023 [facility] Comment on above: Ordered: 05/30/2023 SURESWAB(R) ADVANCED VAGINITIS PLUS, TMA SURESWAB(R) ADVANCED VAGINITIS PLUS, TMA Pathology and Cytology Routine Vaginal discharge Ordered: 05/30/2023 [facility] Comment on above: Ordered: 05/30/2023 Problems Active [...] Clinician Start: 05-30-2023 URETHRITIS/DISCHARGE PLUS VAGINITIS (HTRX) [facility] Work Phone: Start: 05-30-2023 IGP,APTIMA HPV,AGE GDLN [facility] Phone: Start: 05-30-2023 Urnls dip stick/tabl et rgnt non-auto w/o micrscp [facility] Phone: Results Test Name Value Interpretation Reference Range Facility IGP,APTIMA HPV,AGE GDLNon AGE GDLN ACOG TESTING Note . [facility] Comment on above: TESTS RESULT FLAG UN ITS REF RANGE LAB Clinician Provided Cytology Information Source.............[facility] Other.............. No. of containers..01 ThinPrep Vial Age Algo ACOG Jes... 30-65 01 FLAG LEGEND: L-Low Normal,H-High Normal,LL-Alert Low,HH-Alert High <-Panic Low,>-Panic High,A-Abnormal,AA-Critical Abnormal Performed at: 01 = [facility] [address] Kala Contreras MD, HPV APTIMA Negative Negative [facility] Comment on above: This nucleic acid am plification test detects fourteen high- risk HPV types (16,18,31,33,35,39,45,51,52,56,58,59,66,68) without differentiation. Performed at: =G - [facility] [id number] Terminal Supervisor: Kala Contreras MD, Phone: [phone] Performed at: [facility] [address] [place], [place] [id number] Terminal Supervisor: Mike Copeland MD, Phone: [phone] IGP, APTIMA HPV, RFX 16/18,45 Note . [facility] Comment on above: TESTS RESULT FLAG UN ITS REF RANGE LAB DIAGNOSIS: 02 NEGATIVE FOR INTRAEPITHELIAL LESION OR MALIGNANCY. Specimen adequacy: 02 Satisfactory for evaluation. No endocervical component is identified. An endocervical component is not commonly seen in the patient. Performed by: 02 Leeann Ortiz Prompt Care Rn (ASCP) . 02 Note: Note 03 The [...] High,A-Abnormal,AA-Critical Abnormal Performed at: 02 KWCYT [facility] [place] [facility] [id number] [place] [phone] Mike Copeland MD, 03 WB [facility] [address] [address] Kala Contreras MD, SP[facility] URETHRITIS/DISCHARGE PLUS VA GINITIS (HTRX)on 05-31-2023 ATOPOBIUM VAGINAE 0 [facility] ATOPOBIUM VAGINAE Not detected [facility] BVAB 2,3 (BACTERIAL VAGINOSIS ASSOCIATED BACTERIA 2, 3); MOBILUNCUS SPP 0 [facility] BVAB 2,3 (BACTERIAL VAGINOSIS ASSOCIATED BACTERIA 2, 3); MOBILUNCUS SPP Not detected [facility] SIN ALBICANS, PARAPSILOSIS, TROPICALIS [facility] ALBICANS, PARAPSILOSIS, TROPICALIS Not detected [facility] SIN GLABRATA 0 [facility] SIN GLABRATA Not detected [facility] SIN KRUSEI 0 [facility] SIN KRUSEI Not detected [facility] CHLAMYDIA TRACHOMATIS 0 [facility] Healthcare CHLAMYDIA TRACHOMATIS Not detected [facility] GARDNERELLA VAGINALIS 0 [facility] GARDNERELLA VAGINALIS Not detected [facility] MEGASPHAERA (TYPES 1, 2) 0 [facility] MEGASPHAERA (TYPES 1, 2) Not detected [facility] MYCOPLASMA GENITALIUM 0 [facility] MYCOPLASMA GENITALIUM Not detected [facility] NEISSERIA GONORRHOEAE 0 [facility] NEISSERIA GONORRHOEAE Not detected [facility] TRICHOMONAS VAGINALIS 0 [facility] TRICHOMONAS VAGINALIS Not detected [facility]inalysis macro (dipstick) panel (U)on 05-30-2023 Bilirubin, UA Negative Negative - 4(70) +++ mg/dL [facility] Blood, UA Negative Negative - 50 Zach/mcL [facility] Clarity, UA Clear [facility] re Color, UA Yellow [facility] Glucose, UA Negative Negative - 1999(110) ++++ mg/dL [facility] Interpretation and review of laboratory results Abnormal [facility] re Ketones, UA Positive Negative - 160(16) ++++ mg/dL [facility] Leukocytes, UA Negative Negative - 500+++ Magaly/mcL [facility] Nitrite, UA Negative Negative - Positive [facility] pH, UA 5.5 5 - 9 [facility] Protein, UA Negative Negative - 1999(20) ++++ mg/dL [facility] Spec Grav, UA 1.020 1 - 1.03 [facility] Urobilinogen, UA 1.0 0.2 - 12 mg/dL [facility] COVID + FLU Quick Testingon 04-10-2022 SARS-CoV-2 (COVID-19) RNA NANCY+probe Ql (Unsp spec) Positive [facility] Other COVID + FLU Quick Testing Positive [facility] Other Quick Strepon 04-10-2022 S. pyogenes Org specific cx Ql (Throat) Negative [facility] Other Quick Strep [facility] Other A1C with Estimated Average G luon 04-28-2021 Glucose [Mass/Vol] 108 mg/dL Normal [facility] Comment on above: Order Comment: Reaso n for Exam Prediabetes Result Comment: PERF ORMED BY: [place] [address] PATHOLOGIST LICENSED FUNERAL DIRECTOR THEO CHU M.D. Performed By: #### A 1C WTH eA, LIPID, GLU, B12 #### [address] HbA1c (Bld) [Mass fraction] 5.4 % Normal 4.3-5.6 [facility] Comment on above: Order Comment: Reaso n for Exam Prediabetes Result Comment: Incr eased risk for diabetes: 5.7 - 6.4 diabetes: >6.4 glycemic control for adults with diabetes: <7.0 Performed By: #### A 1C WTH eA, LIPID, GLU, B12 #### [address] Glucoseon 04-28-2021 Glucose [Mass/Vol] 97 mg/dL Normal 70-100 [facility] Comment on above: Order Comment: Reaso n for Exam Prediabetes Reason for Exam Mixed hyperlipidemia Reason for Exam Low vitamin B12 level Result Comment: [place] Glucose Reference Range is dependent on time and content of last meal. Glucose of more than 200 mg/dL in a nonstressed, ambulatory subject supports the diagnosis of Diabetes Mellitus. ADA recommended reference range Performed By: #### A 1C WTH eA, LIPID, GLU, B12 #### [address] Lipid Panelon 04-28-2021 Cholesterol [Mass/Vol] 171 mg/dL Normal 140-200 [facility] Comment on above: Order Comment: Reaso n for Exam Prediabetes Reason for Exam Mixed hyperlipidemia Reason for Exam Low vitamin B12 level Result Comment: Chol less than 200 mg/dl low risk Chol 201-239 mg/dl borderline risk Chol 240 mg/dl and greater high risk Performed By: #### A 1C WTH eA, LIPID, GLU, B12 #### [address] Cholesterol in HDL [Mass/Vol] 41 mg/dL Normal 35-85 [facility] Comment on above: Order Comment: Reaso n for Exam Prediabetes Reason for Exam Mixed hyperlipidemia Reason for Exam Low vitamin B12 level Result Comment: HDL CHOL ATP-III CLASSIFICATION Cardiovascular Risk HDL > or equal to 60 mg/dL LOW HDL < 40 mg/dL HIGH Performed By: #### A 1C WTH eA, LIPID, GLU, B12 #### [facility] [address] [place] [address] [place] Cholesterol.total/C holesterol in HDL [Mass ratio] 4.2 {ratio} Normal <5.0 [facility] Comment on above: Order Comment: Reaso n for Exam Prediabetes Reason for Exam Mixed hyperlipidemia Reason for Exam Low vitamin B12 level Performed By: #### A 1C WTH eA, LIPID, GLU, B12 #### [facility] [address] LDL Cholesterol,Calcula madelin 95 mg/dL Normal 0-100 [facility] Comment on above: Order Comment: Reaso [...] 1C WTH eA, LIPID, GLU, B12 #### [facility] [address] [place] [id number] [place] Triglyceride w/Reflex 176 mg/dL High 35-149 [facility] Comment on above: Order Comment: Reaso [...] 1C WTH eA, LIPID, GLU, B12 #### [facility] [address] [place] [id number] [facility] VLDL CHOLESTEROL 35 mg/dL Normal [facility] Comment on above: Order Comment: Reaso n for Exam Prediabetes Reason for Exam Mixed hyperlipidemia Reason for Exam Low vitamin B12 level Performed By: #### A 1C WT eA, LIPID, GLU, B12 #### [facility] [address] [place] [id number] [facility] Vitamin B12on 04-28-2021 Cobalamin (Vitamin B12) [Mass/Vol] 633 pg/mL Normal 180-914 [facility] Comment on above: Order Comment: Reaso n for Exam Prediabetes Reason for Exam Mixed hyperlipidemia Reason for Exam Low vitamin B12 level Result Comment: PERF ORMED BY: [facility] [address] [place] [address] PATHOLOGIST LICENSED FUNERAL DIRECTOR THEO CHU M.D. Performed By: #### A 1C WT eA, LIPID, GLU, B12 #### [facility] [address] PAP ACOG PANEL 2: 30 to 65on 03-16-2021 . . Normal [facility] Comment on above: Result Comment: Perf ormed at: WB Performed By: #### [id number] #### [facility] [address] [place] [address] [address] Tete Peters Age Gdln ACOG Testing 30-65 Normal [facility] Comment on above: Performed By: #### 4 [id number] #### [facility] [address] [address] [address] Tete Peters DIAGNOSIS: Comment Normal [facility] Comment on above: Result Comment: NEGA TIVE FOR INTRAEPITHELIAL LESION OR MALIGNANCY. THIS SPECIMEN WAS RESCREENED PART OF OUR NETWORK SYSTEMS ANALYST PROGRAM. Performed at: WB Performed By: #### [id number] #### [facility] [address] [address] [address] Tete Peters HPV Aptima Negative Normal Negative [facility] Comment on above: Result Comment: This nucleic acid amplification test detects fourteen high-risk HPV types (16,18,31,33,35,39,45,51,52,56,58,59,66,68) without differentiation. Performed at: =G Performed By: #### [id number] #### [facility] [address] [place] [address] Dr. Tete Peters Methodology: Comment [facility] Comment on above: Result Comment: This liquid based ThinPrep(R) pap test was screened with the use of an image guided system. Performed at: WB Performed By: #### [id number] #### [facility] [address] [place] [address] Dr. Tete Peters Note: Comment Normal [facility] Comment on above: Result [...] Performed at: WB Performed By: #### 4 [id number] #### [facility] [address] [place] [address] Dr. Tete Peters Performed by: Comment Normal [facility] Comment on above: Result Comment: Luisa Ross, Prompt Care Rn (ASCP) Performed at: WB Performed By: #### 4 [id number] #### [facility] [address] [place] [address] Dr. Tete Peters QC reviewed by: Comment Normal [facility] Comment on above: Result Comment: Monika Ortiz, Supervisory Prompt Care Rn (ASCP) Performed at: WB Performed By: #### [id number] #### [facility] [address] [place] [address] Dr. Tete Peters Specimen adequacy: Comment Normal [facility] Comment on above: Result Comment: Sati sfactory for evaluation. Endocervical and/or squamous metaplastic cells (endocervical component) are present. Performed at: WB Performed By: #### 4 [id number] #### [facility] [address] [place] [address] Dr. Tete Peters Vitamin B12on 01-12-2021 Cobalamin (Vitamin B12) [Mass/Vol] 297 pg/mL Normal 180-914 [facility] Comment on above: Order Comment: Reaso n for Exam Prediabetes Result Comment: PERF ORMED BY: [place] [id number] PATHOLOGIST LICENSED FUNERAL DIRECTOR THEO CHU M.D. Performed By: #### B 12 #### [place] [id number] [facility] AIRLINE RADIO OPERATOR polysom portableon 11-16 AIRLINE RADIO OPERATOR polysom portable [facility] Main [place] [address] [place], [place] [id number] Sleep Lab Report Signed Patient: Marina Contreras MR#: [id number] : 1990 Acct:[id number] Age/Sex: 30 / F ADM Date: 11/09/20 Loc: Room: Type: [facility] Attending Dr: Anne Marie Mejía [...] home sleep test was performed utilizing the [employer] T3 system. Parameters recorded include actigraphy, [...] Mejía MD 11/16/20 1545 Signed By: 11/18/20 8390 [facility] Social History Date Type Detail Facility Start: 05-30-2023 Alcohol intake Current drinke r of alcohol (finding) [facility] Start: 04-05-2023 Sex Assigned At N [facility] [employer] Other Start: 04-05-2023 Tobacco smoking status NHIS Ex-smoker [facility] Start: 04-05-2023 History of Social function [facility] Start: 04-05-2023 Alcohol Comment 1 or 2 drinks on a typical day/ monthly or less [facility] Start: 02-02-2023 [facility] Start: 1990 Sex Assigned At Not on file N [facility] Unknown if ever smoked [facility] [employer] Other History of tobacco use Current smoker [facility] History of tobacco use Cigarette Smoker [facility] Vital Signs Date Time Vital Sign Value Performing Clinician Facility 05-30-2023 09:36-0500 Body weight 116.48 kg Adioso Jalil DO Work Phone: [facility] 05-30-2023 09:36-0500 Diastolic blood pressure 70 mm[Hg] Kristian Jalil DO Work Phone: [facility] 05-30-2023 09:36-0500 Systolic blood pressure 116 mm[Hg] Kristian Jalil DO Work Phone: [facility] 04-10-2022 14:00-0500 Body height 157.48 cm Kamilah Nance Other [facility] Other 04-10-2022 14:00-0500 Body mass index (BMI) [Ratio] 44.92 kg/m2 Kamilah Nance Other [facility] Other 04-10-2022 14:00-0500 Body temperature 99.5 [degF] Kamilah Nance Other [facility] Other 04-10-2022 14:00-0500 Body weight 111.4 kg Kamilah Nance Other [facility] Other 04-10-2022 14:00-0500 Diastolic blood pressure 68 mm[Hg] Kamilah Nance Other [facility] Other 04-10-2022 14:00-0500 Respiratory rate 18 /min Kamilah Nance Other [facility] Other 04-10-2022 14:00-0500 SaO2% (BldA) [Mass fraction] 95 % Kamilah Nance Other [facility] Other 04-10-2022 14:00-0500 Systolic blood pressure 116 mm[Hg] Kamilah Nance Other [facility] Other 04-30-2021 10:45-0500 Body height 157.48 cm Norris Ames Other [facility] Other 04-30-2021 10:45-0500 Body mass index (BMI) [Ratio] 41.72 kg/m2 Norris Ames Other [facility] Other 04-30-2021 10:45-0500 Body weight 103.47 kg Norris Ames Other [facility] Other 04-30-2021 10:45-0500 Diastolic blood pressure 75 mm[Hg] Norris Ames Other [facility] Other 04-30-2021 10:45-0500 Respiratory rate 18 /min Norris Ames Other [facility] Other 04-30-2021 10:45-0500 SaO2% (BldA) [Mass fraction] 99 % Norris Ames Other [facility] Other 04-30-2021 10:45-0500 Systolic blood pressure 110 mm[Hg] Norris Ames Other [facility] Other 03-03-2021 11:30-0500 Body height 157.48 cm Linda Sagar Other [facility] Other 03-03-2021 11:30-0500 Body mass index (BMI) [Ratio] 42.5 kg/m2 Linda Fitt Other [facility] Other 03-03-2021 11:30-0500 Body weight 105.42 kg Linda Fitt Other [facility] Other 02-25-2021 12:00-0400 Body height 157.48 cm Norris Ames Jr. Other [facility] Other 02-25-2021 12:00-0400 Body mass index (BMI) [Ratio] 41.92 kg/m2 Norris Ames Jr. Other [facility] Other 02-25-2021 12:00-0400 Body weight 103.97 kg Norris Ames Jr. Other [facility] Other 02-25-2021 12:00-0400 Diastolic blood pressure 79 mm[Hg] Norris Ames Jr. Other [facility] Other 02-25-2021 12:00-0400 Respiratory rate 18 /min Norris Ames Jr. Other [facility] Other 02-25-2021 12:00-0400 SaO2% (BldA) [Mass fraction] 97 % Norris Ames Jr. Other [facility] Other 02-25-2021 12:00-0400 Systolic blood pressure 118 mm[Hg] Norris Ames Jr. Other [facility] Other 01-20-2021 10:00-0400 Body height 157.48 cm Linda Keith Other [facility] Other 01-20-2021 10:00-0400 Body mass index (BMI) [Ratio] 42.68 kg/m2 Linda Keith Other [facility] Other 01-20-2021 10:00-0400 Body weight 105.87 kg Linda Keith Other [facility] Other History of Present illness Narrative 05-30-2023 [...] nursing note reviewed. Exam conducted with a plodder operator present. Vitals: There is no height [...] should improve within the next 4-7 days. [facility] Other Evaluation note 04-30-2021 Note Date & [...] Low vitamin B12 level (ICD-10 - E53.8) [facility] Other Evaluation note 03-03-2021 Note Date & [...] holidays (C) Answered general, nutrition-rela madelin questions [facility] Other Evaluation note 02-25-2021 Note Date & [...] Low vitamin B12 level (ICD-10 - E53.8) [facility] Other Evaluation note 01-20-2021 Note Date & [...] methods (C) Answered general nutrition-rel ated questions [facility] Other Evaluation note Note Date & Type Note Facility Evaluation note No Information [employer] Other Evaluation note Note Date & Type [...] Surgical History appendectomy Hospitalization History see above [facility] Other Summary Purpose Family History No Family History Records FoundNo Family History Records FoundNo Family History Records Found Advance Directives No Advanced Directives Records FoundNo Advanced Directives Records FoundNo Advanced Directives Records Found Additional Source Comments INFORMATION SOURCE (unrecogn ized section and content) DATE CREATED AUTHOR 03/17/2021 [facility] DATE CREATED AUTHOR AUTHOR'S ORGANIZ ATION 10/28/2021 [facility] DATE CREATED AUTHOR AUTHOR'S ORGANIZ ATION 09/26/2023 [facility] dical Specialists EPIC REASON FOR VISIT (unrecogniz ed section and content) Reason Comments Routine Visit Well Women Visit CONGESTION B/A H/A SORE THRAOTFCCC Pt does not wish our services 06/28/21FCCC RD N/S 04/13/2021, LM f/AníbalMN F/DAGOBERTO EX Care Teams (unrecognized sec tion and content) Razor Grinder Relationship Specialty Start Date End Date Naderer, Reinaldo, MD PCP - General Family Medicine 03/23/23 Razor Grinder Relationship Specialty Start Date End Date Reinaldo [...] BE BASED ON THE PRIMARY CLINICAL RECORDS. [facility] [employer] [facility]. provides no warranty or guarantee of the accuracy or completeness of information in this document.
== END 2023-10-02 20:41 | disposition home or self-care (01) ==
LOC: LAB 20:40
PROVIDERS: PCP Family Medicine; Visit Provider Obstetrics & Gynecology
DX: Z34.93 Encounter for supervision of normal pregnancy, unspecified, third trimester (principal)
CPT/HCPCS: 87081

== ENCOUNTER 2023-10-05 06:59 | Outpatient (OUT) | payer BC, SELFPAY ==
--- OUTSIDE RECORDS SUMMARY | 2023-10-05 07:01 | XMS_ITS | CCD ---
Author Organization [facility] Care Team Providers Care Linux Security Administrator Name Role Phone REQUEST, DR NONE LISTED [...] Subcutaneous weekly for 30 days Apr, Active [id number] 200 actuat albuterol 0.09 mg/actuat metered dose [...] 0 Active take 4 tablets by mo [facility] every twenty-four hours metFORMIN HCl ER 500 [...] GDLNon AGE GDLN ACOG TESTING Note . [facility] Comment on above: TESTS RESULT FLAG UN ITS REF RANGE LAB Clinician Provided Cytology Information Source.............[facility] Other.............. No. of containers..01 ThinPrep Vial Age Algo ACOG Jes... 30-65 FLAG LEGEND: L-Low Normal,H-High Normal,LL-Alert Low,HH-Alert High <-Panic Low,>-Panic High,A-Abnormal,AA-Critical Abnormal Performed at: 01 =G [facility] [address] Kala Contreras MD, HPV APTIMA Negative Negative [facility] Comment on above: This nucleic acid am plification test detects fourteen high- risk HPV types (16,18,31,33,35,39,45,51,52,56,58,59,66,68) without differentiation. Performed at: =G - [facility] [id number] Steam Power Plant Operator: Kala Contreras MD, Phone: [phone] Performed at: [facility] [address] [place], [place] [id number] [employer] Power Plant Operator: Mike Copeland MD, Phone: [phone] IGP, APTIMA HPV, RFX 16/18,45 Note . [facility] Comment on above: TESTS RESULT FLAG UN ITS REF RANGE LAB DIAGNOSIS: 02 NEGATIVE FOR INTRAEPITHELIAL LESION OR MALIGNANCY. Specimen adequacy: 02 Satisfactory for evaluation. No endocervical component is identified. An endocervical component is not commonly seen in the patient. Performed by: Kelsy Ortiz, Tube Winder Hand (ASCP) . 02 Note: Note 03 The [...] High <-Panic Low,>-Panic High,A-Abnormal,AA-Critical Abnormal Performed at: [facility] [place] [facility] [address] [place] [address] Mike Copeland MD, [address] [address] Klaa Contreras MD, SPATULA-ALONE [facility] Healthcar e URETHRITIS/DISCHARGE PLUS VA GINITIS (HTRX)on 05-31-2023 ATOPOBIUM VAGINAE 0 [facility] ATOPOBIUM VAGINAE Not detected [facility] BVAB 2,3 (BACTERIAL VAGINOSIS ASSOCIATED BACTERIA 2, 3); MOBILUNCUS SPP 0 [facility] BVAB 2,3 (BACTERIAL VAGINOSIS ASSOCIATED BACTERIA 2, 3); MOBILUNCUS SPP Not detected [facility] SIN ALBICANS, PARAPSILOSIS, TROPICALIS 0 [facility] SIN ALBICANS, PARAPSILOSIS, TROPICALIS Not detected [facility] SIN GLABRATA 0 [facility] SIN GLABRATA Not [facility] SIN KRUSEI 0 [facility] Healt hcare SIN KRUSEI Not detected [facility] CHLAMYDIA TRACHOMATIS 0 [facility] CHLAMYDIA TRACHOMATIS Not detected [facility] GARDNERELLA VAGINALIS 0 [facility] GARDNERELLA VAGINALIS Not detected [facility] MEGASPHAERA (TYPES 1, 2) 0 [facility] Healthcare MEGASPHAERA (TYPES 1, 2) Not detected [facility] MYCOPLASMA GENITALIUM 0 [facility] MYCOPLASMA GENITALIUM Not detected [facility] NEISSERIA GONORRHOEAE 0 [facility] NEISSERIA GONORRHOEAE Not detected [facility] TRICHOMONAS VAGINALIS 0 [facility] Healthcare TRICHOMONAS VAGINALIS Not detected [facility] Urinalysis macro (dipstick) panel (U)on 05-30-2023 Bilirubin, UA Negative Negative - 4(70) +++ mg/dL [facility] Blood, UA Negative Negative - 50 Zach/mcL [facility] Clarity, UA Clear [facility] Healthca re Color, UA Yellow [facility] Healthcar e Glucose, UA Negative Negative - 2000(110) ++++ mg/dL [facility] Interpretation and review of laboratory results Abnormal [facility] Healthca re Ketones, UA Positive Negative - 160(16) ++++ mg/dL [facility] Leukocytes, UA Negative Negative - 500+++ Magaly/mcL [facility] Nitrite, UA Negative Negative - Positive [facility] pH, UA 5.5 5 - 9 [facility] Healthcar e Protein, UA Negative Negative - 2000(20) ++++ mg/dL [facility] Spec Grav, UA 1.020 1 - 1.03 [facility] Urobilinogen, UA 1.0 0.2 - 12 mg/dL [facility] Healthcar e COVID + FLU Quick Testingon 04-10-2022 SARS-CoV-2 (COVID-19) RNA NANCY+probe Ql (Unsp spec) Positive [facility] Other COVID + FLU Quick Testing Positive [facility] [facility] Other Quick Strepon 04-10-2022 S. pyogenes Org specific cx Ql (Throat) Negative [facility] Other Quick Strep [facility] Other A1C with Estimated Average G luon 04-28-2021 Glucose [Mass/Vol] 108 mg/dL Normal [facility] Comment on above: Order Comment: Reaso n for Exam Prediabetes Result Comment: PERF ORMED BY: [place] [address] PATHOLOGIST SEASONAL DRIVER THEO CHU M.D. Performed By: #### A 1C WT eA, LIPID, GLU, B12 #### [facility] [address] [place] [address] HbA1c (Bld) [Mass fraction] 5.4 % Normal 4.3-5.6 [facility] Comment on above: Order Comment: Reaso n for Exam Prediabetes Result Comment: Incr eased risk for diabetes: 5.7 - 6.4 diabetes: >6.4 glycemic control for adults with diabetes: <7.0 Performed By: #### A 1C WT eA, LIPID, GLU, B12 #### [facility] [address] [place] [address] Glucoseon 04-28-2021 Glucose [Mass/Vol] 97 mg/dL Normal 70-100 [facility] Comment on above: Order Comment: Reaso n for Exam Prediabetes Reason for Exam Mixed hyperlipidemia Reason for Exam Low vitamin B12 level Result Comment: [facility] Glucose Reference Range is dependent on time and content of last meal. Glucose of more than 200 mg/dL in a nonstressed, ambulatory subject supports the diagnosis of Diabetes Mellitus. ADA recommended reference range Performed By: #### A 1C WTH eA, LIPID, GLU, B12 #### [facility] [address] [id number] [facility] Lipid Panelon 04-28-2021 Cholesterol [Mass/Vol] 171 mg/dL Normal 140-200 [facility] Comment on above: Order Comment: Reaso n for Exam Prediabetes Reason for Exam Mixed hyperlipidemia Reason for Exam Low vitamin B12 level Result Comment: Chol less than 200 mg/dl low risk Chol 201-239 mg/dl borderline risk Chol 240 mg/dl and greater high risk Performed By: #### A 1C WTH eA, LIPID, GLU, B12 #### [facility] [address] [id number] [facility] Cholesterol in HDL [Mass/Vol] 41 mg/dL Normal 35-85 [facility] Comment on above: Order Comment: Reaso n for Exam Prediabetes Reason for Exam Mixed hyperlipidemia Reason for Exam Low vitamin B12 level Result Comment: HDL CHOL ATP-III CLASSIFICATION Cardiovascular Risk HDL > or equal to 60 mg/dL LOW HDL < 40 mg/dL HIGH Performed By: #### A 1C WTH eA, LIPID, GLU, B12 #### [facility] [address] [id number] [facility] Cholesterol.total/C holesterol in HDL [Mass ratio] 4.2 {ratio} Normal <5.0 [facility] Comment on above: Order Comment: Reaso n for Exam Prediabetes Reason for Exam Mixed hyperlipidemia Reason for Exam Low vitamin B12 level Performed By: #### A 1C WTH eA, LIPID, GLU, B12 #### [facility] [address] [id number] [place] LDL Cholesterol,Calcula madelin 95 mg/dL Normal 0-100 [facility] Comment on above: Order Comment: Reaso n [...] 1C WTH eA, LIPID, GLU, B12 #### [facility] [address] Triglyceride w/Reflex 176 mg/dL High 35-149 [facility] Comment on above: Order Comment: Reaso n [...] 1C WTH eA, LIPID, GLU, B12 #### [facility] [address] VLDL CHOLESTEROL 35 mg/dL Normal [facility] Comment on above: Order Comment: Reaso n for Exam Prediabetes Reason for Exam Mixed hyperlipidemia Reason for Exam Low vitamin B12 level Performed By: #### A 1C WTH eA, LIPID, GLU, B12 #### [facility] [address] Vitamin B12on 04-28-2021 Cobalamin (Vitamin B12) [Mass/Vol] 633 pg/mL Normal 180-914 [facility] Comment on above: Order Comment: Reaso n for Exam Prediabetes Reason for Exam Mixed hyperlipidemia Reason for Exam Low vitamin B12 level Result Comment: PERF ORMED BY: [place] [address] PATHOLOGIST SEASONAL DRIVER THEO CHU M.D. Performed By: #### A 1C WTH eA, LIPID, GLU, B12 #### [facility] [address] PAP ACOG PANEL 2: 30 to 65on 03-16-2021 . . Normal [facility] Comment on above: Result Comment: Perf ormed at: WB Performed By: #### [id number] #### [facility] [address] [address] [address] Tete Peters Age Gdln ACOG Testing 30-65 Normal [facility] Comment on above: Performed By: #### [id number] #### [facility] [address] [place] [address] Dr. Tete Peters DIAGNOSIS: Comment Normal [facility] Comment on above: Result Comment: NEGA TIVE FOR INTRAEPITHELIAL LESION OR MALIGNANCY. THIS SPECIMEN WAS RESCREENED PART OF OUR TELECOMMUNICATIONS OPERATOR PROGRAM. Performed at: WB Performed By: #### [id number] #### [facility] [address] [place] [address] Dr. Tete Peters HPV Aptima Negative Normal Negative [facility] Comment on above: Result Comment: This nucleic acid amplification test detects fourteen high-risk HPV types (16,18,31,33,35,39,45,51,52,56,58,59,66,68) without differentiation. Performed at: =G Performed By: #### 4 [id number] #### [facility] [address] [place] [address] Dr. Tete Peters Methodology: Comment Normal [facility] Comment on above: Result Comment: This liquid based ThinPrep(R) pap test was screened with the use of an image guided system. Performed at: WB Performed By: #### [id number] #### [facility] [address] [place] [address] Dr. Tete Peters Note: Comment Normal [facility] Comment on above: Result Comment: The Pap smear is a screening test designed to aid in the detection of premalignant and malignant conditions of the uterine cervix. It is not a diagnostic procedure and should not be used as the sole means of detecting cervical cancer. Both false-positive and false-negative reports do occur. . Performed at: WB Performed By: #### [id number] #### [facility] [address] [place] [address] Dr. Tete Peters Performed by: Comment Normal [facility] Comment on above: Result Comment: Luisa Ross Tube Winder Hand (ASCP) Performed at: WB Performed By: #### [id number] #### [facility] [address] [place] [address] Dr. Tete Peters QC reviewed by: Comment Normal [facility] Comment on above: Result Comment: Monika Ortiz, Supervisory Tube Winder Hand (ASCP) Performed at: WB Performed By: #### [id number] #### [facility] [address] [place], [place] [address] Dr. Tete Peters Specimen adequacy: Comment Normal [facility] Comment on above: Result Comment: Sati sfactory for evaluation. Endocervical and/or squamous metaplastic cells (endocervical component) are present. Performed at: WB Performed By: #### 4 [id number] #### [facility] [address] [address] [address] Tete Peters Vitamin B12on 01-12-2021 Cobalamin (Vitamin B12) [Mass/Vol] 297 pg/mL Normal 180-914 [facility] Comment on above: Order Comment: Reaso n for Exam Prediabetes Result Comment: PERF ORMED BY: [place] [address] PATHOLOGIST SEASONAL DRIVER THEO CHU M.D. Performed By: #### B 12 #### [address] TAVERN OPERATOR polysom portableon 11-16 TAVERN OPERATOR polysom portable [facility] Main [place] [address] [place] [address] Sleep Lab Report Signed Patient: Marina Contreras MR#: [id number] : 1990 Acct:[id number] Age/Sex: 30 / F ADM Date: 11/09/20 [...] home sleep test was performed utilizing the [employer] Nox T3 system. Parameters recorded include actigraphy, [...] Dictated By: Anne Marie Mejía MD 11/16/20 [id number] Signed By: 11/18/[id number] [facility] Vital Signs Date Time Vital Sign Value Performing Clinician Facility 05-30-2023 09:36-0500 Body weight 116.48 kg [employer] Work Phone: [facility] 05-30-2023 09:36-0500 Diastolic blood pressure 70 mm[Hg] [employer] Work Phone: [facility] 05-30-2023 09:36-0500 Systolic blood pressure 116 mm[Hg] [employer] Work Phone: [facility] 04-10-2022 14:00-0500 Body height 157.48 cm Kamilah Quarlesault Other [facility] Other 04-10-2022 14:00-0500 Body mass index (BMI) [Ratio] 44.92 kg/m2 Kamilah Quarlesault Other [facility] Other 04-10-2022 14:00-0500 Body temperature 99.5 [degF] Kamilah Quarlesault Other [facility] Other 04-10-2022 14:00-0500 Body weight 111.4 kg Kamilah Quarlesault Other [facility] Other 04-10-2022 14:00-0500 Diastolic blood pressure 68 mm[Hg] Kamilah Goyo Other [facility] Other 04-10-2022 14:00-0500 Respiratory rate 18 /min Kamilah Quarlesault Other [facility] Other 04-10-2022 14:00-0500 SaO2% (BldA) [Mass fraction] 95 % Kamilah Quarlesault Other [facility] Other 04-10-2022 14:00-0500 Systolic blood pressure 116 mm[Hg] Kamilah Quarlesault Other [facility] Other 04-30-2021 10:45-0500 Body height 157.48 cm Norris Ames Other [facility] Other 04-30-2021 10:45-0500 Body mass index (BMI) [Ratio] 41.72 kg/m2 Norris Ames Other [facility] Other 04-30-2021 10:45-0500 Body weight 103.47 kg Norris Ames Other [facility] Other 04-30-2021 10:45-0500 Diastolic blood pressure 75 mm[Hg] Norris Byrnediff Other [facility] Other 04-30-2021 10:45-0500 Respiratory rate 18 /min Norris Byrnediff Other [facility] Other 04-30-2021 10:45-0500 SaO2% (BldA) [Mass fraction] 99 % Norris Grullonff Other [facility] Other 04-30-2021 10:45-0500 Systolic blood pressure 110 mm[Hg] Norris Ames Other [facility] Other 03-03-2021 11:30-0500 Body height 157.48 cm Linda Bocanegramyke Other [facility] Other 03-03-2021 11:30-0500 Body mass index (BMI) [Ratio] 42.5 kg/m2 Linda Fitt Other [facility] Other 03-03-2021 11:30-0500 Body weight 105.42 kg Linda Fitt Other [facility] Other 02-25-2021 12:00-0400 Body height 157.48 cm Norris Kwakulyndsey Schwarz Other [facility] Other 02-25-2021 12:00-0400 Body mass index (BMI) [Ratio] 41.92 kg/m2 Norris Ames Other [facility] Other 02-25-2021 12:00-0400 Body weight 103.97 kg Norris Ames Other [facility] Other 02-25-2021 12:00-0400 Diastolic blood pressure 79 mm[Hg] Norris Ames Other [facility] Other 02-25-2021 12:00-0400 Respiratory rate 18 /min Norris Ames Other [facility] Other 02-25-2021 12:00-0400 SaO2% (BldA) [Mass fraction] 97 % Norris Ames Other [facility] Other 02-25-2021 12:00-0400 Systolic blood pressure 118 mm[Hg] Norris Ames Other [facility] Other 01-20-2021 10:00-0400 Body height 157.48 cm Linda Sagar Other [facility] Other 01-20-2021 10:00-0400 Body mass index (BMI) [Ratio] 42.68 kg/m2 Lindafrederic Keith Other [facility] Other 01-20-2021 10:00-0400 Body weight 105.87 kg Linda Fitmyke Other [facility] Other Encounters Encounter Date Encounter Type Care [...] 04-10-2022 End: 04-10-2022 ambulatory Kamilah Nance Other [facility] Other Start: 04-10-2022 Office outpatient vi sit 15 minutes Kamilah Nance [facility] Start: 05-26-2021 End: 02-02-2022 ambulatory Norris Ames Other [facility] Other Start: 05-26-2021 Telephone encounter Norris Steele [facility] Start: 04-30-2021 End: 04-30-2021 ambulatory Norris Ames Other [facility] Other Start: 04-30-2021 Follow-up encounter Norris queen [facility] Start: 04-13-2021 End: 04-13-2021 ambulatory Linda Keith Other [facility] Other Start: 04-13-2021 Telephone encounter Linda Messina [facility] Start: 03-09-2021 End: 03-09-[address] NONE LISTED REQUEST Facility: Start: 03-03-2021 ([facility] RD FU) [facility] F/ U [employer] Air[employer] Hostess Linda Keith [facility] Start: 03-03-2021 End: 03-03-2021 ambulatory Linda Bocanegramyke Other [facility] Other Start: 02-25-2021 End: 02-25-2021 ambulatory Norris Ames Dalila Other [facility] Other Start: 02-25-2021 Follow-up encounter Norris howard [facility] Start: 02-04-2021 Telephone encounter Norris howard [facility] Start: 01-20-2021 ([facility] FU) [facility] F/ U [employer] Hostess Linda Keith [facility] Procedures Date Procedure Procedure Detail [...] procedure 06/28/2023 9:30 AM EST Routine [facility] [address] [place] [address] Neelam Sutherland PA [address] [place] [address] [facility] Start: 06-13-2023 End: 06-13-2023 Professional / ancillary services management 06/13/2023 9:00 AM EST Ancillary Procedure [facility] [address] [place] [address] [facility] Start: 05-30-2023 End: 09-28-2023 Alpha fetoprotein, maternal Alpha fetoprotein, maternal Lab Routine Second trimester Expected: 05/30/2023 (Approximate), Expires: 09/28/2023 [facility] Comment on above: Expected: 05/30/2023 (Approximate), Expires: 09/28/2023 Start: 05-30-2023 End: 05-30-2024 US for US OB ANATOMY SINGLE W US OB CERVICAL LENGTH Imaging Routine Screening, , for anatomic survey Expected: 05/30/2023 (Approximate), Expires: 05/30/2024 [facility] Comment on above: Expected: 05/30/2023 (Approximate), Expires: 05/30/2024 Start: 12-23-2022 Influenza vaccination Influenza Vacc ine (#1) [facility] Start: 2019 Screening for malign ant neoplasm of cervix [facility] Start: 2010 Screening for malign ant neoplasm of cervix Pap Smear [facility] CHLAMYDIA TRACHOMATI S (GENITO/STI) CHLAMYDIA TRACHOMATIS (GENITO/STI) Lab Routine STD exposure Ordered: 05/30/2023 [facility] Comment on above: Ordered: 05/30/2023 Cytology Cervical or vaginal smear or scraping study Pap Smear Pathology and Cytology Routine Well woman exam with routine gynecological exam Ordered: 05/30/2023 [facility] Work Phone: Comment on above: Ordered: 05/30/2023 Human papilloma viru s DNA [Presence] in Unspecified specimen by Probe with amplification HPV DNA probe, amplified Microbiology Routine Well woman exam with routine gynecological exam Ordered: 05/30/2023 [facility] Comment on above: Ordered: 05/30/2023 Neisseria gonorrhoea e DNA [Presence] in Unspecified specimen by NANCY with probe detection Neisseria gonorrhea DNA probe, direct Lab Routine STD exposure Ordered: 05/30/2023 [facility] Comment on above: Ordered: 05/30/2023 SURESWAB(R) ADVANCED VAGINITIS PLUS, TMA SURESWAB(R) ADVANCED VAGINITIS PLUS, TMA Pathology and Cytology Routine Vaginal discharge Ordered: 05/30/2023 [facility] Comment on above: Ordered: 05/30/2023 Payers Date Payer Category Payer Unknown BCBS BCBS [id number] 2022-Present [phone] [address] [place] [address] [id number] 2022 [facility] [id number] 1989 Unknown [id number] .593 1989 Unknown [id number] [id number] .1259 1989 Unknown [id number] [id number] .1259 1989 Unknown [id number] [id number] .1259 1989 Unknown [id number] [id number] .1259 1989 Unknown [id number] 2.16.840.1.485201.3.579.2 .1259 1989 Unknown [id number] 2.16.840.1.032212.3.579.2 .1259 1989 Unknown [id number] 2.16.840.1.167162.3.579.2 .1259 1989 Unknown [id number] [id number] .1259 1989 Unknown [id number] [id number] .1259 1960 Private Health Insurance [id number] Social History Date Type Detail Facility Unknown if ever smoked [facility] Other Start: 04-05-2023 Sex Assigned At N [facility] Other Start: 04-05-2023 Tobacco smoking status NHIS [...] meal for a total of 4times daily.. [id number] Start: 05-23-2023 End: 06-22-2023 1 each by In Vit ro route in the morning. Use to check FSBS four times daily. [id number] Start: 05-23-2023 End: 06-22-2023 History of Present [...] nursing note reviewed. Exam conducted with a kiln feeder present. Vitals: There is no height or [...] Kristian Jimenes DO documented in this encounter [facility] Healthcare Evaluation note 04-10-2022 Note [...] should improve within the next 4-7 days. [facility] Other Evaluation note 04-30-2021 Note Date & [...] Low vitamin B12 level (ICD-10 - E53.8) [facility] Other Evaluation note 03-03-2021 Note Date & [...] holidays (C) Answered general, nutrition-rela madelin questions [facility] [facility] Other Evaluation note 02-25-2021 Note Date & [...] Low vitamin B12 level (ICD-10 - E53.8) [facility] Other Evaluation note 01-20-2021 Note Date & [...] methods (C) Answered general nutrition-rel ated questions [facility] [facility] Other Evaluation note Note Date & Type Note Facility Evaluation note No Information [employer] Other Evaluation note Note Date & Type [...] Surgical History appendectomy Hospitalization History see above [facility] Other Summary Purpose Family History No Family History Records FoundNo Family History Records FoundNo Family History Records Found Advance Directives No Advanced Directives Records FoundNo Advanced Directives Records FoundNo Advanced Directives Records Found Additional Source Comments INFORMATION SOURCE (unrecogn ized section and content) DATE CREATED AUTHOR 03/17/2021 [facility] DATE CREATED AUTHOR AUTHOR'S ORGANIZ ATION 10/28/2021 [facility] DATE CREATED AUTHOR AUTHOR'S ORGANIZ ATION 09/26/[address] [facility] dical Specialists EPIC REASON FOR VISIT (unrecogniz ed section and content) Reason Comments Routine Visit Well Women Visit CONGESTION B/A H/A SORE THRAOTFCCC Pt does not wish our services 06/28/21CC RD N/S 04/13/2021, LM f/AníbalMN F/DAGOBERTO EX Care Teams (unrecognized sec tion and content) Linux Security Administrator Relationship Specialty Start Date End Date Reinaldo Lara MD PCP - General Family Medicine 03/23/23 [employer] Security Administrator Relationship Specialty Start Date End Date Reinaldo [...] BE BASED ON THE PRIMARY CLINICAL RECORDS. [facility] [employer] provides no warranty or guarantee of the accuracy or completeness of information in this document.
--- NOTE | 2023-10-05 14:10 | US_ITS ---
[address] [address] Patient Name: VERA CONTRERAS MRN: [facility]:[id number] date: 1990 Sex: F Assigned Patient Location: US Current Patient Location: Accession/Order Number: [id number] Exam Date: 10/05/2023 14:11 Report Date: 10/06/2023 07:13 At the request of: KRISTIAN MARIN Procedure: US OB BPP w non-stress EXAMINATION: US OB BPP w non-stress HISTORY: Gestational diabetes O24.414 COMPARISON: No relevant comparison available. TECHNIQUE: Ultrasound biophysical profile was performed in the radiology department. FINDINGS: BREATHING MOVEMENTS: 2.0 GROSS BODY MOVEMENTS: 2.0 TONE: 2.0 QUALITATIVE AMNIOTIC FLUID VOLUME: 2.0 PRESENTATION: CEPHALIC HEART RATE: 160.7 bpm H.B./min AMNIOTIC FLUID VOLUME: 18.0 cm cm GESTATIONAL AGE: 37 weeks 0 days CONCLUSION: Total biophysical profile score: 8.0 Electronically authenticated by: SILVER DASILVA Date: 10/06/2023 07:13
--- NOTE | 2023-10-05 14:10 | US_ITS ---
[address] [address] Patient Name: VERA CONTRERAS MRN: [id number] date: 1990 Sex: F Assigned Patient Location: [facility] Current Patient Location: Accession/Order Number: [id number] Exam Date: 10/05/2023 14:11 Report Date: 10/06/2023 07:16 At the request of: KRISTIAN MARIN Procedure: US OB growth EXAMINATION: US OB growth HISTORY: Gestational diabetes O24.414 COMPARISON: 09/07/2023 FINDINGS: Heart Rate: 160.7 bpm Amniotic Fluid Volume: 18.0 cm Number: 1.0 Position: Transverse head head to the maternal left Maximum Vertical Pocket: 3.3 cm cm 4.2 cm cm 4.7 cm cm 5.8 cm cm BIOMETRY: BPD: 9.3 cm cm; 37 weeks 5 days; 83% HC: 34.0 cmcm; 39 weeks 1 days , 76% AC: 37.2 cm cm; 41 weeks 1 days, greater than 97% FL: 7.0 cm cm; 36 weeks 0 days; 23.5 % % EFW: 3788.7 grams, 8 lbs. 6 oz., greater than 97% FL/AC: 18.9 FL/BPD: 75.6 HC/AC: 0.9 GESTATIONAL AGE: Age by EDC: 37 weeks 0 days ROSY by EDC: 10/26/2023 Age by US: 38 weeks 4 days ROSY by US: 10/15/2023 US/US OB growth IMPRESSION: Large for gestational age. Estimated weight greater than the 97th percentile Electronically authenticated by: SILVER DASILVA Date: 10/06/2023 07:16
[2023-10-05 15:39] VITALS: BP 130/71; PULSE 80
== END 2023-10-05 15:50 | disposition home or self-care (01) ==
LOC: US 06:59 → FBC 14:10
PROVIDERS: PCP Family Medicine; Visit Provider Obstetrics & Gynecology
DX: O24.414 Gestational diabetes mellitus in pregnancy, insulin controlled (principal); O36.63X0 Maternal care for excessive fetal growth, third trimester, not applicable or unspecified; Z3A.38 38 weeks gestation of pregnancy
CPT/HCPCS: 76816; 76818

== ENCOUNTER 2023-10-09 10:19 | Inpatient (IN) | payer BC, SELFPAY ==
[2023-10-09] VITALS (35 sets, daily range): BP systolic 85–117; BP diastolic 45–79; PULSE 67–82; TEMP 36.4–37.1; O2SAT 92–99
[2023-10-09 12:00] LABS: Basophils Percent Auto 0.2 % (0.2-2.0); Eosinophils Absolute Auto 0.1 10^3/uL (0.0-0.7); Eosinophils Percent Auto 0.6 % (0.9-7.0); Hematocrit 32.9 % (36.0-48.0); Immature Granulocytes Abs Auto 0.03 10^3/uL (0.00-0.03); Immature Granulocytes Pct Auto 0.3 % (0.0-0.5); Lymphocytes Absolute Auto 1.9 10^3/uL (1.2-3.8); Lymphocytes Percent Auto 19.5 % (20.5-60.0); Mean Corpuscular HGB Conc 33.4 g/dL (29.9-35.2); Mean Corpuscular Volume 86.8 fL (81.0-99.0); Mean Platelet Volume 10.8 fL (9.5-13.5); Monocytes Absolute Auto 0.5 10^3/uL (0.3-0.8); Monocytes Percent Auto 4.9 % (1.7-12.0); Neutrophils Absolute Auto 7.2 10^3/uL (1.4-6.5); Neutrophils Percent Auto 74.5 % (43.0-75.0); Platelet Count 267 10^3/uL (150-450); Red Blood Count 3.79 10^6/uL (4.20-5.40); Red Cell Distribution Width 13.9 % (11.0-15.0); White Blood Count 9.7 10^3/uL (4.0-11.0)
[2023-10-09] MEDS: 0.9 % SODIUM CHLORIDE 1,000 ML 1000 ML IV (12:50)
[2023-10-09] MEDS: CITRIC ACID/SODIUM CITRATE 30 ML SOLUTION ORACIT SHOHL'S SOLN PO (13:24)
[2023-10-09] MEDS: FAMOTIDINE/PF 20 MG/2 ML VIAL IV (13:25)
[2023-10-09] MEDS: METOCLOPRAMIDE HCL 10 MG/2 ML VIAL IVP (13:28)
[2023-10-09] MEDS: CEFAZOLIN SODIUM/DEXTROSE,ISO 2 GM/50 ML PIGGYBACK IV ×2 (13:58→20:41)
[2023-10-09] MEDS: LACTATED RINGER'S SOLUTION 1,000 ML 50 ML IV ×2 (14:33→15:19)
--- NOTE | 2023-10-09 15:10 | P.ON_ITS ---
Brief Operative Note Date of procedure: 10/09/23 Pre-op diagnosis general: iup at 37 4/7wks, increased lower abdominal pain, sl ightly elevated bp with headache that has been present over several days, uncontrolled gdma2 Post-op diagnosis: other (very thin lower uterine segment, window present) Procedure: NAME OF PROCEDURE: [ section with bilateral salpingectomy ] PROCEDURE: Patient was taken back to the Operating Room where she was given a spinal anest hesia with Duramorph without difficulty. She was prepped and draped in the normal sterile fashion. A Pfannenstiel skin incision was then made 2?cm above the symphysis pubis and carried down to underlying rectus fascia using a Bovie. The fascia was incised in the midline and extended laterally using Corey scissors. Two Sebastien clamps were placed on the superior aspect of the fascia and dissected off the underlying rectus muscles. The same was performed on the inferior aspect as well. The muscles were then in the midline. Peritoneum was identified and entered bluntly. The peritoneum was then extended superiorly and inferiorly with good visualization of the bladder. The bladder blade was inserted. Vesicouterine peritoneum was identified, tented up, and entered with Metzenbaum scissors. A bladder flap was then created digitally. The bladder blade was reinserted. A low transverse incision was made on the patient's uterus and extended laterally digitally. The infant was then delivered atraumatically after the bladder blade was removed in the cephalic position. The cord was clamped and cut. Cord blood was obtained. The infant was handed off to awaiting team. The patient's placenta was spontaneously delivered. The uterus was then exteriorized. The uterus was cleared of all clots and debris. The bladder blade was reinserted. The patient's uterine incision was closed usi ng #0 Vicryl in a running lock fashion. Excellent hemostasis was assured.? The rt tube was identified and grasped with babalexis, the ligasure was used to transect and ligate the tube in its entirity, this was done on the contralateral side as well. The uterus was then returned to the patient's abdomen. The patient's abdomen was copiously irrigated using warm saline. Peritoneal gutters were cleared of all clots and debris. Again excellent hemostasis was assured. The patient's fascia was closed using #0 Vicryl in a running fashion. The patient's skin was closed using 4-0 Vicryl subcuticularly. The patient tolerated the procedure well. Sponge, lap, and needle counts were correct x2. The patient was taken to the Recovery Room in stable condition. Anesthesia: spinal Surgeon: Chad Jimenes Junior Qa Analyst: Emma Fulton Estimated blood loss (mL): 700 Pathology: other (placenta and tubes) Condition: stable Disposition: floor Urinary Catheter Management Urinary Catheter Management Urethral: Cath placed during this visit: no
--- NOTE | 2023-10-09 15:13 | PM.OBPRCCS ---
Procedure Pre-op/Post-op diagnoses: Pre-Op/Post-Op Diagnoses Operation Date: 10/09/23 14:00 <No data on this case meets the specified criteria> Procedure: Procedures Operation Date: 10/09/23 14:00 Actual Procedure Side Surgeon p Repeat with bilateral salpingectomy Not Applicable Chad Jimenes DO Tunnel Heading Supervisor: Emma Fulton Estimated blood loss (mL): 700 Disposition: floor Anesthesia type: Spinal
[2023-10-09] MEDS: 0.9 % SODIUM CHLORIDE 10 ML VIAL 30 ML INJ (15:20)
[2023-10-09] MEDS: BUPIVACAINE LIPOSOME/PF 266 MG/13.3 ML VIAL INJ (15:20)
[2023-10-09] MEDS: BUPIVACAINE HCL 0.5% PF 50 MG/10 ML VIAL 20 ML INJ (15:20)
[2023-10-09] MEDS: OXYTOCIN/0.9 % SODIUM CHLORIDE 20 UNITS/1,000 ML PLAST..BAG 125 UNIT IV (15:47)
[2023-10-09 16:45] LABS: Bilirubin Urine NEGATIVE (NEGATIVE); Blood Urine NEGATIVE (NEGATIVE); Clarity Urine CLEAR (CLEAR); Color Urine YELLOW (YELLOW); Glucose Urine UA NEGATIVE (NEGATIVE); Ketones Urine 40 mg/dL (NEGATIVE); Leukocyte Esterase Urine NEGATIVE (NEGATIVE); Nitrite Urine NEGATIVE (NEGATIVE); Protein Urine NEGATIVE (NEG/TRACE); Specific Gravity Urine 1.025 (1.005-1.025); pH Urine 6.5 (5.0-9.0)
[2023-10-09 16:57] LABS: Amphetamine Screen Urine NEGATIVE (NEGATIVE); Bacteria Urine SMALL #/HPF (NONE SEEN); Barbiturates Screen Urine NEGATIVE (NEGATIVE); Benzodiazepines Screen Urine NEGATIVE (NEGATIVE); Buprenorphine Screen Urine NEGATIVE (NEGATIVE); Cannabinoid Screen Urine NEGATIVE (NEGATIVE); Cast Seen? NONE SEEN #/LPF (NONE SEEN); Cocaine Screen Urine NEGATIVE (NEGATIVE); Crystals Seen? None Seen #/HPF (None Seen); Methadone Screen Urine NEGATIVE (NEGATIVE); Methamphetamines Screen Urine NEGATIVE (NEGATIVE); Mucus Urine SMALL (NONE SEEN); Opiate Screen Urine NEGATIVE (NEGATIVE); Oxycodone Screen Urine NEGATIVE (NEGATIVE); Phencyclidine Screen Urine NEGATIVE (NEGATIVE); Squamous Epithelial Cell Urine MODERATE #/LPF (NONE/RARE); Tricyclic Antidepressant Urine NEGATIVE (NEGATIVE); WBC Urine 0-2 #/HPF (NONE SEEN)
--- NOTE | 2023-10-09 19:45 | W.PC.ACHO ---
Registration Status: ADM IN Primary Language: Monegasque Preferred Language: Monegasque 1930-bedside report given Active Medications Generic Name Dose Route Start Last Admin Trade Name Freq PRN Reason Stop Dose Admin Acetaminophen 1,000 mg 10/09/23 16:00 Acetaminophen 500 Mg Tablet PO 10/11/23 16:01 Q8H SAVANNAH Al Hydroxide/Mg Hydroxide 2,400 mg 10/09/23 15:14 Magnesium Hydroxide 2,400 Mg/10 Ml Oral.Susp PO Q6H PRN Dyspepsia Diphenhydramine HCl 25 mg 10/09/23 15:14 Diphenhydramine Hcl 50 Mg/Ml Vial IV 10/10/23 15:16 Q6H PRN Itching Diphtheria/Pertussis/Tetanus Vacc 0.5 ml 10/11/23 09:00 Adacel Diph,Pertuss(Acell),Tet Vac/Pf 0.5 Ml Adult Syringe IM 10/11/23 09:01 .ONCE ONE Docusate Sodium 100 mg 10/10/23 09:00 Docusate Sodium 100 Mg Capsule PO BID SAVANNAH Enoxaparin Sodium 40 mg 10/09/23 23:00 Enoxaparin Sodium 40 Mg/0.4 Ml Syringe SUBQ Q24H SAVANNAH Lactated Ringer's 1,000 mls @ 50 mls/hr 10/09/23 15:00 10/09/23 15:19 Lactated Ringers IV 50 mls/hr .Q20H SAVANNAH Administration Sodium Chloride 1,000 mls @ 125 mls/hr 10/09/23 15:30 Sodium Chloride 0.9% 1,000 Ml IV .Q8H SAVANNAH Cefazolin Sodium/Dextrose 2 gm in 50 mls @ 100 mls/hr 10/09/23 20:00 Ancef IV 10/09/23 20:29 ONCE ONE Promethazine HCl 25 mg/ Sodium 51 mls @ 204 mls/hr 10/09/23 15:14 Chloride IV Q6H PRN Nausea And Vomiting Oxytocin/Sodium Chloride 20 units in 1,000 mls @ 125 mls/hr 10/09/23 16:00 10/09/23 15:47 Pitocin 20 Unit/1,000 Ml-Ns IV 10/09/23 23:59 125 mls/hr Q8H SAVANNAH Administration Ibuprofen 800 mg 10/10/23 10:00 Ibuprofen 400 Mg Tablet PO Q6H SAVANNAH Insulin Human Isoph/Insulin Regular 2.3 unit 10/09/23 22:00 Insulin Nph 70-30 100unit/Ml Vial (10ml) SUBQ BID [facility] Insulin Human Regular 4 unit 10/09/23 22:00 Insulin Regular 300 Units/3 Ml SUBQ BID [facility] Ketorolac Tromethamine 30 mg 10/09/23 16:00 Ketorolac Tromethamine 30 Mg/Ml Vial IVP 10/10/23 09:01 Q6H [facility] Measles/Mumps/Rubella Vaccine Live 0.5 ml 10/11/23 09:00 Measles,Mumps,Rubella Vacc/Pf 0.5 Ml Vial SQ 10/11/23 09:01 .ONCE ONE Ondansetron HCl 4 mg 10/09/23 15:14 Ondansetron Pf 4 Mg/2 Ml Vial IV Q6H PRN Nausea And Vomiting Ondansetron HCl 4 mg 10/09/23 15:14 Ondansetron 4 Mg Rapdis Tablet PO Q6H PRN Nausea And Vomiting Oxycodone HCl 5 mg 10/09/23 15:14 Oxycodone Hcl 5 Mg Tablet PO Q4H PRN Breakthrough Pain Senna 17.2 mg 10/09/23 20:00 Sennosides 8.6 Mg Tablet PO QHS PRN Constipation Simethicone 80 mg 10/09/23 15:14 Simethicone 80 Mg Tab.Chew PO QID PRN Abdominal Distention Venlafaxine HCl 75 mg 10/09/23 21:00 Venlafaxine Hcl Er 37.5 Mg Capsule PO BID [facility] Diet Category Date Time Status Regular Consistency Diet Diet 10/09/23 15:14 Active IV Insertion/Site Date of IV Line Insertion [ 10/09/23 Short PIV (<1.75 in) 20g left Hand] Date of IV Line Insertion [ 10/09/23 Short PIV (<1.75 in) 20g right Hand] IV Insertion Time [Short PIV ( 14:10 <1.75 in) 20g left Hand] IV Insertion Time [Short PIV ( 11:19 <1.75 in) 20g right Hand] Neurology Patient orientation (short person,place,time,situation list) [place] coma scale total score 15 [place] coma scale total score 15 Respiratory Pulse Oximetry 94 Pulse Oximetry 93 Pulse Oximetry 94 Pulse Oximetry 94 Pulse Oximetry 93 Pulse Oximetry 94 Pulse Oximetry 94 Pulse Oximetry 95 Pulse Oximetry 95 Pulse Oximetry 96 Pulse Oximetry 98 Pulse Oximetry 97 Pulse Oximetry 97 Pulse Oximetry 94 Pulse Oximetry 98 Pulse Oximetry 98 Pulse Oximetry 98 Pulse Oximetry 99 Pulse Oximetry 97 Pulse Oximetry 97 Pulse Oximetry 98 Pulse Oximetry 97 Pulse Oximetry 97 Pulse Oximetry 96 Pulse Oximetry 96 Pulse Oximetry 96 Pulse Oximetry 96 Pulse Oximetry 92 Pulse Oximetry 92 Pulse Oximetry 92 Pulse Oximetry 92 Pulse Oximetry 93 Pulse Oximetry 99 Oxygen Delivery Method Room Air Oxygen Delivery Method Room Air Oxygen Delivery Method Room Air Oxygen Delivery Method Room Air Renal Bladder Pattern Continent Catheter Urinary Catheter Date of 10/09/23 Insertion [Urethral] Urinary Catheter Time of 14:16 Insertion [Urethral]
[2023-10-09] MEDS: VENLAFAXINE HCL ER 37.5 MG CAPSULE 75 MG PO (21:30)
[2023-10-09] MEDS: KETOROLAC TROMETHAMINE 30 MG/ML VIAL IVP (21:31)
[2023-10-09] MEDS: INSULIN NPH 70-30 100UNIT/ML VIAL (10ML) 2.29999999999999982 UNIT SUBQ (22:20)
[2023-10-09] MEDS: INSULIN REGULAR 300 UNITS/3 ML 4 UNIT SUBQ (22:25)
[2023-10-10] VITALS (7 sets, daily range): BP systolic 100–127; BP diastolic 53–58; PULSE 74–86; TEMP 36.2–36.9
--- NOTE | 2023-10-10 00:21 | PC.NURSE ---
Colostrum dripping from breasts
[2023-10-10] MEDS: ENOXAPARIN SODIUM 40 MG/0.4 ML SYRINGE SUBQ (03:44)
[2023-10-10] MEDS: KETOROLAC TROMETHAMINE 30 MG/ML VIAL IVP ×2 (03:44→09:14)
[2023-10-10 06:13] LABS: Basophils Percent Auto 0.2 % (0.2-2.0); Eosinophils Percent Auto 0.1 % (0.9-7.0); Hematocrit 26.1 % (36.0-48.0); Hemoglobin 8.6 g/dL (12.0-16.0); Immature Granulocytes Abs Auto 0.07 10^3/uL (0.00-0.03); Immature Granulocytes Pct Auto 0.5 % (0.0-0.5); Lymphocytes Absolute Auto 2.5 10^3/uL (1.2-3.8); Lymphocytes Percent Auto 17.4 % (20.5-60.0); Mean Corpuscular Hemoglobin 28.9 pg (26.7-34.0); Mean Corpuscular Volume 87.6 fL (81.0-99.0); Mean Platelet Volume 11.3 fL (9.5-13.5); Monocytes Absolute Auto 0.8 10^3/uL (0.3-0.8); Monocytes Percent Auto 5.3 % (1.7-12.0); Neutrophils Absolute Auto 10.9 10^3/uL (1.4-6.5); Neutrophils Percent Auto 76.5 % (43.0-75.0); Platelet Count 282 10^3/uL (150-450); Red Blood Count 2.98 10^6/uL (4.20-5.40); Red Cell Distribution Width 13.9 % (11.0-15.0); White Blood Count 14.3 10^3/uL (4.0-11.0)
[2023-10-10] MEDS: ACETAMINOPHEN 500 MG TABLET 1000 MG PO ×3 (07:56→16:49)
--- NOTE | 2023-10-10 08:40 | P.OBPN_ITS ---
OB - PN: Subj Subjective Patient comments: no complaints and pain well controlled [place] status: doing well [place] feeding status: exclusively Exam Constitutional Vital Signs, click to edit/add: Last Vital Signs Temp 98.4 F 10/10/23 03:56 Pulse 74 10/10/23 07:56 Resp 18 10/10/23 03:56 BP 104/56 10/10/23 07:56 Pulse Ox 94 L 10/09/23 18:10 O2 Del Method Room Air 10/09/23 18:00 Common normals: no apparent distress, average body habitus, oriented x3, no limitations, healthy appearing, alert and well nourished General appearance: cooperative HENMT Common normals: normocephalic Eye Common normals: EOMs intact bilaterally Neck & C-Spine Common normals: full ROM Lymph Lymphatic: no lymphadenopathy noted Respiratory Common normals: normal respiratory effort, no retractions, no use of accessory muscles, clear to auscultation bilaterally and percussion normal Cardio Common normals: regular rate and regular rhythm Rate: regular rate Rhythm: regular rhythm GI Common normals: Normal to inspection, nondistended, normoactive bowel sounds present Common normals: no CVA tenderness Back & Pelvis Common normals: no CVA tenderness Extremity Common normals: normal to inspection Neuro Common normals: oriented x3 Sensorium/orientation: awake, alert, oriented to person, oriented to place and oriented to time Psych Common normals: mental status grossly normal Results Labs Labs: Short CBC 10/09/23 10/10/23 Range/Units 11:54 05:58 WBC 9.7 14.3 H (4.0-11.0) 10^3/uL Hgb 11.0 L 8.6 L (12.0-16.0) g/dL Hct 32.9 L 26.1 L (36.0-48.0) % Plt Count 267 282 (150-450) 10^3/uL Urine 10/09/23 Range/Units 12:40 Urine Color Yellow (YELLOW) Urine Clarity Clear (CLEAR) Urine pH 6.5 (5.0-9.0) Ur Specific [place] 1.025 (1.005-1.025) Urine Protein Negative (NEG/TRACE) mg/dL Urine Glucose (UA) Negative (NEGATIVE) mg/dL Urinary Catheter Management Urinary Catheter Management Urethral: Cath placed during this visit: yes Urethral indwelling: No Insertion date: 10/09/23 Insertion time: 14:16 OB - PN: A/P Plan - Plan: routine postop care Time Spent with Patient Time: Total time spent is greater than 50% in coordination of care (as documented) at patient's floor/unit and/or counseling patient: Total time spent with greater than 50% in coordination of care (as documented) at patient's floor/unit and/or counseling patient: less than 15 minutes
[2023-10-10] MEDS: FERROUS SULFATE 325 MG TABLET PO ×2 (09:14→21:35)
[2023-10-10] MEDS: DOCUSATE SODIUM 100 MG CAPSULE PO ×2 (09:14→21:35)
[2023-10-10 09:37] LABS: Glucometer 157 mg/dL (74-106)
[2023-10-10] MEDS: INSULIN NPH 70-30 100UNIT/ML VIAL (10ML) SUBQ ×2 (09:37→21:38)
[2023-10-10] MEDS: INSULIN REGULAR 300 UNITS/3 ML 4 UNIT SUBQ ×2 (09:45→21:40)
[2023-10-10] MEDS: IBUPROFEN 400 MG TABLET 800 MG PO ×2 (16:50→23:19)
[2023-10-10] MEDS: VENLAFAXINE HCL ER 37.5 MG CAPSULE 75 MG PO (21:33)
[2023-10-10 21:38] LABS: Glucometer 166 mg/dL (74-106)
[2023-10-11] MEDS: ACETAMINOPHEN 500 MG TABLET 1000 MG PO ×2 (01:19→08:20)
[2023-10-11] MEDS: ENOXAPARIN SODIUM 40 MG/0.4 ML SYRINGE SUBQ (02:59)
[2023-10-11] MEDS: IBUPROFEN 400 MG TABLET 800 MG PO (05:41)
[2023-10-11 07:17] VITALS: BP 113/55; PULSE 77
[2023-10-11 07:49] LABS: Glucometer 119 mg/dL (74-106)
--- NOTE | 2023-10-11 08:02 | PM.OBPN ---
OB - PN: Subj Subjective Patient comments: no complaints and pain well controlled status: doing well Exam Constitutional Vital Signs, click to edit/add: Last Vital Signs Temp 98 F 10/10/23 12:15 Pulse 77 10/11/23 07:17 Resp 18 10/10/23 12:15 BP 113/55 10/11/23 07:17 Pulse Ox 94 L 10/09/23 18:10 O2 Del Method Room Air 10/10/23 12:15 Documenting provider has reviewed patient's vital signs: yes Common normals: no apparent distress Respiratory Common normals: normal respiratory effort and clear to auscultation bilaterally Cardio Common normals: regular rate and regular rhythm GI Common normals: Normal to inspection, nondistended, normoactive bowel sounds present Extremity Common normals: no calf tenderness Urinary Catheter Management Urinary Catheter Management Urethral: Cath placed during this visit: yes, but has since been removed by the nurse Urethral indwelling: No Insertion date: 10/09/23 Insertion time: 14:16 Removal date: 10/10/23 Removal time: 10:00 OB - PN: A/P Plan - day: 2 Plan: routine postop care, discharge home and other (fu 1wks) Time Spent with Patient Time: Total time spent is greater than 50% in coordination of care (as documented) at patient's floor/unit and/or counseling patient: Total time spent with greater than 50% in coordination of care (as documented) at patient's floor/unit and/or counseling patient: less than 15 minutes
[2023-10-11 08:09] VITALS: TEMP 37
[2023-10-11] MEDS: DOCUSATE SODIUM 100 MG CAPSULE PO (08:19)
--- NOTE | 2023-10-11 08:45 | PC.NURSE ---
0830 Dr. Jimenes in unit. Order received, insulin discontinued.
--- NOTE | 2023-10-11 08:48 | PC.NURSE ---
0730 Pating complains of of tingling in right arm, resolved with movement.
[2023-10-11] MEDS: FERROUS SULFATE 325 MG TABLET PO (10:16)
== END 2023-10-11 16:00 | disposition home or self-care (01) | DRG 784 ==
PROVIDERS: Admitting Provider Obstetrics & Gynecology; PCP Family Medicine; Visit Provider Obstetrics & Gynecology
PROC: 10D00Z1 Extraction of Products of Conception, Low, Open Approach (ICD-10-PCS; CPT 59514; principal; 2023-10-09 14:00)
DX: O24.424 Gestational diabetes mellitus in childbirth, insulin controlled (principal); O98.52 Other viral diseases complicating childbirth; B00.9 Herpesviral infection, unspecified; O34.211 Maternal care for low transverse scar from previous cesarean delivery; Z3A.39 39 weeks gestation of pregnancy; Z30.2 Encounter for sterilization; O75.89 Other specified complications of labor and delivery; R10.30 Lower abdominal pain, unspecified; R03.0 Elevated blood-pressure reading, without diagnosis of hypertension; R51.9 Headache, unspecified; Z37.0 Single live birth; Z87.891 Personal history of nicotine dependence; Z79.82 Long term (current) use of aspirin; Z79.899 Other long term (current) drug therapy; Z23 Encounter for immunization
CPT/HCPCS: 36415; 51702; 64488; 80307; 81001; 82948; 85025; 86850; 86900; 86901; 88302; 88307; 94667; 94668; 96372; 96374; 96375; 96376; J0131; J0665; J0690; J1100; J1650; J1885; J2274; J2371; J2405; J2590; J2765